=== PATIENT | female | born 1925 | race Caucasian/White ===

== ENCOUNTER → 2016-08-23 | Outpatient (CLI) | payer MEDICARE ==
[2015-12-12 11:41] VITALS: BP 149/53
[~2016-08-23] MED LIST: ACET325T9 PO; ACET500T68 PO; AMLO5TAB2 PO; AMOX500C PO; BISA10SU55 RC; CLON0.1T PO; DIGO125T PO; FAMO20TA5 PO; FERR-26 PO; FURO20TA3 PO; LEVO50TA5 PO; LORA0.5T PO; LOSA100T6 PO; MAGN400O4 PO; METO25TA4 PO; METO25TA9 PO; NYST1000 PO; TRAM50TA PO; TRAZ100T12 PO; TRAZ50TA15 PO; WARF2TAB PO; WARF5TAB7 PO
--- NOTE | 2016-08-23 08:49 | RAD ---
Abdominal ultrasound, 08/23/2016: History: Elevated bilirubin The gallbladder is within normal limits in size. It contains echogenic foci with posterior acoustic shadowing compatible with gallstones. The gallbladder wall is not thickened. No bile duct dilatation is seen. There is no evidence of a hepatic mass. The visualized portions of the pancreas and spleen are unremarkable. No renal abnormality is detected. There is aortic atherosclerosis without evidence of aneurysm. Inferior vena cava cava is at the upper limits of normal in size. No free fluid is evident in the abdomen. Incidental note is made of a small right pleural effusion. IMPRESSION: 1. Cholelithiasis. 2. No acute abdominal abnormality is detected. 3. Small right pleural effusion
== END | disposition home or self-care (01) ==
LOC: US 07:50
PROVIDERS: ATTEND Internal Medicine
DX: K80.20 Calculus of gallbladder without cholecystitis without obstruction (principal); J90 Pleural effusion, not elsewhere classified
CPT/HCPCS: 76700

== ENCOUNTER 2016-11-10 23:15 | Inpatient (IN) | payer MEDICARE ==
[~2016-11-10] VITALS: Ht 162.6 cm; Wt 64.9 kg
[~2016-11-10 23:15] MED LIST changes: -MAGN400O4 PO; +MAGN400O7 PO; -NYST1000 PO; +NYST100054 PO
[2016-11-10] MEDS ORDERED: FUROSEMIDE 20 MG/2 ML VIAL. IV PRN (23:30)
[2016-11-10] MEDS ORDERED: IV NORMAL SALINE 1000ML BAG 1,000 ML IV SCH (23:45)
[2016-11-10] MEDS ORDERED: ONDANSETRON PF 4 MG/2 ML VIAL. IV ONE (23:45)
[2016-11-10 23:49] LABS: BASO # 0.1 x10^3/uL (0.0-0.2); BASO % 0 % (0-3); EOS % 0 % (0-3); LYMPH # 1.7 x10^3/uL (1.0-4.8); LYMPH % 12 % (24-48); MEAN CORPUSCULAR HEMOGLOBIN 36 pg (25-35); MEAN CORPUSCULAR HGB CONC 32 g/dL (31-37); MEAN CORPUSCULAR VOLUME 112 fL (79-100); MONO % 6 % (0-9); NEUT % 81 % (31-73); PLATELET COUNT 201 x10^3/uL (140-400); RED BLOOD COUNT 1.24 x10^6/uL (3.50-5.40); WHITE BLOOD COUNT 13.8 x10^3/uL (4.0-11.0)
[2016-11-10 23:51] LABS: HEMATOCRIT 13.9 % (36.0-47.0); HEMOGLOBIN 4.5 g/dL (12.0-15.5)
[2016-11-11] VITALS (36 sets, daily range): BP systolic 93–157; BP diastolic 32–92
[2016-11-11] LABS: PROTHROMBIN TIME PATIENT 48.9 SEC (11.7-14.0)
[2016-11-11 00:04] LABS: INR 5.8 (0.8-1.1)
[2016-11-11 00:06] LABS: CALCIUM 8.1 mg/dL (8.5-10.1); CREATININE 1.9 mg/dL (0.6-1.0); GFR 24.9; POTASSIUM 4.5 mmol/L (3.5-5.1)
[2016-11-11 00:11] LABS: NEG OBC FOB NEG; POS OBC FOB POS
[2016-11-11 00:20] LABS: ALBUMIN 2.7 g/dL (3.4-5.0); ALBUMIN/GLOBULIN RATIO 0.9 (1.0-1.7); TOTAL BILIRUBIN 1.4 mg/dL (0.2-1.0); TOTAL PROTEIN 5.6 g/dL (6.4-8.2)
[2016-11-11] MEDS ORDERED: IV NORMAL SALINE 1000ML BAG 1,000 ML IV SCH (00:24)
[2016-11-11] MEDS ORDERED: ONDANSETRON PF 4 MG/2 ML VIAL. IV PRN (00:30)
[2016-11-11] MEDS ORDERED: fentaNYL PF VIAL 100 MCG/2 ML VIAL IV PRN (00:30)
--- NOTE | 2016-11-11 00:33 | PHYS DOC ---
Past Medical History Past Medical History: A-Fib, Anemia, Asthma, CHF, CVA, High Cholesterol, Hypertension, Hypothyroid, UTI, Other Additional Past Medical Histor: macular degeneration, chronic kidney disease, left femur fracture Past Surgical History: Other Additional Past Surgical Histo: heart valve replacement; left leg surgery; bladder sling,left hip fracture Alcohol Use: None Drug Use: None Adult General Chief Complaint Chief Complaint: HYPOTENSION HPI HPI Patient is a 89 year old female who presents to the emergency department with lower GI bleeding. The patient was brought to the emergency department by EMS after family called stating that the patient was having weakness and near syncopal episodes at home. Family notes that the patient has been passing black stools over the past 2 days. The patient was noted to be hypotensive by EMS. The patient denies any pain but is complaining of generalized weakness and fatigue. Patient has history of CHF and atrial fibrillation. The patient is currently on warfarin therapy. Family notes that the patient had a "high INR" a few days ago and that the patient was instructed to discontinue use of her warfarin at that time. Patient has had no reported fevers. Family denies history of GI bleeding. Review of Systems Review of Systems Constitutional: Generalized weakness, denies fever or chills [] Eyes: Denies change in visual acuity, redness, or eye pain [] HENT: Denies nasal congestion or sore throat [] Respiratory: Denies cough or shortness of breath [] Cardiovascular: Denies chest pain or edema [] GI: Dark stools, denies abdominal pain or vomiting [] : Denies dysuria or hematuria [] Musculoskeletal: Denies back pain or joint pain [] Integument: Denies rash or skin lesions [] Neurologic: Denies headache, focal weakness or sensory changes [] Current Medications Current Medications Current Medications Medications (Trade) Dose Ordered Sig/Laxmi Start Time Stop Time Status Last Admin Dose Admin Furosemide (Lasix) 20 mg 1X PRN PRN 11/10/16 23:30 11/11/16 23:29 Ondansetron HCl (Zofran) 4 mg 1X ONCE 11/10/16 23:45 11/10/16 23:46 DC Sodium Chloride 1,000 ml @ 1,000 mls/hr Q1H 11/10/16 23:45 11/11/16 00:44 DC 11/10/16 23:58 1,000 MLS/HR Allergies Allergies Allergies Coded Allergies Type Severity Reaction Last Updated Verified morphine Allergy Intermediate Nausea 11/13/15 Yes hydrocodone Adverse Reaction Severe hypotension, hyper opiate sensitive Yes Physical Exam Physical Exam Constitutional: Alert, hypertensive, afebrile, appears toxic. [] HENT: Normocephalic, atraumatic, bilateral external ears normal, oropharynx dry , pale mucous membranes, no oral exudates, nose normal. [] Eyes: PERRLA, EOMI, conjunctiva normal, no discharge. [] Neck: Normal range of motion, no tenderness, supple, no stridor. [] Cardiovascular:Heart rate regular rhythm, no murmur [] Lungs & Thorax: Bilateral breath sounds clear to auscultation [] Abdomen: Bowel sounds normal, soft, no tenderness, no masses, no pulsatile masses. [] Skin: Warm, dry, pale, no erythema, no rash. [] Back: No tenderness, no CVA tenderness. [] Extremities: No tenderness, no cyanosis, no clubbing, ROM intact, no edema. [] Neurologic: Alert and oriented X 3, normal motor function, normal sensory function, no focal deficits noted. [] Current Patient Data Vital Signs Vital Signs Date Time Temp Pulse Resp B/P (MAP) Pulse Ox O2 Delivery O2 Flow Rate FiO2 11/11/16 00:00 76 16 142/78 (99) 100 Room Air 11/10/16 23:15 97.8 97.8 Lab Values Laboratory Tests Test 11/10/16 23:39 11/10/16 23:48 11/10/16 23:58 White Blood Count 13.8 x10^3/uL (4.0-11.0) H Red Blood Count 1.24 x10^6/uL (3.50-5.40) L Hemoglobin 4.5 g/dL (12.0-15.5) *L Hematocrit 13.9 % (36.0-47.0) *L Mean Corpuscular Volume 112 fL (79-100) H Mean Corpuscular Hemoglobin 36 pg (25-35) H Mean Corpuscular Hemoglobin Concent 32 g/dL (31-37) Red Cell Distribution Width 19.0 % (11.5-14.5) H Platelet Count 201 x10^3/uL (140-400) Neutrophils (%) (Auto) 81 % (31-73) H Lymphocytes (%) (Auto) 12 % (24-48) L Monocytes (%) (Auto) 6 % (0-9) Eosinophils (%) (Auto) 0 % (0-3) Basophils (%) (Auto) 0 % (0-3) Neutrophils # (Auto) 11.2 x10^3uL (1.8-7.7) H Lymphocytes # (Auto) 1.7 x10^3/uL (1.0-4.8) Monocytes # (Auto) 0.8 x10^3/uL (0.0-1.1) Eosinophils # (Auto) 0.0 x10^3/uL (0.0-0.7) Basophils # (Auto) 0.1 x10^3/uL (0.0-0.2) Platelet Estimate Adequate (ADEQUATE) Polychromasia Slight Anisocytosis Slight Macrocytosis Mod Prothrombin Time 48.9 SEC (11.7-14.0) H Prothrombin Time INR 5.8 (0.8-1.1) *H PTT 41 SEC (24-38) H Sodium Level 147 mmol/L (136-145) H Potassium Level 4.5 mmol/L (3.5-5.1) Chloride Level 112 mmol/L (98-107) H Carbon Dioxide Level 19 mmol/L (21-32) L Anion Gap 16 (6-14) H Blood Urea Nitrogen 87 mg/dL (7-20) H Creatinine 1.9 mg/dL (0.6-1.0) H Estimated GFR (Cockcroft-Gault) 24.9 BUN/Creatinine Ratio 46 (6-20) H Glucose Level 197 mg/dL (70-99) H Calcium Level 8.1 mg/dL (8.5-10.1) L Total Bilirubin 1.4 mg/dL (0.2-1.0) H Aspartate Amino Transferase (AST) 49 U/L (15-37) H Alanine Aminotransferase (ALT) 22 U/L (14-59) Alkaline Phosphatase 91 U/L (46-116) Total Protein 5.6 g/dL (6.4-8.2) L Albumin 2.7 g/dL (3.4-5.0) L Albumin/Globulin Ratio 0.9 (1.0-1.7) L Lipase 157 U/L (73-393) Stool Occult Blood Positive (NEG) Urine Collection Type Unknown Urine Color Yellow Urine Clarity Cloudy Urine pH 5.0 Urine Specific [place] 1.015 Urine Protein Negative mg/dL (NEG-TRACE) Urine Glucose (UA) Negative mg/dL (NEG) Urine Ketones (Stick) Negative mg/dL (NEG) Urine Blood Large (NEG) Urine Nitrite Negative (NEG) Urine Bilirubin Negative (NEG) Urine Urobilinogen Dipstick 0.2 mg/dL (0.2 mg/dL) Urine Leukocyte Esterase Small (NEG) Urine RBC 1-2 /HPF (0-2) Urine WBC Occ /HPF (0-4) Urine Squamous Epithelial Cells Few /LPF Urine Amorphous Sediment Present /HPF Urine Bacteria 0 /HPF (0-FEW) Urine Mucus Slight /LPF Laboratory Tests 11/10/16 23:39 Laboratory Tests 11/10/16 23:39 EKG EKG Interpreted by me: Heart rate 77, atrial fibrillation, normal axis, no acute ST/ T-wave abnormalities present [] Radiology/Procedures Radiology/Procedures 3 view acute abdominal series interpreted by me: Nonobstructive bowel gas pattern, no free air under the diaphragm, no pulmonary infiltrates or effusions [] Course & Med Decision Making Course & Med Decision Making Pertinent Labs and Imaging studies reviewed. (See chart for details) Patient was started on IV fluids in the emergency department. The patient's hemoglobin was found to be critically low. Patient shows evidence of severe acute bleeding. Patient also found to have a supratherapeutic INR level. I spoke with Dr. Dinero of gastroenterology. He agreed with initiation of packed red blood cells and FFP in the emergency department. The patient was typed and crossed for 3 units of packed red blood cells and 4 units of FFP. Patient was also given 10 units of subcutaneous vitamin K. The patient will be admitted to ICU for further care. I spoke with Dr. Strange who accepted care patient in hospital. Critical care time excluding procedures: 45 minutes Dragon Disclaimer Dragon Disclaimer This electronic medical record was generated, in whole or in part, using a voice recognition dictation system. Departure Departure Impression: Primary Impression: Acute GI bleeding Additional Impressions: Hemodynamic instability Warfarin-induced coagulopathy Acute renal failure Severe protein-calorie malnutrition Disposition: ADMITTED INPATIENT Condition: GUARDED Referrals: MIKI STRANGE MD (PCP) Problem Qualifiers Additional Impressions: Acute renal failure Acute renal failure type: unspecified Qualified Codes: N17.9 - Acute kidney failure, unspecified SHARMILA REID MD Nov 11, 2016 00:33
[2016-11-11] MEDS ORDERED: PHYTONADIONE 10 MG/ML AMPUL. SQ ONE (00:45)
[2016-11-11 00:47] LABS: BILIRUBIN,URINE NEGATIVE (NEG); GLUCOSE,URINE NEGATIVE (NEG); NITRITE,URINE NEGATIVE (NEG); PROTEIN,URINE NEGATIVE (NEG-TRACE); UROBILINOGEN,URINE 0.2 mg/dL (0.2 mg/dL)
[2016-11-11] MEDS ORDERED: PANTOPRAZOLE SODIUM IV 80 MG in IV NORMAL SALINE 100ML 100 ML IV ONE (01:00)
[2016-11-11] MEDS ORDERED: PANTOPRAZOLE IV PUSH 40 MG VIAL. IVP ONE (01:00)
[2016-11-11 01:18] LABS: WBC,URINE OCC /HPF (0-4)
[2016-11-11 01:19] LABS: BACTERIA,URINE 0 /HPF (0-FEW); SQUAMOUS EPITHELIAL CELL,UR FEW /LPF
[2016-11-11 04:25] LABS: PLT ESTIMATE ADEQUATE (ADEQUATE); POLYCHROMASIA SLIGHT
[2016-11-11 04:26] LABS: ANISOCYTOSIS SLIGHT
[2016-11-11 06:31] LABS: HEMATOCRIT 25.5 % (36.0-47.0); HEMOGLOBIN 8.8 g/dL (12.0-15.5); RED BLOOD COUNT 2.8 x10^6/uL (3.50-5.40); RED CELL DISTRIBUTION WIDTH 17.8 % (11.5-14.5); WHITE BLOOD COUNT 11.5 x10^3/uL (4.0-11.0)
[2016-11-11 06:59] LABS: INR 1.9 (0.8-1.1); PROTHROMBIN TIME PATIENT 20.4 SEC (11.7-14.0)
--- NOTE | 2016-11-11 08:08 | RAD ---
Examination: Acute abdomen series History: History of GI bleed, hypotension. Comparison: None available. Findings: Low lung volumes and technique accentuates heart size and pulmonary vascularity. Mild cardiomegaly. Prior changes of aortic valve prosthesis. There is no acute infiltrate or visualize pneumothorax. The bowel gas pattern appears unremarkable. Moderate degenerative changes lumbar spine. Nonspecific calcifications identified in the right upper quadrant and left lower quadrant probably costochondral calcifications. Severe degenerative changes bilateral hip joints. Left hip hardware. Impression: 1. No acute cardiopulmonary findings. 2. Unremarkable bowel gas pattern.
--- NOTE | 2016-11-11 09:23 | PDOC1 ---
History and Physical Date of Admission Date of Admission DATE: 11/11/16 TIME: 09:03 Identification/Chief Complaint Chief Complaint black stools for 2 days. near syncope at home with low blood pressure Problems: Source Source: Caregiver, Patient History of Present Illness History of Present Illness 89 years old white female with paroxysmal atrial fibrillation treated with coumadin with bioprosthetic aortic valve and chronic kidney disease stage 3 with baseline creatinine 1.3 and anemia of chronic disease with baseline hgb 9.9 who has mitral stnosis and previous history of GI bleed in 2008 due to a gastric ulcer and is a full code per sons wishes. had onset of black stools for 2 days and near syncope at home. takes aspirin 81 mg daily and inr was 3.3 last and was to stop coumadin for 1 day then decrease dose from 2.5 mg daily to 2mg daily thereafter. last dose of coumadin was . Past Medical History Past Medical History paroxysmal atrial fibrillation and mitral stenosis and chronic kidney disease stage 3 and anemia of chronic disease and macular degeneration left eye and hypertension. history of UGI bleed due to gastric ulcer 2008. 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 history of intracranial brain hemorrhage 2010. history of electrical conversion for atrial fibrillation 2007. Cardiovascular: HTN, Hyperlipidemia, Pulmonary hypertension CENTRAL NERVOUS SYSTEM: Dementia, Other GI: GI bleed, Peptic Ulcer disease Endocrine: Hypothyroidism Past Surgical History Past Surgical History bioprosthetic AVR Family History Family History not contributory Family History: No Significant Social History Smoke: No ALCOHOL: none Drugs: None Current Problem List Problem List Problems Medical Problems: (1) Acute GI bleeding Status: Acute (2) Acute renal failure Status: Acute (3) Hemodynamic instability Status: Acute (4) Severe protein-calorie malnutrition Status: Acute (5) Warfarin-induced coagulopathy Status: Acute Problems: Current Medications Current Medications Current Medications Sodium Chloride 1,000 ml @ 1,000 mls/hr Q1H IV Last administered on 11/10/16t 23:58; Start 11/10/16 at 23:45; Stop 11/11/16 at 00:44; Status DC Ondansetron HCl (Zofran) 4 mg 1X ONCE IV ; Start 11/10/16 at 23:45; Stop at 23:46; Status DC Furosemide (Lasix) 20 mg 1X PRN PRN IV Blood transfusion; Start 11/10/16 at 23: 30; Stop 11/11/16 at 23:29 Phytonadione (Vitamin K) 10 mg 1X ONCE SQ Last administered on 11/11/16 00:45 ; Start 11/11/16 at 00:45; Stop 11/11/16 at 00:46; Status DC Pantoprazole Sodium (Protonix Vial) 80 mg 1X ONCE IVP Last administered on 11/11 01:08; Start 11/11/16 at 01:00; Stop 11/11/16 at 01:01; Status DC Pantoprazole Sodium 80 mg/ Sodium Chloride 100 ml @ 10 mls/hr 1X ONCE IV Last administered on 11/11/16 01:07; Start 11/11/16 at 01:00; Stop 11/11/16 at 10: 59 Ondansetron HCl (Zofran) 4 mg PRN Q8HRS PRN IV NAUSEA/VOMITING; Start 11/11/16 at 00:30; Stop 11/12/16 at 00:29 Fentanyl Citrate (Fentanyl 2ml Vial) 50 mcg PRN Q2HR PRN IV SEVERE PAIN; Start 11/11/16 at 00:30; Stop 11/12/16 at 00:29 Sodium Chloride 1,000 ml @ 150 mls/hr Q6H40M IV ; Start 11/11/16 at 00:24; Stop 11/11/16 at 08:57; Status DC Pantoprazole Sodium (Protonix) 40 mg DAILYAC PO ; Start 11/11/16 at 10:00; Status UNV Acetaminophen (Tylenol) 650 mg PRN Q6HRS PRN PO MILD PAIN / TEMP; Start at 09:00; Status UNV Dextrose/Sodium Chloride 1,000 ml @ 75 mls/hr [id number] IV ; Start 11/11/16 at 09: 00; Status UNV Active Scripts Active Reported Trazodone Hcl 50 Mg Tablet 50 Mg PO HS Coumadin (Warfarin Sodium) 2 Mg Tablet 1 Tab PO DAILY Tramadol Hcl 50 Mg Tablet qhs Metoprolol Tartrate 12.5 mg po daily Losartan Potassium 100 Mg Tablet 100 Mg PO DAILY Lorazepam 0.25 Mg Tablet 0.5 Mg PO HS Levothyroxine Sodium 75 Mcg Tablet 1 Tab PO DAILY Furosemide 20 Mg Tablet 1 Tab PO DAILY Ferrous Sulfate 325 Mg Tablet 1 Tab PO daily ocuvite 1 po daily losartan 100 mg po daily aspirin 81 mg po dialy Allergies Allergies: Coded Allergies: morphine (Verified Allergy, Intermediate, Nausea, 11/13/15) hydrocodone (Verified Adverse Reaction, Severe, hypotension, hyper opiate sensitive, 12/03/15) Physical Exam General: Alert, Other (confused and hard of hearing) HEENT: Atraumatic, Other (conjuntiva pale) Heart: S1S2, no murmurs Abdomen: Normal bowel sounds, Soft, No tenderness, No hepatosplenomegaly, No masses Extremities: No edema Skin: No rashes Neuro: Normal speech Psych/Mental Status: Mood NL Vitals Vitals Vital Signs Date Time Temp Pulse Resp B/P (MAP) Pulse Ox O2 Delivery O2 Flow Rate FiO2 11/11/16 06:00 99.3 85 12 113/39 (63) 100 Room Air 99.3 Labs Labs Laboratory Tests Test 11/10/16 23:39 11/10/16 23:48 11/10/16 23:58 11/11/16 06:05 White Blood Count 13.8 x10^3/uL (4.0-11.0) 11.5 x10^3/uL (4.0-11.0) Red Blood Count 1.24 x10^6/uL (3.50-5.40) 2.80 x10^6/uL (3.50-5.40) Hemoglobin 4.5 g/dL (12.0-15.5) 8.8 g/dL (12.0-15.5) Hematocrit 13.9 % (36.0-47.0) 25.5 % (36.0-47.0) Mean Corpuscular Volume 112 fL (79-100) 91 fL (79-100) Mean Corpuscular Hemoglobin 36 pg (25-35) 31 pg (25-35) Mean Corpuscular Hemoglobin Concent 32 g/dL (31-37) 34 g/dL (31-37) Red Cell Distribution Width 19.0 % (11.5-14.5) 17.8 % (11.5-14.5) Platelet Count 201 x10^3/uL (140-400) 111 x10^3/uL (140-400) Neutrophils (%) (Auto) 81 % (31-73) Lymphocytes (%) (Auto) 12 % (24-48) Monocytes (%) (Auto) 6 % (0-9) Eosinophils (%) (Auto) 0 % (0-3) Basophils (%) (Auto) 0 % (0-3) Neutrophils # (Auto) 11.2 x10^3uL (1.8-7.7) Lymphocytes # (Auto) 1.7 x10^3/uL (1.0-4.8) Monocytes # (Auto) 0.8 x10^3/uL (0.0-1.1) Eosinophils # (Auto) 0.0 x10^3/uL (0.0-0.7) Basophils # (Auto) 0.1 x10^3/uL (0.0-0.2) Platelet Estimate Adequate (ADEQUATE) Polychromasia Slight Anisocytosis Slight Macrocytosis Mod Prothrombin Time 48.9 SEC (11.7-14.0) 20.4 SEC (11.7-14.0) Prothromb Time International Ratio 5.8 (0.8-1.1) 1.9 (0.8-1.1) Activated Partial Thromboplast Time 41 SEC (24-38) Sodium Level 147 mmol/L (136-145) Potassium Level 4.5 mmol/L (3.5-5.1) Chloride Level 112 mmol/L (98-107) Carbon Dioxide Level 19 mmol/L (21-32) Anion Gap 16 (6-14) Blood Urea Nitrogen 87 mg/dL (7-20) Creatinine 1.9 mg/dL (0.6-1.0) Estimated GFR (Cockcroft-Gault) 24.9 BUN/Creatinine Ratio 46 (6-20) Glucose Level 197 mg/dL (70-99) Calcium Level 8.1 mg/dL (8.5-10.1) Total Bilirubin 1.4 mg/dL (0.2-1.0) Aspartate Amino Transf (AST/SGOT) 49 U/L (15-37) Alanine Aminotransferase (ALT/SGPT) 22 U/L (14-59) Alkaline Phosphatase 91 U/L (46-116) Total Protein 5.6 g/dL (6.4-8.2) Albumin 2.7 g/dL (3.4-5.0) Albumin/Globulin Ratio 0.9 (1.0-1.7) Lipase 157 U/L (73-393) Stool Occult Blood Positive (NEG) Urine Collection Type Unknown Urine Color Yellow Urine Clarity Cloudy Urine pH 5.0 Urine Specific [place] 1.015 Urine Protein Negative mg/dL (NEG-TRACE) Urine Glucose (UA) Negative mg/dL (NEG) Urine Ketones (Stick) Negative mg/dL (NEG) Urine Blood Large (NEG) Urine Nitrite Negative (NEG) Urine Bilirubin Negative (NEG) Urine Urobilinogen Dipstick 0.2 mg/dL (0.2 mg/dL) Urine Leukocyte Esterase Small (NEG) Urine RBC 1-2 /HPF (0-2) Urine WBC Occ /HPF (0-4) Urine Squamous Epithelial Cells Few /LPF Urine Amorphous Sediment Present /HPF Urine Bacteria 0 /HPF (0-FEW) Urine Mucus Slight /LPF Laboratory Tests Test 11/10/16 23:39 11/10/16 23:48 11/10/16 23:58 11/11/16 06:05 White Blood Count 13.8 x10^3/uL (4.0-11.0) 11.5 x10^3/uL (4.0-11.0) Red Blood Count 1.24 x10^6/uL (3.50-5.40) 2.80 x10^6/uL (3.50-5.40) Hemoglobin 4.5 g/dL (12.0-15.5) 8.8 g/dL (12.0-15.5) Hematocrit 13.9 % (36.0-47.0) 25.5 % (36.0-47.0) Mean Corpuscular Volume 112 fL (79-100) 91 fL (79-100) Mean Corpuscular Hemoglobin 36 pg (25-35) 31 pg (25-35) Mean Corpuscular Hemoglobin Concent 32 g/dL (31-37) 34 g/dL (31-37) Red Cell Distribution Width 19.0 % (11.5-14.5) 17.8 % (11.5-14.5) Platelet Count 201 x10^3/uL (140-400) 111 x10^3/uL (140-400) Neutrophils (%) (Auto) 81 % (31-73) Lymphocytes (%) (Auto) 12 % (24-48) Monocytes (%) (Auto) 6 % (0-9) Eosinophils (%) (Auto) 0 % (0-3) Basophils (%) (Auto) 0 % (0-3) Neutrophils # (Auto) 11.2 x10^3uL (1.8-7.7) Lymphocytes # (Auto) 1.7 x10^3/uL (1.0-4.8) Monocytes # (Auto) 0.8 x10^3/uL (0.0-1.1) Eosinophils # (Auto) 0.0 x10^3/uL (0.0-0.7) Basophils # (Auto) 0.1 x10^3/uL (0.0-0.2) Platelet Estimate Adequate (ADEQUATE) Polychromasia Slight Anisocytosis Slight Macrocytosis Mod Prothrombin Time 48.9 SEC (11.7-14.0) 20.4 SEC (11.7-14.0) Prothromb Time International Ratio 5.8 (0.8-1.1) 1.9 (0.8-1.1) Activated Partial Thromboplast Time 41 SEC (24-38) Sodium Level 147 mmol/L (136-145) Potassium Level 4.5 mmol/L (3.5-5.1) Chloride Level 112 mmol/L (98-107) Carbon Dioxide Level 19 mmol/L (21-32) Anion Gap 16 (6-14) Blood Urea Nitrogen 87 mg/dL (7-20) Creatinine 1.9 mg/dL (0.6-1.0) Estimated GFR (Cockcroft-Gault) 24.9 BUN/Creatinine Ratio 46 (6-20) Glucose Level 197 mg/dL (70-99) Calcium Level 8.1 mg/dL (8.5-10.1) Total Bilirubin 1.4 mg/dL (0.2-1.0) Aspartate Amino Transf (AST/SGOT) 49 U/L (15-37) Alanine Aminotransferase (ALT/SGPT) 22 U/L (14-59) Alkaline Phosphatase 91 U/L (46-116) Total Protein 5.6 g/dL (6.4-8.2) Albumin 2.7 g/dL (3.4-5.0) Albumin/Globulin Ratio 0.9 (1.0-1.7) Lipase 157 U/L (73-393) Stool Occult Blood Positive (NEG) Urine Collection Type Unknown Urine Color Yellow Urine Clarity Cloudy Urine pH 5.0 Urine Specific [place] 1.015 Urine Protein Negative mg/dL (NEG-TRACE) Urine Glucose (UA) Negative mg/dL (NEG) Urine Ketones (Stick) Negative mg/dL (NEG) Urine Blood Large (NEG) Urine Nitrite Negative (NEG) Urine Bilirubin Negative (NEG) Urine Urobilinogen Dipstick 0.2 mg/dL (0.2 mg/dL) Urine Leukocyte Esterase Small (NEG) Urine RBC 1-2 /HPF (0-2) Urine WBC Occ /HPF (0-4) Urine Squamous Epithelial Cells Few /LPF Urine Amorphous Sediment Present /HPF Urine Bacteria 0 /HPF (0-FEW) Urine Mucus Slight /LPF Images Images cxr clear VTE Prophylaxis Ordered VTE Prophylaxis Devices: Yes VTE Pharmacological Prophylaxi: No Assessment/Plan Assessment/Plan acute upper GI bleed severe acute blood loss anemia on anemia of chronic disease coagulopathy hypotension due to GI bleed resolved near syncope due to hypotension acute kidney injury on chronic kidney disease stage 3 paroxysmal atrial fibrillation bioprosthetic AVR [id number] hypothyroidism moderate protein calorie malnutrition history of UGI bleed due to gastric ulcer 2008 Plan iv protonix drip received 3 units prbc. hgb up to 8.8 received 2 units FFP and will order another 2 units FFP for inr 1.9 iv fluids hgb every [address] Dinreo for EGD d/c coumadin. do not resume d/c aspirin avoid nsaid lab tomorrow scd for dvt prophylaxis consult nephrology MIKI COLORADO MD Nov 11, 2016 09:23
[2016-11-11] MEDS ORDERED: PANTOPRAZOLE 40 MG TABLET.DR. PO SCH (10:00)
[2016-11-11] MEDS: PANTOPRAZOLE SODIUM IV 80 MG in IV NORMAL SALINE 100ML 100 ML IV SCH ×2 (10:11→19:42)
[2016-11-11] MEDS: IV DEXTROSE 5 %-0.45 % NACL 1,000 ML IV SCH ×2 (10:11→19:43)
--- NOTE | 2016-11-11 12:20 | EKG ---
[facility] [address] [place] [address] Test Date: 2016-11-10 Test Time: 23:18:28 Pat Name: WAGNER CARPIO Department: Room: Gender: F Carton Folder: : 1925 Requested By: SHARMILA REID Order Number: [id number] Reading MD: Measurements Intervals [place] Rate: 77 P: 90 AL: 122 QRS: 90 QRSD: 82 T: -105 QT: 430 QTc: 489 Interpretive Statements SINUS RHYTHM QRS(T) CONTOUR ABNORMALITY CONSIDER ANTEROSEPTAL MYOCARDIAL DAMAGE ST & T ABNORMALITY, CONSIDER LATERAL ISCHEMIA OR LEFT VENTRICULAR STRAIN INFEROLATERAL ISCHEMIA OR LEFT VENTRICULAR STRAIN T ABNORMALITY IN ANTERIOR LEADS RI6.01 Unconfirmed report No previous ECG available for comparison
--- NOTE | 2016-11-11 12:22 | PDOC2 ---
CONSULT Date of Consult Date of Consult DATE: 11/11/16 TIME: 12:15 Reason for Consult Reason for Consult: Acute blood loss anemia/coumadin toxicity Identification/Chief Complaint Chief Complaint Melena/acute blood loss anemia Problems: History of Present Illness Reason for Visit: 89 year old patient seen with melena and light headedness. She has felt weak for the past several years. On coumadin for her valvular heart disease and afib. No change in bowel habits or weight is elicited. No hematemesis or hematochezia noted. With the continued issues, consultation is requested Past Medical History Cardiovascular: HTN, Hyperlipidemia, Pulmonary hypertension CENTRAL NERVOUS SYSTEM: Dementia, Other GI: GI bleed, Peptic Ulcer disease Endocrine: Hypothyroidism Past Surgical History Past Surgical History: Other (avr) Family History Family History: No Significant Social History No ALCOHOL: none Drugs: None Lives: with Family Current Problem List Problem List Problems Medical Problems: (1) Acute GI bleeding Status: Acute (2) Acute renal failure Status: Acute (3) Hemodynamic instability Status: Acute (4) Severe protein-calorie malnutrition Status: Acute (5) Warfarin-induced coagulopathy Status: Acute Current Medications Current Medications Current Medications Sodium Chloride 1,000 ml @ 1,000 mls/hr Q1H IV Last administered on 11/10/16 23:58; Start 11/10/16 at 23:45; Stop 11/11/16 at 00:44; Status DC Ondansetron HCl (Zofran) 4 mg 1X ONCE IV ; Start 11/10/16 at 23:45; Stop at 23:46; Status DC Furosemide (Lasix) 20 mg 1X PRN PRN IV Blood transfusion; Start 11/10/16 at 23: 30; Stop 11/11/16 at 23:29 Phytonadione (Vitamin K) 10 mg 1X ONCE SQ Last administered on 11/11/16 00:45 ; Start 11/11/16 at 00:45; Stop 11/11/16 at 00:46; Status DC Pantoprazole Sodium (Protonix Vial) 80 mg 1X ONCE IVP Last administered on 11/11 01:08; Start 11/11/16 at 01:00; Stop 11/11/16 at 01:01; Status DC Pantoprazole Sodium 80 mg/ Sodium Chloride 100 ml @ 10 mls/hr 1X ONCE IV Last administered on 11/11/16 01:07; Start 11/11/16 at 01:00; Stop 11/11/16 at 10: 59; Status DC Ondansetron HCl (Zofran) 4 mg PRN Q8HRS PRN IV NAUSEA/VOMITING Last administered on 11/11/16 11:34; Start 11/11/16 at 00:30; Stop 11/12/16 at 00:29 Fentanyl Citrate (Fentanyl 2ml Vial) 50 mcg PRN Q2HR PRN IV SEVERE PAIN; Start 11/11/16 at 00:30; Stop 11/12/16 at 00:29 Sodium Chloride 1,000 ml @ 150 mls/hr Q6H40M IV ; Start 11/11/16 at 00:24; Stop 11/11/16 at 08:57; Status DC Pantoprazole Sodium (Protonix) 40 mg DAILYAC PO ; Start 11/11/16 at 10:00; Status UNV Acetaminophen (Tylenol) 650 mg PRN Q6HRS PRN PO MILD PAIN / TEMP; Start at 09:00 Dextrose/Sodium Chloride 1,000 ml @ 100 mls/hr Q10H IV Last administered on 10:11; Start 11/11/16 at 09:00 Pantoprazole Sodium 80 mg/ Sodium Chloride 100 ml @ 10 mls/hr Q10H IV Last administered on 11/11/16 10:11; Start 11/11/16 at 09:15 Active Scripts Active Reported Trazodone Hcl 50 Mg Tablet 50 Mg PO HS Coumadin (Warfarin Sodium) 2 Mg Tablet 1 Tab PO DAILY Tramadol Hcl 50 Mg Tablet 25 Mg PO Q6H PRN Nystatin 100,000 Unit/1 Ml Oral.susp 5 Ml PO QID Metoprolol Tartrate 25 Mg Tablet 12.5 Mg PO BID Amoxicillin 500 Mg Capsule 1 Cap PO BID Amlodipine Besylate 5 Mg Tablet 5 Mg PO DAILY Amlodipine Besylate 5 Mg Tablet 5 Mg PO DAILY Milk Of Magnesia (Magnesium Hydroxide) 400 Mg/5 Ml Oral.susp 400 Mg PO PRN DAILY PRN Metoprolol Succinate ( Xl ) (Metoprolol Succinate) 25 Mg Tab.er.24h 1 Tab PO DAILY Losartan Potassium 100 Mg Tablet 100 Mg PO DAILY Lorazepam 0.5 Mg Tablet 0.5 Mg PO HS Levothyroxine Sodium 50 Mcg Tablet 1 Tab PO DAILY Furosemide 20 Mg Tablet 1 Tab PO DAILY Ferrous Sulfate 325 Mg Tablet 1 Tab PO BIDWMEALS Famotidine 20 Mg Tablet 20 Mg PO DAILY Dulcolax (Bisacodyl) 10 Mg Supp.rect 10 Mg RC PRN DAILY PRN Digoxin 125 Mcg Tablet 1 Tab PO DAILY Clonidine Hcl 0.1 Mg Tablet 1 Tab PO PRN Q6HRS PRN Acetaminophen 500 Mg Tablet 1 Tab PO PRN QID PRN Tylenol (Acetaminophen) 325 Mg Tablet 2 Tab PO PRN Q4HRS PRN Allergies Allergies: Coded Allergies: morphine (Verified Allergy, Intermediate, Nausea, 11/13/15) hydrocodone (Verified Adverse Reaction, Severe, hypotension, hyper opiate sensitive, 12/03/15) Physical Exam General: Alert Lungs: Clear to auscultation Heart: Normal S1, Normal S2, Other (iii/vi carlota) Abdomen: Normal bowel sounds Vitals VITALS Vital Signs Date Time Temp Pulse Resp B/P (MAP) Pulse Ox O2 Delivery O2 Flow Rate FiO2 11/11/16 11:26 99.5 87 25 152/58 99.5 11/11/16 10:00 100 Room Air Labs Labs Laboratory Tests Test 11/10/16 23:39 11/10/16 23:48 11/10/16 23:58 11/11/16 06:05 White Blood Count 13.8 x10^3/uL (4.0-11.0) 11.5 x10^3/uL (4.0-11.0) Red Blood Count 1.24 x10^6/uL (3.50-5.40) 2.80 x10^6/uL (3.50-5.40) Hemoglobin 4.5 g/dL (12.0-15.5) 8.8 g/dL (12.0-15.5) Hematocrit 13.9 % (36.0-47.0) 25.5 % (36.0-47.0) Mean Corpuscular Volume 112 fL (79-100) 91 fL (79-100) Mean Corpuscular Hemoglobin 36 pg (25-35) 31 pg (25-35) Mean Corpuscular Hemoglobin Concent 32 g/dL (31-37) 34 g/dL (31-37) Red Cell Distribution Width 19.0 % (11.5-14.5) 17.8 % (11.5-14.5) Platelet Count 201 x10^3/uL (140-400) 111 x10^3/uL (140-400) Neutrophils (%) (Auto) 81 % (31-73) Lymphocytes (%) (Auto) 12 % (24-48) Monocytes (%) (Auto) 6 % (0-9) Eosinophils (%) (Auto) 0 % (0-3) Basophils (%) (Auto) 0 % (0-3) Neutrophils # (Auto) 11.2 x10^3uL (1.8-7.7) Lymphocytes # (Auto) 1.7 x10^3/uL (1.0-4.8) Monocytes # (Auto) 0.8 x10^3/uL (0.0-1.1) Eosinophils # (Auto) 0.0 x10^3/uL (0.0-0.7) Basophils # (Auto) 0.1 x10^3/uL (0.0-0.2) Platelet Estimate Adequate (ADEQUATE) Polychromasia Slight Anisocytosis Slight Macrocytosis Mod Prothrombin Time 48.9 SEC (11.7-14.0) 20.4 SEC (11.7-14.0) Prothromb Time International Ratio 5.8 (0.8-1.1) 1.9 (0.8-1.1) Activated Partial Thromboplast Time 41 SEC (24-38) Sodium Level 147 mmol/L (136-145) Potassium Level 4.5 mmol/L (3.5-5.1) Chloride Level 112 mmol/L (98-107) Carbon Dioxide Level 19 mmol/L (21-32) Anion Gap 16 (6-14) Blood Urea Nitrogen 87 mg/dL (7-20) Creatinine 1.9 mg/dL (0.6-1.0) Estimated GFR (Cockcroft-Gault) 24.9 BUN/Creatinine Ratio 46 (6-20) Glucose Level 197 mg/dL (70-99) Calcium Level 8.1 mg/dL (8.5-10.1) Total Bilirubin 1.4 mg/dL (0.2-1.0) Aspartate Amino Transf (AST/SGOT) 49 U/L (15-37) Alanine Aminotransferase (ALT/SGPT) 22 U/L (14-59) Alkaline Phosphatase 91 U/L (46-116) Total Protein 5.6 g/dL (6.4-8.2) Albumin 2.7 g/dL (3.4-5.0) Albumin/Globulin Ratio 0.9 (1.0-1.7) Lipase 157 U/L (73-393) Stool Occult Blood Positive (NEG) Urine Collection Type Unknown Urine Color Yellow Urine Clarity Cloudy Urine pH 5.0 Urine Specific [place] 1.015 Urine Protein Negative mg/dL (NEG-TRACE) Urine Glucose (UA) Negative mg/dL (NEG) Urine Ketones (Stick) Negative mg/dL (NEG) Urine Blood Large (NEG) Urine Nitrite Negative (NEG) Urine Bilirubin Negative (NEG) Urine Urobilinogen Dipstick 0.2 mg/dL (0.2 mg/dL) Urine Leukocyte Esterase Small (NEG) Urine RBC 1-2 /HPF (0-2) Urine WBC Occ /HPF (0-4) Urine Squamous Epithelial Cells Few /LPF Urine Amorphous Sediment Present /HPF Urine Bacteria 0 /HPF (0-FEW) Urine Mucus Slight /LPF Laboratory Tests Test 11/10/16 23:39 11/10/16 23:48 11/10/16 23:58 11/11/16 06:05 White Blood Count 13.8 x10^3/uL (4.0-11.0) 11.5 x10^3/uL (4.0-11.0) Red Blood Count 1.24 x10^6/uL (3.50-5.40) 2.80 x10^6/uL (3.50-5.40) Hemoglobin 4.5 g/dL (12.0-15.5) 8.8 g/dL (12.0-15.5) Hematocrit 13.9 % (36.0-47.0) 25.5 % (36.0-47.0) Mean Corpuscular Volume 112 fL (79-100) 91 fL (79-100) Mean Corpuscular Hemoglobin 36 pg (25-35) 31 pg (25-35) Mean Corpuscular Hemoglobin Concent 32 g/dL (31-37) 34 g/dL (31-37) Red Cell Distribution Width 19.0 % (11.5-14.5) 17.8 % (11.5-14.5) Platelet Count 201 x10^3/uL (140-400) 111 x10^3/uL (140-400) Neutrophils (%) (Auto) 81 % (31-73) Lymphocytes (%) (Auto) 12 % (24-48) Monocytes (%) (Auto) 6 % (0-9) Eosinophils (%) (Auto) 0 % (0-3) Basophils (%) (Auto) 0 % (0-3) Neutrophils # (Auto) 11.2 x10^3uL (1.8-7.7) Lymphocytes # (Auto) 1.7 x10^3/uL (1.0-4.8) Monocytes # (Auto) 0.8 x10^3/uL (0.0-1.1) Eosinophils # (Auto) 0.0 x10^3/uL (0.0-0.7) Basophils # (Auto) 0.1 x10^3/uL (0.0-0.2) Platelet Estimate Adequate (ADEQUATE) Polychromasia Slight Anisocytosis Slight Macrocytosis Mod Prothrombin Time 48.9 SEC (11.7-14.0) 20.4 SEC (11.7-14.0) Prothromb Time International Ratio 5.8 (0.8-1.1) 1.9 (0.8-1.1) Activated Partial Thromboplast Time 41 SEC (24-38) Sodium Level 147 mmol/L (136-145) Potassium Level 4.5 mmol/L (3.5-5.1) Chloride Level 112 mmol/L (98-107) Carbon Dioxide Level 19 mmol/L (21-32) Anion Gap 16 (6-14) Blood Urea Nitrogen 87 mg/dL (7-20) Creatinine 1.9 mg/dL (0.6-1.0) Estimated GFR (Cockcroft-Gault) 24.9 BUN/Creatinine Ratio 46 (6-20) Glucose Level 197 mg/dL (70-99) Calcium Level 8.1 mg/dL (8.5-10.1) Total Bilirubin 1.4 mg/dL (0.2-1.0) Aspartate Amino Transf (AST/SGOT) 49 U/L (15-37) Alanine Aminotransferase (ALT/SGPT) 22 U/L (14-59) Alkaline Phosphatase 91 U/L (46-116) Total Protein 5.6 g/dL (6.4-8.2) Albumin 2.7 g/dL (3.4-5.0) Albumin/Globulin Ratio 0.9 (1.0-1.7) Lipase 157 U/L (73-393) Stool Occult Blood Positive (NEG) Urine Collection Type Unknown Urine Color Yellow Urine Clarity Cloudy Urine pH 5.0 Urine Specific [place] 1.015 Urine Protein Negative mg/dL (NEG-TRACE) Urine Glucose (UA) Negative mg/dL (NEG) Urine Ketones (Stick) Negative mg/dL (NEG) Urine Blood Large (NEG) Urine Nitrite Negative (NEG) Urine Bilirubin Negative (NEG) Urine Urobilinogen Dipstick 0.2 mg/dL (0.2 mg/dL) Urine Leukocyte Esterase Small (NEG) Urine RBC 1-2 /HPF (0-2) Urine WBC Occ /HPF (0-4) Urine Squamous Epithelial Cells Few /LPF Urine Amorphous Sediment Present /HPF Urine Bacteria 0 /HPF (0-FEW) Urine Mucus Slight /LPF Assessment/Plan Assessment/Plan Acute blood loss anemia- with anticoagulation/AVR, most likely secondary to UGI bleed. PUD, malignancy, MW tear, and/or varices lead differential. Plan serial cbcs/transfusional support to maintain hg. 8 hold coumadin/reverse anticoagulation to inr 1.5-1.8 egd tentatively in am to further assess SYED ST MD Nov 11, 2016 12:22
--- NOTE | 2016-11-11 12:32 | PDOC2 ---
DATE OF CONSULT Date of Consult 11/11/2016 REASON FOR CONSULT Reason for Consult ARF AND CKD IN SETTING OF GI BLEED REFERRING PHYSICIAN Referring Provider MIKI COLORADO MD CHIEF COMPLAINT Chief Complaint Problems Medical Problems: (1) Acute GI bleeding Status: Acute (2) Acute renal failure Status: Acute (3) Hemodynamic instability Status: Acute (4) Severe protein-calorie malnutrition Status: Acute (5) Warfarin-induced coagulopathy Status: Acute SOURCE Source PATIENT AND FAMILY AND MED RECORDS HPI HPI 89 U/O FEMALE ADMIT WITH GI BLEED AND SEVERE ANEMIA. RECEIVED TRANSFUSION WITH IMPROVEMENT. BP STABLE. GFR IS REDUCED. NO CP OR SOB PMH PMH HTN, CKD AND VALVE REPLACEMENTS ON CHRONIC ANTICOAGULATION FAMILY HISTORY Family History NONCONTRIBUTORY SOCIAL HISTORY Social History RESIDES WITH ASSISTANCE. NO ETOH OR SMOKING CURRENT MEDICATIONS Current Meds Current Medications Medications (Trade) Dose Ordered Sig/Laxmi Route PRN Reason Start Time Stop Time Status Last Admin Dose Admin Sodium Chloride 1,000 ml @ 1,000 mls/hr Q1H IV 11/10/16 23:45 11/11/16 00:44 DC 11/10/16 23:58 Phytonadione (Vitamin K) 10 mg 1X ONCE SQ 11/11/16 00:45 11/11/16 00:46 DC 11/11/16 00:45 Pantoprazole Sodium (Protonix Vial) 80 mg 1X ONCE IVP 11/11/16 01:00 11/11/16 01:01 DC 11/11/16 01:08 Pantoprazole Sodium 80 mg/ Sodium Chloride 100 ml @ 10 mls/hr 1X ONCE IV 11/11/16 01:00 11/11/16 10:59 DC 11/11/16 01:07 Ondansetron HCl (Zofran) 4 mg PRN Q8HRS PRN IV NAUSEA/VOMITING 11/11/16 00:30 11/12/16 00:29 11/11/16 11:34 Dextrose/Sodium Chloride 1,000 ml @ 100 mls/hr Q10H IV 11/11/16 09:00 11/11/16 10:11 Pantoprazole Sodium 80 mg/ Sodium Chloride 100 ml @ 10 mls/hr Q10H IV 11/11/16 09:15 11/11/16 10:11 ALLERGIES Allergies: Coded Allergies: morphine (Verified Allergy, Intermediate, Nausea, 11/13/15) hydrocodone (Verified Adverse Reaction, Severe, hypotension, hyper opiate sensitive, 12/03/15) ROS ROS GEN: [ ] Fevers [ ] Chills EYES: [ ] Visual Complaints ENT: [ ] EN Drainage [ REDUCED ACUITY] Hearing deficiets CVS: [ ] Orthopnea [ ] CP RESP: [ ] SOB [ ] LEGER GI: [ ] Nausea [ ] Vomiting : [ ] Dysuria [ ] Urgency HEME: [ ] easy bruising [ ] Palp Ly Nodes NEURO [ ] Focal Weakness [ ] Sz PSYCH: [ ] Suicidal Ideation [ ] Depression SKIN: [ ] Rashes ENDO: [ ] Polyuria or Polydipsia [ ] Hot/Cold Intolerance MU SK: [ ] Arthraigia [ ] Myalgia VITAL SIGNS Vital Signs VS - Last 72 Hours, by Label Date Time Temp Pulse Resp B/P (MAP) Pulse Ox O2 Delivery O2 Flow Rate FiO2 11/11/16 11:26 99.5 87 25 152/58 99.5 11/11/16 11:12 99.5 87 21 145/62 99.5 11/11/16 10:00 87 24 140/56 (84) 100 Room Air 11/11/16 09:00 82 23 157/65 (95) 100 Room Air 11/11/16 08:00 99.3 82 24 146/57 (86) 100 Room Air 99.3 11/11/16 07:00 99.3 80 20 137/63 (87) 100 Room Air 99.3 11/11/16 06:00 99.3 85 12 113/39 (63) 100 Room Air 99.3 11/11/16 05:00 99.0 85 12 119/32 (61) 100 Room Air 99.0 11/11/16 04:00 98.2 85 12 119/32 (61) 100 Room Air 98.2 11/11/16 03:00 80 16 100/39 (59) 100 Room Air 11/11/16 02:30 86 16 115/56 (75) 100 Room Air 11/11/16 02:17 96.1 83 13 113/43 96.1 11/11/16 02:15 86 16 111/44 (66) 100 Room Air 11/11/16 02:00 84 16 113/43 (66) 100 Room Air 11/11/16 01:45 95.9 70 16 103/35 (57) 100 Room Air 95.9 11/11/16 01:45 70 16 103/51 (68) 100 Room Air 11/11/16 01:40 70 16 113/47 (69) 99 Room Air 11/11/16 01:35 66 16 114/53 (73) 96 Room Air 11/11/16 01:30 95.7 66 16 119/48 95.7 11/11/16 01:30 66 16 119/48 (71) 100 Room Air 11/11/16 01:25 68 16 91/36 (54) 99 Room Air 11/11/16 01:25 95.7 66 16 103/44 95.7 11/11/16 01:22 95.7 63 16 93/44 95.7 11/11/16 01:20 64 16 93/44 (60) 100 Room Air 11/11/16 01:15 97.6 65 16 94/46 97.6 11/11/16 01:15 97.6 65 16 94/46 97.6 11/11/16 01:15 64 18 102/41 (61) 96 Room Air 11/11/16 01:05 64 16 97/45 (62) 100 Room Air 11/11/16 00:50 66 16 104/52 (69) 98 Room Air 11/11/16 00:30 72 16 92/52 (65) 99 Room Air 11/11/16 00:00 76 16 142/78 (99) 100 Room Air 11/10/16 23:30 78 16 100/58 (72) 95 Room Air 11/10/16 23:15 97.8 77 18 98/55 (69) 100 Room Air 97.8 PHYSICAL EXAM Physical Exam GEN: Awake, Oriented x [], In [NO] distress EYES: Vision Unchanged, Conjunctiva Normal EN: No EN Drainage, Mucous Membranes [] NECK: [NO JVD, [] JVP, Supple, [] Thyromegaly CVS: S1S2, [] Murmur, No Gallop, No Rub,[] Edema RESP: [] Rales, [] Rhonchi,[] Acc. Muscle Use GI: BS + ve, NO Bruit, Non Tender, Non Distended : [] CVA tenderness, [] Suprapubic Tenderness ASSESSMENT/PLAN Assessment/Plan .ARF and ckd. Current FLuid balance and give blood as needed Discussed Plan of Care and prognosis etc. at length with family. MIKI SCHAEFFER MD Nov 11, 2016 12:32
[2016-11-12] VITALS (24 sets, daily range): BP systolic 92–144; BP diastolic 32–71
[2016-11-12] MEDS: IV DEXTROSE 5 %-0.45 % NACL 1,000 ML IV SCH ×3 (05:10→18:10)
[2016-11-12 05:35] LABS: BASO # 0.1 x10^3/uL (0.0-0.2); BASO % 1 % (0-3); EOS % 1 % (0-3); HEMOGLOBIN 7.6 g/dL (12.0-15.5); LYMPH # 1.3 x10^3/uL (1.0-4.8); LYMPH % 15 % (24-48); MEAN CORPUSCULAR HEMOGLOBIN 32 pg (25-35); MEAN CORPUSCULAR HGB CONC 35 g/dL (31-37); MEAN CORPUSCULAR VOLUME 93 fL (79-100); MONO % 12 % (0-9); NEUT % 71 % (31-73); PLATELET COUNT 90 x10^3/uL (140-400); RED BLOOD COUNT 2.35 x10^6/uL (3.50-5.40); RED CELL DISTRIBUTION WIDTH 20.1 % (11.5-14.5); WHITE BLOOD COUNT 8.8 x10^3/uL (4.0-11.0)
[2016-11-12 05:47] LABS: CALCIUM 7.6 mg/dL (8.5-10.1); CREATININE 1.7 mg/dL (0.6-1.0); GFR 28.3; POTASSIUM 3.3 mmol/L (3.5-5.1)
[2016-11-12 05:55] LABS: INR 1.4 (0.8-1.1); PROTHROMBIN TIME PATIENT 16.6 SEC (11.7-14.0)
--- NOTE | 2016-11-12 06:03 | ACF ---
Admission Forms Criteria GASTROINTESTINAL BLEEDING Clinical Indications for Inpatient Care (Place 'X' for any and all applicable criteria): Ongoing inpatient care may be indicated for gastrointestinal bleeding with ANY ONE of the following (4)(20)(21)(22)(23)(24): [ ]I. Active bleeding (eg, fresh voluminous blood in emesis or nasogastric aspirate, or per rectum) [X]II. Hemodynamic instability [ ]III. Anticoagulation therapy or coagulopathy ((eg, advanced liver disease, irreversible anticoagulation) [ ]IV. Ischemic colitis (22) [ ]V. Endoscopy showing arterial bleeding, adherent clot, nonbleeding visible vessel, varices, flat red spots, ulcer size greater than 2 cm, or portal hypertensive gastropathy [ ]. High-risk low platelet count [ ]VII. Anemia requiring inpatient care as indicated by ANY ONE of the following a)[ ] Cognitive impairment b)[ ] Syncope c)[ ] Heart failure d)[ ] Chest pain e)[ ] Dyspnea f)[ ] Other findings suggesting inadequate perfusion (eg, peripheral or myocardial ischemia, end organ dysfunction) [ ]VIII. High-risk low platelet count [ ]IX. Suspected variceal cause of bleeding as indicated by ANY ONE of the following(27)(28): a)[ ] Known varices b)[ ] Hepatomegaly or splenomegaly c)[ ] Ascites d)[ ] Jaundice or scleral icterus e)[ ] History of liver disease (eg, cirrhosis) f)[ ] Physical findings of portal hypertension (eg, caput medusa) g)[ ] Comorbid disorder indicating risk for portal vein thrombosis (eg , abdominal surgery, sepsis, shock, exchange transfusion, prior umbilical vein catheterization) Extended stay may be needed until ALL of the following are present(20)(38)(47): [ ]a) Hemodynamic stability [ ]b) No evidence of active bleeding (eg, stable Hematocrit) [ ]c) Platelet count, prothrombin time, and partial thromboplastin time acceptable for next level of care [ ]d) Surgical or other acute intervention not needed [ ]e) Oral hydration and diet tolerated The original [employer] content created by Johnnie Wilson has been revised. The portions of the content which have been revised are identified through the use of italic text or in bold, and Johnnie Wilson has neither reviewed nor approved the modified material. All other unmodified content is copyright [facility]. Please see references footnoted in the original [facility] edition 2016 Admission Criteria Met?: Yes TARAN SAMANO Nov 12, 2016 06:03
--- NOTE | 2016-11-12 08:49 | PDOC ---
PROGRESS NOTES Subjective Subjective sleeping. discussed with her nurse. she had a black stool last night. blood pressure is low and hgb 7.6. lab reviewed. bun 62 and creatinine 1.7 which is better. having EGD today. had close to 1 liter urine output. Objective Objective Vital Signs Date Time Temp Pulse Resp B/P (MAP) Pulse Ox O2 Delivery O2 Flow Rate FiO2 11/12/16 06:04 61 16 98/47 (64) 98 Room Air 11/12/16 05:03 98.5 98.5 Intake and Output 11/12/16 07:00 Intake Total 2911 ml Output Total 995 ml Balance 1916 ml Intake Oral 450 ml IV Total 2461 ml Output Urine Total 995 ml # Bowel Movements 3 Physical Exam Abdomen: Soft Heart: Normal S1, Normal S2 Extremities: No edema General: Other (sleeping) HEENT: Atraumatic Lungs: Clear to auscultation Neuro: Other (sleeping) Psych/Mental Status: Other (sleeping) Skin: No rashes Assessment Assessment Problems Medical Problems:acute upper GI bleed severe acute blood loss anemia on anemia of chronic disease coagulopathy resolved hypotension due to GI bleed near syncope due to hypotension acute kidney injury on chronic kidney disease stage 3 paroxysmal atrial fibrillation. off of coumadin permanently bioprosthetic AVR thrombocytopenia hypothyroidism moderate protein calorie malnutrition history of UGI bleed due to gastric ulcer 2008 (1) Acute GI bleeding Status: Acute (2) Acute renal failure Status: Acute (3) Hemodynamic instability Status: Acute (4) Severe protein-calorie malnutrition Status: Acute (5) Warfarin-induced coagulopathy Status: Acute Plan Plan of Care EGD today transfuse 2 units PRBC today lab tomorrow clear liquids iv protonix drip d/c coumadin permanently decrease if fluids Comment Review of Relevant I have reviewed the following items shara (where applicable) has been applied. Labs Laboratory Tests Test 11/10/16 23:39 11/10/16 23:48 11/10/16 23:58 11/11/16 01:55 White Blood Count 13.8 x10^3/uL (4.0-11.0) Red Blood Count 1.24 x10^6/uL (3.50-5.40) Hemoglobin 4.5 g/dL (12.0-15.5) Hematocrit 13.9 % (36.0-47.0) Mean Corpuscular Volume 112 fL (79-100) Mean Corpuscular Hemoglobin 36 pg (25-35) Mean Corpuscular Hemoglobin Concent 32 g/dL (31-37) Red Cell Distribution Width 19.0 % (11.5-14.5) Platelet Count 201 x10^3/uL (140-400) Neutrophils (%) (Auto) 81 % (31-73) Lymphocytes (%) (Auto) 12 % (24-48) Monocytes (%) (Auto) 6 % (0-9) Eosinophils (%) (Auto) 0 % (0-3) Basophils (%) (Auto) 0 % (0-3) Neutrophils # (Auto) 11.2 x10^3uL (1.8-7.7) Lymphocytes # (Auto) 1.7 x10^3/uL (1.0-4.8) Monocytes # (Auto) 0.8 x10^3/uL (0.0-1.1) Eosinophils # (Auto) 0.0 x10^3/uL (0.0-0.7) Basophils # (Auto) 0.1 x10^3/uL (0.0-0.2) Platelet Estimate Adequate (ADEQUATE) Polychromasia Slight Anisocytosis Slight Macrocytosis Mod Prothrombin Time 48.9 SEC (11.7-14.0) Prothromb Time International Ratio 5.8 (0.8-1.1) Activated Partial Thromboplast Time 41 SEC (24-38) Sodium Level 147 mmol/L (136-145) Potassium Level 4.5 mmol/L (3.5-5.1) Chloride Level 112 mmol/L (98-107) Carbon Dioxide Level 19 mmol/L (21-32) Anion Gap 16 (6-14) Blood Urea Nitrogen 87 mg/dL (7-20) Creatinine 1.9 mg/dL (0.6-1.0) Estimated GFR (Cockcroft-Gault) 24.9 BUN/Creatinine Ratio 46 (6-20) Glucose Level 197 mg/dL (70-99) Calcium Level 8.1 mg/dL (8.5-10.1) Total Bilirubin 1.4 mg/dL (0.2-1.0) Aspartate Amino Transf (AST/SGOT) 49 U/L (15-37) Alanine Aminotransferase (ALT/SGPT) 22 U/L (14-59) Alkaline Phosphatase 91 U/L (46-116) Total Protein 5.6 g/dL (6.4-8.2) Albumin 2.7 g/dL (3.4-5.0) Albumin/Globulin Ratio 0.9 (1.0-1.7) Lipase 157 U/L (73-393) Stool Occult Blood Positive (NEG) Urine Collection Type Unknown Urine Color Yellow Urine Clarity Cloudy Urine pH 5.0 Urine Specific [place] 1.015 Urine Protein Negative mg/dL (NEG-TRACE) Urine Glucose (UA) Negative mg/dL (NEG) Urine Ketones (Stick) Negative mg/dL (NEG) Urine Blood Large (NEG) Urine Nitrite Negative (NEG) Urine Bilirubin Negative (NEG) Urine Urobilinogen Dipstick 0.2 mg/dL (0.2 mg/dL) Urine Leukocyte Esterase Small (NEG) Urine RBC 1-2 /HPF (0-2) Urine WBC Occ /HPF (0-4) Urine Squamous Epithelial Cells Few /LPF Urine Amorphous Sediment Present /HPF Urine Bacteria 0 /HPF (0-FEW) Urine Mucus Slight /LPF Nasal Screen MRSA (PCR) Negative (Negative) Test 11/11/16 06:05 11/11/16 12:10 11/11/16 18:05 11/12/16 00:35 White Blood Count 11.5 x10^3/uL (4.0-11.0) Red Blood Count 2.80 x10^6/uL (3.50-5.40) Hemoglobin 8.8 g/dL (12.0-15.5) 8.8 g/dL (12.0-15.5) 7.5 g/dL (12.0-15.5) 7.4 g/dL (12.0-15.5) Hematocrit 25.5 % (36.0-47.0) Mean Corpuscular Volume 91 fL (79-100) Mean Corpuscular Hemoglobin 31 pg (25-35) Mean Corpuscular Hemoglobin Concent 34 g/dL (31-37) Red Cell Distribution Width 17.8 % (11.5-14.5) Platelet Count 111 x10^3/uL (140-400) Prothrombin Time 20.4 SEC (11.7-14.0) Prothromb Time International Ratio 1.9 (0.8-1.1) Test 11/12/16 05:22 White Blood Count 8.8 x10^3/uL (4.0-11.0) Red Blood Count 2.35 x10^6/uL (3.50-5.40) Hemoglobin 7.6 g/dL (12.0-15.5) Hematocrit 22.0 % (36.0-47.0) Mean Corpuscular Volume 93 fL (79-100) Mean Corpuscular Hemoglobin 32 pg (25-35) Mean Corpuscular Hemoglobin Concent 35 g/dL (31-37) Red Cell Distribution Width 20.1 % (11.5-14.5) Platelet Count 90 x10^3/uL (140-400) Neutrophils (%) (Auto) 71 % (31-73) Lymphocytes (%) (Auto) 15 % (24-48) Monocytes (%) (Auto) 12 % (0-9) Eosinophils (%) (Auto) 1 % (0-3) Basophils (%) (Auto) 1 % (0-3) Neutrophils # (Auto) 6.3 x10^3uL (1.8-7.7) Lymphocytes # (Auto) 1.3 x10^3/uL (1.0-4.8) Monocytes # (Auto) 1.1 x10^3/uL (0.0-1.1) Eosinophils # (Auto) 0.1 x10^3/uL (0.0-0.7) Basophils # (Auto) 0.1 x10^3/uL (0.0-0.2) Prothrombin Time 16.6 SEC (11.7-14.0) Prothromb Time International Ratio 1.4 (0.8-1.1) Sodium Level 145 mmol/L (136-145) Potassium Level 3.3 mmol/L (3.5-5.1) Chloride Level 114 mmol/L (98-107) Carbon Dioxide Level 21 mmol/L (21-32) Anion Gap 10 (6-14) Blood Urea Nitrogen 62 mg/dL (7-20) Creatinine 1.7 mg/dL (0.6-1.0) Estimated GFR (Cockcroft-Gault) 28.3 Glucose Level 121 mg/dL (70-99) Calcium Level 7.6 mg/dL (8.5-10.1) Laboratory Tests Test 11/11/16 12:10 11/11/16 18:05 11/12/16 00:35 11/12/16 05:22 Hemoglobin 8.8 g/dL (12.0-15.5) 7.5 g/dL (12.0-15.5) 7.4 g/dL (12.0-15.5) 7.6 g/dL (12.0-15.5) White Blood Count 8.8 x10^3/uL (4.0-11.0) Red Blood Count 2.35 x10^6/uL (3.50-5.40) Hematocrit 22.0 % (36.0-47.0) Mean Corpuscular Volume 93 fL (79-100) Mean Corpuscular Hemoglobin 32 pg (25-35) Mean Corpuscular Hemoglobin Concent 35 g/dL (31-37) Red Cell Distribution Width 20.1 % (11.5-14.5) Platelet Count 90 x10^3/uL (140-400) Neutrophils (%) (Auto) 71 % (31-73) Lymphocytes (%) (Auto) 15 % (24-48) Monocytes (%) (Auto) 12 % (0-9) Eosinophils (%) (Auto) 1 % (0-3) Basophils (%) (Auto) 1 % (0-3) Neutrophils # (Auto) 6.3 x10^3uL (1.8-7.7) Lymphocytes # (Auto) 1.3 x10^3/uL (1.0-4.8) Monocytes # (Auto) 1.1 x10^3/uL (0.0-1.1) Eosinophils # (Auto) 0.1 x10^3/uL (0.0-0.7) Basophils # (Auto) 0.1 x10^3/uL (0.0-0.2) Prothrombin Time 16.6 SEC (11.7-14.0) Prothromb Time International Ratio 1.4 (0.8-1.1) Sodium Level 145 mmol/L (136-145) Potassium Level 3.3 mmol/L (3.5-5.1) Chloride Level 114 mmol/L (98-107) Carbon Dioxide Level 21 mmol/L (21-32) Anion Gap 10 (6-14) Blood Urea Nitrogen 62 mg/dL (7-20) Creatinine 1.7 mg/dL (0.6-1.0) Estimated GFR (Cockcroft-Gault) 28.3 Glucose Level 121 mg/dL (70-99) Calcium Level 7.6 mg/dL (8.5-10.1) Microbiology 11/10/16 Blood Culture - Preliminary, Resulted NO GROWTH AFTER 1 DAY Medications Current Medications Sodium Chloride 1,000 ml @ 1,000 mls/hr Q1H IV Last administered on 11/10/16 23:58; Start 11/10/16 at 23:45; Stop 11/11/16 at 00:44; Status DC Ondansetron HCl (Zofran) 4 mg 1X ONCE IV ; Start 11/10/16 at 23:45; Stop at 23:46; Status DC Furosemide (Lasix) 20 mg 1X PRN PRN IV Blood transfusion; Start 11/10/16 at 23: 30; Stop 11/11/16 at 23:29; Status DC Phytonadione (Vitamin K) 10 mg 1X ONCE SQ Last administered on 11/11/16 00:45 ; Start 11/11/16 at 00:45; Stop 11/11/16 at 00:46; Status DC Pantoprazole Sodium (Protonix Vial) 80 mg 1X ONCE IVP Last administered on 11/11 01:08; Start 11/11/16 at 01:00; Stop 11/11/16 at 01:01; Status DC Pantoprazole Sodium 80 mg/ Sodium Chloride 100 ml @ 10 mls/hr 1X ONCE IV Last administered on 11/11/16 01:07; Start 11/11/16 at 01:00; Stop 11/11/16 at 10: 59; Status DC Ondansetron HCl (Zofran) 4 mg PRN Q8HRS PRN IV NAUSEA/VOMITING Last administered on 11/11/16 11:34; Start 11/11/16 at 00:30; Stop 11/12/16 at 00:29; Status DC Fentanyl Citrate (Fentanyl 2ml Vial) 50 mcg PRN Q2HR PRN IV SEVERE PAIN Last administered on 11/11/16 22:02; Start 11/11/16 at 00:30; Stop 11/12/16 at 00:29; Status DC Sodium Chloride 1,000 ml @ 150 mls/hr Q6H40M IV ; Start 11/11/16 at 00:24; Stop 11/11/16 at 08:57; Status DC Pantoprazole Sodium (Protonix) 40 mg DAILYAC PO ; Start 11/11/16 at 10:00; Status UNV Acetaminophen (Tylenol) 650 mg PRN Q6HRS PRN PO MILD PAIN / TEMP; Start at 09:00 Dextrose/Sodium Chloride 1,000 ml @ 100 mls/hr Q10H IV Last administered on 05:10; Start 11/11/16 at 09:00 Pantoprazole Sodium 80 mg/ Sodium Chloride 100 ml @ 10 mls/hr Q10H IV Last administered on 11/11/16 19:42; Start 11/11/16 at 09:15 Active Scripts Active Reported Trazodone Hcl 50 Mg Tablet 50 Mg PO HS Coumadin (Warfarin Sodium) 2 Mg Tablet 1 Tab PO DAILY Tramadol Hcl 50 Mg Tablet 25 Mg PO Q6H PRN Nystatin 100,000 Unit/1 Ml Oral.susp 5 Ml PO QID Metoprolol Tartrate 25 Mg Tablet 12.5 Mg PO BID Amoxicillin 500 Mg Capsule 1 Cap PO BID Amlodipine Besylate 5 Mg Tablet 5 Mg PO DAILY Amlodipine Besylate 5 Mg Tablet 5 Mg PO DAILY Milk Of Magnesia (Magnesium Hydroxide) 400 Mg/5 Ml Oral.susp 400 Mg PO PRN DAILY PRN Metoprolol Succinate ( Xl ) (Metoprolol Succinate) 25 Mg Tab.er.24h 1 Tab PO DAILY Losartan Potassium 100 Mg Tablet 100 Mg PO DAILY Lorazepam 0.5 Mg Tablet 0.5 Mg PO HS Levothyroxine Sodium 50 Mcg Tablet 1 Tab PO DAILY Furosemide 20 Mg Tablet 1 Tab PO DAILY Ferrous Sulfate 325 Mg Tablet 1 Tab PO BIDWMEALS Famotidine 20 Mg Tablet 20 Mg PO DAILY Dulcolax (Bisacodyl) 10 Mg Supp.rect 10 Mg RC PRN DAILY PRN Digoxin 125 Mcg Tablet 1 Tab PO DAILY Clonidine Hcl 0.1 Mg Tablet 1 Tab PO PRN Q6HRS PRN Acetaminophen 500 Mg Tablet 1 Tab PO PRN QID PRN Tylenol (Acetaminophen) 325 Mg Tablet 2 Tab PO PRN Q4HRS PRN Vitals/I & O Vital Sign - Last 24 Hours 11/11/16 11/11/16 11/11/16 11/11/16 09:00 10:00 11:00 11:12 Temp 99.3 99.5 99.3 99.5 Pulse 82 87 86 87 Resp 23 24 28 21 B/P (MAP) 157/65 (95) 140/56 (84) 145/62 (89) 145/62 Pulse Ox 100 100 100 O2 Delivery Room Air Room Air Room Air 11/11/16 11/11/16 11/11/16 11/11/16 11:26 11:26 11:26 12:00 Temp 99.5 99.3 99.3 99.7 99.5 99.3 99.3 99.7 Pulse 87 88 82 88 Resp 25 18 18 30 B/P (MAP) 152/58 141/56 141/56 139/92 (108) Pulse Ox 100 O2 Delivery Room Air 11/11/16 11/11/16 11/11/16 11/11/16 12:30 13:00 13:03 13:15 Temp 99.7 100.0 98.3 98.4 99.7 100.0 98.3 98.4 Pulse 90 89 88 95 Resp 22 27 24 26 B/P (MAP) 151/59 144/60 (88) 144/60 140/58 Pulse Ox 100 O2 Delivery Room Air 11/11/16 11/11/16 11/11/16 11/11/16 14:00 14:03 15:00 16:00 Temp 97.9 97.9 Pulse 88 88 90 82 Resp 31 26 32 13 B/P (MAP) 120/49 (72) 120/49 126/54 (78) 112/46 (68) Pulse Ox 100 99 98 O2 Delivery Room Air Room Air Room Air 11/11/16 11/11/16 11/11/16 11/11/16 17:00 18:00 19:28 19:33 Temp 97.4 97.4 Pulse 88 70 84 Resp 31 15 20 B/P (MAP) 124/58 (80) 120/47 (71) 121/57 (78) Pulse Ox 99 97 100 O2 Delivery Room Air Room Air Room Air Room Air 11/11/16 11/11/16 11/11/16 11/11/16 20:13 21:00 22:00 22:02 Pulse 77 76 88 Resp 20 20 18 18 B/P (MAP) 127/51 (76) 96/40 (58) 115/48 (70) Pulse Ox 98 98 97 O2 Delivery Room Air Room Air Room Air Room Air 11/11/16 11/11/16 11/12/16 11/12/16 22:40 23:00 00:15 01:00 Temp 98.9 98.9 Pulse 68 69 60 Resp 16 16 18 18 B/P (MAP) 105/46 (65) 106/52 (70) 92/32 (52) Pulse Ox 98 99 99 98 O2 Delivery Room Air Room Air Room Air Room Air 11/12/16 11/12/16 11/12/16 11/12/16 02:00 03:00 04:00 05:03 Temp 98.5 98.5 Pulse 62 66 71 71 Resp 14 14 14 16 B/P (MAP) 104/47 (66) 116/53 (74) 116/58 (77) 109/51 (70) Pulse Ox 99 98 99 99 O2 Delivery Room Air Room Air Room Air Room Air 11/12/16 06:04 Pulse 61 Resp 16 B/P (MAP) 98/47 (64) Pulse Ox 98 O2 Delivery Room Air Intake and Output 11/11/16 11/11/16 11/12/16 15:00 23:00 07:00 Intake Total 450 ml 1174 ml 1287 ml Output Total 750 ml 245 ml Balance 450 ml 424 ml 1042 ml MIKI COLORADO MD Nov 12, 2016 08:49
[2016-11-12] MEDS: FERROUS SULFATE 325 MG TABLET. PO SCH ×2 (09:00→17:00)
[2016-11-12] MEDS: PANTOPRAZOLE SODIUM IV 80 MG in IV NORMAL SALINE 100ML 100 ML IV SCH ×2 (09:49→15:15)
[2016-11-12] MEDS: LEVOTHYROXINE 75 MCG TABLET PO SCH (10:30)
--- NOTE | 2016-11-12 11:43 | PDOC ---
Renal-Progress Notes Subjective Notes Notes CONFUSED History of Present Illness Hx of present illness STABLE Vitals Vitals Vital Signs Date Time Temp Pulse Resp B/P (MAP) Pulse Ox O2 Delivery O2 Flow Rate FiO2 11/12/16 10:04 98.6 58 11 102/52 98.6 11/12/16 06:04 98 Room Air Weight Weight [ ] I.O. Intake and Output Intake and Output 11/12/16 07:00 Intake Total 2911 ml Output Total 995 ml Balance 1916 ml Intake Oral 450 ml IV Total 2461 ml Output Urine Total 995 ml # Bowel Movements 3 Labs Labs Laboratory Tests Test 11/11/16 12:10 11/11/16 18:05 11/12/16 00:35 11/12/16 05:22 Hemoglobin 8.8 g/dL (12.0-15.5) 7.5 g/dL (12.0-15.5) 7.4 g/dL (12.0-15.5) 7.6 g/dL (12.0-15.5) White Blood Count 8.8 x10^3/uL (4.0-11.0) Red Blood Count 2.35 x10^6/uL (3.50-5.40) Hematocrit 22.0 % (36.0-47.0) Mean Corpuscular Volume 93 fL (79-100) Mean Corpuscular Hemoglobin 32 pg (25-35) Mean Corpuscular Hemoglobin Concent 35 g/dL (31-37) Red Cell Distribution Width 20.1 % (11.5-14.5) Platelet Count 90 x10^3/uL (140-400) Neutrophils (%) (Auto) 71 % (31-73) Lymphocytes (%) (Auto) 15 % (24-48) Monocytes (%) (Auto) 12 % (0-9) Eosinophils (%) (Auto) 1 % (0-3) Basophils (%) (Auto) 1 % (0-3) Neutrophils # (Auto) 6.3 x10^3uL (1.8-7.7) Lymphocytes # (Auto) 1.3 x10^3/uL (1.0-4.8) Monocytes # (Auto) 1.1 x10^3/uL (0.0-1.1) Eosinophils # (Auto) 0.1 x10^3/uL (0.0-0.7) Basophils # (Auto) 0.1 x10^3/uL (0.0-0.2) Prothrombin Time 16.6 SEC (11.7-14.0) Prothromb Time International Ratio 1.4 (0.8-1.1) Sodium Level 145 mmol/L (136-145) Potassium Level 3.3 mmol/L (3.5-5.1) Chloride Level 114 mmol/L (98-107) Carbon Dioxide Level 21 mmol/L (21-32) Anion Gap 10 (6-14) Blood Urea Nitrogen 62 mg/dL (7-20) Creatinine 1.7 mg/dL (0.6-1.0) Estimated GFR (Cockcroft-Gault) 28.3 Glucose Level 121 mg/dL (70-99) Calcium Level 7.6 mg/dL (8.5-10.1) Micro Micro Microbiology 11/10/16 Blood Culture - Preliminary, Resulted NO GROWTH AFTER 1 DAY Review of Systems Constitutional: yes: no symptom reported, other (CONFUSED) Physical Exam General Appearance: no apparent distress Respiratory: bilateral CTA Heart: S1S2 Abdomen: soft, bowel sounds present Genitourinary: bladder flat Neurology: alert Assessment Assessment IMP ANEMIA GI BLEED CKD STAGE 3 WITH CR AT BASELINE OF ABOUT 1.5-1.7 MILD CANDIDA-RESOLVED COAGULOPATHY HYPOKALEMIA PLAN CONT IVF'S PRBC CORRECTING INR LARISA HOLLAND MD Nov 12, 2016 11:43
[2016-11-12] MEDS: IV NORMAL SALINE 1000ML BAG 1,000 ML IV SCH (12:58)
[2016-11-12] MEDS ORDERED: PROPOFOL 20 ML IV ONE (13:55)
[2016-11-12] MEDS ORDERED: LIDOCAINE 2% PF Vial for OR 5 ML VIAL. ONE (13:56)
--- NOTE | 2016-11-12 14:24 | PDOC4 ---
PROCEDURE Procedure EGD IND: UGI bleeding, recent Meds: per anesthesia Findings: E--<grade I esophagitis at 38cm G--Numerous petechiae, proximal stomach and fundus. Linear erosions, antrum--> pylorus. No discrete ulcer, etc. D--normal to second portion. Jelena. well. IMP: Erosions, submucosal bleeding stomach. Mild reflux. REC: Agree with D/C warfarin long-term. PPI at least in the short term. OK to feed. Thanks. MIKI DAVILA MD Nov 12, 2016 14:24
[2016-11-12] MEDS: POTASSIUM CHLORIDE 10MEQ 100 ML IV SCH ×2 (15:55→16:59)
[2016-11-13] VITALS (14 sets, daily range): BP systolic 99–175; BP diastolic 45–73
[2016-11-13] MEDS: IV NORMAL SALINE 1000ML BAG 1,000 ML IV SCH (02:20)
[2016-11-13 05:18] LABS: BASO # 0.1 x10^3/uL (0.0-0.2); BASO % 1 % (0-3); EOS % 3 % (0-3); HEMATOCRIT 27.2 % (36.0-47.0); HEMOGLOBIN 9.5 g/dL (12.0-15.5); LYMPH # 1.1 x10^3/uL (1.0-4.8); LYMPH % 14 % (24-48); MEAN CORPUSCULAR HEMOGLOBIN 33 pg (25-35); MEAN CORPUSCULAR HGB CONC 35 g/dL (31-37); MEAN CORPUSCULAR VOLUME 93 fL (79-100); MONO % 13 % (0-9); NEUT % 69 % (31-73); PLATELET COUNT 97 x10^3/uL (140-400); RED BLOOD COUNT 2.91 x10^6/uL (3.50-5.40); RED CELL DISTRIBUTION WIDTH 17.7 % (11.5-14.5); WHITE BLOOD COUNT 7.9 x10^3/uL (4.0-11.0)
[2016-11-13 05:52] LABS: CALCIUM 8.4 mg/dL (8.5-10.1); CREATININE 1.4 mg/dL (0.6-1.0); GFR 35.4; POTASSIUM 3.4 mmol/L (3.5-5.1)
[2016-11-13] MEDS: IV DEXTROSE 5 %-0.45 % NACL 1,000 ML IV SCH (06:03)
[2016-11-13] MEDS: LEVOTHYROXINE 75 MCG TABLET PO SCH (06:04)
--- NOTE | 2016-11-13 08:56 | PDOC ---
PROGRESS NOTES Subjective Subjective no further melena. EGD showed hemorrhagic gastritis without active bleeding and reflux esophagitis. confused. lab reviewed. hgb stable. renal function improved with hydration. refused oral liquids this morning. Objective Objective Vital Signs Date Time Temp Pulse Resp B/P (MAP) Pulse Ox O2 Delivery O2 Flow Rate FiO2 11/13/16 06:00 58 12 111/45 (67) 99 Room Air 11/13/16 04:00 97.8 97.8 11/12/16 14:50 4 Intake and Output 11/13/16 07:00 Intake Total 1925.92 ml Output Total 995 ml Balance 930.92 ml IV Total 1525.92 ml Blood Product 350 ml Blood Product IV Normal Saline Flush 50 ml Output Urine Total 995 ml Physical Exam Abdomen: Soft Heart: Normal S2 Extremities: No edema General: Alert HEENT: Atraumatic Lungs: Clear to auscultation Neuro: Other (confused. recognized me) Psych/Mental Status: Mood NL Skin: No rashes Assessment Assessment Problemsacute upper GI bleed resolved. due to hemorrhagic gastritis reflux esophagitis severe acute blood loss anemia on anemia of chronic disease. hgb stable received 5 units prbc total coagulopathy resolved hypotension due to GI bleed resolved near syncope due to hypotension acute kidney injury improved with iv hydration on chronic kidney disease stage 3 paroxysmal atrial fibrillation. off of coumadin permanently bioprosthetic AVR thrombocytopenia. stable hypothyroidism moderate protein calorie malnutrition history of UGI bleed due to gastric ulcer 2008 Medical Problems: (1) Acute GI bleeding Status: Acute (2) Acute renal failure Status: Acute (3) Hemodynamic instability Status: Acute (4) Severe protein-calorie malnutrition Status: Acute (5) Warfarin-induced coagulopathy Status: Acute Plan Plan of Care advance diet to solid food transfer to medical monitored floor decrease iv fluids d/c coumadin permanently switch to po protonix lab tomorrow PT and OT Comment Review of Relevant I have reviewed the following items shara (where applicable) has been applied. Labs Laboratory Tests Test 11/11/16 12:10 11/11/16 18:05 11/12/16 00:35 11/12/16 05:22 Hemoglobin 8.8 g/dL (12.0-15.5) 7.5 g/dL (12.0-15.5) 7.4 g/dL (12.0-15.5) 7.6 g/dL (12.0-15.5) White Blood Count 8.8 x10^3/uL (4.0-11.0) Red Blood Count 2.35 x10^6/uL (3.50-5.40) Hematocrit 22.0 % (36.0-47.0) Mean Corpuscular Volume 93 fL (79-100) Mean Corpuscular Hemoglobin 32 pg (25-35) Mean Corpuscular Hemoglobin Concent 35 g/dL (31-37) Red Cell Distribution Width 20.1 % (11.5-14.5) Platelet Count 90 x10^3/uL (140-400) Neutrophils (%) (Auto) 71 % (31-73) Lymphocytes (%) (Auto) 15 % (24-48) Monocytes (%) (Auto) 12 % (0-9) Eosinophils (%) (Auto) 1 % (0-3) Basophils (%) (Auto) 1 % (0-3) Neutrophils # (Auto) 6.3 x10^3uL (1.8-7.7) Lymphocytes # (Auto) 1.3 x10^3/uL (1.0-4.8) Monocytes # (Auto) 1.1 x10^3/uL (0.0-1.1) Eosinophils # (Auto) 0.1 x10^3/uL (0.0-0.7) Basophils # (Auto) 0.1 x10^3/uL (0.0-0.2) Prothrombin Time 16.6 SEC (11.7-14.0) Prothromb Time International Ratio 1.4 (0.8-1.1) Sodium Level 145 mmol/L (136-145) Potassium Level 3.3 mmol/L (3.5-5.1) Chloride Level 114 mmol/L (98-107) Carbon Dioxide Level 21 mmol/L (21-32) Anion Gap 10 (6-14) Blood Urea Nitrogen 62 mg/dL (7-20) Creatinine 1.7 mg/dL (0.6-1.0) Estimated GFR (Cockcroft-Gault) 28.3 Glucose Level 121 mg/dL (70-99) Calcium Level 7.6 mg/dL (8.5-10.1) Test 11/12/16 18:05 11/13/16 04:55 Hemoglobin 9.3 g/dL (12.0-15.5) 9.5 g/dL (12.0-15.5) White Blood Count 7.9 x10^3/uL (4.0-11.0) Red Blood Count 2.91 x10^6/uL (3.50-5.40) Hematocrit 27.2 % (36.0-47.0) Mean Corpuscular Volume 93 fL (79-100) Mean Corpuscular Hemoglobin 33 pg (25-35) Mean Corpuscular Hemoglobin Concent 35 g/dL (31-37) Red Cell Distribution Width 17.7 % (11.5-14.5) Platelet Count 97 x10^3/uL (140-400) Neutrophils (%) (Auto) 69 % (31-73) Lymphocytes (%) (Auto) 14 % (24-48) Monocytes (%) (Auto) 13 % (0-9) Eosinophils (%) (Auto) 3 % (0-3) Basophils (%) (Auto) 1 % (0-3) Neutrophils # (Auto) 5.4 x10^3uL (1.8-7.7) Lymphocytes # (Auto) 1.1 x10^3/uL (1.0-4.8) Monocytes # (Auto) 1.0 x10^3/uL (0.0-1.1) Eosinophils # (Auto) 0.3 x10^3/uL (0.0-0.7) Basophils # (Auto) 0.1 x10^3/uL (0.0-0.2) Sodium Level 146 mmol/L (136-145) Potassium Level 3.4 mmol/L (3.5-5.1) Chloride Level 114 mmol/L (98-107) Carbon Dioxide Level 20 mmol/L (21-32) Anion Gap 12 (6-14) Blood Urea Nitrogen 44 mg/dL (7-20) Creatinine 1.4 mg/dL (0.6-1.0) Estimated GFR (Cockcroft-Gault) 35.4 Glucose Level 113 mg/dL (70-99) Calcium Level 8.4 mg/dL (8.5-10.1) Magnesium Level 1.9 mg/dL (1.8-2.4) Laboratory Tests Test 11/12/16 18:05 11/13/16 04:55 Hemoglobin 9.3 g/dL (12.0-15.5) 9.5 g/dL (12.0-15.5) White Blood Count 7.9 x10^3/uL (4.0-11.0) Red Blood Count 2.91 x10^6/uL (3.50-5.40) Hematocrit 27.2 % (36.0-47.0) Mean Corpuscular Volume 93 fL (79-100) Mean Corpuscular Hemoglobin 33 pg (25-35) Mean Corpuscular Hemoglobin Concent 35 g/dL (31-37) Red Cell Distribution Width 17.7 % (11.5-14.5) Platelet Count 97 x10^3/uL (140-400) Neutrophils (%) (Auto) 69 % (31-73) Lymphocytes (%) (Auto) 14 % (24-48) Monocytes (%) (Auto) 13 % (0-9) Eosinophils (%) (Auto) 3 % (0-3) Basophils (%) (Auto) 1 % (0-3) Neutrophils # (Auto) 5.4 x10^3uL (1.8-7.7) Lymphocytes # (Auto) 1.1 x10^3/uL (1.0-4.8) Monocytes # (Auto) 1.0 x10^3/uL (0.0-1.1) Eosinophils # (Auto) 0.3 x10^3/uL (0.0-0.7) Basophils # (Auto) 0.1 x10^3/uL (0.0-0.2) Sodium Level 146 mmol/L (136-145) Potassium Level 3.4 mmol/L (3.5-5.1) Chloride Level 114 mmol/L (98-107) Carbon Dioxide Level 20 mmol/L (21-32) Anion Gap 12 (6-14) Blood Urea Nitrogen 44 mg/dL (7-20) Creatinine 1.4 mg/dL (0.6-1.0) Estimated GFR (Cockcroft-Gault) 35.4 Glucose Level 113 mg/dL (70-99) Calcium Level 8.4 mg/dL (8.5-10.1) Magnesium Level 1.9 mg/dL (1.8-2.4) Microbiology 11/10/16 Blood Culture - Preliminary, Resulted NO GROWTH AFTER 2 DAYS 11/11/16 Urine Culture - Preliminary, Resulted 11/11/16 Urine Culture Result 1 ([place]) - Preliminary, Resulted Medications Current Medications Sodium Chloride 1,000 ml @ 1,000 mls/hr Q1H IV Last administered on 11/10/16 23:58; Start 11/10/16 at 23:45; Stop 11/11/16 at 00:44; Status DC Ondansetron HCl (Zofran) 4 mg 1X ONCE IV ; Start 11/10/16 at 23:45; Stop at 23:46; Status DC Furosemide (Lasix) 20 mg 1X PRN PRN IV Blood transfusion; Start 11/10/16 at 23: 30; Stop 11/11/16 at 23:29; Status DC Phytonadione (Vitamin K) 10 mg 1X ONCE SQ Last administered on 11/11/16 00:45 ; Start 11/11/16 at 00:45; Stop 11/11/16 at 00:46; Status DC Pantoprazole Sodium (Protonix Vial) 80 mg 1X ONCE IVP Last administered on 11/11 01:08; Start 11/11/16 at 01:00; Stop 11/11/16 at 01:01; Status DC Pantoprazole Sodium 80 mg/ Sodium Chloride 100 ml @ 10 mls/hr 1X ONCE IV Last administered on 11/11/16 01:07; Start 11/11/16 at 01:00; Stop 11/11/16 at 10: 59; Status DC Ondansetron HCl (Zofran) 4 mg PRN Q8HRS PRN IV NAUSEA/VOMITING Last administered on 11/11/16 11:34; Start 11/11/16 at 00:30; Stop 11/12/16 at 00:29; Status DC Fentanyl Citrate (Fentanyl 2ml Vial) 50 mcg PRN Q2HR PRN IV SEVERE PAIN Last administered on 11/11/16 22:02; Start 11/11/16 at 00:30; Stop 11/12/16 at 00:29; Status DC Sodium Chloride 1,000 ml @ 150 mls/hr Q6H40M IV ; Start 11/11/16 at 00:24; Stop 11/11/16 at 08:57; Status DC Pantoprazole Sodium (Protonix) 40 mg DAILYAC PO ; Start 11/11/16 at 10:00; Status UNV Acetaminophen (Tylenol) 650 mg PRN Q6HRS PRN PO MILD PAIN / TEMP; Start at 09:00 Dextrose/Sodium Chloride 1,000 ml @ 75 mls/hr [id number] IV Last administered on 11/13/16 06:03; Start 11/11/16 at 09:00 Pantoprazole Sodium 80 mg/ Sodium Chloride 100 ml @ 10 mls/hr Q10H IV Last administered on 11/12/16 09:49; Start 11/11/16 at 09:15; Stop 11/12/16 at 15:51 ; Status DC Levothyroxine Sodium (Synthroid) 75 mcg DAILY07 PO Last administered on 06:04; Start 11/12/16 at 10:30 Ferrous Sulfate (Feosol) 325 mg BIDWMEALS PO ; Start 11/12/16 at 09:00 Potassium Chloride 100 ml @ 100 mls/hr Q1H IV Last administered on 11/12/16 16:59; Start 11/12/16 at 12:00; Stop 11/12/16 at 13:59; Status DC Sodium Chloride 1,000 ml @ 75 mls/hr [id number] IV Last administered on 12:58; Start 11/12/16 at 13:00; Stop 11/13/16 at 08:06; Status DC Propofol 20 ml @ As Directed STK-MED ONCE IV ; Start 11/12/16 at 13:55; Stop 02/19 at 13:56; Status DC Lidocaine HCl (Lidocaine Pf 2% Vial) 5 ml STK-MED ONCE .ROUTE ; Start 11/12/16 at 13:56; Stop 11/12/16 at 13:57; Status DC Pantoprazole Sodium (Protonix) 40 mg DAILYAC PO ; Start 11/13/16 at 07:30 Active Scripts Active Reported Trazodone Hcl 50 Mg Tablet 50 Mg PO HS Coumadin (Warfarin Sodium) 2 Mg Tablet 1 Tab PO DAILY Tramadol Hcl 50 Mg Tablet 25 Mg PO Q6H PRN Nystatin 100,000 Unit/1 Ml Oral.susp 5 Ml PO QID Metoprolol Tartrate 25 Mg Tablet 12.5 Mg PO BID Amoxicillin 500 Mg Capsule 1 Cap PO BID Amlodipine Besylate 5 Mg Tablet 5 Mg PO DAILY Amlodipine Besylate 5 Mg Tablet 5 Mg PO DAILY Milk Of Magnesia (Magnesium Hydroxide) 400 Mg/5 Ml Oral.susp 400 Mg PO PRN DAILY PRN Metoprolol Succinate ( Xl ) (Metoprolol Succinate) 25 Mg Tab.er.24h 1 Tab PO DAILY Losartan Potassium 100 Mg Tablet 100 Mg PO DAILY Lorazepam 0.5 Mg Tablet 0.5 Mg PO HS Levothyroxine Sodium 50 Mcg Tablet 1 Tab PO DAILY Furosemide 20 Mg Tablet 1 Tab PO DAILY Ferrous Sulfate 325 Mg Tablet 1 Tab PO BIDWMEALS Famotidine 20 Mg Tablet 20 Mg PO DAILY Dulcolax (Bisacodyl) 10 Mg Supp.rect 10 Mg RC PRN DAILY PRN Digoxin 125 Mcg Tablet 1 Tab PO DAILY Clonidine Hcl 0.1 Mg Tablet 1 Tab PO PRN Q6HRS PRN Acetaminophen 500 Mg Tablet 1 Tab PO PRN QID PRN Tylenol (Acetaminophen) 325 Mg Tablet 2 Tab PO PRN Q4HRS PRN Vitals/I & O Vital Sign - Last 24 Hours 11/12/16 11/12/16 11/12/16 11/12/16 09:00 09:44 10:00 10:04 Temp 97.7 98.6 97.7 98.6 Pulse 52 68 60 58 Resp 12 20 12 11 B/P (MAP) 104/36 (58) 116/58 102/52 (69) 102/52 Pulse Ox 100 99 O2 Delivery Room Air Room Air 11/12/16 11/12/16 11/12/16 11/12/16 11:00 12:00 12:39 14:20 Temp 98.2 99 98.2 99.0 Pulse 56 60 66 66 Resp 12 20 16 B/P (MAP) 93/47 (62) 112/46 (68) 100/48 Pulse Ox 99 99 98 100 O2 Delivery Room Air Room Air Room Air O2 Flow Rate 4 11/12/16 11/12/16 11/12/16 11/12/16 14:35 14:50 15:00 16:00 Temp 97.4 97.4 Pulse 65 59 60 56 Resp 18 18 20 22 B/P (MAP) 98/47 105/49 105/43 (63) 95/47 (63) Pulse Ox 100 100 100 100 O2 Delivery Nasal Cannula Room Air Room Air O2 Flow Rate 4 11/12/16 11/12/16 11/12/16 11/12/16 17:00 18:00 19:00 20:00 Temp 97.9 97.9 Pulse 60 58 64 Resp 27 13 30 B/P (MAP) 133/71 (91) 134/62 (86) 139/62 (87) Pulse Ox 98 98 98 O2 Delivery Room Air Room Air Room Air Room Air 11/12/16 11/12/16 11/12/16 11/12/16 20:00 21:00 22:00 23:00 Pulse 56 64 56 64 Resp 24 29 11 13 B/P (MAP) 107/42 (63) 133/66 (88) 118/48 (71) 144/65 (91) Pulse Ox 98 99 99 98 O2 Delivery Room Air Room Air Room Air Room Air 11/13/16 11/13/16 11/13/16 11/13/16 00:00 01:00 02:00 03:00 Temp 98.4 98.4 Pulse 64 58 58 64 Resp 31 18 23 29 B/P (MAP) 148/72 (97) 125/54 (77) 107/49 (68) 99/69 (79) Pulse Ox 99 99 99 99 O2 Delivery Room Air Room Air Room Air Room Air 11/13/16 11/13/16 11/13/16 04:00 05:00 06:00 Temp 97.8 97.8 Pulse 66 62 58 Resp 20 21 12 B/P (MAP) 126/63 (84) 140/58 (85) 111/45 (67) Pulse Ox 99 99 99 O2 Delivery Room Air Room Air Room Air Intake and Output 11/12/16 11/12/16 11/13/16 15:00 23:00 07:00 Intake Total 350 ml 1575.92 ml Output Total 75 ml 245 ml 675 ml Balance 275 ml 1330.92 ml -675 ml MIKI COLORADO MD Nov 13, 2016 08:56
--- NOTE | 2016-11-13 09:51 | PDOC ---
Subjective: Subjective: C/o cold feet. Objective: Objective: Per RN - no bleeding, has been confused, plans to advance diet and transfer out of ICU. Vital Signs: Vital Signs Date Time Temp Pulse Resp B/P (MAP) Pulse Ox O2 Delivery O2 Flow Rate FiO2 11/13/16 06:00 58 12 111/45 (67) 99 Room Air 11/13/16 04:00 97.8 97.8 11/12/16 14:50 4 Labs: Laboratory Tests Test 11/12/16 18:05 11/13/16 04:55 Hemoglobin 9.3 g/dL 9.5 g/dL White Blood Count 7.9 x10^3/uL Red Blood Count 2.91 x10^6/uL Hematocrit 27.2 % Mean Corpuscular Volume 93 fL Mean Corpuscular Hemoglobin 33 pg Mean Corpuscular Hemoglobin Concent 35 g/dL Red Cell Distribution Width 17.7 % Platelet Count 97 x10^3/uL Neutrophils (%) (Auto) 69 % Lymphocytes (%) (Auto) 14 % Monocytes (%) (Auto) 13 % Eosinophils (%) (Auto) 3 % Basophils (%) (Auto) 1 % Neutrophils # (Auto) 5.4 x10^3uL Lymphocytes # (Auto) 1.1 x10^3/uL Monocytes # (Auto) 1.0 x10^3/uL Eosinophils # (Auto) 0.3 x10^3/uL Basophils # (Auto) 0.1 x10^3/uL Sodium Level 146 mmol/L Potassium Level 3.4 mmol/L Chloride Level 114 mmol/L Carbon Dioxide Level 20 mmol/L Anion Gap 12 Blood Urea Nitrogen 44 mg/dL Creatinine 1.4 mg/dL Estimated GFR (Cockcroft-Gault) 35.4 Glucose Level 113 mg/dL Calcium Level 8.4 mg/dL Magnesium Level 1.9 mg/dL Imaging: EGD 11/12/16 E--<grade I esophagitis at 38cm G--Numerous petechiae, proximal stomach and fundus. Linear erosions, antrum--> pylorus. No discrete ulcer, etc. D--normal to second portion. IMP: Erosions, submucosal bleeding stomach. Mild reflux. PE: GEN: NAD LUNGS: clear HEART:irreg ABD: S/ND/NT EXTREM: BLE warm w/ socks NEURO/PSYCH: confused A/P: UGIB -Hgb improved/stable, INR better -EGD findings as above -- Continue PPI, agree w/ advancing diet. BERNABE LOVE Nov 13, 2016 09:51
--- NOTE | 2016-11-13 10:50 | PDOC ---
Renal-Progress Notes Subjective Notes Notes MORE ALERT BUT STILL CONFUSED History of Present Illness Hx of present illness STABLE Vitals Vitals Vital Signs Date Time Temp Pulse Resp B/P (MAP) Pulse Ox O2 Delivery O2 Flow Rate FiO2 11/13/16 09:00 60 19 135/60 (85) 99 Room Air 11/13/16 08:00 97.4 97.4 11/12/16 14:50 4 Weight Weight [ ] I.O. Intake and Output Intake and Output 11/13/16 07:00 Intake Total 1925.92 ml Output Total 995 ml Balance 930.92 ml IV Total 1525.92 ml Blood Product 350 ml Blood Product IV Normal Saline Flush 50 ml Output Urine Total 995 ml Labs Labs Laboratory Tests Test 11/12/16 18:05 11/13/16 04:55 Hemoglobin 9.3 g/dL (12.0-15.5) 9.5 g/dL (12.0-15.5) White Blood Count 7.9 x10^3/uL (4.0-11.0) Red Blood Count 2.91 x10^6/uL (3.50-5.40) Hematocrit 27.2 % (36.0-47.0) Mean Corpuscular Volume 93 fL (79-100) Mean Corpuscular Hemoglobin 33 pg (25-35) Mean Corpuscular Hemoglobin Concent 35 g/dL (31-37) Red Cell Distribution Width 17.7 % (11.5-14.5) Platelet Count 97 x10^3/uL (140-400) Neutrophils (%) (Auto) 69 % (31-73) Lymphocytes (%) (Auto) 14 % (24-48) Monocytes (%) (Auto) 13 % (0-9) Eosinophils (%) (Auto) 3 % (0-3) Basophils (%) (Auto) 1 % (0-3) Neutrophils # (Auto) 5.4 x10^3uL (1.8-7.7) Lymphocytes # (Auto) 1.1 x10^3/uL (1.0-4.8) Monocytes # (Auto) 1.0 x10^3/uL (0.0-1.1) Eosinophils # (Auto) 0.3 x10^3/uL (0.0-0.7) Basophils # (Auto) 0.1 x10^3/uL (0.0-0.2) Sodium Level 146 mmol/L (136-145) Potassium Level 3.4 mmol/L (3.5-5.1) Chloride Level 114 mmol/L (98-107) Carbon Dioxide Level 20 mmol/L (21-32) Anion Gap 12 (6-14) Blood Urea Nitrogen 44 mg/dL (7-20) Creatinine 1.4 mg/dL (0.6-1.0) Estimated GFR (Cockcroft-Gault) 35.4 Glucose Level 113 mg/dL (70-99) Calcium Level 8.4 mg/dL (8.5-10.1) Magnesium Level 1.9 mg/dL (1.8-2.4) Micro Micro Microbiology 11/10/16 Blood Culture - Preliminary, Resulted NO GROWTH AFTER 2 DAYS 11/11/16 Urine Culture - Preliminary, Resulted 11/11/16 Urine Culture Result 1 ([place]) - Preliminary, Resulted Review of Systems Constitutional: yes: no symptom reported, other (CONFUSED) Physical Exam General Appearance: no apparent distress Respiratory: bilateral CTA Heart: S1S2 Abdomen: soft, bowel sounds present Genitourinary: bladder flat Neurology: alert Assessment Assessment IMP ANEMIA GI BLEED CKD STAGE 3 WITH CR AT BASELINE OF ABOUT 1.5-1.7 MILD CANDIDA-RESOLVED COAGULOPATHY HYPOKALEMIA HYPERNATREMIA DEMENTIA PLAN REPLACE K ADVANCE DIET TOLERATED PPN FOR NOW UPDATED SON LARISA CHACON MD Nov 13, 2016 10:50
[2016-11-13] MEDS: FERROUS SULFATE 325 MG TABLET. PO SCH ×2 (11:01→17:18)
[2016-11-13] MEDS: PANTOPRAZOLE 40 MG TABLET.DR. PO SCH (11:01)
[2016-11-13] MEDS: AMINO AC 3%/ELECTROLYTE/GLYCER 1,000 ML IV SCH ×2 (11:18→23:30)
[2016-11-13] MEDS: POTASSIUM CHLORIDE 10MEQ 100 ML IV SCH ×2 (11:18→12:00)
[2016-11-14 03:00] VITALS: BP 185/77
[2016-11-14 04:44] LABS: BASO # 0.1 x10^3/uL (0.0-0.2); BASO % 1 % (0-3); EOS % 2 % (0-3); HEMATOCRIT 29.9 % (36.0-47.0); HEMOGLOBIN 10.5 g/dL (12.0-15.5); LYMPH # 1.1 x10^3/uL (1.0-4.8); LYMPH % 11 % (24-48); MEAN CORPUSCULAR HEMOGLOBIN 34 pg (25-35); MEAN CORPUSCULAR HGB CONC 35 g/dL (31-37); MEAN CORPUSCULAR VOLUME 96 fL (79-100); MONO % 11 % (0-9); NEUT % 75 % (31-73); PLATELET COUNT 100 x10^3/uL (140-400); RED BLOOD COUNT 3.13 x10^6/uL (3.50-5.40); RED CELL DISTRIBUTION WIDTH 24.5 % (11.5-14.5); WHITE BLOOD COUNT 9.2 x10^3/uL (4.0-11.0)
[2016-11-14 04:53] LABS: CALCIUM 8.3 mg/dL (8.5-10.1); CREATININE 1.4 mg/dL (0.6-1.0); GFR 35.4
[2016-11-14] MEDS: AMINO AC 3%/ELECTROLYTE/GLYCER 1,000 ML IV SCH ×2 (05:08→21:13)
[2016-11-14] MEDS: LEVOTHYROXINE 75 MCG TABLET PO SCH (06:05)
[2016-11-14 07:00] VITALS: BP 173/84
[2016-11-14] MEDS: PANTOPRAZOLE 40 MG TABLET.DR. PO SCH (07:58)
[2016-11-14] MEDS: FERROUS SULFATE 325 MG TABLET. PO SCH ×2 (07:58→17:00)
--- NOTE | 2016-11-14 08:58 | PDOC ---
PROGRESS NOTES Subjective Subjective discussed with son. alert and confused receiving PPN. not eating or drinking well. PT and OT started and son concurs with SNF but agrees to resort snf. lab reviewed. renal function close to baseline and hgb 10.5. blood pressure is high Objective Objective Vital Signs Date Time Temp Pulse Resp B/P (MAP) Pulse Ox O2 Delivery O2 Flow Rate FiO2 11/14/16 07:00 99.2 85 18 173/84 (113) 97 Room Air 99.2 11/12/16 14:50 4 Intake and Output 11/14/16 06:59 Intake Total 120 ml Output Total 640 ml Balance -520 ml Intake Oral 120 ml Output Urine Total 640 ml Physical Exam Abdomen: Soft, No tenderness Heart: Normal S1, Normal S2 Extremities: No edema General: Alert, Other (confused) HEENT: Atraumatic Lungs: Clear to auscultation Neuro: Other (says a few words) Psych/Mental Status: Mood NL Skin: No rashes COMMENT sclera slightly icteric Assessment Assessment Problemsacute upper GI bleed resolved. due to hemorrhagic gastritis reflux esophagitis severe acute blood loss anemia on anemia of chronic disease. hgb stable received 5 units prbc total coagulopathy resolved hypotension due to GI bleed resolved near syncope due to hypotension acute kidney injury resolved with iv hydration on chronic kidney disease stage 3 paroxysmal atrial fibrillation. off of coumadin permanently bioprosthetic AVR thrombocytopenia. stable hypothyroidism moderate protein calorie malnutrition history of UGI bleed due to gastric ulcer 2008 dementia debility hypertension Medical Problems: (1) Acute GI bleeding Status: Acute (2) Acute renal failure Status: Acute (3) Hemodynamic instability Status: Acute (4) Severe protein-calorie malnutrition Status: Acute (5) Warfarin-induced coagulopathy Status: Acute Plan Plan of Care PT and OT continue PPN SNF screen lab tomorrow. check cbc and cmp continue protonix start low dose amlodipine and resume metoprolol permanently off of anticoagulants Comment Review of Relevant I have reviewed the following items shara (where applicable) has been applied. Labs Laboratory Tests Test 11/12/16 18:05 11/13/16 04:55 11/14/16 03:12 Hemoglobin 9.3 g/dL (12.0-15.5) 9.5 g/dL (12.0-15.5) 10.5 g/dL (12.0-15.5) White Blood Count 7.9 x10^3/uL (4.0-11.0) 9.2 x10^3/uL (4.0-11.0) Red Blood Count 2.91 x10^6/uL (3.50-5.40) 3.13 x10^6/uL (3.50-5.40) Hematocrit 27.2 % (36.0-47.0) 29.9 % (36.0-47.0) Mean Corpuscular Volume 93 fL (79-100) 96 fL (79-100) Mean Corpuscular Hemoglobin 33 pg (25-35) 34 pg (25-35) Mean Corpuscular Hemoglobin Concent 35 g/dL (31-37) 35 g/dL (31-37) Red Cell Distribution Width 17.7 % (11.5-14.5) 24.5 % (11.5-14.5) Platelet Count 97 x10^3/uL (140-400) 100 x10^3/uL (140-400) Neutrophils (%) (Auto) 69 % (31-73) 75 % (31-73) Lymphocytes (%) (Auto) 14 % (24-48) 11 % (24-48) Monocytes (%) (Auto) 13 % (0-9) 11 % (0-9) Eosinophils (%) (Auto) 3 % (0-3) 2 % (0-3) Basophils (%) (Auto) 1 % (0-3) 1 % (0-3) Neutrophils # (Auto) 5.4 x10^3uL (1.8-7.7) 6.9 x10^3uL (1.8-7.7) Lymphocytes # (Auto) 1.1 x10^3/uL (1.0-4.8) 1.1 x10^3/uL (1.0-4.8) Monocytes # (Auto) 1.0 x10^3/uL (0.0-1.1) 1.0 x10^3/uL (0.0-1.1) Eosinophils # (Auto) 0.3 x10^3/uL (0.0-0.7) 0.2 x10^3/uL (0.0-0.7) Basophils # (Auto) 0.1 x10^3/uL (0.0-0.2) 0.1 x10^3/uL (0.0-0.2) Sodium Level 146 mmol/L (136-145) 144 mmol/L (136-145) Potassium Level 3.4 mmol/L (3.5-5.1) 4.0 mmol/L (3.5-5.1) Chloride Level 114 mmol/L (98-107) 111 mmol/L (98-107) Carbon Dioxide Level 20 mmol/L (21-32) 18 mmol/L (21-32) Anion Gap 12 (6-14) 15 (6-14) Blood Urea Nitrogen 44 mg/dL (7-20) 34 mg/dL (7-20) Creatinine 1.4 mg/dL (0.6-1.0) 1.4 mg/dL (0.6-1.0) Estimated GFR (Cockcroft-Gault) 35.4 35.4 Glucose Level 113 mg/dL (70-99) 122 mg/dL (70-99) Calcium Level 8.4 mg/dL (8.5-10.1) 8.3 mg/dL (8.5-10.1) Magnesium Level 1.9 mg/dL (1.8-2.4) Laboratory Tests Test 11/14/16 03:12 White Blood Count 9.2 x10^3/uL (4.0-11.0) Red Blood Count 3.13 x10^6/uL (3.50-5.40) Hemoglobin 10.5 g/dL (12.0-15.5) Hematocrit 29.9 % (36.0-47.0) Mean Corpuscular Volume 96 fL (79-100) Mean Corpuscular Hemoglobin 34 pg (25-35) Mean Corpuscular Hemoglobin Concent 35 g/dL (31-37) Red Cell Distribution Width 24.5 % (11.5-14.5) Platelet Count 100 x10^3/uL (140-400) Neutrophils (%) (Auto) 75 % (31-73) Lymphocytes (%) (Auto) 11 % (24-48) Monocytes (%) (Auto) 11 % (0-9) Eosinophils (%) (Auto) 2 % (0-3) Basophils (%) (Auto) 1 % (0-3) Neutrophils # (Auto) 6.9 x10^3uL (1.8-7.7) Lymphocytes # (Auto) 1.1 x10^3/uL (1.0-4.8) Monocytes # (Auto) 1.0 x10^3/uL (0.0-1.1) Eosinophils # (Auto) 0.2 x10^3/uL (0.0-0.7) Basophils # (Auto) 0.1 x10^3/uL (0.0-0.2) Sodium Level 144 mmol/L (136-145) Potassium Level 4.0 mmol/L (3.5-5.1) Chloride Level 111 mmol/L (98-107) Carbon Dioxide Level 18 mmol/L (21-32) Anion Gap 15 (6-14) Blood Urea Nitrogen 34 mg/dL (7-20) Creatinine 1.4 mg/dL (0.6-1.0) Estimated GFR (Cockcroft-Gault) 35.4 Glucose Level 122 mg/dL (70-99) Calcium Level 8.3 mg/dL (8.5-10.1) Microbiology 11/10/16 Blood Culture - Preliminary, Resulted NO GROWTH AFTER 3 DAYS 11/11/16 Urine Culture - Final, Complete 11/11/16 Urine Culture Result 1 ([place]) - Final, Complete Medications Current Medications Sodium Chloride 1,000 ml @ 1,000 mls/hr Q1H IV Last administered on 11/10/16 23:58; Start 11/10/16 at 23:45; Stop 11/11/16 at 00:44; Status DC Ondansetron HCl (Zofran) 4 mg 1X ONCE IV ; Start 11/10/16 at 23:45; Stop at 23:46; Status DC Furosemide (Lasix) 20 mg 1X PRN PRN IV Blood transfusion; Start 11/10/16 at 23: 30; Stop 11/11/16 at 23:29; Status DC Phytonadione (Vitamin K) 10 mg 1X ONCE SQ Last administered on 11/11/16 00:45 ; Start 11/11/16 at 00:45; Stop 11/11/16 at 00:46; Status DC Pantoprazole Sodium (Protonix Vial) 80 mg 1X ONCE IVP Last administered on 11/11 01:08; Start 11/11/16 at 01:00; Stop 11/11/16 at 01:01; Status DC Pantoprazole Sodium 80 mg/ Sodium Chloride 100 ml @ 10 mls/hr 1X ONCE IV Last administered on 11/11/16 01:07; Start 11/11/16 at 01:00; Stop 11/11/16 at 10: 59; Status DC Ondansetron HCl (Zofran) 4 mg PRN Q8HRS PRN IV NAUSEA/VOMITING Last administered on 11/11/16 11:34; Start 11/11/16 at 00:30; Stop 11/12/16 at 00:29; Status DC Fentanyl Citrate (Fentanyl 2ml Vial) 50 mcg PRN Q2HR PRN IV SEVERE PAIN Last administered on 11/11/16 22:02; Start 11/11/16 at 00:30; Stop 11/12/16 at 00:29; Status DC Sodium Chloride 1,000 ml @ 150 mls/hr Q6H40M IV ; Start 11/11/16 at 00:24; Stop 11/11/16 at 08:57; Status DC Pantoprazole Sodium (Protonix) 40 mg DAILYAC PO ; Start 11/11/16 at 10:00; Status UNV Acetaminophen (Tylenol) 650 mg PRN Q6HRS PRN PO MILD PAIN / TEMP; Start at 09:00 Dextrose/Sodium Chloride 1,000 ml @ 60 mls/hr [id number] IV Last administered on 11/13/16 06:03; Start 11/11/16 at 09:00; Stop 11/13/16 at 10:52; Status DC Pantoprazole Sodium 80 mg/ Sodium Chloride 100 ml @ 10 mls/hr Q10H IV Last administered on 11/12/16 09:49; Start 11/11/16 at 09:15; Stop 11/12/16 at 15:51 ; Status DC Levothyroxine Sodium (Synthroid) 75 mcg DAILY07 PO Last administered on 06:05; Start 11/12/16 at 10:30 Ferrous Sulfate (Feosol) 325 mg BIDWMEALS PO Last administered on 11/14/16 07: 58; Start 11/12/16 at 09:00 Potassium Chloride 100 ml @ 100 mls/hr Q1H IV Last administered on 11/12/16 16:59; Start 11/12/16 at 12:00; Stop 11/12/16 at 13:59; Status DC Sodium Chloride 1,000 ml @ 75 mls/hr [id number] IV Last administered on 12:58; Start 11/12/16 at 13:00; Stop 11/13/16 at 08:06; Status DC Propofol 20 ml @ As Directed STK-MED ONCE IV ; Start 11/12/16 at 13:55; Stop 02/19 at 13:56; Status DC Lidocaine HCl (Lidocaine Pf 2% Vial) 5 ml STK-MED ONCE .ROUTE ; Start 11/12/16 at 13:56; Stop 11/12/16 at 13:57; Status DC Pantoprazole Sodium (Protonix) 40 mg DAILYAC PO Last administered on 11/14/16 07:58; Start 11/13/16 at 07:30 Potassium Chloride 100 ml @ 100 mls/hr Q1H IV Last administered on 11/13/16 12:00; Start 11/13/16 at 11:00; Stop 11/13/16 at 12:59; Status DC Amino Acids/ Glycerin/ Electrolytes 1,000 ml @ 80 mls/hr [id number] IV Last administered on 11/14/16 05:08; Start 11/13/16 at 11:00 Active Scripts Active Reported Trazodone Hcl 50 Mg Tablet 50 Mg PO HS Coumadin (Warfarin Sodium) 2 Mg Tablet 1 Tab PO DAILY Tramadol Hcl 50 Mg Tablet 25 Mg PO Q6H PRN Metoprolol Tartrate 25 Mg Tablet 12.5 Mg PO BID Milk Of Magnesia (Magnesium Hydroxide) 400 Mg/5 Ml Oral.susp 400 Mg PO PRN DAILY PRN Losartan Potassium 100 Mg Tablet 100 Mg PO DAILY Lorazepam 0.5 Mg Tablet 0.5 Mg PO HS Levothyroxine Sodium 50 Mcg Tablet 1 Tab PO DAILY Furosemide 20 Mg Tablet 1 Tab PO DAILY Ferrous Sulfate 325 Mg Tablet 1 Tab PO BIDWMEALS Dulcolax (Bisacodyl) 10 Mg Supp.rect 10 Mg RC PRN DAILY PRN Clonidine Hcl 0.1 Mg Tablet 1 Tab PO PRN Q6HRS PRN Acetaminophen 500 Mg Tablet 1 Tab PO PRN QID PRN Tylenol (Acetaminophen) 325 Mg Tablet 2 Tab PO PRN Q4HRS PRN Vitals/I & O Vital Sign - Last 24 Hours 11/13/16 11/13/16 11/13/16 11/13/16 09:00 12:00 15:00 19:00 Temp 97.8 98.0 97.7 97.8 98.0 97.7 Pulse 60 64 66 68 Resp 19 30 18 20 B/P (MAP) 135/60 (85) 135/60 (85) 168/63 (98) 163/66 (98) Pulse Ox 99 99 97 99 O2 Delivery Room Air Room Air Room Air Room Air 11/13/16 11/13/16 11/14/16 11/14/16 20:00 23:00 03:00 07:00 Temp 98.8 98.2 99.2 98.8 98.2 99.2 Pulse 69 93 85 Resp 20 20 18 B/P (MAP) 175/73 (107) 185/77 (113) 173/84 (113) Pulse Ox 98 97 97 O2 Delivery Room Air Room Air Room Air Room Air Intake and Output 11/13/16 11/13/16 11/14/16 14:59 22:59 06:59 Intake Total 120 ml Output Total 140 ml 500 ml Balance -140 ml -500 ml 120 ml MIKI COLORADO MD Nov 14, 2016 08:58
[2016-11-14] MEDS: METOPROLOL TART IMMED RELEASE 25 MG TABLET. PO SCH (09:59)
[2016-11-14] MEDS: amLODIPine BESYLATE 2.5 MG TABLET PO SCH (10:00)
--- NOTE | 2016-11-14 10:24 | PDOC ---
Subjective: Subjective: Per son Gilberto - not feeling too well, trying to have a bowel movement, BP and HR high, not eating/drinking much. Per RN - a couple stools overnight. Objective: Vital Signs: Vital Signs Date Time Temp Pulse Resp B/P (MAP) Pulse Ox O2 Delivery O2 Flow Rate FiO2 11/14/16 10:00 85 173/84 11/14/16 07:00 99.2 18 97 Room Air 99.2 Labs: Laboratory Tests Test 11/14/16 03:12 White Blood Count 9.2 x10^3/uL Red Blood Count 3.13 x10^6/uL Hemoglobin 10.5 g/dL Hematocrit 29.9 % Mean Corpuscular Volume 96 fL Mean Corpuscular Hemoglobin 34 pg Mean Corpuscular Hemoglobin Concent 35 g/dL Red Cell Distribution Width 24.5 % Platelet Count 100 x10^3/uL Neutrophils (%) (Auto) 75 % Lymphocytes (%) (Auto) 11 % Monocytes (%) (Auto) 11 % Eosinophils (%) (Auto) 2 % Basophils (%) (Auto) 1 % Neutrophils # (Auto) 6.9 x10^3uL Lymphocytes # (Auto) 1.1 x10^3/uL Monocytes # (Auto) 1.0 x10^3/uL Eosinophils # (Auto) 0.2 x10^3/uL Basophils # (Auto) 0.1 x10^3/uL Sodium Level 144 mmol/L Potassium Level 4.0 mmol/L Chloride Level 111 mmol/L Carbon Dioxide Level 18 mmol/L Anion Gap 15 Blood Urea Nitrogen 34 mg/dL Creatinine 1.4 mg/dL Estimated GFR (Cockcroft-Gault) 35.4 Glucose Level 122 mg/dL Calcium Level 8.3 mg/dL PE: GEN: NAD LUNGS: clear HEART: RRR ABD: hyperactive BS, non-tender, soft NEURO/PSYCH: confused, eyes closed A/P: UGIB - resolved -Hgb improved/stable, s/p EGD 11/12 w/ gastric erosions, on PPI and off Warfarin Decreased appetite Confusion, HTN, CANDIDA -per primary -- Continue same per GI. BERNABE LOVE Nov 14, 2016 10:24
[2016-11-14 10:41] VITALS: BP 136/77
--- NOTE | 2016-11-14 11:52 | PDOC ---
Renal-Progress Notes Subjective Notes Notes NONE History of Present Illness Hx of present illness CONFUSED Vitals Vitals Vital Signs Date Time Temp Pulse Resp B/P (MAP) Pulse Ox O2 Delivery O2 Flow Rate FiO2 11/14/16 10:41 98.2 80 18 136/77 (96) 96 Room Air 98.2 Weight Weight [ ] I.O. Intake and Output Intake and Output 11/14/16 07:00 Intake Total 120 ml Output Total 640 ml Balance -520 ml Intake Oral 120 ml Output Urine Total 640 ml Labs Labs Laboratory Tests Test 11/14/16 03:12 White Blood Count 9.2 x10^3/uL (4.0-11.0) Red Blood Count 3.13 x10^6/uL (3.50-5.40) Hemoglobin 10.5 g/dL (12.0-15.5) Hematocrit 29.9 % (36.0-47.0) Mean Corpuscular Volume 96 fL (79-100) Mean Corpuscular Hemoglobin 34 pg (25-35) Mean Corpuscular Hemoglobin Concent 35 g/dL (31-37) Red Cell Distribution Width 24.5 % (11.5-14.5) Platelet Count 100 x10^3/uL (140-400) Neutrophils (%) (Auto) 75 % (31-73) Lymphocytes (%) (Auto) 11 % (24-48) Monocytes (%) (Auto) 11 % (0-9) Eosinophils (%) (Auto) 2 % (0-3) Basophils (%) (Auto) 1 % (0-3) Neutrophils # (Auto) 6.9 x10^3uL (1.8-7.7) Lymphocytes # (Auto) 1.1 x10^3/uL (1.0-4.8) Monocytes # (Auto) 1.0 x10^3/uL (0.0-1.1) Eosinophils # (Auto) 0.2 x10^3/uL (0.0-0.7) Basophils # (Auto) 0.1 x10^3/uL (0.0-0.2) Sodium Level 144 mmol/L (136-145) Potassium Level 4.0 mmol/L (3.5-5.1) Chloride Level 111 mmol/L (98-107) Carbon Dioxide Level 18 mmol/L (21-32) Anion Gap 15 (6-14) Blood Urea Nitrogen 34 mg/dL (7-20) Creatinine 1.4 mg/dL (0.6-1.0) Estimated GFR (Cockcroft-Gault) 35.4 Glucose Level 122 mg/dL (70-99) Calcium Level 8.3 mg/dL (8.5-10.1) Micro Micro Microbiology 11/10/16 Blood Culture - Preliminary, Resulted NO GROWTH AFTER 3 DAYS 11/11/16 Urine Culture - Final, Complete 11/11/16 Urine Culture Result 1 ([place]) - Final, Complete Review of Systems Constitutional: yes: no symptom reported, other (CONFUSED) Physical Exam General Appearance: no apparent distress Respiratory: bilateral CTA Heart: S1S2 Abdomen: soft, bowel sounds present Genitourinary: bladder flat Neurology: alert Assessment Assessment IMP ANEMIA GI BLEED CKD STAGE 3 WITH CR AT BASELINE OF ABOUT 1.5-1.7 MILD [id number] 1.3 COAGULOPATHY HYPOKALEMIA HYPERNATREMIA DEMENTIA PLAN REPLACE K NEEDED ADVANCE DIET TOLERATED PPN FOR NOW LARISA CHACON MD Nov 14, 2016 11:52
[2016-11-14] MEDS: ACETAMINOPHEN 325 MG TABLET. PO PRN ×2 (13:15→21:13)
[2016-11-14 15:00] VITALS: BP 129/88
[2016-11-14 19:00] VITALS: BP 170/78
[2016-11-14] MEDS: traZODone 50 MG TABLET. PO SCH (21:13)
[2016-11-14 23:00] VITALS: BP 162/70
[2016-11-15] MEDS: LEVOTHYROXINE 75 MCG TABLET PO SCH (06:27)
[2016-11-15 06:38] LABS: BASO # 0.1 x10^3/uL (0.0-0.2); BASO % 1 % (0-3); EOS % 1 % (0-3); HEMATOCRIT 35.2 % (36.0-47.0); HEMOGLOBIN 11.5 g/dL (12.0-15.5); LYMPH # 1.1 x10^3/uL (1.0-4.8); LYMPH % 9 % (24-48); MEAN CORPUSCULAR HEMOGLOBIN 32 pg (25-35); MEAN CORPUSCULAR HGB CONC 33 g/dL (31-37); MEAN CORPUSCULAR VOLUME 100 fL (79-100); MONO % 10 % (0-9); NEUT % 80 % (31-73); PLATELET COUNT 163 x10^3/uL (140-400); RED BLOOD COUNT 3.53 x10^6/uL (3.50-5.40); RED CELL DISTRIBUTION WIDTH 25.8 % (11.5-14.5); WHITE BLOOD COUNT 12.5 x10^3/uL (4.0-11.0)
[2016-11-15 07:00] VITALS: BP 167/82
[2016-11-15 07:09] LABS: ALBUMIN 3.1 g/dL (3.4-5.0); ALBUMIN/GLOBULIN RATIO 0.9 (1.0-1.7); CALCIUM 8.6 mg/dL (8.5-10.1); CREATININE 1.4 mg/dL (0.6-1.0); GFR 35.4; TOTAL BILIRUBIN 5.2 mg/dL (0.2-1.0); TOTAL PROTEIN 6.5 g/dL (6.4-8.2)
[2016-11-15 07:40] LABS: % EOS 1 % (0-5); ANISOCYTOSIS MOD; NUCLEATED RBC 1; PLT ESTIMATE ADEQUATE (ADEQUATE); POLYCHROMASIA MOD
[2016-11-15] MEDS: FERROUS SULFATE 325 MG TABLET. PO SCH ×2 (09:43→18:21)
[2016-11-15] MEDS: amLODIPine BESYLATE 2.5 MG TABLET PO SCH (09:43)
[2016-11-15] MEDS: METOPROLOL TART IMMED RELEASE 25 MG TABLET. PO SCH (09:45)
--- NOTE | 2016-11-15 10:07 | PDOC ---
Subjective: Subjective: Per son - DC to [facility] today, ate cream of wheat this morning. H/o elevated bilirubin, seems to correlate w/ CHF/retaining fluid/being off diuretics. Objective: Vital Signs: Vital Signs Date Time Temp Pulse Resp B/P (MAP) Pulse Ox O2 Delivery O2 Flow Rate FiO2 11/15/16 09:45 76 167/82 11/15/16 07:00 98.2 18 99 Room Air 98.2 Labs: Laboratory Tests Test 11/15/16 05:20 White Blood Count 12.5 x10^3/uL Red Blood Count 3.53 x10^6/uL Hemoglobin 11.5 g/dL Hematocrit 35.2 % Mean Corpuscular Volume 100 fL Mean Corpuscular Hemoglobin 32 pg Mean Corpuscular Hemoglobin Concent 33 g/dL Red Cell Distribution Width 25.8 % Platelet Count 163 x10^3/uL Neutrophils (%) (Auto) 80 % Lymphocytes (%) (Auto) 9 % Monocytes (%) (Auto) 10 % Eosinophils (%) (Auto) 1 % Basophils (%) (Auto) 1 % Neutrophils # (Auto) 10.0 x10^3uL Lymphocytes # (Auto) 1.1 x10^3/uL Monocytes # (Auto) 1.3 x10^3/uL Eosinophils # (Auto) 0.1 x10^3/uL Basophils # (Auto) 0.1 x10^3/uL Segmented Neutrophils % 73 % Band Neutrophils % 8 % Lymphocytes % 13 % Monocytes % 5 % Eosinophils % 1 % Nucleated Red Blood Cells 1 Platelet Estimate Adequate Giant Platelets Occ Polychromasia Mod Anisocytosis Mod Sodium Level 139 mmol/L Potassium Level 4.0 mmol/L Chloride Level 106 mmol/L Carbon Dioxide Level 19 mmol/L Anion Gap 14 Blood Urea Nitrogen 33 mg/dL Creatinine 1.4 mg/dL Estimated GFR (Cockcroft-Gault) 35.4 BUN/Creatinine Ratio 24 Glucose Level 120 mg/dL Calcium Level 8.6 mg/dL Total Bilirubin 5.2 mg/dL Aspartate Amino Transf (AST/SGOT) 94 U/L Alanine Aminotransferase (ALT/SGPT) 25 U/L Alkaline Phosphatase 121 U/L Total Protein 6.5 g/dL Albumin 3.1 g/dL Albumin/Globulin Ratio 0.9 Imaging: CT A/P 10/2015 IMPRESSION Cholelithiasis. Sigmoid diverticulosis without diverticulitis. Small amount of dependent free fluid is seen within the pelvis. Bilateral pleural effusions more prominent on the right side with associated compressive atelectasis. Cardiomegaly. Prominent subcutaneous fluid collection laterally within the left pelvis just superior and lateral to the left hip joint. MRCP 12/2015 IMPRESSION: 1. Cholelithiasis. 2. Suboptimal exam with in adequate visualization of the biliary tree in the common hepatic duct region. The visualized intrahepatic ducts and distal common bile duct show no evidence of obstruction. Abd US 08/2016 IMPRESSION: 1. Cholelithiasis. 2. No acute abdominal abnormality is detected. 3. Small right pleural effusion PE: GEN: NAD LUNGS: clear ABD: soft, doesn't seem tender SKIN: a little yellow NEURO/PSYCH: confused A/P: UGIB - resolved -Hgb improved/stable, s/p EGD 11/12 w/ gastric erosions, on PPI and off Warfarin Decreased appetite Hyperbilirubinemia -history of this, previous imaging as above -?related to CHF, more significant elevation this time -- Will review w/ Dr. Davidson. BERNABE LOVE Nov 15, 2016 10:07
--- NOTE | 2016-11-15 10:16 | PDOC ---
PROGRESS NOTES Subjective Subjective eating better. jaundiced. blood pressure high. lab reviewed. discussed with son. Objective Objective Vital Signs Date Time Temp Pulse Resp B/P (MAP) Pulse Ox O2 Delivery O2 Flow Rate FiO2 11/15/16 09:45 76 167/82 11/15/16 07:00 98.2 18 99 Room Air 98.2 11/12/16 14:50 4 Intake and Output 11/15/16 07:00 Intake Total 170 ml Output Total 350 ml Balance -180 ml Intake Oral 170 ml Output Urine Total 350 ml Physical Exam Abdomen: Soft Heart: Normal S1, Normal S2 Extremities: No edema General: Alert, Other (jaundiced) HEENT: Atraumatic Lungs: Clear to auscultation Neuro: Normal speech Psych/Mental Status: Mood NL Skin: No rashes Assessment Assessment Problemsacute upper GI bleed resolved. due to hemorrhagic gastritis reflux esophagitis severe acute blood loss anemia on anemia of chronic disease. hgb stable received 5 units prbc total coagulopathy resolved hypotension due to GI bleed resolved near syncope due to hypotension acute kidney injury resolved with iv hydration on chronic kidney disease stage 3 paroxysmal atrial fibrillation. off of coumadin permanently bioprosthetic AVR thrombocytopenia. stable hypothyroidism moderate protein calorie malnutrition history of UGI bleed due to gastric ulcer 2008 dementia debility hypertension jaundice Medical Problems: (1) Acute GI bleeding Status: Acute (2) Acute renal failure Status: Acute (3) Hemodynamic instability Status: Acute (4) Severe protein-calorie malnutrition Status: Acute (5) Warfarin-induced coagulopathy Status: Acute Plan Plan of Care increase amlodipine total and direct bilirubin tomorrow lab tomorrow d/c PPN iv fluids at low rate ct abdomen without iv contrast PT and OT eventual transfer to resort SNF Comment Review of Relevant I have reviewed the following items shara (where applicable) has been applied. Labs Laboratory Tests Test 11/14/16 03:12 11/15/16 05:20 White Blood Count 9.2 x10^3/uL (4.0-11.0) 12.5 x10^3/uL (4.0-11.0) Red Blood Count 3.13 x10^6/uL (3.50-5.40) 3.53 x10^6/uL (3.50-5.40) Hemoglobin 10.5 g/dL (12.0-15.5) 11.5 g/dL (12.0-15.5) Hematocrit 29.9 % (36.0-47.0) 35.2 % (36.0-47.0) Mean Corpuscular Volume 96 fL (79-100) 100 fL (79-100) Mean Corpuscular Hemoglobin 34 pg (25-35) 32 pg (25-35) Mean Corpuscular Hemoglobin Concent 35 g/dL (31-37) 33 g/dL (31-37) Red Cell Distribution Width 24.5 % (11.5-14.5) 25.8 % (11.5-14.5) Platelet Count 100 x10^3/uL (140-400) 163 x10^3/uL (140-400) Neutrophils (%) (Auto) 75 % (31-73) 80 % (31-73) Lymphocytes (%) (Auto) 11 % (24-48) 9 % (24-48) Monocytes (%) (Auto) 11 % (0-9) 10 % (0-9) Eosinophils (%) (Auto) 2 % (0-3) 1 % (0-3) Basophils (%) (Auto) 1 % (0-3) 1 % (0-3) Neutrophils # (Auto) 6.9 x10^3uL (1.8-7.7) 10.0 x10^3uL (1.8-7.7) Lymphocytes # (Auto) 1.1 x10^3/uL (1.0-4.8) 1.1 x10^3/uL (1.0-4.8) Monocytes # (Auto) 1.0 x10^3/uL (0.0-1.1) 1.3 x10^3/uL (0.0-1.1) Eosinophils # (Auto) 0.2 x10^3/uL (0.0-0.7) 0.1 x10^3/uL (0.0-0.7) Basophils # (Auto) 0.1 x10^3/uL (0.0-0.2) 0.1 x10^3/uL (0.0-0.2) Sodium Level 144 mmol/L (136-145) 139 mmol/L (136-145) Potassium Level 4.0 mmol/L (3.5-5.1) 4.0 mmol/L (3.5-5.1) Chloride Level 111 mmol/L (98-107) 106 mmol/L (98-107) Carbon Dioxide Level 18 mmol/L (21-32) 19 mmol/L (21-32) Anion Gap 15 (6-14) 14 (6-14) Blood Urea Nitrogen 34 mg/dL (7-20) 33 mg/dL (7-20) Creatinine 1.4 mg/dL (0.6-1.0) 1.4 mg/dL (0.6-1.0) Estimated GFR (Cockcroft-Gault) 35.4 35.4 Glucose Level 122 mg/dL (70-99) 120 mg/dL (70-99) Calcium Level 8.3 mg/dL (8.5-10.1) 8.6 mg/dL (8.5-10.1) Segmented Neutrophils % 73 % (35-66) Band Neutrophils % 8 % (0-9) Lymphocytes % 13 % (24-48) Monocytes % 5 % (0-10) Eosinophils % 1 % (0-5) Nucleated Red Blood Cells 1 Platelet Estimate Adequate (ADEQUATE) Giant Platelets Occ Polychromasia Mod Anisocytosis Mod BUN/Creatinine Ratio 24 (6-20) Total Bilirubin 5.2 mg/dL (0.2-1.0) Aspartate Amino Transf (AST/SGOT) 94 U/L (15-37) Alanine Aminotransferase (ALT/SGPT) 25 U/L (14-59) Alkaline Phosphatase 121 U/L (46-116) Total Protein 6.5 g/dL (6.4-8.2) Albumin 3.1 g/dL (3.4-5.0) Albumin/Globulin Ratio 0.9 (1.0-1.7) Laboratory Tests Test 11/15/16 05:20 White Blood Count 12.5 x10^3/uL (4.0-11.0) Red Blood Count 3.53 x10^6/uL (3.50-5.40) Hemoglobin 11.5 g/dL (12.0-15.5) Hematocrit 35.2 % (36.0-47.0) Mean Corpuscular Volume 100 fL (79-100) Mean Corpuscular Hemoglobin 32 pg (25-35) Mean Corpuscular Hemoglobin Concent 33 g/dL (31-37) Red Cell Distribution Width 25.8 % (11.5-14.5) Platelet Count 163 x10^3/uL (140-400) Neutrophils (%) (Auto) 80 % (31-73) Lymphocytes (%) (Auto) 9 % (24-48) Monocytes (%) (Auto) 10 % (0-9) Eosinophils (%) (Auto) 1 % (0-3) Basophils (%) (Auto) 1 % (0-3) Neutrophils # (Auto) 10.0 x10^3uL (1.8-7.7) Lymphocytes # (Auto) 1.1 x10^3/uL (1.0-4.8) Monocytes # (Auto) 1.3 x10^3/uL (0.0-1.1) Eosinophils # (Auto) 0.1 x10^3/uL (0.0-0.7) Basophils # (Auto) 0.1 x10^3/uL (0.0-0.2) Segmented Neutrophils % 73 % (35-66) Band Neutrophils % 8 % (0-9) Lymphocytes % 13 % (24-48) Monocytes % 5 % (0-10) Eosinophils % 1 % (0-5) Nucleated Red Blood Cells 1 Platelet Estimate Adequate (ADEQUATE) Giant Platelets Occ Polychromasia Mod Anisocytosis Mod Sodium Level 139 mmol/L (136-145) Potassium Level 4.0 mmol/L (3.5-5.1) Chloride Level 106 mmol/L (98-107) Carbon Dioxide Level 19 mmol/L (21-32) Anion Gap 14 (6-14) Blood Urea Nitrogen 33 mg/dL (7-20) Creatinine 1.4 mg/dL (0.6-1.0) Estimated GFR (Cockcroft-Gault) 35.4 BUN/Creatinine Ratio 24 (6-20) Glucose Level 120 mg/dL (70-99) Calcium Level 8.6 mg/dL (8.5-10.1) Total Bilirubin 5.2 mg/dL (0.2-1.0) Aspartate Amino Transf (AST/SGOT) 94 U/L (15-37) Alanine Aminotransferase (ALT/SGPT) 25 U/L (14-59) Alkaline Phosphatase 121 U/L (46-116) Total Protein 6.5 g/dL (6.4-8.2) Albumin 3.1 g/dL (3.4-5.0) Albumin/Globulin Ratio 0.9 (1.0-1.7) Microbiology 11/10/16 Blood Culture - Preliminary, Resulted NO GROWTH AFTER 4 DAYS 11/11/16 Urine Culture - Final, Complete 11/11/16 Urine Culture Result 1 ([place]) - Final, Complete Medications Current Medications Sodium Chloride 1,000 ml @ 1,000 mls/hr Q1H IV Last administered on 11/10/16 23:58; Start 11/10/16 at 23:45; Stop 11/11/16 at 00:44; Status DC Ondansetron HCl (Zofran) 4 mg 1X ONCE IV ; Start 11/10/16 at 23:45; Stop at 23:46; Status DC Furosemide (Lasix) 20 mg 1X PRN PRN IV Blood transfusion; Start 11/10/16 at 23: 30; Stop 11/11/16 at 23:29; Status DC Phytonadione (Vitamin K) 10 mg 1X ONCE SQ Last administered on 11/11/16 00:45 ; Start 11/11/16 at 00:45; Stop 11/11/16 at 00:46; Status DC Pantoprazole Sodium (Protonix Vial) 80 mg 1X ONCE IVP Last administered on 11/11 01:08; Start 11/11/16 at 01:00; Stop 11/11/16 at 01:01; Status DC Pantoprazole Sodium 80 mg/ Sodium Chloride 100 ml @ 10 mls/hr 1X ONCE IV Last administered on 11/11/16 01:07; Start 11/11/16 at 01:00; Stop 11/11/16 at 10: 59; Status DC Ondansetron HCl (Zofran) 4 mg PRN Q8HRS PRN IV NAUSEA/VOMITING Last administered on 11/11/16 11:34; Start 11/11/16 at 00:30; Stop 11/12/16 at 00:29; Status DC Fentanyl Citrate (Fentanyl 2ml Vial) 50 mcg PRN Q2HR PRN IV SEVERE PAIN Last administered on 11/11/16 22:02; Start 11/11/16 at 00:30; Stop 11/12/16 at 00:29; Status DC Sodium Chloride 1,000 ml @ 150 mls/hr Q6H40M IV ; Start 11/11/16 at 00:24; Stop 11/11/16 at 08:57; Status DC Pantoprazole Sodium (Protonix) 40 mg DAILYAC PO ; Start 11/11/16 at 10:00; Status UNV Acetaminophen (Tylenol) 650 mg PRN Q6HRS PRN PO MILD PAIN / TEMP Last administered on 11/14/16 21:13; Start 11/11/16 at 09:00 Dextrose/Sodium Chloride 1,000 ml @ 60 mls/hr [id number] IV Last administered on 11/13/16 06:03; Start 11/11/16 at 09:00; Stop 11/13/16 at 10:52; Status DC Pantoprazole Sodium 80 mg/ Sodium Chloride 100 ml @ 10 mls/hr Q10H IV Last administered on 11/12/16 09:49; Start 11/11/16 at 09:15; Stop 11/12/16 at 15:51 ; Status DC Levothyroxine Sodium (Synthroid) 75 mcg DAILY07 PO Last administered on 06:27; Start 11/12/16 at 10:30 Ferrous Sulfate (Feosol) 325 mg BIDWMEALS PO Last administered on 11/15/16 09: 43; Start 11/12/16 at 09:00 Potassium Chloride 100 ml @ 100 mls/hr Q1H IV Last administered on 11/12/16 16:59; Start 11/12/16 at 12:00; Stop 11/12/16 at 13:59; Status DC Sodium Chloride 1,000 ml @ 75 mls/hr [id number] IV Last administered on 12:58; Start 11/12/16 at 13:00; Stop 11/13/16 at 08:06; Status DC Propofol 20 ml @ As Directed STK-MED ONCE IV ; Start 11/12/16 at 13:55; Stop 02/19 at 13:56; Status DC Lidocaine HCl (Lidocaine Pf 2% Vial) 5 ml STK-MED ONCE .ROUTE ; Start 11/12/16 at 13:56; Stop 11/12/16 at 13:57; Status DC Pantoprazole Sodium (Protonix) 40 mg DAILYAC PO Last administered on 11/14/16 07:58; Start 11/13/16 at 07:30 Potassium Chloride 100 ml @ 100 mls/hr Q1H IV Last administered on 11/13/16 12:00; Start 11/13/16 at 11:00; Stop 11/13/16 at 12:59; Status DC Amino Acids/ Glycerin/ Electrolytes 1,000 ml @ 60 mls/hr [id number] IV Last administered on 11/14/16 21:13; Start 11/13/16 at 11:00 Amlodipine Besylate (Norvasc) 2.5 mg DAILY PO Last administered on 11/15/16 09 :43; Start 11/14/16 at 09:00 Metoprolol Tartrate (Lopressor) 12.5 mg DAILY PO Last administered on 09:45; Start 11/14/16 at 09:00 Trazodone HCl (Desyrel) 50 mg QHS PO Last administered on 11/14/16 21:13; Start 11/14/16 at 21:00 Active Scripts Active Reported Trazodone Hcl 50 Mg Tablet 50 Mg PO HS Coumadin (Warfarin Sodium) 2 Mg Tablet 1 Tab PO DAILY Tramadol Hcl 50 Mg Tablet 25 Mg PO Q6H PRN Metoprolol Tartrate 25 Mg Tablet 12.5 Mg PO BID Milk Of Magnesia (Magnesium Hydroxide) 400 Mg/5 Ml Oral.susp 400 Mg PO PRN DAILY PRN Losartan Potassium 100 Mg Tablet 100 Mg PO DAILY Lorazepam 0.5 Mg Tablet 0.5 Mg PO HS Levothyroxine Sodium 50 Mcg Tablet 1 Tab PO DAILY Furosemide 20 Mg Tablet 1 Tab PO DAILY Ferrous Sulfate 325 Mg Tablet 1 Tab PO BIDWMEALS Dulcolax (Bisacodyl) 10 Mg Supp.rect 10 Mg RC PRN DAILY PRN Clonidine Hcl 0.1 Mg Tablet 1 Tab PO PRN Q6HRS PRN Acetaminophen 500 Mg Tablet 1 Tab PO PRN QID PRN Tylenol (Acetaminophen) 325 Mg Tablet 2 Tab PO PRN Q4HRS PRN Vitals/I & O Vital Sign - Last 24 Hours 11/14/16 11/14/16 11/14/16 11/14/16 10:41 15:00 19:00 20:00 Temp 98.2 98.4 97.5 98.2 98.4 97.5 Pulse 80 82 77 Resp 18 18 20 B/P (MAP) 136/77 (96) 129/88 (102) 170/78 (108) Pulse Ox 96 96 98 O2 Delivery Room Air Room Air Room Air Room Air 11/14/16 11/15/16 11/15/16 11/15/16 23:00 07:00 09:43 09:45 Temp 97.9 98.2 97.9 98.2 Pulse 82 76 76 76 Resp 26 18 B/P (MAP) 162/70 (100) 167/82 (110) 167/82 167/82 Pulse Ox 97 99 O2 Delivery Room Air Room Air Intake and Output 11/14/16 11/14/16 11/15/16 15:00 23:00 07:00 Intake Total 50 ml 120 ml Output Total 350 ml Balance -300 ml 120 ml MIKI COLORADO MD Nov 15, 2016 10:16
[2016-11-15 11:00] VITALS: BP 132/59
[2016-11-15] MEDS ORDERED: IV 1/2 NORMAL SALINE 1,000 ML IV SCH (11:00)
--- NOTE | 2016-11-15 12:23 | PDOC ---
Renal-Progress Notes Subjective Notes Notes CONFUSED History of Present Illness Hx of present illness NO CHANGE Vitals Vitals Vital Signs Date Time Temp Pulse Resp B/P (MAP) Pulse Ox O2 Delivery O2 Flow Rate FiO2 11/15/16 11:00 97.8 60 18 132/59 (83) 96 Room Air 97.8 Weight Weight [ ] I.O. Intake and Output Intake and Output 11/15/16 07:00 Intake Total 170 ml Output Total 350 ml Balance -180 ml Intake Oral 170 ml Output Urine Total 350 ml Labs Labs Laboratory Tests Test 11/15/16 05:20 White Blood Count 12.5 x10^3/uL (4.0-11.0) Red Blood Count 3.53 x10^6/uL (3.50-5.40) Hemoglobin 11.5 g/dL (12.0-15.5) Hematocrit 35.2 % (36.0-47.0) Mean Corpuscular Volume 100 fL (79-100) Mean Corpuscular Hemoglobin 32 pg (25-35) Mean Corpuscular Hemoglobin Concent 33 g/dL (31-37) Red Cell Distribution Width 25.8 % (11.5-14.5) Platelet Count 163 x10^3/uL (140-400) Neutrophils (%) (Auto) 80 % (31-73) Lymphocytes (%) (Auto) 9 % (24-48) Monocytes (%) (Auto) 10 % (0-9) Eosinophils (%) (Auto) 1 % (0-3) Basophils (%) (Auto) 1 % (0-3) Neutrophils # (Auto) 10.0 x10^3uL (1.8-7.7) Lymphocytes # (Auto) 1.1 x10^3/uL (1.0-4.8) Monocytes # (Auto) 1.3 x10^3/uL (0.0-1.1) Eosinophils # (Auto) 0.1 x10^3/uL (0.0-0.7) Basophils # (Auto) 0.1 x10^3/uL (0.0-0.2) Segmented Neutrophils % 73 % (35-66) Band Neutrophils % 8 % (0-9) Lymphocytes % 13 % (24-48) Monocytes % 5 % (0-10) Eosinophils % 1 % (0-5) Nucleated Red Blood Cells 1 Platelet Estimate Adequate (ADEQUATE) Giant Platelets Occ Polychromasia Mod Anisocytosis Mod Sodium Level 139 mmol/L (136-145) Potassium Level 4.0 mmol/L (3.5-5.1) Chloride Level 106 mmol/L (98-107) Carbon Dioxide Level 19 mmol/L (21-32) Anion Gap 14 (6-14) Blood Urea Nitrogen 33 mg/dL (7-20) Creatinine 1.4 mg/dL (0.6-1.0) Estimated GFR (Cockcroft-Gault) 35.4 BUN/Creatinine Ratio 24 (6-20) Glucose Level 120 mg/dL (70-99) Calcium Level 8.6 mg/dL (8.5-10.1) Total Bilirubin 5.2 mg/dL (0.2-1.0) Aspartate Amino Transf (AST/SGOT) 94 U/L (15-37) Alanine Aminotransferase (ALT/SGPT) 25 U/L (14-59) Alkaline Phosphatase 121 U/L (46-116) Total Protein 6.5 g/dL (6.4-8.2) Albumin 3.1 g/dL (3.4-5.0) Albumin/Globulin Ratio 0.9 (1.0-1.7) Micro Micro Microbiology 11/10/16 Blood Culture - Preliminary, Resulted NO GROWTH AFTER 4 DAYS 11/11/16 Urine Culture - Final, Complete 11/11/16 Urine Culture Result 1 ([place]) - Final, Complete Review of Systems Constitutional: yes: no symptom reported, other (CONFUSED) Physical Exam General Appearance: no apparent distress Respiratory: bilateral CTA Heart: S1S2 Abdomen: soft, bowel sounds present Genitourinary: bladder flat Neurology: alert Assessment Assessment IMP ANEMIA GI BLEED CKD STAGE 3 WITH CR AT BASELINE OF ABOUT 1.5-1.7 MILD [id number] 1.4 COAGULOPATHY HYPOKALEMIA-RESOLVED HYPERNATREMIA-RESOLVED DEMENTIA INCREASE LFTS'S PLAN ADVANCE DIET TOLERATED PPN STOPPED RESUME LARISA BANGURA MD Nov 15, 2016 12:23
[2016-11-15] MEDS: PANTOPRAZOLE 40 MG TABLET.DR. PO SCH (12:35)
--- NOTE | 2016-11-15 14:11 | RAD ---
CT abdomen without contrast 11/15/2016 at 1119 hours Indication: Elevated LFTs Comparison: CT abdomen/pelvis 12/03/2015 Technique: Multiple axial CT images of the abdomen were performed without intravenous contrast. Oral contrast was not administered. Coronal and sagittal reformats are provided. Findings: Heart is moderately enlarged. Cardiac valvular prosthesis is noted. There are small to moderate bilateral pleural effusions increased in size since the prior examination from 12/03/2015. There is adjacent compressive atelectasis. No new or enlarging pulmonary nodules are identified. Limited evaluation of the solid abdominal viscera due to the lack of intravenous contrast. Liver is homogenous without focal mass lesion. Consultations within the spleen are likely sequela of prior granulomatous disease. Calcification of the left adrenal gland represents sequela of prior adrenal hemorrhage. Tiny chest location is noted in the right adrenal gland which is otherwise normal. A gallstone is identified within the gallbladder. No adjacent inflammatory changes are identified. Pancreas is normal in appearance. Kidneys appear symmetric. No renal calculi. No hydronephrosis. Small and large bowel are normal in caliber. No adjacent inflammatory changes. Is no free intraperitoneal air. No free fluid within the abdomen. There is mild edema of the bilateral flank subcutaneous tissues. No suspicious osseous lesions are identified. Impression: 1. Small to moderate bilateral pleural effusions with adjacent compressive atelectasis, worsened since 12/03/2015. 2. Cholelithiasis without CT evidence for acute cholecystitis. Evaluation for biliary dilatation is limited by lack of intravenous contrast. 3. No suspicious hepatic masses given limitations of noncontrast CT. PQRS Compliance Statement: One or more of the following individualized dose reduction techniques were utilized for this examination: 1. Automated exposure control 2. Adjustment of the mA and/or kV according to patient size 3. Use of iterative reconstruction technique
[2016-11-15 15:00] VITALS: BP 145/70
[2016-11-15] MEDS: FUROSEMIDE 40 MG TABLET. PO SCH (18:20)
[2016-11-15 19:58] VITALS: BP 144/58
[2016-11-15] MEDS: traZODone 50 MG TABLET. PO SCH (20:50)
[2016-11-16 03:20] VITALS: BP 121/75
[2016-11-16 05:57] LABS: BASO # 0.1 x10^3/uL (0.0-0.2); BASO % 1 % (0-3); EOS % 5 % (0-3); HEMATOCRIT 30.3 % (36.0-47.0); HEMOGLOBIN 10.4 g/dL (12.0-15.5); LYMPH # 1.2 x10^3/uL (1.0-4.8); LYMPH % 12 % (24-48); MEAN CORPUSCULAR HEMOGLOBIN 34 pg (25-35); MEAN CORPUSCULAR HGB CONC 34 g/dL (31-37); MEAN CORPUSCULAR VOLUME 98 fL (79-100); MONO % 11 % (0-9); NEUT % 72 % (31-73); PLATELET COUNT 139 x10^3/uL (140-400); RED BLOOD COUNT 3.09 x10^6/uL (3.50-5.40); RED CELL DISTRIBUTION WIDTH 26.2 % (11.5-14.5); WHITE BLOOD COUNT 10.6 x10^3/uL (4.0-11.0)
[2016-11-16] MEDS: LEVOTHYROXINE 75 MCG TABLET PO SCH (06:02)
[2016-11-16 06:32] LABS: CALCIUM 8.1 mg/dL (8.5-10.1); CREATININE 1.1 mg/dL (0.6-1.0); DIRECT BILIRUBIN 1.1 mg/dL (0.0-0.2); GFR 46.8; TOTAL BILIRUBIN 2.6 mg/dL (0.2-1.0)
[2016-11-16 07:12] VITALS: BP 125/56
--- NOTE | 2016-11-16 07:57 | PDOC ---
SHASTA VALADEZ DIRECTOR OF TEENAGE ACTIVITIES 11/16/16 0757: IM PROGRESS NOTES- Subjective Subjective sleeping caregiver at beside reports increased oral intake yesterday Staff reports last BM 11/13-no blood present Objective Objective sleeping, no distress Vitals Vital Signs Date Time Temp Pulse Resp B/P (MAP) Pulse Ox O2 Delivery O2 Flow Rate FiO2 11/16/16 03:20 98.3 82 16 121/75 (90) 99 Room Air 98.3 Input & Output Intake and Output 11/16/16 07:00 Intake Total 0 ml Output Total 2850 ml Balance -2850 ml Intake Oral 0 ml Output Urine Total 2850 ml Physical Exam Physical Exam General appearance - sleeping,well appearing, and in no distress Mental Status - sleeping, h/o dementia Head - normal Chest - clear to auscultation, no wheezes, rales or rhonchi, symmetric air entry Heart - S1 and S2 normal Abdomen - soft, nontender, nondistended, BS+ Neurological - sleeping Musculoskeletal - no muscular tenderness noted Extremities - no pedal edema Skin - warm and dry, jaundiced Labs Laboratory Tests Test 11/15/16 05:20 11/16/16 04:15 11/16/16 04:25 White Blood Count 12.5 x10^3/uL (4.0-11.0) 10.6 x10^3/uL (4.0-11.0) Red Blood Count 3.53 x10^6/uL (3.50-5.40) 3.09 x10^6/uL (3.50-5.40) Hemoglobin 11.5 g/dL (12.0-15.5) 10.4 g/dL (12.0-15.5) Hematocrit 35.2 % (36.0-47.0) 30.3 % (36.0-47.0) Mean Corpuscular Volume 100 fL (79-100) 98 fL (79-100) Mean Corpuscular Hemoglobin 32 pg (25-35) 34 pg (25-35) Mean Corpuscular Hemoglobin Concent 33 g/dL (31-37) 34 g/dL (31-37) Red Cell Distribution Width 25.8 % (11.5-14.5) 26.2 % (11.5-14.5) Platelet Count 163 x10^3/uL (140-400) 139 x10^3/uL (140-400) Neutrophils (%) (Auto) 80 % (31-73) 72 % (31-73) Lymphocytes (%) (Auto) 9 % (24-48) 12 % (24-48) Monocytes (%) (Auto) 10 % (0-9) 11 % (0-9) Eosinophils (%) (Auto) 1 % (0-3) 5 % (0-3) Basophils (%) (Auto) 1 % (0-3) 1 % (0-3) Neutrophils # (Auto) 10.0 x10^3uL (1.8-7.7) 7.7 x10^3uL (1.8-7.7) Lymphocytes # (Auto) 1.1 x10^3/uL (1.0-4.8) 1.2 x10^3/uL (1.0-4.8) Monocytes # (Auto) 1.3 x10^3/uL (0.0-1.1) 1.1 x10^3/uL (0.0-1.1) Eosinophils # (Auto) 0.1 x10^3/uL (0.0-0.7) 0.5 x10^3/uL (0.0-0.7) Basophils # (Auto) 0.1 x10^3/uL (0.0-0.2) 0.1 x10^3/uL (0.0-0.2) Segmented Neutrophils % 73 % (35-66) Band Neutrophils % 8 % (0-9) Lymphocytes % 13 % (24-48) Monocytes % 5 % (0-10) Eosinophils % 1 % (0-5) Nucleated Red Blood Cells 1 Platelet Estimate Adequate (ADEQUATE) Giant Platelets Occ Polychromasia Mod Anisocytosis Mod Sodium Level 139 mmol/L (136-145) 143 mmol/L (136-145) Potassium Level 4.0 mmol/L (3.5-5.1) 4.0 mmol/L (3.5-5.1) Chloride Level 106 mmol/L (98-107) 109 mmol/L (98-107) Carbon Dioxide Level 19 mmol/L (21-32) 21 mmol/L (21-32) Anion Gap 14 (6-14) 13 (6-14) Blood Urea Nitrogen 33 mg/dL (7-20) 30 mg/dL (7-20) Creatinine 1.4 mg/dL (0.6-1.0) 1.1 mg/dL (0.6-1.0) Estimated GFR (Cockcroft-Gault) 35.4 46.8 BUN/Creatinine Ratio 24 (6-20) Glucose Level 120 mg/dL (70-99) 99 mg/dL (70-99) Calcium Level 8.6 mg/dL (8.5-10.1) 8.1 mg/dL (8.5-10.1) Total Bilirubin 5.2 mg/dL (0.2-1.0) 2.6 mg/dL (0.2-1.0) Aspartate Amino Transf (AST/SGOT) 94 U/L (15-37) Alanine Aminotransferase (ALT/SGPT) 25 U/L (14-59) Alkaline Phosphatase 121 U/L (46-116) Total Protein 6.5 g/dL (6.4-8.2) Albumin 3.1 g/dL (3.4-5.0) Albumin/Globulin Ratio 0.9 (1.0-1.7) Direct Bilirubin 1.1 mg/dL (0.0-0.2) Laboratory Tests Test 11/16/16 04:15 11/16/16 04:25 Sodium Level 143 mmol/L (136-145) Potassium Level 4.0 mmol/L (3.5-5.1) Chloride Level 109 mmol/L (98-107) Carbon Dioxide Level 21 mmol/L (21-32) Anion Gap 13 (6-14) Blood Urea Nitrogen 30 mg/dL (7-20) Creatinine 1.1 mg/dL (0.6-1.0) Estimated GFR (Cockcroft-Gault) 46.8 Glucose Level 99 mg/dL (70-99) Calcium Level 8.1 mg/dL (8.5-10.1) Total Bilirubin 2.6 mg/dL (0.2-1.0) Direct Bilirubin 1.1 mg/dL (0.0-0.2) White Blood Count 10.6 x10^3/uL (4.0-11.0) Red Blood Count 3.09 x10^6/uL (3.50-5.40) Hemoglobin 10.4 g/dL (12.0-15.5) Hematocrit 30.3 % (36.0-47.0) Mean Corpuscular Volume 98 fL (79-100) Mean Corpuscular Hemoglobin 34 pg (25-35) Mean Corpuscular Hemoglobin Concent 34 g/dL (31-37) Red Cell Distribution Width 26.2 % (11.5-14.5) Platelet Count 139 x10^3/uL (140-400) Neutrophils (%) (Auto) 72 % (31-73) Lymphocytes (%) (Auto) 12 % (24-48) Monocytes (%) (Auto) 11 % (0-9) Eosinophils (%) (Auto) 5 % (0-3) Basophils (%) (Auto) 1 % (0-3) Neutrophils # (Auto) 7.7 x10^3uL (1.8-7.7) Lymphocytes # (Auto) 1.2 x10^3/uL (1.0-4.8) Monocytes # (Auto) 1.1 x10^3/uL (0.0-1.1) Eosinophils # (Auto) 0.5 x10^3/uL (0.0-0.7) Basophils # (Auto) 0.1 x10^3/uL (0.0-0.2) Meds Current Medications Amlodipine Besylate (Norvasc) 5 mg DAILY PO ; Start 11/16/16 at 09:00 Furosemide (Lasix) 40 mg DAILY PO Last administered on 11/15/16t 18:20; Start 11/15/16 at 13:00 Sodium Chloride 1,000 ml @ 40 mls/hr Q24H IV ; Start 11/15/16 at 11:00; Stop at 19:45; Status DC Assessment Assessment acute upper GI bleed resolved. due to hemorrhagic gastritis reflux esophagitis severe acute blood loss anemia on anemia of chronic disease. hgb stable received 5 units prbc total coagulopathy resolved hypotension due to GI bleed resolved near syncope due to hypotension acute kidney injury resolved with iv hydration on chronic kidney disease stage 3 paroxysmal atrial fibrillation. off of coumadin permanently bioprosthetic AVR thrombocytopenia. stable hypothyroidism moderate protein calorie malnutrition history of UGI bleed due to gastric ulcer 2008 dementia debility hypertension jaundice PLAN: accelrated HTN: increased amlodipine 2.5mg to 5mg, improved jaundice: total 2.6 and direct bilirubin 1.1-suspect from blood transfusion. CT abd w/0 contrast neg acute cholecystitis -GI consulted d/c PPN 11/15 iv fluids at low rate PT and OT eventual transfer to [facility]-to R remove wray prior to transfer ARF with [facility] resolved fluid overload with pleural effusion bilateral-Lasix 40mg restarted 11/15 UOP 2850cc last 24 hours anemia-Hgb stable, thrombocytopenia improving bioprosthetic AVR- AF -off anticoagulant, consider ASA in future DC ready -R admit to facility MD Please see orders for further plan of care. Plan Plan For more details regarding further plans, please refer to the orders. JESS NELSON MD 11/16/16 0950: IM PROGRESS NOTES- Assessment Assessment The patient was seen and examined by me. Chart reviewed and plan of care formulated. Discussed with, reviewed and agree with [facility]'s notes, plan of care and orders with modifications as necessary. Discharge Management - 35 minutes. D/w son.Bilirubin improving. Discharge to SNF. SHASTA VALADEZ APRN Nov 16, 2016 07:57 JESS NELSON MD Nov 16, 2016 09:50
[2016-11-16] MEDS: PANTOPRAZOLE 40 MG TABLET.DR. PO SCH (08:21)
[2016-11-16] MEDS: METOPROLOL TART IMMED RELEASE 25 MG TABLET. PO SCH (08:23)
[2016-11-16] MEDS: FERROUS SULFATE 325 MG TABLET. PO SCH (08:26)
[2016-11-16] MEDS: FUROSEMIDE 40 MG TABLET. PO SCH (08:28)
[2016-11-16] MEDS ORDERED: amLODIPine BESYLATE 5 MG TABLET PO SCH (09:00)
[2016-11-16 11:07] VITALS: BP 125/74
--- NOTE | 2016-11-16 12:18 | PDOC ---
Renal-Progress Notes Subjective Notes Notes NONE History of Present Illness Hx of present illness NO CHANGE Vitals Vitals Vital Signs Date Time Temp Pulse Resp B/P (MAP) Pulse Ox O2 Delivery O2 Flow Rate FiO2 11/16/16 11:07 98.1 93 20 125/74 (91) 97 Room Air 98.1 Weight Weight [ ] I.O. Intake and Output Intake and Output 11/16/16 07:00 Intake Total 0 ml Output Total 2850 ml Balance -2850 ml Intake Oral 0 ml Output Urine Total 2850 ml Labs Labs Laboratory Tests Test 11/16/16 04:15 11/16/16 04:25 Sodium Level 143 mmol/L (136-145) Potassium Level 4.0 mmol/L (3.5-5.1) Chloride Level 109 mmol/L (98-107) Carbon Dioxide Level 21 mmol/L (21-32) Anion Gap 13 (6-14) Blood Urea Nitrogen 30 mg/dL (7-20) Creatinine 1.1 mg/dL (0.6-1.0) Estimated GFR (Cockcroft-Gault) 46.8 Glucose Level 99 mg/dL (70-99) Calcium Level 8.1 mg/dL (8.5-10.1) Total Bilirubin 2.6 mg/dL (0.2-1.0) Direct Bilirubin 1.1 mg/dL (0.0-0.2) White Blood Count 10.6 x10^3/uL (4.0-11.0) Red Blood Count 3.09 x10^6/uL (3.50-5.40) Hemoglobin 10.4 g/dL (12.0-15.5) Hematocrit 30.3 % (36.0-47.0) Mean Corpuscular Volume 98 fL (79-100) Mean Corpuscular Hemoglobin 34 pg (25-35) Mean Corpuscular Hemoglobin Concent 34 g/dL (31-37) Red Cell Distribution Width 26.2 % (11.5-14.5) Platelet Count 139 x10^3/uL (140-400) Neutrophils (%) (Auto) 72 % (31-73) Lymphocytes (%) (Auto) 12 % (24-48) Monocytes (%) (Auto) 11 % (0-9) Eosinophils (%) (Auto) 5 % (0-3) Basophils (%) (Auto) 1 % (0-3) Neutrophils # (Auto) 7.7 x10^3uL (1.8-7.7) Lymphocytes # (Auto) 1.2 x10^3/uL (1.0-4.8) Monocytes # (Auto) 1.1 x10^3/uL (0.0-1.1) Eosinophils # (Auto) 0.5 x10^3/uL (0.0-0.7) Basophils # (Auto) 0.1 x10^3/uL (0.0-0.2) Micro Micro Microbiology 11/10/16 Blood Culture - Final, Complete NO GROWTH AFTER 5 DAYS 11/11/16 Urine Culture - Final, Complete 11/11/16 Urine Culture Result 1 ([place]) - Final, Complete Review of Systems Constitutional: yes: no symptom reported, other (CONFUSED) Physical Exam General Appearance: no apparent distress Respiratory: bilateral CTA Heart: S1S2 Abdomen: soft, bowel sounds present Genitourinary: bladder flat Neurology: alert Assessment Assessment IMP ANEMIA GI BLEED 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
--- NOTE | 2016-11-16 12:29 | PDOC ---
Objective: Objective: Per RN - drinking more. Vital Signs: Vital Signs Date Time Temp Pulse Resp B/P (MAP) Pulse Ox O2 Delivery O2 Flow Rate FiO2 11/16/16 11:07 98.1 93 20 125/74 (91) 97 Room Air 98.1 Labs: Laboratory Tests Test 11/16/16 04:15 11/16/16 04:25 Sodium Level 143 mmol/L Potassium Level 4.0 mmol/L Chloride Level 109 mmol/L Carbon Dioxide Level 21 mmol/L Anion Gap 13 Blood Urea Nitrogen 30 mg/dL Creatinine 1.1 mg/dL Estimated GFR (Cockcroft-Gault) 46.8 Glucose Level 99 mg/dL Calcium Level 8.1 mg/dL Total Bilirubin 2.6 mg/dL Direct Bilirubin 1.1 mg/dL White Blood Count 10.6 x10^3/uL Red Blood Count 3.09 x10^6/uL Hemoglobin 10.4 g/dL Hematocrit 30.3 % Mean Corpuscular Volume 98 fL Mean Corpuscular Hemoglobin 34 pg Mean Corpuscular Hemoglobin Concent 34 g/dL Red Cell Distribution Width 26.2 % Platelet Count 139 x10^3/uL Neutrophils (%) (Auto) 72 % Lymphocytes (%) (Auto) 12 % Monocytes (%) (Auto) 11 % Eosinophils (%) (Auto) 5 % Basophils (%) (Auto) 1 % Neutrophils # (Auto) 7.7 x10^3uL Lymphocytes # (Auto) 1.2 x10^3/uL Monocytes # (Auto) 1.1 x10^3/uL Eosinophils # (Auto) 0.5 x10^3/uL Basophils # (Auto) 0.1 x10^3/uL Imaging: CT abd 11/15/16 Impression: 1. Small to moderate bilateral pleural effusions with adjacent compressive atelectasis, worsened since 12/03/2015. 2. Cholelithiasis without CT evidence for acute cholecystitis. Evaluation for biliary dilatation is limited by lack of intravenous contrast. 3. No suspicious hepatic masses given limitations of noncontrast CT. PE: GEN: NAD NEURO/PSYCH: confused, eyes closed A/P: Hyperbilirubinemia - improved -history of this, possibly related to CHF UGIB - resolved -s/p EGD 11/12 w/ gastric erosions, on PPI Decreased appetite -- Note DC plans to HCR today - okay per GI. RAHUL-BRANINE,BERNABE PA Nov 16, 2016 12:29
[2016-11-16 15:01] VITALS: BP 130/42
[2016-11-16] MEDS ORDERED: AMLO5TAB2 PO (15:48)
[2016-11-16] MEDS ORDERED: PANT40TA5 PO (15:49)
== END 2016-11-16 17:46 | DRG 377 ==
LOC: ER 23:15 → 1 WEST ICU 11-11 00:21 → 6 SOUTH 11-13 13:25
PROVIDERS: ADMIT Internal Medicine; ATTEND Internal Medicine
PROC: 30233L1 Transfusion of Nonautologous Fresh Plasma into Peripheral Vein, Percutaneous Approach (ICD-10-PCS; principal; 2016-11-11)
PROC: 30233N1 Transfusion of Nonautologous Red Blood Cells into Peripheral Vein, Percutaneous Approach (ICD-10-PCS; 2016-11-11)
PROC: 30233K1 Transfusion of Nonautologous Frozen Plasma into Peripheral Vein, Percutaneous Approach (ICD-10-PCS; 2016-11-11)
PROC: 0DJ08ZZ Inspection of Upper Intestinal Tract, Via Natural or Artificial Opening Endoscopic (ICD-10-PCS; 2016-11-12)
DX: K92.2 Gastrointestinal hemorrhage, unspecified (principal); G93.41 Metabolic encephalopathy; E43 Unspecified severe protein-calorie malnutrition; D62 Acute posthemorrhagic anemia; N17.9 Acute kidney failure, unspecified; E87.0 Hyperosmolality and hypernatremia; I13.0 Hypertensive heart and chronic kidney disease with heart failure and stage 1 through stage 4 chronic kidney disease, or unspecified chronic kidney disease; J98.11 Atelectasis; I95.9 Hypotension, unspecified; D63.8 Anemia in other chronic diseases classified elsewhere; D69.6 Thrombocytopenia, unspecified; E03.9 Hypothyroidism, unspecified; E78.00 Pure hypercholesterolemia, unspecified; E78.5 Hyperlipidemia, unspecified; E87.6 Hypokalemia; F03.90 Unspecified dementia, unspecified severity, without behavioral disturbance, psychotic disturbance, mood disturbance, and anxiety; H35.30 Unspecified macular degeneration; I05.0 Rheumatic mitral stenosis; I27.2 Other secondary pulmonary hypertension; I48.0 Paroxysmal atrial fibrillation; I50.9 Heart failure, unspecified; J45.909 Unspecified asthma, uncomplicated; K21.0 Gastro-esophageal reflux disease with esophagitis; T45.515A Adverse effect of anticoagulants, initial encounter; K22.6 Gastro-esophageal laceration-hemorrhage syndrome; Z68.24 Body mass index [BMI] 24.0-24.9, adult; K57.30 Diverticulosis of large intestine without perforation or abscess without bleeding; K80.20 Calculus of gallbladder without cholecystitis without obstruction; K29.71 Gastritis, unspecified, with bleeding; N18.3 Chronic kidney disease, stage 3 (moderate); T45.511A Poisoning by anticoagulants, accidental (unintentional), initial encounter; Y92.89 Other specified places as the place of occurrence of the external cause; Z79.01 Long term (current) use of anticoagulants; Z86.73 Personal history of transient ischemic attack (TIA), and cerebral infarction without residual deficits; Z87.11 Personal history of peptic ulcer disease; Z95.2 Presence of prosthetic heart valve; Z95.3 Presence of xenogenic heart valve; Z88.5 Allergy status to narcotic agent
CPT/HCPCS: 36415; 74022; 74150; 80048; 80053; 81001; 82247; 82248; 82274; 83690; 83735; 85007; 85018; 85027; 85610; 85730; 86850; 86900; 86901; 86920; 86927; 87040; 87086; 87641; 93005; 96361; 96365; 96375; A6539; C9113; J2001; J2405; J2704; J3010; J3430; J3480; J7030; P9016; P9017; 97530; 99291-25

== ENCOUNTER 2017-02-13 06:42 | Inpatient (IN) | payer MEDICARE ==
[~2017-02-13] VITALS: Ht 162.6 cm; Wt 59.0 kg
[~2017-02-13 06:42] MED LIST changes: +METO-239 PO; -METO25TA9 PO; +PANT40TA5 PO
[2017-02-13] MEDS ORDERED: fentaNYL PF VIAL 100 MCG/2 ML VIAL IV ONE (07:00)
[2017-02-13 07:04] LABS: BASO % 1 % (0-3); EOS % 1 % (0-3); HEMATOCRIT 29.4 % (36.0-47.0); HEMOGLOBIN 10.1 g/dL (12.0-15.5); LYMPH # 1.3 x10^3/uL (1.0-4.8); LYMPH % 13 % (24-48); MEAN CORPUSCULAR HEMOGLOBIN 36 pg (25-35); MEAN CORPUSCULAR HGB CONC 34 g/dL (31-37); MEAN CORPUSCULAR VOLUME 104 fL (79-100); MONO % 7 % (0-9); NEUT % 79 % (31-73); PLATELET COUNT 190 x10^3/uL (140-400); RED BLOOD COUNT 2.81 x10^6/uL (3.50-5.40); RED CELL DISTRIBUTION WIDTH 19.1 % (11.5-14.5); WHITE BLOOD COUNT 9.9 x10^3/uL (4.0-11.0)
--- NOTE | 2017-02-13 07:11 | EKG ---
[facility] [address] [place] [address] Test Date: 2017-02-13 Test Time: 06:53:38 Pat Name: WAGNER CARPIO Department: Room: Gender: F Interactive Account Manager: MITCHELL : [id number] Requested By: OMA ALMAZAN Order Number: [id number] Reading MD: Raquel Lara Measurements Intervals [place] Rate: 99 P: [place]: QRS: 102 QRSD: 94 T: 49 QT: 378 QTc: 491 Interpretive Statements SINUS RHYTHM RIGHTWARD AXIS INCOMPLETE RIGHT BUNDLE BRANCH BLOCK QRS(T) CONTOUR ABNORMALITY CANNOT RULE OUT INFERIOR MYOCARDIAL DAMAGE ST & T ABNORMALITY, CONSIDER ANTERIOR ISCHEMIA Electronically Signed On 02-15-2017 20:34:42 CDT by Raquel Lara
[2017-02-13 07:12] LABS: CALCIUM 8.9 mg/dL (8.5-10.1); CREATININE 1.3 mg/dL (0.6-1.0); GFR 38.6; POTASSIUM 3.3 mmol/L (3.5-5.1)
[2017-02-13 07:13] LABS: INR 1.2 (0.8-1.1); PROTHROMBIN TIME PATIENT 14.8 SEC (11.7-14.0)
--- NOTE | 2017-02-13 07:15 | PHYS DOC ---
Past Medical History Past Medical History: A-Fib, Anemia, Asthma, CHF, CVA, High Cholesterol, Hypertension, Hypothyroid, UTI, Other Additional Past Medical Histor: macular degeneration, chronic kidney disease, left femur fracture Past Surgical History: Other Additional Past Surgical Histo: heart valve replacement; left leg surgery; bladder sling,left hip fracture Alcohol Use: None Drug Use: None Adult General Chief Complaint Chief Complaint: MECHANICAL FALL HPI HPI Patient is a 89 year old female who presents with fall and R hip pain. Pt is slightly confused historian, found on floor next to her bed by her son, who lives with her. Pt c/o pain only in hip, no report of blood thinners, believed to have occurred at 0500 in her home. EMS gave 50 mcg IV fentanyl en route for pain. She initially reported that she didn't fall, but then stated she heard a "snap" in her right hip when she fell. Pt denies any pain at the time of my evaluation. Pt had obvious deformity of her right hip by ems and kept in the same position when brought to the ED. Review of Systems Review of Systems Constitutional: Denies fever or chills [] Eyes: Denies change in visual acuity, redness, or eye pain [] HENT: Denies nasal congestion or sore throat [] Respiratory: Denies cough or shortness of breath [] Cardiovascular: Denies chest pain GI: Denies abdominal pain, nausea, vomiting, bloody stools or diarrhea [] : Denies dysuria or hematuria [] Musculoskeletal: Denies back pain, reports right hip pain Integument: Denies rash or skin lesions [] Neurologic: Denies headache, focal weakness or sensory changes [] Current Medications Current Medications Current Medications Medications (Trade) Dose Ordered Sig/Laxmi Start Time Stop Time Status Last Admin Dose Admin Fentanyl Citrate (Fentanyl 2ml Vial) 50 mcg PRN Q1HR PRN 02/13/17 07:45 02/14/17 07:44 Sodium Chloride 1,000 ml @ 75 mls/hr 1X ONCE 02/13/17 07:45 02/13/17 21:04 Allergies Allergies Allergies Coded Allergies Type Severity Reaction Last Updated Verified hydrocodone Adverse Reaction Severe hypotension, hyper opiate sensitive Yes morphine Adverse Reaction Intermediate Nausea 11/12/16 Yes Physical Exam Physical Exam Constitutional: Well developed, well nourished, jaundiced in appearance HENT: Normocephalic, atraumatic, bilateral external ears normal, oropharynx moist, no oral exudates, nose normal. [] Eyes: PERRLA, EOMI, scleral icteric, no discharge. [] Neck: Normal range of motion, no tenderness, supple, no stridor. [] Cardiovascular:Heart rate regular with regular rhythm, no murmur [] Lungs & Thorax: Bilateral breath sounds clear to auscultation , no wheezing Abdomen: soft, no tenderness, no masses, no pulsatile masses. [] Skin: Warm, dry, no erythema, no rash. [] Extremities: deformity of the R proximal femur with minimal ttp, leg shortened, distal pulse intact, skin intact Neurologic: Alert and oriented x 3, normal motor function, normal sensory function, no focal deficits noted. [] Current Patient Data Vital Signs Vital Signs Date Time Temp Pulse Resp B/P (MAP) Pulse Ox O2 Delivery O2 Flow Rate FiO2 02/13/17 06:43 97.9 97 16 143/66 (91) 93 Room Air 97.9 Lab Values Laboratory Tests Test 02/13/17 07:00 White Blood Count 9.9 x10^3/uL (4.0-11.0) Red Blood Count 2.81 x10^6/uL (3.50-5.40) L Hemoglobin 10.1 g/dL (12.0-15.5) L Hematocrit 29.4 % (36.0-47.0) L Mean Corpuscular Volume 104 fL (79-100) H Mean Corpuscular Hemoglobin 36 pg (25-35) H Mean Corpuscular Hemoglobin Concent 34 g/dL (31-37) Red Cell Distribution Width 19.1 % (11.5-14.5) H Platelet Count 190 x10^3/uL (140-400) Neutrophils (%) (Auto) 79 % (31-73) H Lymphocytes (%) (Auto) 13 % (24-48) L Monocytes (%) (Auto) 7 % (0-9) Eosinophils (%) (Auto) 1 % (0-3) Basophils (%) (Auto) 1 % (0-3) Neutrophils # (Auto) 7.9 x10^3uL (1.8-7.7) H Lymphocytes # (Auto) 1.3 x10^3/uL (1.0-4.8) Monocytes # (Auto) 0.7 x10^3/uL (0.0-1.1) Eosinophils # (Auto) 0.0 x10^3/uL (0.0-0.7) Basophils # (Auto) 0.0 x10^3/uL (0.0-0.2) Prothrombin Time 14.8 SEC (11.7-14.0) H Prothrombin Time INR 1.2 (0.8-1.1) H Urine Collection Type Unknown Urine Color Red Urine Clarity Cloudy Urine pH 6.5 Urine Specific [place] 1.015 Urine Protein 100 mg/dL (NEG-TRACE) Urine Glucose (UA) Negative mg/dL (NEG) Urine Ketones (Stick) Trace mg/dL (NEG) Urine Blood Large (NEG) Urine Nitrite Negative (NEG) Urine Bilirubin Moderate (NEG) Urine Urobilinogen Dipstick 1.0 mg/dL (0.2 mg/dL) Urine Leukocyte Esterase Small (NEG) Urine RBC 3-5 /HPF (0-2) Urine WBC Occ /HPF (0-4) Urine Squamous Epithelial Cells Occ /LPF Urine Amorphous Sediment Present /HPF Urine Bacteria 0 /HPF (0-FEW) Urine Hyaline Casts Occasional /HPF Urine Mucus Slight /LPF Sodium Level 141 mmol/L (136-145) Potassium Level 3.3 mmol/L (3.5-5.1) L Chloride Level 103 mmol/L (98-107) Carbon Dioxide Level 26 mmol/L (21-32) Anion Gap 12 (6-14) Blood Urea Nitrogen 19 mg/dL (7-20) Creatinine 1.3 mg/dL (0.6-1.0) H Estimated GFR (Cockcroft-Gault) 38.6 Glucose Level 155 mg/dL (70-99) H Calcium Level 8.9 mg/dL (8.5-10.1) Total Bilirubin 4.1 mg/dL (0.2-1.0) H Direct Bilirubin 1.3 mg/dL (0.0-0.2) H Aspartate Amino Transferase (AST) 117 U/L (15-37) H Alanine Aminotransferase (ALT) 23 U/L (14-59) Alkaline Phosphatase 96 U/L (46-116) Troponin I Quantitative 0.033 ng/mL (0.000-0.055) Total Protein 7.0 g/dL (6.4-8.2) Albumin 3.3 g/dL (3.4-5.0) L Laboratory Tests 02/13/17 07:00 Laboratory Tests 02/13/17 07:00 EKG EKG []99 bpm, sinus, R axis, QTC 491, no ST elevation or derpession, noniscemic T waves, interpreted by me. Radiology/Procedures Radiology/Procedures Pelvis/ R hip:Pelvis with right hip, 3 views, 02/13/2017: History: Fall, right hip deformity. The bony structures are demineralized. There is an old, healed, internally fixed intertrochanteric fracture of the left hip. There is an acute intertrochanteric fracture of the right hip. The fracture is comminuted with moderate anterior and lateral angulation at the fracture site with an associated varus deformity. There are minimal degenerative changes at both hip joints. Scattered arterial calcifications are present. IMPRESSION: 1. Demineralization. 2. Acute comminuted, intertrochanteric fracture of the right hip. 3. Old, healed, internally fixed intertrochanteric fracture of the left hip. CT head:CT of the head without contrast, 02/13/2017: History: Fall, confusion Comparison is made to a study from 11/12/2015. There is moderate cerebral atrophy. There are mild patchy lucencies in the deep white matter bilaterally compatible with chronic ischemic change. The ventricles are mildly prominent on a compensatory basis. There is no shift of the midline structures. There is no evidence of acute intracranial hemorrhage or mass effect. IMPRESSION: 1. Chronic findings as described above. 2. No acute intracranial abnormality is detected. Course & Med Decision Making Course & Med Decision Making Pertinent Labs and Imaging studies reviewed. (See chart for details) pt received parental pain meds by EMS and 25mcg IV ordered here in prep of XRay. IV established, labs ordered, pt appears jaundiced and has h/o cholelithiasis and hyperbilirubinemia in the past. Radiographs and labs reviewed, contacted Dr. Strange for admission who accepted. Dr. Baumann was counseled to by phone and GI consultation on interim orders. I explained results to family. Serge Disclaimer Dragon Disclaimer This electronic medical record was generated, in whole or in part, using a voice recognition dictation system. Departure Departure Impression: Primary Impression: Intertrochanteric fracture of left femur Additional Impression: Hyperbilirubinemia Disposition: ADMITTED INPATIENT Admitting Physician: Alo Strange Condition: STABLE Referrals: ALO STRANGE MD (PCP) Problem Qualifiers OMA ALMAZAN MD Feb 13, 2017 07:14
[2017-02-13 07:17] LABS: ALBUMIN 3.3 g/dL (3.4-5.0); DIRECT BILIRUBIN 1.3 mg/dL (0.0-0.2); TOTAL BILIRUBIN 4.1 mg/dL (0.2-1.0)
[2017-02-13 07:21] LABS: BILIRUBIN,URINE MODERATE (NEG); GLUCOSE,URINE NEGATIVE (NEG); NITRITE,URINE NEGATIVE (NEG); PH,URINE 6.5; PROTEIN,URINE 100 mg/dL (NEG-TRACE)
--- NOTE | 2017-02-13 07:26 | RAD ---
CT of the head without contrast, 02/13/2017: History: Fall, confusion Comparison is made to a study from 11/12/2015. There is moderate cerebral atrophy. There are mild patchy lucencies in the deep white matter bilaterally compatible with chronic ischemic change. The ventricles are mildly prominent on a compensatory basis. There is no shift of the midline structures. There is no evidence of acute intracranial hemorrhage or mass effect. IMPRESSION: 1. Chronic findings as described above. 2. No acute intracranial abnormality is detected. PQRS Compliance Statement: One or more of the following individualized dose reduction techniques were utilized for this examination: 1. Automated exposure control 2. Adjustment of the mA and/or kV according to patient size 3. Use of iterative reconstruction technique
[2017-02-13] MEDS ORDERED: IV NORMAL SALINE 1000ML BAG 1,000 ML IV ONE (07:45)
[2017-02-13 07:46] LABS: BACTERIA,URINE 0 /HPF (0-FEW); SQUAMOUS EPITHELIAL CELL,UR OCC /LPF; WBC,URINE OCC /HPF (0-4)
--- NOTE | 2017-02-13 07:51 | RAD ---
Pelvis with right hip, 3 views, 02/13/2017: History: Fall, right hip deformity. The bony structures are demineralized. There is an old, healed, internally fixed intertrochanteric fracture of the left hip. There is an acute intertrochanteric fracture of the right hip. The fracture is comminuted with moderate anterior and lateral angulation at the fracture site with an associated varus deformity. There are minimal degenerative changes at both hip joints. Scattered arterial calcifications are present. IMPRESSION: 1. Demineralization. 2. Acute comminuted, intertrochanteric fracture of the right hip. 3. Old, healed, internally fixed intertrochanteric fracture of the left hip.
[2017-02-13 09:10] VITALS: BP 146/81
--- NOTE | 2017-02-13 10:14 | PDOC ---
ORTHO PROGRESS NOTES Vitals Vital Signs Date Time Temp Pulse Resp B/P (MAP) Pulse Ox O2 Delivery O2 Flow Rate FiO2 02/13/17 08:36 103 18 100 02/13/17 08:13 Nasal Cannula 2.0 02/13/17 06:43 97.9 143/66 (91) 97.9 Labs Laboratory Tests Test 02/13/17 07:00 White Blood Count 9.9 x10^3/uL (4.0-11.0) Red Blood Count 2.81 x10^6/uL (3.50-5.40) Hemoglobin 10.1 g/dL (12.0-15.5) Hematocrit 29.4 % (36.0-47.0) Mean Corpuscular Volume 104 fL (79-100) Mean Corpuscular Hemoglobin 36 pg (25-35) Mean Corpuscular Hemoglobin Concent 34 g/dL (31-37) Red Cell Distribution Width 19.1 % (11.5-14.5) Platelet Count 190 x10^3/uL (140-400) Neutrophils (%) (Auto) 79 % (31-73) Lymphocytes (%) (Auto) 13 % (24-48) Monocytes (%) (Auto) 7 % (0-9) Eosinophils (%) (Auto) 1 % (0-3) Basophils (%) (Auto) 1 % (0-3) Neutrophils # (Auto) 7.9 x10^3uL (1.8-7.7) Lymphocytes # (Auto) 1.3 x10^3/uL (1.0-4.8) Monocytes # (Auto) 0.7 x10^3/uL (0.0-1.1) Eosinophils # (Auto) 0.0 x10^3/uL (0.0-0.7) Basophils # (Auto) 0.0 x10^3/uL (0.0-0.2) Prothrombin Time 14.8 SEC (11.7-14.0) Prothromb Time International Ratio 1.2 (0.8-1.1) Urine Collection Type Unknown Urine Color Red Urine Clarity Cloudy Urine pH 6.5 Urine Specific [place] 1.015 Urine Protein 100 mg/dL (NEG-TRACE) Urine Glucose (UA) Negative mg/dL (NEG) Urine Ketones (Stick) Trace mg/dL (NEG) Urine Blood Large (NEG) Urine Nitrite Negative (NEG) Urine Bilirubin Moderate (NEG) Urine Urobilinogen Dipstick 1.0 mg/dL (0.2 mg/dL) Urine Leukocyte Esterase Small (NEG) Urine RBC 3-5 /HPF (0-2) Urine WBC Occ /HPF (0-4) Urine Squamous Epithelial Cells Occ /LPF Urine Amorphous Sediment Present /HPF Urine Bacteria 0 /HPF (0-FEW) Urine Hyaline Casts Occasional /HPF Urine Mucus Slight /LPF Sodium Level 141 mmol/L (136-145) Potassium Level 3.3 mmol/L (3.5-5.1) Chloride Level 103 mmol/L (98-107) Carbon Dioxide Level 26 mmol/L (21-32) Anion Gap 12 (6-14) Blood Urea Nitrogen 19 mg/dL (7-20) Creatinine 1.3 mg/dL (0.6-1.0) Estimated GFR (Cockcroft-Gault) 38.6 Glucose Level 155 mg/dL (70-99) Calcium Level 8.9 mg/dL (8.5-10.1) Total Bilirubin 4.1 mg/dL (0.2-1.0) Direct Bilirubin 1.3 mg/dL (0.0-0.2) Aspartate Amino Transf (AST/SGOT) 117 U/L (15-37) Alanine Aminotransferase (ALT/SGPT) 23 U/L (14-59) Alkaline Phosphatase 96 U/L (46-116) Troponin I Quantitative 0.033 ng/mL (0.000-0.055) Total Protein 7.0 g/dL (6.4-8.2) Albumin 3.3 g/dL (3.4-5.0) Laboratory Tests Test 02/13/17 07:00 White Blood Count 9.9 x10^3/uL (4.0-11.0) Red Blood Count 2.81 x10^6/uL (3.50-5.40) Hemoglobin 10.1 g/dL (12.0-15.5) Hematocrit 29.4 % (36.0-47.0) Mean Corpuscular Volume 104 fL (79-100) Mean Corpuscular Hemoglobin 36 pg (25-35) Mean Corpuscular Hemoglobin Concent 34 g/dL (31-37) Red Cell Distribution Width 19.1 % (11.5-14.5) Platelet Count 190 x10^3/uL (140-400) Neutrophils (%) (Auto) 79 % (31-73) Lymphocytes (%) (Auto) 13 % (24-48) Monocytes (%) (Auto) 7 % (0-9) Eosinophils (%) (Auto) 1 % (0-3) Basophils (%) (Auto) 1 % (0-3) Neutrophils # (Auto) 7.9 x10^3uL (1.8-7.7) Lymphocytes # (Auto) 1.3 x10^3/uL (1.0-4.8) Monocytes # (Auto) 0.7 x10^3/uL (0.0-1.1) Eosinophils # (Auto) 0.0 x10^3/uL (0.0-0.7) Basophils # (Auto) 0.0 x10^3/uL (0.0-0.2) Prothrombin Time 14.8 SEC (11.7-14.0) Prothromb Time International Ratio 1.2 (0.8-1.1) Urine Collection Type Unknown Urine Color Red Urine Clarity Cloudy Urine pH 6.5 Urine Specific [place] 1.015 Urine Protein 100 mg/dL (NEG-TRACE) Urine Glucose (UA) Negative mg/dL (NEG) Urine Ketones (Stick) Trace mg/dL (NEG) Urine Blood Large (NEG) Urine Nitrite Negative (NEG) Urine Bilirubin Moderate (NEG) Urine Urobilinogen Dipstick 1.0 mg/dL (0.2 mg/dL) Urine Leukocyte Esterase Small (NEG) Urine RBC 3-5 /HPF (0-2) Urine WBC Occ /HPF (0-4) Urine Squamous Epithelial Cells Occ /LPF Urine Amorphous Sediment Present /HPF Urine Bacteria 0 /HPF (0-FEW) Urine Hyaline Casts Occasional /HPF Urine Mucus Slight /LPF Sodium Level 141 mmol/L (136-145) Potassium Level 3.3 mmol/L (3.5-5.1) Chloride Level 103 mmol/L (98-107) Carbon Dioxide Level 26 mmol/L (21-32) Anion Gap 12 (6-14) Blood Urea Nitrogen 19 mg/dL (7-20) Creatinine 1.3 mg/dL (0.6-1.0) Estimated GFR (Cockcroft-Gault) 38.6 Glucose Level 155 mg/dL (70-99) Calcium Level 8.9 mg/dL (8.5-10.1) Total Bilirubin 4.1 mg/dL (0.2-1.0) Direct Bilirubin 1.3 mg/dL (0.0-0.2) Aspartate Amino Transf (AST/SGOT) 117 U/L (15-37) Alanine Aminotransferase (ALT/SGPT) 23 U/L (14-59) Alkaline Phosphatase 96 U/L (46-116) Troponin I Quantitative 0.033 ng/mL (0.000-0.055) Total Protein 7.0 g/dL (6.4-8.2) Albumin 3.3 g/dL (3.4-5.0) Assessment and Plan R IT hip fx renal dz, CHF, recent GI bleed surgery tomorrow coumadin for 1 month, INR goal 1.5? post-op. VIJAY MEJIA II, MD Feb 13, 2017 10:14
[2017-02-13] MEDS ORDERED: ACETAMINOPHEN 325 MG TABLET. PO PRN (10:30)
[2017-02-13] MEDS ORDERED: fentaNYL PF VIAL 100 MCG/2 ML VIAL IV PRN (10:30)
[2017-02-13] MEDS: fentaNYL PF VIAL 100 MCG/2 ML VIAL IV PRN ×3 (10:31→22:51)
--- NOTE | 2017-02-13 10:39 | PDOC ---
Provider Note Provider Note history and physical dictated # [id number] MIKI COLORADO MD Feb 13, 2017 10:39
[2017-02-13] MEDS ORDERED: MV-M1TAB36 PO (10:48)
[2017-02-13] MEDS ORDERED: LEVO75TA5 PO (10:48)
[2017-02-13] MEDS ORDERED: LORA0.5T PO (10:48)
[2017-02-13 11:00] VITALS: BP 137/82
--- NOTE | 2017-02-13 11:08 | PDOC2 ---
GI CONSULT Reason For Consult: Hyperbilirubinemia HPI: HPI: 89 y/o female previously evaluated by Dr. Farley. Admitted w/ right hip fracture, plans for surgery tomorrow. H/o hyperbilirubinemia, fluctuating, son believes related to CHF and feels improved w/ Lasix. Previous imaging include CT A/P (normal liver), abd US (cholelithiasis), and MRCP (cholelithiasis - visualized intrahepatic ducts and distal CBD w/o obstruction). At one point had low haptoglobin. Unremarkable iron studies last year. No previous colonoscopy. EGD by Dr. Davidson in 11/2016 (for UGI bleeding) showed <grade 1 reflux esophagitis, numerous petechiae in proximal stomach and fundus w/ linears erosions from antrum to pylorus, and normal duodenum. Has been on pantoprazole, off all blood thinning meds (previously on Warfarin), and off iron (was previously taking BID, son says caused diarrhea). Per son, no issues w/ appetite or abd pain. PMH: PMH: per chart - A Fib, CHF, HTN, HLD, pulmonary hypertension, hypothyroidism, CKD, BCC and SCC, anemia, macular degeneration, CVA, dementia, UGI bleed, cholelithiasis, hyperbilirubinemia, laser eye surgery, AVR, skin cancer removal , left hip surgery, ankle surgery FH: Family History: No pertinent hx Social History: ALCOHOL: none Drugs: None ROS: GEN: Denies fevers, chills, sweats HEENT: Denies blurred vision, sore throat CV: Denies chest pain RESP: Denies shortness of air, cough GI: Per HPI : Denies hematuria, dysuria ENDO: Denies weight changes NEURO: Denies confusion, dizziness MSK: Denies weakness, joint pain/swelling SKIN: Denies jaundice, pruritus Vitals: Vitals: Vital Signs Date Time Temp Pulse Resp B/P (MAP) Pulse Ox O2 Delivery O2 Flow Rate FiO2 02/13/17 08:36 103 18 100 02/13/17 08:13 Nasal Cannula 2.0 02/13/17 06:43 97.9 143/66 (91) 97.9 Labs: Labs: Laboratory Tests Test 02/13/17 07:00 White Blood Count 9.9 x10^3/uL (4.0-11.0) Red Blood Count 2.81 x10^6/uL (3.50-5.40) Hemoglobin 10.1 g/dL (12.0-15.5) Hematocrit 29.4 % (36.0-47.0) Mean Corpuscular Volume 104 fL (79-100) Mean Corpuscular Hemoglobin 36 pg (25-35) Mean Corpuscular Hemoglobin Concent 34 g/dL (31-37) Red Cell Distribution Width 19.1 % (11.5-14.5) Platelet Count 190 x10^3/uL (140-400) Neutrophils (%) (Auto) 79 % (31-73) Lymphocytes (%) (Auto) 13 % (24-48) Monocytes (%) (Auto) 7 % (0-9) Eosinophils (%) (Auto) 1 % (0-3) Basophils (%) (Auto) 1 % (0-3) Neutrophils # (Auto) 7.9 x10^3uL (1.8-7.7) Lymphocytes # (Auto) 1.3 x10^3/uL (1.0-4.8) Monocytes # (Auto) 0.7 x10^3/uL (0.0-1.1) Eosinophils # (Auto) 0.0 x10^3/uL (0.0-0.7) Basophils # (Auto) 0.0 x10^3/uL (0.0-0.2) Prothrombin Time 14.8 SEC (11.7-14.0) Prothromb Time International Ratio 1.2 (0.8-1.1) Urine Collection Type Unknown Urine Color Red Urine Clarity Cloudy Urine pH 6.5 Urine Specific Brick 1.015 Urine Protein 100 mg/dL (NEG-TRACE) Urine Glucose (UA) Negative mg/dL (NEG) Urine Ketones (Stick) Trace mg/dL (NEG) Urine Blood Large (NEG) Urine Nitrite Negative (NEG) Urine Bilirubin Moderate (NEG) Urine Urobilinogen Dipstick 1.0 mg/dL (0.2 mg/dL) Urine Leukocyte Esterase Small (NEG) Urine RBC 3-5 /HPF (0-2) Urine WBC Occ /HPF (0-4) Urine Squamous Epithelial Cells Occ /LPF Urine Amorphous Sediment Present /HPF Urine Bacteria 0 /HPF (0-FEW) Urine Hyaline Casts Occasional /HPF Urine Mucus Slight /LPF Sodium Level 141 mmol/L (136-145) Potassium Level 3.3 mmol/L (3.5-5.1) Chloride Level 103 mmol/L (98-107) Carbon Dioxide Level 26 mmol/L (21-32) Anion Gap 12 (6-14) Blood Urea Nitrogen 19 mg/dL (7-20) Creatinine 1.3 mg/dL (0.6-1.0) Estimated GFR (Cockcroft-Gault) 38.6 Glucose Level 155 mg/dL (70-99) Calcium Level 8.9 mg/dL (8.5-10.1) Total Bilirubin 4.1 mg/dL (0.2-1.0) Direct Bilirubin 1.3 mg/dL (0.0-0.2) Aspartate Amino Transf (AST/SGOT) 117 U/L (15-37) Alanine Aminotransferase (ALT/SGPT) 23 U/L (14-59) Alkaline Phosphatase 96 U/L (46-116) Troponin I Quantitative 0.033 ng/mL (0.000-0.055) Total Protein 7.0 g/dL (6.4-8.2) Albumin 3.3 g/dL (3.4-5.0) Allergies: Coded Allergies: hydrocodone (Verified Adverse Reaction, Severe, hypotension, hyper opiate sensitive, 11/12/16) morphine (Verified Adverse Reaction, Intermediate, Nausea, 11/12/16) Medications: Current Medications Medications (Trade) Dose Ordered Sig/Laxmi Route PRN Reason Start Time Stop Time Status Last Admin Dose Admin Fentanyl Citrate (Fentanyl 2ml Vial) 25 mcg 1X ONCE IV 02/13/17 07:00 02/13/17 07:01 DC 02/13/17 08:13 Fentanyl Citrate (Fentanyl 2ml Vial) 50 mcg PRN Q1HR PRN IV PAIN 02/13/17 07:45 02/14/17 07:44 02/13/17 10:31 Sodium Chloride 1,000 ml @ 75 mls/hr 1X ONCE IV 02/13/17 07:45 02/13/17 10:26 DC 02/13/17 08:30 Imaging: Imaging: Right Hip XRay IMPRESSION: 1. Demineralization. 2. Acute comminuted, intertrochanteric fracture of the right hip. 3. Old, healed, internally fixed intertrochanteric fracture of the left hip. Head CT IMPRESSION: 1. Chronic findings as described above. 2. No acute intracranial abnormality is detected. PE: GEN: NAD HEENT: Atraumatic, PERRL LUNGS: clear anteriorly HEART: irregular +murm ABD: NABS, S/ND/NT EXTREMITY: No edema SKIN: +jaundice NEURO/PSYCH: awake/alert, probably confused A/P: A/P: Right hip fracture Hyperbilirubinemia -history of this, fluctuating ---> son feels 2/2 CHF -previous workup per HPI, known cholelithiasis -had low haptoglobin previously H/o UGI bleed -EGD earlier this year, has been off Warfarin ---> note plans to resume after surgery -on PPI, off iron -- Will ask hematology too see re: ?hemolysis. Continue PPI. BERNABE LOVE Feb 13, 2017 11:08
--- NOTE | 2017-02-13 11:31 | CONS ---
DATE OF CONSULTATION: 02/13/2017 REFERRING PROVIDER: Alo Strange MD CONSULTING PROVIDER: Theodore Mejia MD REASON FOR CONSULTATION: Right hip fracture. CHIEF COMPLAINT: Right hip pain. HISTORY OF PRESENT ILLNESS: The patient is a very pleasant 89-year-old female with some confusion at baseline and she tells me she fell when she was climbing up her steps yesterday. Her sons are with her and they tell me that she fell out of bed sometime early this morning. No prior history of hip complaints on the right side, she has done fairly well after a left hip fracture. She recently had a massive GI bleed and has been undergoing changes in her Lasix dose to get some fluid off her lungs per her sons. She is complaining of right hip pain all around her right hip, worse with attempted movement. She was not able to bear weight on her legs after her fall. ALLERGIES: 1. HYDROCODONE. 2. MORPHINE. MEDICATIONS: Reviewed, please see MRAD. REVIEW OF SYSTEMS: Twelve point review of systems negative except as per HPI. PAST MEDICAL HISTORY: AFib, chronic anemia, asthma, CHF, history of CVA, hypercholesterolemia, hypertension, chronic kidney disease, macular degeneration. PAST SURGICAL HISTORY: IM nail of left hip fracture, heart valve replacement, bladder procedure. SOCIAL HISTORY: She normally ambulates well and has family close by that is active in her care. FAMILY HISTORY: Noncontributory. PHYSICAL EXAMINATION: GENERAL: The patient is slightly confused. She does answer and ask questions and follow simple commands. HEENT: Head normocephalic, atraumatic. Extraocular muscles are intact. CARDIOVASCULAR: Regular rate and rhythm. No edema in her lower extremities. LUNGS: Respirations are unlabored with symmetric chest raise. ABDOMEN: Soft, nondistended. EXTREMITIES: Examination of bilateral lower extremities reveals the incision to her left hip consistent with her prior surgery. She can wiggle her toes. Dorsalis pedis 2+ and symmetric. Examination of her right lower extremity reveals it is shortened and externally rotated. IMAGING: X-rays are reviewed, comminuted intertrochanteric hip fracture on the right side. LABORATORY DATA: CBC, coags and chemistry were reviewed. Her hemoglobin is 10.1. INR 1.2, potassium is 3.3 and creatinine is 1.3. IMPRESSION: Closed right intertrochanteric hip fracture. PLAN: Given her baseline health conditions, I think delaying surgery until her primary care doctor and other specialists who can evaluate her would be most safe for this patient. We will plan on surgeries tomorrow pending clearance. I did discuss her care with Dr. Strange. I discussed the risks, benefits and alternatives to the surgery with her sons and they wished to proceed. THEODORE MEJIA MD DR: SLIME/bhavna JOB#: [id number] / [id number] STAS
--- NOTE | 2017-02-13 11:33 | RAD ---
Abdominal ultrasound, 02/13/2017: History: Elevated bilirubin The gallbladder is within normal limits in size. There are echogenic foci in the gallbladder with posterior acoustic shadowing compatible with gallstones. The gallbladder wall is not thickened. No pericholecystic edema is seen. There is no evidence of a hepatic mass. The visualized portions of the pancreas are unremarkable. The spleen is of normal size. The left kidney is smaller than the right. There is no evidence of hydronephrosis or a renal mass. There is calcific plaquing of the abdominal aorta without evidence of aneurysm. The inferior vena cava is unremarkable. A moderate-sized right pleural effusion is noted. IMPRESSION: 1. Cholelithiasis. 2. Moderate size right pleural effusion.
[2017-02-13 11:53] LABS: % SAT IRON 63 % (15-34); IRON,SERUM 137 ug/dL (50-170)
[2017-02-13] MEDS ORDERED: PNEUMOC CONJ VACC 23-VALENT 0.5 ML VIAL. VAX IM ONE (12:00)
[2017-02-13] MEDS ORDERED: FLU VACC QS2017-18 (36MOS+)/PF 0.5 ML SYRINGE. VAX IM ONE (12:00)
[2017-02-13 12:16] LABS: FOLATE 12.4 ng/ml (3.2-20.0)
--- NOTE | 2017-02-13 12:32 | HP ---
ADMIT DATE: 02/13/2017 HISTORY OF PRESENT ILLNESS: The patient is an 89-year-old white female who has a history of upper GI bleed in 11/2016 secondary to gastric erosions and also noted to have reflux esophagitis at that time of her EGD. At that time, she was on Coumadin for paroxysmal atrial fibrillation, which was discontinued due to the massive GI bleed. She also has history of elevated liver function tests and has had a workup in the past, which has been unremarkable. She also has bioprosthetic aortic valve replacement. In addition, she has mitral stenosis. She was found on the floor this morning by her son and complained of right hip pain following a fall. She was sent to the [facility] Emergency Room. Her x-ray revealed a right intertrochanteric hip fracture. She has been seen by orthopedic surgeon, Dr. Baumann, who discussed the case with the family at bedside and apparently intends to do an open reduction and internal fixation for her right hip fracture tomorrow. She is confused and has received IV fentanyl in the Emergency Room for pain. She is therefore admitted for further evaluation and treatment of right hip fracture. ALLERGIES AND INTOLERANCES: HYDROCODONE AND MORPHINE. MEDICATION PRIOR TO ADMISSION: She was apparently was started on furosemide 20 mg every day. She did have right pleural effusion on her last chest x-ray. She apparently received furosemide 20 mg daily only for last 5 days. Also on Ocuvite 1 every day. She takes Tylenol p.r.n., levothyroxine 75 mcg every day, metoprolol tartrate 12.5 mg once a day, Protonix 40 mg every day, trazodone 50 mg at bedtime. PAST MEDICAL HISTORY: Significant for the upper GI bleed in 11/2016 secondary to gastric erosions. She had an EGD which showed the gastric erosions and reflux esophagitis, acute blood loss anemia. She has paroxysmal atrial fibrillation, but off of anticoagulant due to her fall risk and recent GI bleed. Also has mitral stenosis and chronic kidney disease stage 3, elevated liver function test of undetermined etiology, hypertension, hyperlipidemia and debility. Also has hypothyroidism, bioprosthetic aortic valve replacement and had a near syncope due to hypotension prior to her November admission. She also had acute blood loss anemia on top of anemia of chronic disease. She also has history of macular degeneration in left eye. She had a right central eye venous occlusion, treated with laser therapy in 2009. She had intracranial brain hemorrhage in 2010. She had electro-conversion for atrial fibrillation in 2007. Also had a bioprosthetic aortic valve replacement and also history of open reduction and internal fixation for a left hip fracture in the past. She has hypothyroidism also. SOCIAL HISTORY: She does not drink alcohol nor she smokes cigarettes and cared for by a son at home. FAMILY HISTORY: Noncontributory. REVIEW OF SYSTEMS: Unobtainable as she is confused. PHYSICAL EXAMINATION: VITAL SIGNS: Temperature is 97.9 degrees, apical pulse is 103, respiratory rate 18. Blood pressure 143/66, oxygen saturation was 100% on 2 liters per nasal cannula. HEENT: Eyes: Gaze is conjugate. Conjunctiva is somewhat pale. Mouth: Tongue is midline. NECK: There is no cervical lymphadenopathy. HEART: Reveals an S1, S2. There is 1/6 systolic murmur. LUNGS: Clear anteriorly. ABDOMEN: Soft, nontender with no hepatosplenomegaly, masses or tenderness. EXTREMITIES: Lower extremities: The right knee is bent and appears shortened and the right leg is shorter than the left. Left lower extremity is straight. There is no edema in her legs. SKIN: No rashes. NEUROLOGIC: She is confused, but did receive IV fentanyl in the Emergency Room. 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 She does not move her left leg when asked to and I did not ask her to move her right leg. REVIEW OF LABORATORY TEST: The white count was 9.9; hemoglobin 10.1; MCV of 104; platelet count of 190,000; 79 polys and 13 lymphocytes. INR was 1.2. Serum sodium 141, potassium 3.3, chloride 103, total CO2 was 26, BUN 19, creatinine 1.3. Total bilirubin 4.1, direct bilirubin 1.3. SGOT of 117, SGPT of 23, alkaline phosphatase of 96. Troponin level was normal at 0.033. Albumin 3.3. Urinalysis showed moderate amount of urine bilirubin, 3-5 red cell and occasional white cell. She had an EKG. I did not see any waves or it could be atrial fibrillation versus sinus tachycardia, rhythm was relatively regular. She did have a CAT scan of the brain done, which showed no acute abnormality. She has moderate cerebral atrophy. She had an x-ray of the hip and pelvis done on the right side which showed an acute comminuted intertrochanteric fracture of the right hip and an old healed left hip fracture which has been internally fixed. She had demineralization also. ASSESSMENT: 1. Right hip fracture, presumably secondary to a mechanical fall. 2. Jaundice. 3. Paroxysmal atrial fibrillation. 4. Reflux esophagitis. 5. Gastric erosions with an upper gastrointestinal bleed in 11/2016. 6. Anemia of chronic disease and acute blood loss anemia. 7. Hypothyroidism. 8. Hypokalemia. 9. Bioprosthetic aortic valve replacement. 10. Mitral stenosis. 11. Chronic kidney disease stage 3. 12. Hypertension. PLAN: Plan at this time is to consult Dr. Baumann, who just saw the patient. We will consult Dr. Londono for cardiology clearance and also consult Dr. Davidson for the elevated total bilirubin. We will get an echocardiogram and also get an ultrasound of the abdomen to evaluate the total bilirubin elevation. Repeat the CBC and CMP tomorrow. She will be n.p.o. after midnight for surgery tomorrow. SCDs for deep venous thrombosis prophylaxis have been ordered. Discontinue the furosemide and give her single dose of potassium chloride for the hypokalemia. I will continue with her levothyroxine and her Protonix. We will increase the metoprolol to 12.5 mg b.i.d. Start her on soft-solid diet today and she will be n.p.o. after midnight for surgery tomorrow. She is a full code per the son wishes. Her urine is dark most likely secondary to the high bilirubin. We will discontinue the IV fluids. She did have a right pleural effusion noted on a recent outpatient chest x-ray, so we will be getting a chest x-ray to review that. If she has right pleural effusion, we can consult Pulmonary. Chest x-ray has not been done yet. We will put her on some fentanyl 25 mcg IV every 4 hours p.r.n. for pain at a lower dose. Also put her on some Senokot-S for her bowels. MIKI COLORADO MD DR: JENNIFER/bhavna JOB#: [id number] / [id number]
--- NOTE | 2017-02-13 12:40 | CONS ---
DATE OF CONSULTATION: 02/13/2017 HEMATOLOGY/ONCOLOGY CONSULTATION REPORT CONSULTATION REQUESTED BY: Dr. Alo Davidson. REASON FOR CONSULTATION: Elevated indirect bilirubin and to evaluate for hemolysis. HISTORY OF PRESENT ILLNESS: The patient is an 89-year-old female who was admitted to [facility] on 02/13/2017 for right hip fracture. She plans to have surgery on 02/14/2017. GI was consulted for hyperbilirubinemia. She has had prior CT scan of the abdomen and pelvis with normal liver evaluation. History of MRCP in the past revealed cholelithiasis. In 11/2015, her haptoglobin was very low at less than 1. She also had hemoglobin of 6.3 on 11/14/2015. She responded well to transfusions and her hemoglobin stabilized to around 9-10. However, in 11/2016, she had a GI bleed thought to be due to anticoagulation, with her INR being very high at that time and her hemoglobin was 4.5 and she received transfusions and the hemoglobin improved and stabilized at around 10. Her hemoglobin on 02/13/2017 is 10.1. Her bilirubin has been chronically elevated. Most of the time it has been the indirect bilirubin that has been elevated. Hence, I was asked to see the patient for evaluation of hemolytic anemia. 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 FAMILY HISTORY: Negative for hemolytic anemia. SOCIAL HISTORY: No smoking or alcohol abuse. REVIEW OF SYSTEMS: A 12-point review of system was performed. Pertinent positives are mentioned in the history of presenting illness. Rest of the system review is negative. PHYSICAL EXAMINATION: GENERAL APPEARANCE: The patient is an 89-year-old female, who is in no acute cardiorespiratory distress. VITAL SIGNS: Blood pressure 143/66, temperature 97.9. HEAD: Atraumatic, normocephalic. EYES: No icterus. NECK: Supple. CHEST: Bilaterally symmetrical. HEART: S1, S2 normal. ABDOMEN: Soft, nontender. CENTRAL NERVOUS SYSTEM: No focal deficits. LYMPHATICS: No lymphadenopathy. SKIN: Mildly icteric. PSYCHOLOGIC: Flattened affect. MUSCULOSKELETAL: She has acute comminuted intertrochanteric fracture on the right hip. LABORATORY DATA: CBC from 05/16/2016 reveals a WBC of 9.9, hemoglobin 10.1, platelet counts 190,000 and reticulocyte count is 3.7. Creatinine is 1.3. Total bilirubin 4.1, direct bilirubin 1.3. IMPRESSION AND PLAN: 1. Anemia with elevated MCV. In addition, she also has elevated reticulocyte count and indirect bilirubin. I will initiate workup for hemolytic anemia. I will order haptoglobin, Brown test and LDH. Reticulocyte results are already available. Since the MCV is elevated, I will also check B12 and folic acid levels and I will also complete the workup with iron panel because of her prior history of GI bleed in 11/2016. I discussed with Gastroenterology, Dr. Alo Davidson, who does not suspect any blood loss at this point. Review of the prior records indicates that she has always responded well to blood transfusions. 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 I would not initiate steroids at this time considering her advanced age and the toxicities associated with steroids. However, if she does not respond to transfusions and if her hemoglobin continues to drop, then I would plan to initiate steroids. I discussed in detail with the patient and family. I discussed with Gastroenterology. 2. Right hip fracture. Agree to proceed with surgery, 02/14/2017, as planned. 3. 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 She had ultrasound of the abdomen on 02/13/2017 that revealed cholelithiasis and moderate-sized right pleural effusion. CT scan of the abdomen on 11/15/2016 revealed cholelithiasis and no hepatic lesions. JOY BOURNE MD DR: ROSALIO/bhavna JOB#: [id number] / [id number] ALO Sales MD
[2017-02-13] MEDS: POTASSIUM CL 20MEQ D5-0.45NACL 1,000 ML IV SCH (13:02)
[2017-02-13] MEDS: LEVOTHYROXINE 75 MCG TABLET PO SCH (13:03)
[2017-02-13] MEDS: SENNOSIDES/DOCUSATE 8.6/50MG TABLET. PO SCH (13:03)
[2017-02-13] MEDS: MULTIVITAMIN I-VITE TABLET. PO SCH (13:03)
[2017-02-13] MEDS: METOPROLOL TART IMMED RELEASE 25 MG TABLET. PO SCH ×2 (13:03→20:31)
[2017-02-13] MEDS: PANTOPRAZOLE 40 MG TABLET.DR. PO SCH (13:03)
--- NOTE | 2017-02-13 14:28 | RAD ---
Single view of the Chest 02/13/2017 12:16 PM Indication: preo- op evaluation Comparison: Chest radiograph November 11, 2016 Findings: There is interval development of a moderately sized layering right-sided pleural effusion. Possible mild underlying atelectasis or infiltrate is noted. Left lung is clear. No pneumothorax is identified. Heart is mildly enlarged but grossly stable. Prior median sternotomy and aortic valve replacement noted. Chronic right clavicular deformity noted. Impression: Interval development of a moderate layering pleural effusion on the right, with underlying atelectasis or mild infiltrate noted.
[2017-02-13 15:00] VITALS: BP 141/76
[2017-02-13 19:00] VITALS: BP 120/61
[2017-02-13] MEDS: traZODone 50 MG TABLET. PO SCH (20:31)
--- NOTE | 2017-02-13 22:10 | CARD ---
APPROVED REPORT EXAM: Two-dimensional and M-mode echocardiogram with Doppler and color Doppler. Other Information Quality : Technically Limited Rhythm : NSRTechnically limited study due to positioning. INDICATION Atrial Fibrillation Pre-Op Right hip surgery 2D DIMENSIONS Left Atrium(2D)3.2 (1.6-4.0cm)IVSd1.4 (0.7-1.1cm) Aortic Root(2D)2.0 (2.0-3.7cm)LVDd2.8 (3.9-5.9cm) LVOT Diameter1.9 (1.8-2.4cm)PWd1.3 (0.7-1.1cm) LVDs1.9 (2.5-4.0cm)FS (%) 33.8 % SV19.7 mlLVEF(%)64.5 (>50%) Aortic Valve AoV Peak Cecilio.275.8cm/sAoV VTI55.0cm AO Peak GR.30.4mmHgLVOT VTI 15.66cm AO Mean GR.19mmHg Mitral Valve MV E Hziizmji021.1cm/sMV E Peak Gr.9mmHg MV DECEL [id number] A Nhaplpyl924.6cm/s MV E Mean Gr.5mmHgMV [id number] E/A Ratio1.2MVA (PHT)4.40cm2 TDI Lateral E' P. V15.69cm/sMedial E' P. V10.46cm/s E/Lateral E'9.6E/Medial E'14.4 Tricuspid Valve TR P. Vyoogber091lf/sRAP [id number] TR Peak Gr.49lrKjELUO29qbHb LEFT VENTRICLE The left ventricle is normal size. There is mild concentric left ventricular hypertrophy. Left ventri jass systolic function normal.. The Ejection Fraction is 60-65%. There is normal LV segmental wall mot ion. There is a left ventricular diastolic dysfunctio with the E wave deceleration time being less th an 130 msecs. The left atrial filling pressure is not significantly elevated RIGHT VENTRICLE The right ventricle appears mildly to moderately dilated. The right ventricular systolic function is normal. ATRIA The left atrium size is normal. The right atrium appears moderately dilated. The interatrial septum i s intact with no evidence for an atrial septal defect or patent foramen ovale as noted on 2-D or Dopp ler imaging. AORTIC VALVE The aortic valve is trileaflet. Doppler and Color Flow revealed no significant aortic regurgitation. Maximum pressure gradient of 30 mmHg and mean pressure gradient of 19 mmHg. Dimensionless index of 0. 28. MITRAL VALVE There is no mitral valve stenosis. Doppler and Color Flow revealed mild mitral regurgitation. 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 TRICUSPID VALVE The tricuspid valve leaflets do not coapt. Doppler and Color Flow revealed severe tricuspid regurgita tion. The PA pressure was estimated at 44 mmHg. There is no tricuspid valve stenosis. PULMONIC VALVE The pulmonic valve is not well visualized. Doppler and Color Flow revealed no pulmonic valvular regur gitation. There is no pulmonic valvular stenosis. GREAT VESSELS The aortic root is normal in size. The IVC is normal in size and collapses <50% with inspiration. PERICARDIAL EFFUSION There is moderate pleural effusion. There is no pericardial effusion. Critical Notification Critical Value: No <Conclusion> The left ventricle is normal size. There is mild concentric left ventricular hypertrophy. Left ventricle systolic function normal.. The Ejection Fraction is 60-65%. There is a left ventricular diastolic dysfunctio with the E wave deceleration time being less than 1 30 msecs. The left atrial filling pressure is not significantly elevated There is no pericardial effusion. 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 There is no mitral valve stenosis. Doppler and Color Flow revealed mild mitral regurgitation. The left atrium is of a normal size. Again seen is a round shadow in the left atrium which could represent a myxoma. The aortic valve is trileaflet. Doppler and Color Flow revealed no significant aortic regurgitation. There is mild aortic stenosis. Doppler and Color Flow revealed severe tricuspid regurgitation. The PA pressure was estimated at 44 mmHg. The pulmonic valve is not well visualized.
[2017-02-13 23:00] VITALS: BP 111/83
--- NOTE | 2017-02-13 23:00 | PDOC ---
Provider Note Provider Note Patient seem and consult dictated, She is cleared cardiac gordon for the intended surgery Thank you Dr. Strange for asking me to see her. JOANN LEBLANC MD Feb 13, 2017 23:00
[2017-02-14] VITALS (19 sets, daily range): BP systolic 95–130; BP diastolic 47–85
--- NOTE | 2017-02-14 00:36 | CONS ---
DATE OF CONSULTATION: 02/13/2017 HISTORY OF PRESENT ILLNESS: This is an 89-year-old white female who was brought into the Emergency Room by her son, when she fell on the floor and sustained a right hip fracture. She lives with her son. According to the son, she has had no chest pain, shortness of breath or dizziness. She has been somewhat confused even at home. In the past, she has had a left hip fracture in 2015. At that time, she was noted to have mild hyperbilirubinemia. The etiology of this was not quite clear. She came back the next month with severe blood loss anemia. She was noted to have some gastritis. It was in November of last year that she was noted to have a right pleural effusion. This was apjbc-[id number]-[id number] in size. She was not short of breath and not hypoxic. Apparently, the pleural effusion was not investigated further. The son states that she has been given Lasix for the last few days. She underwent open heart surgery apparently in 2007, which was carried out in this hospital. I have been unable to locate those records, but we will attempt again tomorrow. 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 She also had pulmonary hypertension. In the meantime, she has had no swelling of her legs. She has had atrial fibrillation intermittently in the past. No anticoagulation has been given, despite her high DIO score because of the risk for falls. She has sustained an intracranial hemorrhage in the past. MEDICATIONS: Her present medications are: 1. Synthroid 75 mcg a day. 2. Lorazepam 0.5 mg p.r.n. 3. Metoprolol tartrate 12.5 mg twice a day. 4. Protonix 40 mg a day. 5. Trazodone 50 mg at night. PHYSICAL EXAMINATION: GENERAL: She was seated at 45 degrees angle. She complained of no pain in her leg. She does have mild dementia. She was constantly complaining of not getting enough oxygen and requiring more oxygen, even though she was informed that she has a nasal cannula. Her oxygen saturation was checked and it was 99%. She appeared somewhat pale. VITAL SIGNS: The heart rate was 100 per minute and regular. The blood pressure is 120/60. She was afebrile. LUNGS: Clear anteriorly. HEART: The first and second sounds are normal. There is a grade 2/6 pansystolic murmur heard best at the apex. ABDOMEN: Soft. EXTREMITIES: There is no edema of the legs. IMAGING DATA: A chest x-ray showed that the heart was mildly enlarged. The lung myers showed no evidence of pulmonary vascular congestion. There was a [id number] right pleural effusion with underlying atelectasis. When compared with the chest x-ray done in November 2015, his seemed to be unchanged. An EKG showed a sinus rhythm with no significant ST-T wave changes. LABORATORY INVESTIGATIONS: The hemoglobin was 10 grams percent. INR was 1.2. The B12 and folate levels were normal. There was no evidence of iron deficiency. The ferritin level was high at 461. The LDH was high at 1088. Sodium was 141, potassium 3.3, BUN is 19 and creatinine was 1.3. The total bilirubin was elevated to 4.1 with a direct bilirubin being 1.3. She was seen in consultation by GI who felt that the anemia was probably not due to a GI bleed. She was seen in consultation by Dr. Tavares, who felt that with the anemia not being iron deficient and with a high retic count of 3.7, that it probably represented hemolysis. The haptoglobin was low, below 10. IMPRESSION: 1. Right intertrochanteric hip fracture. 2. History of atrial fibrillation, but in sinus rhythm now. 3. Mild dementia. 4. Stable right pleural effusion, etiology unclear. 5. Hemolysis. Etiology unclear, with no significant anemia. This patient exhibits no clinical or significant radiological evidence of congestive heart failure. Her echo also does not show any reason for her to have congestive heart failure. She has a right pleural effusion which has been stable for a year, etiology unclear. Despite the pleural effusion, the patient is oxygenating well. She has a sensation of not getting enough oxygen, but she is not tachypneic and does not seem to be in distress. Rather she is constantly talking and probably has a high level of anxiety. She has been taking Ativan at home and we will probably give her some Ativan tonight. She is not complaining of pain and so she would not need to take the fentanyl at the present time. She has been cleared for the intended surgery. We will give oral her beta-dain in the morning with a sip of water. Thank you, Dr. Strange for asking me to see her. JOANN LEBLANC MD DR: ALISHA/bhavna JOB#: [id number] / [id number]
[2017-02-14] MEDS: LORazepam 0.5 MG TABLET PO PRN (01:59)
[2017-02-14 05:03] LABS: BASO # 0.1 x10^3/uL (0.0-0.2); BASO % 1 % (0-3); EOS % 1 % (0-3); HEMATOCRIT 25.9 % (36.0-47.0); HEMOGLOBIN 8.8 g/dL (12.0-15.5); LYMPH # 1.3 x10^3/uL (1.0-4.8); LYMPH % 14 % (24-48); MEAN CORPUSCULAR HEMOGLOBIN 36 pg (25-35); MEAN CORPUSCULAR HGB CONC 34 g/dL (31-37); MEAN CORPUSCULAR VOLUME 106 fL (79-100); MONO % 12 % (0-9); NEUT % 73 % (31-73); PLATELET COUNT 154 x10^3/uL (140-400); RED BLOOD COUNT 2.46 x10^6/uL (3.50-5.40); RED CELL DISTRIBUTION WIDTH 18.8 % (11.5-14.5); WHITE BLOOD COUNT 9.3 x10^3/uL (4.0-11.0)
[2017-02-14 05:34] LABS: ALBUMIN/GLOBULIN RATIO 0.8 (1.0-1.7); CALCIUM 8.3 mg/dL (8.5-10.1); CREATININE 1.4 mg/dL (0.6-1.0); GFR 35.4; POTASSIUM 3.8 mmol/L (3.5-5.1); TOTAL BILIRUBIN 3.3 mg/dL (0.2-1.0); TOTAL PROTEIN 6.6 g/dL (6.4-8.2)
[2017-02-14] MEDS: POTASSIUM CL 20MEQ D5-0.45NACL 1,000 ML IV SCH (05:58)
[2017-02-14] MEDS: LEVOTHYROXINE 75 MCG TABLET PO SCH ×2 (06:28→07:00)
[2017-02-14] MEDS ORDERED: fentaNYL PF VIAL 100 MCG/2 ML VIAL IV PRN ×2 (07:00)
[2017-02-14] MEDS ORDERED: ONDANSETRON PF 4 MG/2 ML VIAL. IV PRN (07:00)
[2017-02-14] MEDS ORDERED: IV RINGERS,LACTATED 1000ML 1,000 ML IV SCH (07:00)
[2017-02-14] MEDS ORDERED: LIDOCAINE 1% PF 2 ML VIAL. ID PRN (07:00)
[2017-02-14] MEDS ORDERED: PROCHLORPERAZINE 10 MG/2 ML VIAL. IV PRN (07:00)
[2017-02-14] MEDS: PANTOPRAZOLE 40 MG TABLET.DR. PO SCH (07:30)
[2017-02-14] MEDS: MULTIVITAMIN I-VITE TABLET. PO SCH (09:00)
[2017-02-14] MEDS: SENNOSIDES/DOCUSATE 8.6/50MG TABLET. PO SCH (09:00)
--- NOTE | 2017-02-14 09:27 | PDOC ---
PROGRESS NOTES Subjective Subjective discussed with dr. Tavares and patients son. she is comfortable but confused. lab reviewed and consistent with hemolysis and acute blood loss anemia from hip fracture. ultrasound shows cholelithiasis. cxr shows moderate asymptomatic right pleural effusion. echo shows preserved LVEF. cleared by cardiology for surgery. Objective Objective Vital Signs Date Time Temp Pulse Resp B/P (MAP) Pulse Ox O2 Delivery O2 Flow Rate FiO2 02/14/17 07:00 97.8 100 20 124/64 (84) 100 97.8 02/14/17 03:00 Nasal Cannula 2.0 Physical Exam Abdomen: Soft Heart: Normal S1, Normal S2 Extremities: No edema, Other (right leg shorter than left) General: Alert, Other HEENT: Atraumatic Lungs: Clear to auscultation Neuro: Normal speech Psych/Mental Status: Mood NL, Other (confused) Skin: No rashes Assessment Assessment Problems Medical Problems 1. right hip fracture hemolytic anemia acute blood loss anemia metabolic encephalopathy mild cognitive impairment chronic kidney disease stage 3 asymptomatic cholelithiasis asymptomatic right pleural effusion persistant atrial fibrillation. not a watermaster coumadin candidate due to fall risk hypothyroidism Medical Problems: (1) Hyperbilirubinemia Status: Acute (2) Intertrochanteric fracture of left femur Status: Acute Plan Plan of Care right hip surgery today pulmonary consult transfuse if hgb less than 8.0 ferrous sulfate Comment Review of Relevant I have reviewed the following items shara (where applicable) has been applied. Labs Laboratory Tests Test 02/13/17 07:00 02/13/17 11:00 02/14/17 04:35 White Blood Count 9.9 x10^3/uL (4.0-11.0) 9.3 x10^3/uL (4.0-11.0) Red Blood Count 2.81 x10^6/uL (3.50-5.40) 2.46 x10^6/uL (3.50-5.40) Hemoglobin 10.1 g/dL (12.0-15.5) 8.8 g/dL (12.0-15.5) Hematocrit 29.4 % (36.0-47.0) 25.9 % (36.0-47.0) Mean Corpuscular Volume 104 fL (79-100) 106 fL (79-100) Mean Corpuscular Hemoglobin 36 pg (25-35) 36 pg (25-35) Mean Corpuscular Hemoglobin Concent 34 g/dL (31-37) 34 g/dL (31-37) Red Cell Distribution Width 19.1 % (11.5-14.5) 18.8 % (11.5-14.5) Platelet Count 190 x10^3/uL (140-400) 154 x10^3/uL (140-400) Neutrophils (%) (Auto) 79 % (31-73) 73 % (31-73) Lymphocytes (%) (Auto) 13 % (24-48) 14 % (24-48) Monocytes (%) (Auto) 7 % (0-9) 12 % (0-9) Eosinophils (%) (Auto) 1 % (0-3) 1 % (0-3) Basophils (%) (Auto) 1 % (0-3) 1 % (0-3) Neutrophils # (Auto) 7.9 x10^3uL (1.8-7.7) 6.8 x10^3uL (1.8-7.7) Lymphocytes # (Auto) 1.3 x10^3/uL (1.0-4.8) 1.3 x10^3/uL (1.0-4.8) Monocytes # (Auto) 0.7 x10^3/uL (0.0-1.1) 1.1 x10^3/uL (0.0-1.1) Eosinophils # (Auto) 0.0 x10^3/uL (0.0-0.7) 0.1 x10^3/uL (0.0-0.7) Basophils # (Auto) 0.0 x10^3/uL (0.0-0.2) 0.1 x10^3/uL (0.0-0.2) Reticulocyte Count (auto) 3.7 % (0.5-2.5) 4.2 % (0.5-2.5) Haptoglobin <10 mg/dL (34-200) Prothrombin Time 14.8 SEC (11.7-14.0) Prothromb Time International Ratio 1.2 (0.8-1.1) Urine Collection Type Unknown Urine Color Red Urine Clarity Cloudy Urine pH 6.5 Urine Specific Hollister 1.015 Urine Protein 100 mg/dL (NEG-TRACE) Urine Glucose (UA) Negative mg/dL (NEG) Urine Ketones (Stick) Trace mg/dL (NEG) Urine Blood Large (NEG) Urine Nitrite Negative (NEG) Urine Bilirubin Moderate (NEG) Urine Urobilinogen Dipstick 1.0 mg/dL (0.2 mg/dL) Urine Leukocyte Esterase Small (NEG) Urine RBC 3-5 /HPF (0-2) Urine WBC Occ /HPF (0-4) Urine Squamous Epithelial Cells Occ /LPF Urine Amorphous Sediment Present /HPF Urine Bacteria 0 /HPF (0-FEW) Urine Hyaline Casts Occasional /HPF Urine Mucus Slight /LPF Sodium Level 141 mmol/L (136-145) 138 mmol/L (136-145) Potassium Level 3.3 mmol/L (3.5-5.1) 3.8 mmol/L (3.5-5.1) Chloride Level 103 mmol/L (98-107) 104 mmol/L (98-107) Carbon Dioxide Level 26 mmol/L (21-32) 26 mmol/L (21-32) Anion Gap 12 (6-14) 8 (6-14) Blood Urea Nitrogen 19 mg/dL (7-20) 19 mg/dL (7-20) Creatinine 1.3 mg/dL (0.6-1.0) 1.4 mg/dL (0.6-1.0) Estimated GFR (Cockcroft-Gault) 38.6 35.4 Glucose Level 155 mg/dL (70-99) 140 mg/dL (70-99) Calcium Level 8.9 mg/dL (8.5-10.1) 8.3 mg/dL (8.5-10.1) Iron Level 137 ug/dL (50-170) Total Iron Binding Capacity 218 ug/dL (250-450) Iron Saturation 63 % (15-34) Ferritin 461 ng/mL (8-252) Total Bilirubin 4.1 mg/dL (0.2-1.0) 3.3 mg/dL (0.2-1.0) Direct Bilirubin 1.3 mg/dL (0.0-0.2) Aspartate Amino Transf (AST/SGOT) 117 U/L (15-37) 97 U/L (15-37) Alanine Aminotransferase (ALT/SGPT) 23 U/L (14-59) 22 U/L (14-59) Alkaline Phosphatase 96 U/L (46-116) 86 U/L (46-116) Lactate Dehydrogenase 1088 U/L (81-234) Troponin I Quantitative 0.033 ng/mL (0.000-0.055) Total Protein 7.0 g/dL (6.4-8.2) 6.6 g/dL (6.4-8.2) Albumin 3.3 g/dL (3.4-5.0) 3.0 g/dL (3.4-5.0) Vitamin B12 Level 570 pg/mL (247-911) Serum Folate 12.40 ng/ml (3.2-20.0) Nasal Screen MRSA (PCR) Negative (Negative) BUN/Creatinine Ratio 14 (6-20) Albumin/Globulin Ratio 0.8 (1.0-1.7) Laboratory Tests Test 02/13/17 11:00 02/14/17 04:35 Nasal Screen MRSA (PCR) Negative (Negative) White Blood Count 9.3 x10^3/uL (4.0-11.0) Red Blood Count 2.46 x10^6/uL (3.50-5.40) Hemoglobin 8.8 g/dL (12.0-15.5) Hematocrit 25.9 % (36.0-47.0) Mean Corpuscular Volume 106 fL (79-100) Mean Corpuscular Hemoglobin 36 pg (25-35) Mean Corpuscular Hemoglobin Concent 34 g/dL (31-37) Red Cell Distribution Width 18.8 % (11.5-14.5) Platelet Count 154 x10^3/uL (140-400) Neutrophils (%) (Auto) 73 % (31-73) Lymphocytes (%) (Auto) 14 % (24-48) Monocytes (%) (Auto) 12 % (0-9) Eosinophils (%) (Auto) 1 % (0-3) Basophils (%) (Auto) 1 % (0-3) Neutrophils # (Auto) 6.8 x10^3uL (1.8-7.7) Lymphocytes # (Auto) 1.3 x10^3/uL (1.0-4.8) Monocytes # (Auto) 1.1 x10^3/uL (0.0-1.1) Eosinophils # (Auto) 0.1 x10^3/uL (0.0-0.7) Basophils # (Auto) 0.1 x10^3/uL (0.0-0.2) Reticulocyte Count (auto) 4.2 % (0.5-2.5) Sodium Level 138 mmol/L (136-145) Potassium Level 3.8 mmol/L (3.5-5.1) Chloride Level 104 mmol/L (98-107) Carbon Dioxide Level 26 mmol/L (21-32) Anion Gap 8 (6-14) Blood Urea Nitrogen 19 mg/dL (7-20) Creatinine 1.4 mg/dL (0.6-1.0) Estimated GFR (Cockcroft-Gault) 35.4 BUN/Creatinine Ratio 14 (6-20) Glucose Level 140 mg/dL (70-99) Calcium Level 8.3 mg/dL (8.5-10.1) Total Bilirubin 3.3 mg/dL (0.2-1.0) Aspartate Amino Transf (AST/SGOT) 97 U/L (15-37) Alanine Aminotransferase (ALT/SGPT) 22 U/L (14-59) Alkaline Phosphatase 86 U/L (46-116) Total Protein 6.6 g/dL (6.4-8.2) Albumin 3.0 g/dL (3.4-5.0) Albumin/Globulin Ratio 0.8 (1.0-1.7) Medications Current Medications Fentanyl Citrate (Fentanyl 2ml Vial) 25 mcg 1X ONCE IV Last administered on 08:13; Start 02/13/17 at 07:00; Stop 02/13/17 at 07:01; Status DC Fentanyl Citrate (Fentanyl 2ml Vial) 50 mcg PRN Q1HR PRN IV PAIN Last administered on 02/13/17 22:51; Start 02/13/17 at 07:45; Stop 02/14/17 at 07 :44; Status DC Sodium Chloride 1,000 ml @ 75 mls/hr 1X ONCE IV Last administered on 08:30; Start 02/13/17 at 07:45; Stop 02/13/17 at 10:26; Status DC Cefazolin Sodium/ Dextrose 50 ml @ 100 mls/hr 1X ONCE IV ; Start 02/13/17 at 10:15; Stop 02/13/17 at 10:44; Status Cancel Fentanyl Citrate (Fentanyl 2ml Vial) 25 mcg PRN Q4HRS PRN IV PAIN; Start 02/13 at 10:30 Acetaminophen (Tylenol) 650 mg PRN Q6HRS PRN PO MILD PAIN / TEMP; Start at 10:30 Pantoprazole Sodium (Protonix) 40 mg DAILYAC PO Last administered on 13:03; Start 02/13/17 at 11:30 Multivitamins/ Minerals (I-Rashaun) 1 tab DAILY PO Last administered on 13:03; Start 02/13/17 at 12:00 Levothyroxine Sodium (Synthroid) 75 mcg DAILY07 PO Last administered on 13:03; Start 02/13/17 at 10:30 Trazodone HCl (Desyrel) 50 mg QHS PO Last administered on 02/13/17 20:31; Start 02/13/17 at 21:00 Metoprolol Tartrate (Lopressor) 12.5 mg BID PO Last administered on 02/13/17 20:31; Start 02/13/17 at 11:00 Senna/Docusate Sodium (Senna Plus) 2 tab DAILY PO Last administered on 13:03; Start 02/13/17 at 11:00 Potassium Chloride/Dextrose/ Sod Cl 1,000 ml @ 60 mls/hr [id number] IV Last administered on 02/14/17 05:58; Start 02/13/17 at 12:00 Pneumococcal Polyvalent Vaccine (Pneumovax 23) 0.5 ml ONCE ONCE VAX IM Last administered on 02/13/17 13:05; Start 02/13/17 at 12:00; Stop 02/13/17 at 12 :01; Status DC Influenza Virus Vaccine Quadrival (Fluarix Quad 2311-1006 Syringe) 0.5 ml ONCE ONCE VAX IM Last administered on 02/13/17 13:06; Start 02/13/17 at 12:00; Stop 02/13/17 at 12:01; Status DC Lorazepam (Ativan) 0.25 mg PRN QHS PRN PO ANXIETY / AGITATION Last administered on 10/12/17at 01:59; Start 02/13/17 at 11:30 Cefazolin Sodium/ Dextrose 50 ml @ 100 mls/hr 1X PREOP PRN IV PRIOR TO SURGERY ; Start 02/13/17 at 12:30 Ondansetron HCl (Zofran) 4 mg PRN Q6HRS PRN IV NAUSEA/VOMITING; Start at 07:00; Stop 02/14/17 at 18:00 Fentanyl Citrate (Fentanyl 2ml Vial) 25 mcg PRN Q5MIN PRN IV MILD PAIN; Start 02/14/17 at 07:00; Stop 02/14/17 at 18:00 Fentanyl Citrate (Fentanyl 2ml Vial) 50 mcg PRN Q5MIN PRN IV MODERATE PAIN; Start 02/14/17 at 07:00; Stop 02/14/17 at 18:00 Ringer's Solution 1,000 ml @ 30 mls/hr Q24H IV ; Start 02/14/17 at 07:00; Stop 02/14/17 at 18:59 Lidocaine HCl (Xylocaine-Mpf 1% Vial) 2 ml PRN 1X PRN ID IV START; Start 02/14 at 07:00; Stop 02/14/17 at 18:00 Prochlorperazine Edisylate (Compazine) 5 mg PACU PRN PRN IV NAUSEA, MRX1; Start 02/14/17 at 07:00; Stop 02/14/17 at 18:00 Active Scripts Active Reported Lorazepam 0.5 Mg Tablet 0.5 Tab PO HS Ocuvite Eye + Multi Tablet (Mv-Mn/FA/Vit K/Lycop/Lut/Zeaxa) 1 Each Tablet 1 Each PO DAILY Levothyroxine Sodium 75 Mcg Tablet 1 Tab PO DAILY Pantoprazole Sodium 40 Mg Tablet.dr 40 Mg PO DAILY Trazodone Hcl 50 Mg Tablet 50 Mg PO HS Metoprolol Tartrate 25 Mg Tablet 12.5 Mg PO DAILY Tylenol (Acetaminophen) 325 Mg Tablet 2 Tab PO PRN Q4HRS PRN Vitals/I & O Vital Sign - Last 24 Hours 02/13/17 02/13/17 02/13/17 02/13/17 11:00 11:39 13:03 15:00 Temp 97.6 97.4 97.6 97.4 Pulse 101 101 103 Resp 20 20 B/P (MAP) 137/82 (100) 137/82 141/76 (97) Pulse Ox 100 100 O2 Delivery Nasal Cannula Nasal Cannula Nasal Cannula O2 Flow Rate 2.0 2.0 2.0 02/13/17 02/13/17 02/13/17 02/13/17 19:00 20:00 20:31 22:51 Temp 98.3 98.3 Pulse 95 95 Resp 20 B/P (MAP) 120/61 (80) 120/61 Pulse Ox 92 O2 Delivery Nasal Cannula Nasal Cannula Room Air O2 Flow Rate 2.0 2.0 02/13/17 02/13/17 02/14/17 02/14/17 23:00 23:31 03:00 07:00 Temp 97.7 98.1 97.8 97.7 98.1 97.8 Pulse 72 86 100 Resp 20 18 20 B/P (MAP) 111/83 (92) 130/85 (100) 124/64 (84) Pulse Ox 94 98 100 O2 Delivery Nasal Cannula Room Air Nasal Cannula O2 Flow Rate 2.0 2.0 MIKI COLORADO MD Feb 14, 2017 09:27
[2017-02-14] MEDS ORDERED: LIDOCAINE 1% 20 ML VIAL. ONE (09:30)
[2017-02-14] MEDS ORDERED: BUPIVACAINE MPF 0.5% 30 ML VIAL. ONE (09:31)
[2017-02-14] MEDS: METOPROLOL TART IMMED RELEASE 25 MG TABLET. PO SCH ×2 (09:46→21:00)
[2017-02-14] MEDS ORDERED: PROPOFOL 20 ML IV ONE (10:36)
[2017-02-14] MEDS ORDERED: LIDOCAINE 2% PF Vial for OR 5 ML VIAL. ONE ×2 (10:36)
[2017-02-14] MEDS ORDERED: DEXAMETHASONE SOD PHOS 20 MG/5 ML VIAL. ONE (10:36)
[2017-02-14] MEDS ORDERED: fentaNYL PF VIAL 100 MCG/2 ML VIAL ONE (10:36)
[2017-02-14] MEDS ORDERED: SEVOFLURANE 61 TO 120 MINUTES. IH ONE (10:36)
[2017-02-14] MEDS ORDERED: PHENYLEPHRINE in 0.9% NACL PF 1 MG/10 ML DISP.SYRIN. IV ONE (10:36)
--- NOTE | 2017-02-14 10:36 | PDOC ---
Subjective: Subjective: Seen prior to leaving for surgery. No GI complaints - she thinks she had surgery yesterday. Objective: Vital Signs: Vital Signs Date Time Temp Pulse Resp B/P (MAP) Pulse Ox O2 Delivery O2 Flow Rate FiO2 02/14/17 09:46 100 02/14/17 07:00 97.8 20 124/64 (84) 100 97.8 02/14/17 03:00 Nasal Cannula 2.0 Labs: Laboratory Tests Test 02/13/17 11:00 02/14/17 04:35 Nasal Screen MRSA (PCR) Negative White Blood Count 9.3 x10^3/uL Red Blood Count 2.46 x10^6/uL Hemoglobin 8.8 g/dL Hematocrit 25.9 % Mean Corpuscular Volume 106 fL Mean Corpuscular Hemoglobin 36 pg Mean Corpuscular Hemoglobin Concent 34 g/dL Red Cell Distribution Width 18.8 % Platelet Count 154 x10^3/uL Neutrophils (%) (Auto) 73 % Lymphocytes (%) (Auto) 14 % Monocytes (%) (Auto) 12 % Eosinophils (%) (Auto) 1 % Basophils (%) (Auto) 1 % Neutrophils # (Auto) 6.8 x10^3uL Lymphocytes # (Auto) 1.3 x10^3/uL Monocytes # (Auto) 1.1 x10^3/uL Eosinophils # (Auto) 0.1 x10^3/uL Basophils # (Auto) 0.1 x10^3/uL Reticulocyte Count (auto) 4.2 % Sodium Level 138 mmol/L Potassium Level 3.8 mmol/L Chloride Level 104 mmol/L Carbon Dioxide Level 26 mmol/L Anion Gap 8 Blood Urea Nitrogen 19 mg/dL Creatinine 1.4 mg/dL Estimated GFR (Cockcroft-Gault) 35.4 BUN/Creatinine Ratio 14 Glucose Level 140 mg/dL Calcium Level 8.3 mg/dL Total Bilirubin 3.3 mg/dL Aspartate Amino Transf (AST/SGOT) 97 U/L Alanine Aminotransferase (ALT/SGPT) 22 U/L Alkaline Phosphatase 86 U/L Total Protein 6.6 g/dL Albumin 3.0 g/dL Albumin/Globulin Ratio 0.8 Imaging: CXR Impression: Interval development of a moderate layering pleural effusion on the right, with underlying atelectasis or mild infiltrate noted PE: GEN: NAD LUNGS: clear HEART: RRR ABD: S/ND/NT SKIN: +jaundice NEURO/PSYCH: A & O 3 A/P: Right hip fracture Hyperbilirubinemia w/ hemolytic anemia H/o UGI bleed -EGD earlier this year, on PPI CHF, pleural effusion -- Will follow post-op, hematology workup ongoing. BERNABE LOVE Feb 14, 2017 10:36
[2017-02-14] MEDS ORDERED: ONDANSETRON PF 4 MG/2 ML VIAL. ONE (10:37)
[2017-02-14] MEDS ORDERED: ceFAZolin 2GM PREMIX 2 GM/50 ML BAG IV ONE (10:40)
--- NOTE | 2017-02-14 10:45 | PDOC ---
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 Haptoglobin is low, Brown test neg and LDH elevated. Reticulocyte elevated. ROS - rt hip fracture Objective Objective Vital Signs Date Time Temp Pulse Resp B/P (MAP) Pulse Ox O2 Delivery O2 Flow Rate FiO2 02/14/17 09:46 100 02/14/17 07:00 97.8 20 124/64 (84) 100 97.8 02/14/17 03:00 Nasal Cannula 2.0 Physical Exam Heart: Normal S1, Normal S2 General: Alert Lungs: Clear to auscultation Neuro: Normal speech Assessment Assessment Problems Medical Problems: (1) Hyperbilirubinemia Status: Acute (2) Intertrochanteric fracture of left femur Status: Acute IMPRESSION AND PLAN: 1. 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 Haptoglobin is low, Brown test neg and LDH elevated. Reticulocyte elevated. Review of the prior records indicates that she has always responded well to blood transfusions. 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 I d/w DR Strange who agreed not to initiate steroids at this time considering her advanced age and the toxicities associated with steroids. However, if she does not respond to transfusions and if her hemoglobin continues to drop, then I would plan to initiate steroids. I discussed in detail with the patient and family. 2. Right hip fracture. Agree to proceed with surgery, 02/14/2017, as planned. I d/w RN 3. 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 She had ultrasound of the abdomen on 02/13/2017 that revealed cholelithiasis and moderate-sized right pleural effusion. CT scan of the abdomen on 11/15/2016 revealed cholelithiasis and no hepatic lesions. Comment Review of Relevant I have reviewed the following items shara (where applicable) has been applied. Labs Laboratory Tests Test 02/13/17 07:00 02/13/17 11:00 02/14/17 04:35 White Blood Count 9.9 x10^3/uL (4.0-11.0) 9.3 x10^3/uL (4.0-11.0) Red Blood Count 2.81 x10^6/uL (3.50-5.40) 2.46 x10^6/uL (3.50-5.40) Hemoglobin 10.1 g/dL (12.0-15.5) 8.8 g/dL (12.0-15.5) Hematocrit 29.4 % (36.0-47.0) 25.9 % (36.0-47.0) Mean Corpuscular Volume 104 fL (79-100) 106 fL (79-100) Mean Corpuscular Hemoglobin 36 pg (25-35) 36 pg (25-35) Mean Corpuscular Hemoglobin Concent 34 g/dL (31-37) 34 g/dL (31-37) Red Cell Distribution Width 19.1 % (11.5-14.5) 18.8 % (11.5-14.5) Platelet Count 190 x10^3/uL (140-400) 154 x10^3/uL (140-400) Neutrophils (%) (Auto) 79 % (31-73) 73 % (31-73) Lymphocytes (%) (Auto) 13 % (24-48) 14 % (24-48) Monocytes (%) (Auto) 7 % (0-9) 12 % (0-9) Eosinophils (%) (Auto) 1 % (0-3) 1 % (0-3) Basophils (%) (Auto) 1 % (0-3) 1 % (0-3) Neutrophils # (Auto) 7.9 x10^3uL (1.8-7.7) 6.8 x10^3uL (1.8-7.7) Lymphocytes # (Auto) 1.3 x10^3/uL (1.0-4.8) 1.3 x10^3/uL (1.0-4.8) Monocytes # (Auto) 0.7 x10^3/uL (0.0-1.1) 1.1 x10^3/uL (0.0-1.1) Eosinophils # (Auto) 0.0 x10^3/uL (0.0-0.7) 0.1 x10^3/uL (0.0-0.7) Basophils # (Auto) 0.0 x10^3/uL (0.0-0.2) 0.1 x10^3/uL (0.0-0.2) Reticulocyte Count (auto) 3.7 % (0.5-2.5) 4.2 % (0.5-2.5) Haptoglobin <10 mg/dL (34-200) Prothrombin Time 14.8 SEC (11.7-14.0) Prothromb Time International Ratio 1.2 (0.8-1.1) Urine Collection Type Unknown Urine Color Red Urine Clarity Cloudy Urine pH 6.5 Urine Specific [place] 1.015 Urine Protein 100 mg/dL (NEG-TRACE) Urine Glucose (UA) Negative mg/dL (NEG) Urine Ketones (Stick) Trace mg/dL (NEG) Urine Blood Large (NEG) Urine Nitrite Negative (NEG) Urine Bilirubin Moderate (NEG) Urine Urobilinogen Dipstick 1.0 mg/dL (0.2 mg/dL) Urine Leukocyte Esterase Small (NEG) Urine RBC 3-5 /HPF (0-2) Urine WBC Occ /HPF (0-4) Urine Squamous Epithelial Cells Occ /LPF Urine Amorphous Sediment Present /HPF Urine Bacteria 0 /HPF (0-FEW) Urine Hyaline Casts Occasional /HPF Urine Mucus Slight /LPF Sodium Level 141 mmol/L (136-145) 138 mmol/L (136-145) Potassium Level 3.3 mmol/L (3.5-5.1) 3.8 mmol/L (3.5-5.1) Chloride Level 103 mmol/L (98-107) 104 mmol/L (98-107) Carbon Dioxide Level 26 mmol/L (21-32) 26 mmol/L (21-32) Anion Gap 12 (6-14) 8 (6-14) Blood Urea Nitrogen 19 mg/dL (7-20) 19 mg/dL (7-20) Creatinine 1.3 mg/dL (0.6-1.0) 1.4 mg/dL (0.6-1.0) Estimated GFR (Cockcroft-Gault) 38.6 35.4 Glucose Level 155 mg/dL (70-99) 140 mg/dL (70-99) Calcium Level 8.9 mg/dL (8.5-10.1) 8.3 mg/dL (8.5-10.1) Iron Level 137 ug/dL (50-170) Total Iron Binding Capacity 218 ug/dL (250-450) Iron Saturation 63 % (15-34) Ferritin 461 ng/mL (8-252) Total Bilirubin 4.1 mg/dL (0.2-1.0) 3.3 mg/dL (0.2-1.0) Direct Bilirubin 1.3 mg/dL (0.0-0.2) Aspartate Amino Transf (AST/SGOT) 117 U/L (15-37) 97 U/L (15-37) Alanine Aminotransferase (ALT/SGPT) 23 U/L (14-59) 22 U/L (14-59) Alkaline Phosphatase 96 U/L (46-116) 86 U/L (46-116) Lactate Dehydrogenase 1088 U/L (81-234) Troponin I Quantitative 0.033 ng/mL (0.000-0.055) Total Protein 7.0 g/dL (6.4-8.2) 6.6 g/dL (6.4-8.2) Albumin 3.3 g/dL (3.4-5.0) 3.0 g/dL (3.4-5.0) Vitamin B12 Level 570 pg/mL (247-911) Serum Folate 12.40 ng/ml (3.2-20.0) Nasal Screen MRSA (PCR) Negative (Negative) BUN/Creatinine Ratio 14 (6-20) Albumin/Globulin Ratio 0.8 (1.0-1.7) Laboratory Tests Test 02/13/17 11:00 02/14/17 04:35 Nasal Screen MRSA (PCR) Negative (Negative) White Blood Count 9.3 x10^3/uL (4.0-11.0) Red Blood Count 2.46 x10^6/uL (3.50-5.40) Hemoglobin 8.8 g/dL (12.0-15.5) Hematocrit 25.9 % (36.0-47.0) Mean Corpuscular Volume 106 fL (79-100) Mean Corpuscular Hemoglobin 36 pg (25-35) Mean Corpuscular Hemoglobin Concent 34 g/dL (31-37) Red Cell Distribution Width 18.8 % (11.5-14.5) Platelet Count 154 x10^3/uL (140-400) Neutrophils (%) (Auto) 73 % (31-73) Lymphocytes (%) (Auto) 14 % (24-48) Monocytes (%) (Auto) 12 % (0-9) Eosinophils (%) (Auto) 1 % (0-3) Basophils (%) (Auto) 1 % (0-3) Neutrophils # (Auto) 6.8 x10^3uL (1.8-7.7) Lymphocytes # (Auto) 1.3 x10^3/uL (1.0-4.8) Monocytes # (Auto) 1.1 x10^3/uL (0.0-1.1) Eosinophils # (Auto) 0.1 x10^3/uL (0.0-0.7) Basophils # (Auto) 0.1 x10^3/uL (0.0-0.2) Reticulocyte Count (auto) 4.2 % (0.5-2.5) Sodium Level 138 mmol/L (136-145) Potassium Level 3.8 mmol/L (3.5-5.1) Chloride Level 104 mmol/L (98-107) Carbon Dioxide Level 26 mmol/L (21-32) Anion Gap 8 (6-14) Blood Urea Nitrogen 19 mg/dL (7-20) Creatinine 1.4 mg/dL (0.6-1.0) Estimated GFR (Cockcroft-Gault) 35.4 BUN/Creatinine Ratio 14 (6-20) Glucose Level 140 mg/dL (70-99) Calcium Level 8.3 mg/dL (8.5-10.1) Total Bilirubin 3.3 mg/dL (0.2-1.0) Aspartate Amino Transf (AST/SGOT) 97 U/L (15-37) Alanine Aminotransferase (ALT/SGPT) 22 U/L (14-59) Alkaline Phosphatase 86 U/L (46-116) Total Protein 6.6 g/dL (6.4-8.2) Albumin 3.0 g/dL (3.4-5.0) Albumin/Globulin Ratio 0.8 (1.0-1.7) Medications Current Medications Fentanyl Citrate (Fentanyl 2ml Vial) 25 mcg 1X ONCE IV Last administered on 08:13; Start 02/13/17 at 07:00; Stop 02/13/17 at 07:01; Status DC Fentanyl Citrate (Fentanyl 2ml Vial) 50 mcg PRN Q1HR PRN IV PAIN Last administered on 02/13/17 22:51; Start 02/13/17 at 07:45; Stop 02/14/17 at 07 :44; Status DC Sodium Chloride 1,000 ml @ 75 mls/hr 1X ONCE IV Last administered on 08:30; Start 02/13/17 at 07:45; Stop 02/13/17 at 10:26; Status DC Cefazolin Sodium/ Dextrose 50 ml @ 100 mls/hr 1X ONCE IV ; Start 02/13/17 at 10:15; Stop 02/13/17 at 10:44; Status Cancel Fentanyl Citrate (Fentanyl 2ml Vial) 25 mcg PRN Q4HRS PRN IV PAIN; Start 02/13 at 10:30 Acetaminophen (Tylenol) 650 mg PRN Q6HRS PRN PO MILD PAIN / TEMP; Start at 10:30 Pantoprazole Sodium (Protonix) 40 mg DAILYAC PO Last administered on 13:03; Start 02/13/17 at 11:30 Multivitamins/ Minerals (I-Rashaun) 1 tab DAILY PO Last administered on 13:03; Start 02/13/17 at 12:00 Levothyroxine Sodium (Synthroid) 75 mcg DAILY07 PO Last administered on 13:03; Start 02/13/17 at 10:30 Trazodone HCl (Desyrel) 50 mg QHS PO Last administered on 02/13/17 20:31; Start 02/13/17 at 21:00 Metoprolol Tartrate (Lopressor) 12.5 mg BID PO Last administered on 02/14/17 09:46; Start 02/13/17 at 11:00 Senna/Docusate Sodium (Senna Plus) 2 tab DAILY PO Last administered on 13:03; Start 02/13/17 at 11:00 Potassium Chloride/Dextrose/ Sod Cl 1,000 ml @ 60 mls/hr [id number] IV Last administered on 02/14/17 05:58; Start 02/13/17 at 12:00 Pneumococcal Polyvalent Vaccine (Pneumovax 23) 0.5 ml ONCE ONCE VAX IM Last administered on 02/13/17 13:05; Start 02/13/17 at 12:00; Stop 02/13/17 at 12 :01; Status DC Influenza Virus Vaccine Quadrival (Fluarix Quad [id number] Syringe) 0.5 ml ONCE ONCE VAX IM Last administered on 02/13/17t 13:06; Start 02/13/17 at 12:00; Stop 02/13/17 at 12:01; Status DC Lorazepam (Ativan) 0.25 mg PRN QHS PRN PO ANXIETY / AGITATION Last administered on 02/14/17t 01:59; Start 02/13/17 at 11:30 Cefazolin Sodium/ Dextrose 50 ml @ 100 mls/hr 1X PREOP PRN IV PRIOR TO SURGERY ; Start 02/13/17 at 12:30 Ondansetron HCl (Zofran) 4 mg PRN Q6HRS PRN IV NAUSEA/VOMITING; Start at 07:00; Stop 02/14/17 at 18:00 Fentanyl Citrate (Fentanyl 2ml Vial) 25 mcg PRN Q5MIN PRN IV MILD PAIN; Start 02/14/17 at 07:00; Stop 02/14/17 at 18:00 Fentanyl Citrate (Fentanyl 2ml Vial) 50 mcg PRN Q5MIN PRN IV MODERATE PAIN; Start 02/14/17 at 07:00; Stop 02/14/17 at 18:00 Ringer's Solution 1,000 ml @ 30 mls/hr Q24H IV ; Start 02/14/17 at 07:00; Stop 02/14/17 at 18:59 Lidocaine HCl (Xylocaine-Mpf 1% Vial) 2 ml PRN 1X PRN ID IV START; Start 02/14 at 07:00; Stop 02/14/17 at 18:00 Prochlorperazine Edisylate (Compazine) 5 mg PACU PRN PRN IV NAUSEA, MRX1; Start 02/14/17 at 07:00; Stop 02/14/17 at 18:00 Ferrous Sulfate (Feosol) 325 mg DAILYWSUP PO ; Start 02/14/17 at 17:00 Lidocaine HCl 20 ml STK-MED ONCE .ROUTE ; Start 02/14/17 at 09:30; Stop at 10:31; Status DC Bupivacaine HCl (Sensorcaine Mpf 0.5%) 30 ml STK-MED ONCE .ROUTE ; Start at 09:31; Stop 02/14/17 at 10:31; Status DC Sevoflurane (Ultane) 60 ml STK-MED ONCE IH ; Start 02/14/17 at 10:36; Stop 04/21 at 10:37; Status DC Fentanyl Citrate (Fentanyl 2ml Vial) 100 mcg STK-MED ONCE .ROUTE ; Start at 10:36; Stop 02/14/17 at 10:37; Status DC Propofol 20 ml @ As Directed STK-MED ONCE IV ; Start 02/14/17 at 10:36; Stop 02/14/17 at 10:37; Status DC Dexamethasone Sodium Phosphate (Decadron) 20 mg STK-MED ONCE .ROUTE ; Start 04/21 at 10:36; Stop 02/14/17 at 10:37; Status DC Lidocaine HCl (Lidocaine Pf 2% Vial) 5 ml STK-MED ONCE .ROUTE ; Start 02/14/17 at 10:36; Stop 02/14/17 at 10:37; Status DC Lidocaine HCl (Lidocaine Pf 2% Vial) 5 ml STK-MED ONCE .ROUTE ; Start 02/14/17 at 10:36; Stop 02/14/17 at 10:37; Status DC Phenylephrine HCl 1 mg STK-MED ONCE IV ; Start 02/14/17 at 10:36; Stop at 10:37; Status DC Ondansetron HCl (Zofran) 4 mg STK-MED ONCE .ROUTE ; Start 02/14/17 at 10:37; Stop 02/14/17 at 10:38; Status DC Active Scripts Active Reported Lorazepam 0.5 Mg Tablet 0.5 Tab PO HS Ocuvite Eye + Multi Tablet (Mv-Mn/FA/Vit K/Lycop/Lut/Zeaxa) 1 Each Tablet 1 Each PO DAILY Levothyroxine Sodium 75 Mcg Tablet 1 Tab PO DAILY Pantoprazole Sodium 40 Mg Tablet.dr 40 Mg PO DAILY Trazodone Hcl 50 Mg Tablet 50 Mg PO HS Metoprolol Tartrate 25 Mg Tablet 12.5 Mg PO DAILY Tylenol (Acetaminophen) 325 Mg Tablet 2 Tab PO PRN Q4HRS PRN Vitals/I & O Vital Sign - Last 24 Hours 02/13/17 02/13/17 02/13/17 02/13/17 11:00 11:39 13:03 15:00 Temp 97.6 97.4 97.6 97.4 Pulse 101 101 103 Resp 20 20 B/P (MAP) 137/82 (100) 137/82 141/76 (97) Pulse Ox 100 100 O2 Delivery Nasal Cannula Nasal Cannula Nasal Cannula O2 Flow Rate 2.0 2.0 2.0 02/13/17 02/13/17 02/13/17 02/13/17 19:00 20:00 20:31 22:51 Temp 98.3 98.3 Pulse 95 95 Resp 20 B/P (MAP) 120/61 (80) 120/61 Pulse Ox 92 O2 Delivery Nasal Cannula Nasal Cannula Room Air O2 Flow Rate 2.0 2.0 02/13/17 02/13/17 02/14/17 02/14/17 23:00 23:31 03:00 07:00 Temp 97.7 98.1 97.8 97.7 98.1 97.8 Pulse 72 86 100 Resp 20 18 20 B/P (MAP) 111/83 (92) 130/85 (100) 124/64 (84) Pulse Ox 94 98 100 O2 Delivery Nasal Cannula Room Air Nasal Cannula O2 Flow Rate 2.0 2.0 02/14/17 09:46 Pulse 100 JOY BOURNE MD Feb 14, 2017 10:45
[2017-02-14] MEDS ORDERED: KETOROLAC 30 MG, ROPIVacaine 0.5% PF 60 ML, EPINEPHrine 0.5 MG in IV NORMAL SALINE 100M... INT ART ONE (11:30)
--- NOTE | 2017-02-14 12:26 | PDOC ---
BRIEF OPERATIVE NOTE Date: Feb 14, 2017 Pre-Op Diagnosis R IT hip fx Post-Op Diagnosis same Procedure Performed CRIMN R IT hip fx Surgeon Pastor Maintenance Groundman Penny Anesthesiologist Rajan Anesthesia Type: General, Local Blood Loss 100mL Complications none VIJAY MEJIA II, MD Feb 14, 2017 12:26
--- NOTE | 2017-02-14 13:36 | OP ---
DATE OF SURGERY: 02/14/2017 SURGEON: Theodore Mejia MD HEALTHCARE ACCOUNT MANAGER: Lucy Francis. ANESTHESIA: General plus local. PREOPERATIVE DIAGNOSIS: Closed comminuted displaced right intertrochanteric hip fracture. POSTOPERATIVE DIAGNOSIS: Closed comminuted displaced right intertrochanteric hip fracture. PROCEDURE PERFORMED: Closed reduction and intramedullary nailing of right intertrochanteric hip fracture. COMPLICATIONS: None. ESTIMATED BLOOD LOSS: 100 mL. COMPONENTS INSERTED: 1. [employer] Trigen Intertan 10 x 18 cm, 125 degree nail. 2. A 100 mm lag screw with 95 compression screw. 3. A 32.5 mm distal interlocking screw. REASON FOR PROCEDURE: The patient is a pleasantly confused 89-year-old female, who suffered a fall early yesterday morning and was brought to her facility for pain and inability to ambulate. Please see my consult note for further details. She was seen and evaluated by her primary care, GI, Hematology as well as Cardiology for clearance. After clearance had been obtained and discussion of the risks, benefits, and alternatives with her and with her sons, especially the power of joint sealer, they elected to proceed with surgery. DESCRIPTION OF PROCEDURE: The patient was greeted in the preoperative area by myself where the correct extremity was marked and verified. She was taken to the operative suite and antibiotics were started en route. Once in the OR, she was transferred gently supine to the fracture table after successful induction of general anesthetic took place on her hospital bed. We then secured to the bed after padded traction post was used, right leg in a traction ski boot, left leg in a well leg armstrong. Her arms were padded and secured across her chest. I then proceeded to perform my closed reduction maneuver and took biplanar fluoroscopic imaging to ensure I had achieved an adequate reduction. We then proceeded to prep and drape her right lower extremity and hip in our usual sterile fashion and conducted a standard preoperative timeout. I then palpated, marked surface anatomy and made an incision while proximal to her greater trochanter slightly posterior to this. I then bluntly dissected down to the tip of the greater trochanter and used biplanar fluoroscopic imaging to identify my starting position. I then advanced the guide pin down under biplanar fluoroscopy past the lesser trochanter. I then gained entry into the proximal femur with entry reamer with soft tissue protector. I then placed my nail and impacted in position using fluoroscopy for a guide as well. I then placed the lateral aiming arm against the skin to gently shara the skin and incised skin in accordance with this and then bluntly dissected down to the fascia, which was then incised with a scalpel. I continued my blunt dissection down to the proximal femur. I seated the aiming arm for the guide pin and then used biplanar fluoroscopy to achieve close to a center-center position as I was able to. I then used my compression screw, a lateral cortical drill, followed by my anti-rotation bar. I then removed the center trocar for my guide pin, for my lag screw and then drilled over top of this. I then placed my lag screw confirming that the pin did not shift position with biplanar fluoroscopy. After placing my lag screw, I removed my anti-rotation bar and placed my compression screw. After this was accomplished, I removed this aiming arm and placed her distal interlocking screw aiming arm against the skin and incised skin and bluntly dissected down to the level of the femur. I then drilled and placed the corresponding length interlocking screw. I then removed the guide arm for the short intramedullary nail, took my final pictures and was happy with the fracture reduction and hardware position. We then irrigated out the wounds and I placed approximately 60 mL of my periarticular mixture around the incisions and fracture site. After this and after all counts were reported as correct x 2, we closed deep layers with inverted interrupted 0 Vicryl followed by inverted interrupted 2-0 for subcutaneous tissue, mechelle were used for skin. The hip region was cleansed and dried and a sterile occlusive dressing was applied. She tolerated surgery well. Traction was released after placement of the distal screw. At the conclusion of surgery, she was awakened from anesthesia, transferred gently supine to the hospital bed and taken to PACU in stable and extubated condition. Postoperative plan is for her to weightbear as tolerated. She will receive her postoperative DVT and antibiotic prophylaxis. We will follow along with her course. She will be readmitted to the hospitalist service. THEODORE MEJIA MD DR: SLIME/bhavna JOB#: [id number] / [id number] MTDD
[2017-02-14 16:16] LABS: HEMATOCRIT 22.6 % (36.0-47.0); HEMOGLOBIN 7.5 g/dL (12.0-15.5); RED BLOOD COUNT 2.13 x10^6/uL (3.50-5.40); RED CELL DISTRIBUTION WIDTH 18.1 % (11.5-14.5); WHITE BLOOD COUNT 11.4 x10^3/uL (4.0-11.0)
[2017-02-14] MEDS: FERROUS SULFATE 325 MG TABLET. PO SCH (17:00)
--- NOTE | 2017-02-14 17:40 | PDOC ---
PULMONARY PROGRESS NOTES Vitals Vital Signs Date Time Temp Pulse Resp B/P (MAP) Pulse Ox O2 Delivery O2 Flow Rate FiO2 02/14/17 14:48 99 20 121/53 (75) 100 02/14/17 13:32 98.9 Nasal Cannula 2 98.9 Lungs: Clear Cardiovascular: S1, S2 Abdomen: Soft Labs Laboratory Tests Test 02/13/17 07:00 02/13/17 11:00 02/14/17 04:35 02/14/17 16:10 White Blood Count 9.9 x10^3/uL (4.0-11.0) 9.3 x10^3/uL (4.0-11.0) 11.4 x10^3/uL (4.0-11.0) Red Blood Count 2.81 x10^6/uL (3.50-5.40) 2.46 x10^6/uL (3.50-5.40) 2.13 x10^6/uL (3.50-5.40) Hemoglobin 10.1 g/dL (12.0-15.5) 8.8 g/dL (12.0-15.5) 7.5 g/dL (12.0-15.5) Hematocrit 29.4 % (36.0-47.0) 25.9 % (36.0-47.0) 22.6 % (36.0-47.0) Mean Corpuscular Volume 104 fL (79-100) 106 fL (79-100) 106 fL (79-100) Mean Corpuscular Hemoglobin 36 pg (25-35) 36 pg (25-35) 36 pg (25-35) Mean Corpuscular Hemoglobin Concent 34 g/dL (31-37) 34 g/dL (31-37) 33 g/dL (31-37) Red Cell Distribution Width 19.1 % (11.5-14.5) 18.8 % (11.5-14.5) 18.1 % (11.5-14.5) Platelet Count 190 x10^3/uL (140-400) 154 x10^3/uL (140-400) 119 x10^3/uL (140-400) Neutrophils (%) (Auto) 79 % (31-73) 73 % (31-73) Lymphocytes (%) (Auto) 13 % (24-48) 14 % (24-48) Monocytes (%) (Auto) 7 % (0-9) 12 % (0-9) Eosinophils (%) (Auto) 1 % (0-3) 1 % (0-3) Basophils (%) (Auto) 1 % (0-3) 1 % (0-3) Neutrophils # (Auto) 7.9 x10^3uL (1.8-7.7) 6.8 x10^3uL (1.8-7.7) Lymphocytes # (Auto) 1.3 x10^3/uL (1.0-4.8) 1.3 x10^3/uL (1.0-4.8) Monocytes # (Auto) 0.7 x10^3/uL (0.0-1.1) 1.1 x10^3/uL (0.0-1.1) Eosinophils # (Auto) 0.0 x10^3/uL (0.0-0.7) 0.1 x10^3/uL (0.0-0.7) Basophils # (Auto) 0.0 x10^3/uL (0.0-0.2) 0.1 x10^3/uL (0.0-0.2) Reticulocyte Count (auto) 3.7 % (0.5-2.5) 4.2 % (0.5-2.5) Haptoglobin <10 mg/dL (34-200) Prothrombin Time 14.8 SEC (11.7-14.0) Prothromb Time International Ratio 1.2 (0.8-1.1) Urine Collection Type Unknown Urine Color Red Urine Clarity Cloudy Urine pH 6.5 Urine Specific [place] 1.015 Urine Protein 100 mg/dL (NEG-TRACE) Urine Glucose (UA) Negative mg/dL (NEG) Urine Ketones (Stick) Trace mg/dL (NEG) Urine Blood Large (NEG) Urine Nitrite Negative (NEG) Urine Bilirubin Moderate (NEG) Urine Urobilinogen Dipstick 1.0 mg/dL (0.2 mg/dL) Urine Leukocyte Esterase Small (NEG) Urine RBC 3-5 /HPF (0-2) Urine WBC Occ /HPF (0-4) Urine Squamous Epithelial Cells Occ /LPF Urine Amorphous Sediment Present /HPF Urine Bacteria 0 /HPF (0-FEW) Urine Hyaline Casts Occasional /HPF Urine Mucus Slight /LPF Sodium Level 141 mmol/L (136-145) 138 mmol/L (136-145) Potassium Level 3.3 mmol/L (3.5-5.1) 3.8 mmol/L (3.5-5.1) Chloride Level 103 mmol/L (98-107) 104 mmol/L (98-107) Carbon Dioxide Level 26 mmol/L (21-32) 26 mmol/L (21-32) Anion Gap 12 (6-14) 8 (6-14) Blood Urea Nitrogen 19 mg/dL (7-20) 19 mg/dL (7-20) Creatinine 1.3 mg/dL (0.6-1.0) 1.4 mg/dL (0.6-1.0) Estimated GFR (Cockcroft-Gault) 38.6 35.4 Glucose Level 155 mg/dL (70-99) 140 mg/dL (70-99) Calcium Level 8.9 mg/dL (8.5-10.1) 8.3 mg/dL (8.5-10.1) Iron Level 137 ug/dL (50-170) Total Iron Binding Capacity 218 ug/dL (250-450) Iron Saturation 63 % (15-34) Ferritin 461 ng/mL (8-252) Total Bilirubin 4.1 mg/dL (0.2-1.0) 3.3 mg/dL (0.2-1.0) Direct Bilirubin 1.3 mg/dL (0.0-0.2) Aspartate Amino Transf (AST/SGOT) 117 U/L (15-37) 97 U/L (15-37) Alanine Aminotransferase (ALT/SGPT) 23 U/L (14-59) 22 U/L (14-59) Alkaline Phosphatase 96 U/L (46-116) 86 U/L (46-116) Lactate Dehydrogenase 1088 U/L (81-234) Troponin I Quantitative 0.033 ng/mL (0.000-0.055) Total Protein 7.0 g/dL (6.4-8.2) 6.6 g/dL (6.4-8.2) Albumin 3.3 g/dL (3.4-5.0) 3.0 g/dL (3.4-5.0) Vitamin B12 Level 570 pg/mL (247-911) Serum Folate 12.40 ng/ml (3.2-20.0) Nasal Screen MRSA (PCR) Negative (Negative) BUN/Creatinine Ratio 14 (6-20) Albumin/Globulin Ratio 0.8 (1.0-1.7) Laboratory Tests Test 02/14/17 04:35 02/14/17 16:10 White Blood Count 9.3 x10^3/uL (4.0-11.0) 11.4 x10^3/uL (4.0-11.0) Red Blood Count 2.46 x10^6/uL (3.50-5.40) 2.13 x10^6/uL (3.50-5.40) Hemoglobin 8.8 g/dL (12.0-15.5) 7.5 g/dL (12.0-15.5) Hematocrit 25.9 % (36.0-47.0) 22.6 % (36.0-47.0) Mean Corpuscular Volume 106 fL (79-100) 106 fL (79-100) Mean Corpuscular Hemoglobin 36 pg (25-35) 36 pg (25-35) Mean Corpuscular Hemoglobin Concent 34 g/dL (31-37) 33 g/dL (31-37) Red Cell Distribution Width 18.8 % (11.5-14.5) 18.1 % (11.5-14.5) Platelet Count 154 x10^3/uL (140-400) 119 x10^3/uL (140-400) Neutrophils (%) (Auto) 73 % (31-73) Lymphocytes (%) (Auto) 14 % (24-48) Monocytes (%) (Auto) 12 % (0-9) Eosinophils (%) (Auto) 1 % (0-3) Basophils (%) (Auto) 1 % (0-3) Neutrophils # (Auto) 6.8 x10^3uL (1.8-7.7) Lymphocytes # (Auto) 1.3 x10^3/uL (1.0-4.8) Monocytes # (Auto) 1.1 x10^3/uL (0.0-1.1) Eosinophils # (Auto) 0.1 x10^3/uL (0.0-0.7) Basophils # (Auto) 0.1 x10^3/uL (0.0-0.2) Reticulocyte Count (auto) 4.2 % (0.5-2.5) Sodium Level 138 mmol/L (136-145) Potassium Level 3.8 mmol/L (3.5-5.1) Chloride Level 104 mmol/L (98-107) Carbon Dioxide Level 26 mmol/L (21-32) Anion Gap 8 (6-14) Blood Urea Nitrogen 19 mg/dL (7-20) Creatinine 1.4 mg/dL (0.6-1.0) Estimated GFR (Cockcroft-Gault) 35.4 BUN/Creatinine Ratio 14 (6-20) Glucose Level 140 mg/dL (70-99) Calcium Level 8.3 mg/dL (8.5-10.1) Total Bilirubin 3.3 mg/dL (0.2-1.0) Aspartate Amino Transf (AST/SGOT) 97 U/L (15-37) Alanine Aminotransferase (ALT/SGPT) 22 U/L (14-59) Alkaline Phosphatase 86 U/L (46-116) Total Protein 6.6 g/dL (6.4-8.2) Albumin 3.0 g/dL (3.4-5.0) Albumin/Globulin Ratio 0.8 (1.0-1.7) Medications Active Scripts Medications Dose Route/Sig Max Daily Dose Days Date Category Lorazepam 0.5 Mg Tablet 0.5 Tab PO HS 02/13/17 Reported Ocuvite Eye + Multi Tablet (Mv-Mn/FA/Vit K/Lycop/Lut/Zeaxa) 1 Each Tablet 1 Each PO DAILY 02/13/17 Reported Levothyroxine Sodium 75 Mcg Tablet 1 Tab PO DAILY 02/13/17 Reported Pantoprazole Sodium 40 Mg Tablet.dr 40 Mg PO DAILY 11/16/16 Reported Trazodone Hcl 50 Mg Tablet 50 Mg PO HS 12/12/15 Reported Metoprolol Tartrate 25 Mg Tablet 12.5 Mg PO DAILY 12/12/15 Reported Tylenol (Acetaminophen) 325 Mg Tablet 2 Tab PO PRN Q4HRS PRN 12/04/15 Reported Impression . RT EFFUSION WILL PROCEED WITH THORACENTESIS NA MERAZ MD Feb 14, 2017 17:40
[2017-02-14 18:09] LABS: TOTAL PROTEIN 6.1 g/dL (6.4-8.2)
[2017-02-14] MEDS: traZODone 50 MG TABLET. PO SCH (21:00)
[2017-02-15] VITALS (7 sets, daily range): BP systolic 91–127; BP diastolic 56–67
[2017-02-15] MEDS: POTASSIUM CL 20MEQ D5-0.45NACL 1,000 ML IV SCH (01:44)
[2017-02-15] MEDS: PANTOPRAZOLE 40 MG TABLET.DR. PO SCH (05:40)
[2017-02-15] MEDS: LEVOTHYROXINE 75 MCG TABLET PO SCH (05:40)
[2017-02-15 05:45] LABS: CALCIUM 8.1 mg/dL (8.5-10.1); CREATININE 1.5 mg/dL (0.6-1.0); GFR 32.7; POTASSIUM 4.3 mmol/L (3.5-5.1)
[2017-02-15 05:57] LABS: BASO % 0 % (0-3); EOS % 0 % (0-3); HEMATOCRIT 30.4 % (36.0-47.0); HEMOGLOBIN 10.7 g/dL (12.0-15.5); LYMPH # 0.8 x10^3/uL (1.0-4.8); LYMPH % 10 % (24-48); MEAN CORPUSCULAR HEMOGLOBIN 34 pg (25-35); MEAN CORPUSCULAR HGB CONC 35 g/dL (31-37); MEAN CORPUSCULAR VOLUME 98 fL (79-100); MONO % 13 % (0-9); NEUT % 78 % (31-73); PLATELET COUNT 105 x10^3/uL (140-400); RED BLOOD COUNT 3.12 x10^6/uL (3.50-5.40); RED CELL DISTRIBUTION WIDTH 21.6 % (11.5-14.5); WHITE BLOOD COUNT 8.7 x10^3/uL (4.0-11.0)
[2017-02-15] MEDS ORDERED: ENOXAPARIN 30 MG/0.3 ML SYRINGE. SQ SCH (08:00)
--- NOTE | 2017-02-15 08:22 | PDOC ---
ORTHO PROGRESS NOTES Subjective Denies pain. Tolerating some soft breakfast Vitals Vital Signs Date Time Temp Pulse Resp B/P (MAP) Pulse Ox O2 Delivery O2 Flow Rate FiO2 02/15/17 07:00 97.4 98 16 127/67 (87) 100 Nasal Cannula 2.0 97.4 Labs Laboratory Tests Test 02/13/17 11:00 02/14/17 04:35 02/14/17 05:30 02/14/17 16:10 Nasal Screen MRSA (PCR) Negative (Negative) White Blood Count 9.3 x10^3/uL (4.0-11.0) 11.4 x10^3/uL (4.0-11.0) Red Blood Count 2.46 x10^6/uL (3.50-5.40) 2.13 x10^6/uL (3.50-5.40) Hemoglobin 8.8 g/dL (12.0-15.5) 7.5 g/dL (12.0-15.5) Hematocrit 25.9 % (36.0-47.0) 22.6 % (36.0-47.0) Mean Corpuscular Volume 106 fL (79-100) 106 fL (79-100) Mean Corpuscular Hemoglobin 36 pg (25-35) 36 pg (25-35) Mean Corpuscular Hemoglobin Concent 34 g/dL (31-37) 33 g/dL (31-37) Red Cell Distribution Width 18.8 % (11.5-14.5) 18.1 % (11.5-14.5) Platelet Count 154 x10^3/uL (140-400) 119 x10^3/uL (140-400) Neutrophils (%) (Auto) 73 % (31-73) Lymphocytes (%) (Auto) 14 % (24-48) Monocytes (%) (Auto) 12 % (0-9) Eosinophils (%) (Auto) 1 % (0-3) Basophils (%) (Auto) 1 % (0-3) Neutrophils # (Auto) 6.8 x10^3uL (1.8-7.7) Lymphocytes # (Auto) 1.3 x10^3/uL (1.0-4.8) Monocytes # (Auto) 1.1 x10^3/uL (0.0-1.1) Eosinophils # (Auto) 0.1 x10^3/uL (0.0-0.7) Basophils # (Auto) 0.1 x10^3/uL (0.0-0.2) Reticulocyte Count (auto) 4.2 % (0.5-2.5) Sodium Level 138 mmol/L (136-145) Potassium Level 3.8 mmol/L (3.5-5.1) Chloride Level 104 mmol/L (98-107) Carbon Dioxide Level 26 mmol/L (21-32) Anion Gap 8 (6-14) Blood Urea Nitrogen 19 mg/dL (7-20) Creatinine 1.4 mg/dL (0.6-1.0) Estimated GFR (Cockcroft-Gault) 35.4 BUN/Creatinine Ratio 14 (6-20) Glucose Level 140 mg/dL (70-99) Calcium Level 8.3 mg/dL (8.5-10.1) Total Bilirubin 3.3 mg/dL (0.2-1.0) Aspartate Amino Transf (AST/SGOT) 97 U/L (15-37) Alanine Aminotransferase (ALT/SGPT) 22 U/L (14-59) Alkaline Phosphatase 86 U/L (46-116) Total Protein 6.6 g/dL (6.4-8.2) 6.1 g/dL (6.4-8.2) Albumin 3.0 g/dL (3.4-5.0) Albumin/Globulin Ratio 0.8 (1.0-1.7) 25-Hydroxy Vitamin D Total 20.6 ng/mL (30.0-100.0) Lactate Dehydrogenase 663 U/L (81-234) Test 02/15/17 04:55 White Blood Count 8.7 x10^3/uL (4.0-11.0) Red Blood Count 3.12 x10^6/uL (3.50-5.40) Hemoglobin 10.7 g/dL (12.0-15.5) Hematocrit 30.4 % (36.0-47.0) Mean Corpuscular Volume 98 fL (79-100) Mean Corpuscular Hemoglobin 34 pg (25-35) Mean Corpuscular Hemoglobin Concent 35 g/dL (31-37) Red Cell Distribution Width 21.6 % (11.5-14.5) Platelet Count 105 x10^3/uL (140-400) Neutrophils (%) (Auto) 78 % (31-73) Lymphocytes (%) (Auto) 10 % (24-48) Monocytes (%) (Auto) 13 % (0-9) Eosinophils (%) (Auto) 0 % (0-3) Basophils (%) (Auto) 0 % (0-3) Neutrophils # (Auto) 6.7 x10^3uL (1.8-7.7) Lymphocytes # (Auto) 0.8 x10^3/uL (1.0-4.8) Monocytes # (Auto) 1.1 x10^3/uL (0.0-1.1) Eosinophils # (Auto) 0.0 x10^3/uL (0.0-0.7) Basophils # (Auto) 0.0 x10^3/uL (0.0-0.2) Sodium Level 139 mmol/L (136-145) Potassium Level 4.3 mmol/L (3.5-5.1) Chloride Level 106 mmol/L (98-107) Carbon Dioxide Level 24 mmol/L (21-32) Anion Gap 9 (6-14) Blood Urea Nitrogen 26 mg/dL (7-20) Creatinine 1.5 mg/dL (0.6-1.0) Estimated GFR (Cockcroft-Gault) 32.7 Glucose Level 128 mg/dL (70-99) Calcium Level 8.1 mg/dL (8.5-10.1) Laboratory Tests Test 02/14/17 16:10 02/15/17 04:55 White Blood Count 11.4 x10^3/uL (4.0-11.0) 8.7 x10^3/uL (4.0-11.0) Red Blood Count 2.13 x10^6/uL (3.50-5.40) 3.12 x10^6/uL (3.50-5.40) Hemoglobin 7.5 g/dL (12.0-15.5) 10.7 g/dL (12.0-15.5) Hematocrit 22.6 % (36.0-47.0) 30.4 % (36.0-47.0) Mean Corpuscular Volume 106 fL (79-100) 98 fL (79-100) Mean Corpuscular Hemoglobin 36 pg (25-35) 34 pg (25-35) Mean Corpuscular Hemoglobin Concent 33 g/dL (31-37) 35 g/dL (31-37) Red Cell Distribution Width 18.1 % (11.5-14.5) 21.6 % (11.5-14.5) Platelet Count 119 x10^3/uL (140-400) 105 x10^3/uL (140-400) Neutrophils (%) (Auto) 78 % (31-73) Lymphocytes (%) (Auto) 10 % (24-48) Monocytes (%) (Auto) 13 % (0-9) Eosinophils (%) (Auto) 0 % (0-3) Basophils (%) (Auto) 0 % (0-3) Neutrophils # (Auto) 6.7 x10^3uL (1.8-7.7) Lymphocytes # (Auto) 0.8 x10^3/uL (1.0-4.8) Monocytes # (Auto) 1.1 x10^3/uL (0.0-1.1) Eosinophils # (Auto) 0.0 x10^3/uL (0.0-0.7) Basophils # (Auto) 0.0 x10^3/uL (0.0-0.2) Sodium Level 139 mmol/L (136-145) Potassium Level 4.3 mmol/L (3.5-5.1) Chloride Level 106 mmol/L (98-107) Carbon Dioxide Level 24 mmol/L (21-32) Anion Gap 9 (6-14) Blood Urea Nitrogen 26 mg/dL (7-20) Creatinine 1.5 mg/dL (0.6-1.0) Estimated GFR (Cockcroft-Gault) 32.7 Glucose Level 128 mg/dL (70-99) Calcium Level 8.1 mg/dL (8.5-10.1) Notes A and A responds to questions incisions ok toes warm DP palp distally Assessment and Plan INR goal 1.5, coumadin daily for 1 month, unless contraindicated by another provider PT/OT as lima polanco to WBAT VIJAY MEJIA II, MD Feb 15, 2017 08:22
--- NOTE | 2017-02-15 09:03 | PDOC ---
PROGRESS NOTES Subjective Subjective son does not want to proceed with thoracentesis right after hip surgery. she is alert and comfortable. received 2 units prbc yesterday and hgb 10.7 today. lab reviewed. vitamin D level low 20.6 . creatinine 1.5. heart rate 128. will order telemetry. Objective Objective Vital Signs Date Time Temp Pulse Resp B/P (MAP) Pulse Ox O2 Delivery O2 Flow Rate FiO2 02/15/17 07:00 97.4 98 16 127/67 (87) 100 Nasal Cannula 2.0 97.4 Physical Exam Abdomen: Soft Heart: Normal S1, Normal S2 Extremities: No edema, Other (dry dressings right hip) General: Alert HEENT: Atraumatic Lungs: Other (clear anteriorly) Neuro: Normal speech Psych/Mental Status: Mood NL Skin: No rashes Assessment Assessment Problems1. ORIF right hip fracture acute blood loss anemia hemolytic anemia impaired cognitive disorder debility asymptomatic right pleural effusion asymptomatic cholelithiasis hypothyroidism paroxysmal atrial fibrillation history of upper GI bleed 11/19 gastric erosions and reflux esophagitis per EGD 11/19 Medical Problems: (1) Hyperbilirubinemia Status: Acute (2) Intertrochanteric fracture of left femur Status: Acute Plan Plan of Care PT and OT telemetry continue metoprolol continue prn iv fentanyl start coumadin for 1 month with target inr 1.5 continue protonix cancel thoracentesis per her son. discussed with her nurse Comment Review of Relevant I have reviewed the following items shara (where applicable) has been applied. Labs Laboratory Tests Test 02/13/17 11:00 02/14/17 04:35 02/14/17 05:30 02/14/17 16:10 Nasal Screen MRSA (PCR) Negative (Negative) White Blood Count 9.3 x10^3/uL (4.0-11.0) 11.4 x10^3/uL (4.0-11.0) Red Blood Count 2.46 x10^6/uL (3.50-5.40) 2.13 x10^6/uL (3.50-5.40) Hemoglobin 8.8 g/dL (12.0-15.5) 7.5 g/dL (12.0-15.5) Hematocrit 25.9 % (36.0-47.0) 22.6 % (36.0-47.0) Mean Corpuscular Volume 106 fL (79-100) 106 fL (79-100) Mean Corpuscular Hemoglobin 36 pg (25-35) 36 pg (25-35) Mean Corpuscular Hemoglobin Concent 34 g/dL (31-37) 33 g/dL (31-37) Red Cell Distribution Width 18.8 % (11.5-14.5) 18.1 % (11.5-14.5) Platelet Count 154 x10^3/uL (140-400) 119 x10^3/uL (140-400) Neutrophils (%) (Auto) 73 % (31-73) Lymphocytes (%) (Auto) 14 % (24-48) Monocytes (%) (Auto) 12 % (0-9) Eosinophils (%) (Auto) 1 % (0-3) Basophils (%) (Auto) 1 % (0-3) Neutrophils # (Auto) 6.8 x10^3uL (1.8-7.7) Lymphocytes # (Auto) 1.3 x10^3/uL (1.0-4.8) Monocytes # (Auto) 1.1 x10^3/uL (0.0-1.1) Eosinophils # (Auto) 0.1 x10^3/uL (0.0-0.7) Basophils # (Auto) 0.1 x10^3/uL (0.0-0.2) Reticulocyte Count (auto) 4.2 % (0.5-2.5) Sodium Level 138 mmol/L (136-145) Potassium Level 3.8 mmol/L (3.5-5.1) Chloride Level 104 mmol/L (98-107) Carbon Dioxide Level 26 mmol/L (21-32) Anion Gap 8 (6-14) Blood Urea Nitrogen 19 mg/dL (7-20) Creatinine 1.4 mg/dL (0.6-1.0) Estimated GFR (Cockcroft-Gault) 35.4 BUN/Creatinine Ratio 14 (6-20) Glucose Level 140 mg/dL (70-99) Calcium Level 8.3 mg/dL (8.5-10.1) Total Bilirubin 3.3 mg/dL (0.2-1.0) Aspartate Amino Transf (AST/SGOT) 97 U/L (15-37) Alanine Aminotransferase (ALT/SGPT) 22 U/L (14-59) Alkaline Phosphatase 86 U/L (46-116) Total Protein 6.6 g/dL (6.4-8.2) 6.1 g/dL (6.4-8.2) Albumin 3.0 g/dL (3.4-5.0) Albumin/Globulin Ratio 0.8 (1.0-1.7) 25-Hydroxy Vitamin D Total 20.6 ng/mL (30.0-100.0) Lactate Dehydrogenase 663 U/L (81-234) Test 02/15/17 04:55 White Blood Count 8.7 x10^3/uL (4.0-11.0) Red Blood Count 3.12 x10^6/uL (3.50-5.40) Hemoglobin 10.7 g/dL (12.0-15.5) Hematocrit 30.4 % (36.0-47.0) Mean Corpuscular Volume 98 fL (79-100) Mean Corpuscular Hemoglobin 34 pg (25-35) Mean Corpuscular Hemoglobin Concent 35 g/dL (31-37) Red Cell Distribution Width 21.6 % (11.5-14.5) Platelet Count 105 x10^3/uL (140-400) Neutrophils (%) (Auto) 78 % (31-73) Lymphocytes (%) (Auto) 10 % (24-48) Monocytes (%) (Auto) 13 % (0-9) Eosinophils (%) (Auto) 0 % (0-3) Basophils (%) (Auto) 0 % (0-3) Neutrophils # (Auto) 6.7 x10^3uL (1.8-7.7) Lymphocytes # (Auto) 0.8 x10^3/uL (1.0-4.8) Monocytes # (Auto) 1.1 x10^3/uL (0.0-1.1) Eosinophils # (Auto) 0.0 x10^3/uL (0.0-0.7) Basophils # (Auto) 0.0 x10^3/uL (0.0-0.2) Sodium Level 139 mmol/L (136-145) Potassium Level 4.3 mmol/L (3.5-5.1) Chloride Level 106 mmol/L (98-107) Carbon Dioxide Level 24 mmol/L (21-32) Anion Gap 9 (6-14) Blood Urea Nitrogen 26 mg/dL (7-20) Creatinine 1.5 mg/dL (0.6-1.0) Estimated GFR (Cockcroft-Gault) 32.7 Glucose Level 128 mg/dL (70-99) Calcium Level 8.1 mg/dL (8.5-10.1) Laboratory Tests Test 02/14/17 16:10 02/15/17 04:55 White Blood Count 11.4 x10^3/uL (4.0-11.0) 8.7 x10^3/uL (4.0-11.0) Red Blood Count 2.13 x10^6/uL (3.50-5.40) 3.12 x10^6/uL (3.50-5.40) Hemoglobin 7.5 g/dL (12.0-15.5) 10.7 g/dL (12.0-15.5) Hematocrit 22.6 % (36.0-47.0) 30.4 % (36.0-47.0) Mean Corpuscular Volume 106 fL (79-100) 98 fL (79-100) Mean Corpuscular Hemoglobin 36 pg (25-35) 34 pg (25-35) Mean Corpuscular Hemoglobin Concent 33 g/dL (31-37) 35 g/dL (31-37) Red Cell Distribution Width 18.1 % (11.5-14.5) 21.6 % (11.5-14.5) Platelet Count 119 x10^3/uL (140-400) 105 x10^3/uL (140-400) Neutrophils (%) (Auto) 78 % (31-73) Lymphocytes (%) (Auto) 10 % (24-48) Monocytes (%) (Auto) 13 % (0-9) Eosinophils (%) (Auto) 0 % (0-3) Basophils (%) (Auto) 0 % (0-3) Neutrophils # (Auto) 6.7 x10^3uL (1.8-7.7) Lymphocytes # (Auto) 0.8 x10^3/uL (1.0-4.8) Monocytes # (Auto) 1.1 x10^3/uL (0.0-1.1) Eosinophils # (Auto) 0.0 x10^3/uL (0.0-0.7) Basophils # (Auto) 0.0 x10^3/uL (0.0-0.2) Sodium Level 139 mmol/L (136-145) Potassium Level 4.3 mmol/L (3.5-5.1) Chloride Level 106 mmol/L (98-107) Carbon Dioxide Level 24 mmol/L (21-32) Anion Gap 9 (6-14) Blood Urea Nitrogen 26 mg/dL (7-20) Creatinine 1.5 mg/dL (0.6-1.0) Estimated GFR (Cockcroft-Gault) 32.7 Glucose Level 128 mg/dL (70-99) Calcium Level 8.1 mg/dL (8.5-10.1) Microbiology 02/13/17 Urine Culture - Preliminary, Resulted 02/13/17 Urine Culture Result 1 ([place]) - Preliminary, Resulted Medications Current Medications Fentanyl Citrate (Fentanyl 2ml Vial) 25 mcg 1X ONCE IV Last administered on 08:13; Start 02/13/17 at 07:00; Stop 02/13/17 at 07:01; Status DC Fentanyl Citrate (Fentanyl 2ml Vial) 50 mcg PRN Q1HR PRN IV PAIN Last administered on 02/13/17 22:51; Start 02/13/17 at 07:45; Stop 02/14/17 at 07 :44; Status DC Sodium Chloride 1,000 ml @ 75 mls/hr 1X ONCE IV Last administered on 08:30; Start 02/13/17 at 07:45; Stop 02/13/17 at 10:26; Status DC Cefazolin Sodium/ Dextrose 50 ml @ 100 mls/hr 1X ONCE IV ; Start 02/13/17 at 10:15; Stop 02/13/17 at 10:44; Status Cancel Fentanyl Citrate (Fentanyl 2ml Vial) 25 mcg PRN Q4HRS PRN IV PAIN; Start 02/13 at 10:30 Acetaminophen (Tylenol) 650 mg PRN Q6HRS PRN PO MILD PAIN / TEMP; Start at 10:30 Pantoprazole Sodium (Protonix) 40 mg DAILYAC PO Last administered on 05:40; Start 02/13/17 at 11:30 Multivitamins/ Minerals (I-Rashaun) 1 tab DAILY PO Last administered on 13:03; Start 02/13/17 at 12:00 Levothyroxine Sodium (Synthroid) 75 mcg DAILY07 PO Last administered on 05:40; Start 02/13/17 at 10:30 Trazodone HCl (Desyrel) 50 mg QHS PO Last administered on 02/13/17 20:31; Start 02/13/17 at 21:00 Metoprolol Tartrate (Lopressor) 12.5 mg BID PO Last administered on 02/14/17 09:46; Start 02/13/17 at 11:00 Senna/Docusate Sodium (Senna Plus) 2 tab DAILY PO Last administered on 13:03; Start 02/13/17 at 11:00 Potassium Chloride/Dextrose/ Sod Cl 1,000 ml @ 60 mls/hr [id number] IV Last administered on 02/15/17 01:44; Start 02/13/17 at 12:00 Pneumococcal Polyvalent Vaccine (Pneumovax 23) 0.5 ml ONCE ONCE VAX IM Last administered on 02/13/17 13:05; Start 02/13/17 at 12:00; Stop 02/13/17 at 12 :01; Status DC Influenza Virus Vaccine Quadrival (Fluarix Quad [id number] Syringe) 0.5 ml ONCE ONCE VAX IM Last administered on 02/13/17 13:06; Start 02/13/17 at 12:00; Stop 02/13/17 at 12:01; Status DC Lorazepam (Ativan) 0.25 mg PRN QHS PRN PO ANXIETY / AGITATION Last administered on 02/14/17 01:59; Start 02/13/17 at 11:30 Cefazolin Sodium/ Dextrose 50 ml @ 100 mls/hr 1X PREOP PRN IV PRIOR TO SURGERY ; Start 02/13/17 at 12:30 Ondansetron HCl (Zofran) 4 mg PRN Q6HRS PRN IV NAUSEA/VOMITING; Start at 07:00; Stop 02/14/17 at 18:00; Status DC Fentanyl Citrate (Fentanyl 2ml Vial) 25 mcg PRN Q5MIN PRN IV MILD PAIN; Start 02/14/17 at 07:00; Stop 02/14/17 at 18:00; Status DC Fentanyl Citrate (Fentanyl 2ml Vial) 50 mcg PRN Q5MIN PRN IV MODERATE PAIN; Start 02/14/17 at 07:00; Stop 02/14/17 at 18:00; Status DC Ringer's Solution 1,000 ml @ 30 mls/hr Q24H IV ; Start 02/14/17 at 07:00; Stop 02/14/17 at 18:59; Status DC Lidocaine HCl (Xylocaine-Mpf 1% Vial) 2 ml PRN 1X PRN ID IV START; Start 02/14 at 07:00; Stop 02/14/17 at 18:00; Status DC Prochlorperazine Edisylate (Compazine) 5 mg PACU PRN PRN IV NAUSEA, MRX1; Start 02/14/17 at 07:00; Stop 02/14/17 at 18:00; Status DC Ferrous Sulfate (Feosol) 325 mg DAILYWSUP PO ; Start 02/14/17 at 17:00 Lidocaine HCl 20 ml STK-MED ONCE .ROUTE ; Start 02/14/17 at 09:30; Stop at 10:31; Status DC Bupivacaine HCl (Sensorcaine Mpf 0.5%) 30 ml STK-MED ONCE .ROUTE ; Start at 09:31; Stop 02/14/17 at 10:31; Status DC Sevoflurane (Ultane) 60 ml STK-MED ONCE IH ; Start 02/14/17 at 10:36; Stop 04/21 at 10:37; Status DC Fentanyl Citrate (Fentanyl 2ml Vial) 100 mcg STK-MED ONCE .ROUTE ; Start at 10:36; Stop 02/14/17 at 10:37; Status DC Propofol 20 ml @ As Directed STK-MED ONCE IV ; Start 02/14/17 at 10:36; Stop 02/14/17 at 10:37; Status DC Dexamethasone Sodium Phosphate (Decadron) 20 mg STK-MED ONCE .ROUTE ; Start 04/21 at 10:36; Stop 02/14/17 at 10:37; Status DC Lidocaine HCl (Lidocaine Pf 2% Vial) 5 ml STK-MED ONCE .ROUTE ; Start 02/14/17 at 10:36; Stop 02/14/17 at 10:37; Status DC Lidocaine HCl (Lidocaine Pf 2% Vial) 5 ml STK-MED ONCE .ROUTE ; Start 02/14/17 at 10:36; Stop 02/14/17 at 10:37; Status DC Phenylephrine HCl 1 mg STK-MED ONCE IV ; Start 02/14/17 at 10:36; Stop at 10:37; Status DC Ondansetron HCl (Zofran) 4 mg STK-MED ONCE .ROUTE ; Start 02/14/17 at 10:37; Stop 02/14/17 at 10:38; Status DC Ketorolac Tromethamine 30 mg/Ropivacaine 60 ml/Epinephrine HCl 0.5 mg/Sodium Chloride 99.5 ml @ 99.5 mls/hr 1X PERIOP ONCE INT ART Last administered on t 12:07; Start 02/14/17 at 11:30; Stop 02/14/17 at 12:29; Status DC Cefazolin Sodium 1 gm/Sodium Chloride 50 ml @ 100 mls/hr Q6H IV Last administered on 02/15/17t 05:41; Start 02/14/17 at 17:30; Stop 02/15/17 at 05 :59; Status DC Enoxaparin Sodium (Lovenox 30mg Syringe) 30 mg Q24H SQ ; Start 02/15/17 at 08: 00; Stop 02/15/17 at 08:18; Status DC Warfarin Sodium (Coumadin Per Pharmacy) 1 each PRN DAILY PRN MC SEE COMMENTS; Start 02/15/17 at 08:15; Status UNV Warfarin Sodium (Coumadin) 5 mg 1X ONCE PO ; Start 02/15/17 at 08:15; Stop at 08:16; Status UNV Active Scripts Active Reported Lorazepam 0.5 Mg Tablet 0.5 Tab PO HS Ocuvite Eye + Multi Tablet (Mv-Mn/FA/Vit K/Lycop/Lut/Zeaxa) 1 Each Tablet 1 Each PO DAILY Levothyroxine Sodium 75 Mcg Tablet 1 Tab PO DAILY Pantoprazole Sodium 40 Mg Tablet.dr 40 Mg PO DAILY Trazodone Hcl 50 Mg Tablet 50 Mg PO HS Metoprolol Tartrate 25 Mg Tablet 12.5 Mg PO DAILY Tylenol (Acetaminophen) 325 Mg Tablet 2 Tab PO PRN Q4HRS PRN Vitals/I & O Vital Sign - Last 24 Hours 02/14/17 02/14/17 02/14/17 02/14/17 09:46 12:31 12:31 12:47 Temp 100.2 100.2 Pulse 100 97 98 Resp 20 16 B/P (MAP) 124/60 122/52 Pulse Ox 100 100 O2 Delivery Mask Simple Mask Simple Mask O2 Flow Rate 10 10 10 02/14/17 02/14/17 02/14/17 02/14/17 13:02 13:17 13:32 13:32 Temp 98.9 98.9 Pulse 96 98 99 Resp 18 16 16 B/P (MAP) 107/49 117/50 114/47 Pulse Ox 99 99 99 O2 Delivery Nasal Cannula Nasal Cannula Nasal Cannula Nasal Cannula O2 Flow Rate 2 2 2 2 02/14/17 02/14/17 02/14/17 02/14/17 14:30 14:45 14:48 15:00 Pulse 100 98 99 99 Resp 18 18 20 18 B/P (MAP) 121/53 (75) 107/51 (69) 121/53 (75) 108/53 (71) Pulse Ox 100 100 100 99 O2 Delivery Nasal Cannula Nasal Cannula Nasal Cannula O2 Flow Rate 2.0 2.0 2.0 02/14/17 02/14/17 02/14/17 02/14/17 15:15 15:45 16:15 17:15 Pulse 99 100 99 99 Resp 18 18 18 18 B/P (MAP) 97/51 (66) 105/53 (70) 107/52 (70) 118/54 (75) Pulse Ox 100 100 100 100 O2 Delivery Nasal Cannula Nasal Cannula Nasal Cannula Nasal Cannula O2 Flow Rate 2.0 2.0 2.0 2.0 02/14/17 02/14/17 02/14/17 02/14/17 18:15 18:19 18:41 19:41 Temp 97.7 97.9 96.6 97.7 97.9 96.6 Pulse 99 98 98 99 Resp 18 18 B/P (MAP) 105/53 (70) 102/53 107/57 103/55 Pulse Ox 100 O2 Delivery Nasal Cannula O2 Flow Rate 2.0 1002/14/17 02/14/17 02/14/17 20:00 20:49 21:00 21:52 Temp 97.9 97.9 97.9 97.9 Pulse 92 97 92 Resp 20 20 B/P (MAP) 100/48 98/47 100/48 O2 Delivery Nasal Cannula O2 Flow Rate 2.0 02/14/17 02/14/17 02/14/17 02/15/17 22:18 23:00 23:15 00:19 Temp 97.7 98.6 98.6 97.9 97.7 98.6 98.6 97.9 Pulse 91 82 94 97 Resp 18 22 20 16 B/P (MAP) 108/49 95/47 (63) 95/47 121/62 Pulse Ox 100 O2 Delivery Nasal Cannula O2 Flow Rate 2.0 02/15/17 02/15/17 02/15/17 01:19 02:49 07:00 Temp 97.5 97.5 97.4 97.5 97.5 97.4 Pulse 95 90 98 Resp 18 16 16 B/P (MAP) 106/56 115/66 (82) 127/67 (87) Pulse Ox 98 100 O2 Delivery Nasal Cannula Nasal Cannula O2 Flow Rate 2.0 2.0 MIKI [place]OR[place] MD Feb 15, 2017 09:03
[2017-02-15] MEDS: SENNOSIDES/DOCUSATE 8.6/50MG TABLET. PO SCH (09:26)
[2017-02-15] MEDS: MULTIVITAMIN I-VITE TABLET. PO SCH (09:26)
[2017-02-15] MEDS: METOPROLOL TART IMMED RELEASE 25 MG TABLET. PO SCH ×2 (09:27→23:00)
[2017-02-15 09:36] LABS: INR 1.4 (0.8-1.1)
--- NOTE | 2017-02-15 10:54 | PDOC ---
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 ROS - s/p rt hip surgery 02/14/17 Objective Objective Vital Signs Date Time Temp Pulse Resp B/P (MAP) Pulse Ox O2 Delivery O2 Flow Rate FiO2 02/15/17 09:27 105 127/67 02/15/17 07:00 97.4 16 100 Nasal Cannula 2.0 97.4 Physical Exam Heart: Normal S1, Normal S2 General: Alert Lungs: Clear to auscultation Neuro: Normal speech Assessment Assessment Problems Medical Problems: (1) Hyperbilirubinemia Status: Acute (2) Intertrochanteric fracture of left femur Status: Acute IMPRESSION AND PLAN: 1. 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 Haptoglobin is low, Brown test neg and LDH elevated. Reticulocyte elevated. Review of the prior records indicates that she has always responded well to blood transfusions. 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 I d/w DR Strange who agreed not to initiate steroids at this time considering her advanced age and the toxicities associated with steroids. However, if she does not respond to transfusions and if her hemoglobin continues to drop, then I would plan to initiate steroids. I discussed in detail with the patient and family. Hb 7.5 02/14/17 s/p 2 u PRBC Hb 10.7. Monitor cbc 2. Right hip fracture. s/ph surgery, 02/14/2017. I d/w RN 3. 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 She had ultrasound of the abdomen on 02/13/2017 that revealed cholelithiasis and moderate-sized right pleural effusion. CT scan of the abdomen on 11/15/2016 revealed cholelithiasis and no hepatic lesions. Comment Review of Relevant I have reviewed the following items shara (where applicable) has been applied. Labs Laboratory Tests Test 02/13/17 11:00 02/14/17 04:35 02/14/17 05:30 02/14/17 16:10 Nasal Screen MRSA (PCR) Negative (Negative) White Blood Count 9.3 x10^3/uL (4.0-11.0) 11.4 x10^3/uL (4.0-11.0) Red Blood Count 2.46 x10^6/uL (3.50-5.40) 2.13 x10^6/uL (3.50-5.40) Hemoglobin 8.8 g/dL (12.0-15.5) 7.5 g/dL (12.0-15.5) Hematocrit 25.9 % (36.0-47.0) 22.6 % (36.0-47.0) Mean Corpuscular Volume 106 fL (79-100) 106 fL (79-100) Mean Corpuscular Hemoglobin 36 pg (25-35) 36 pg (25-35) Mean Corpuscular Hemoglobin Concent 34 g/dL (31-37) 33 g/dL (31-37) Red Cell Distribution Width 18.8 % (11.5-14.5) 18.1 % (11.5-14.5) Platelet Count 154 x10^3/uL (140-400) 119 x10^3/uL (140-400) Neutrophils (%) (Auto) 73 % (31-73) Lymphocytes (%) (Auto) 14 % (24-48) Monocytes (%) (Auto) 12 % (0-9) Eosinophils (%) (Auto) 1 % (0-3) Basophils (%) (Auto) 1 % (0-3) Neutrophils # (Auto) 6.8 x10^3uL (1.8-7.7) Lymphocytes # (Auto) 1.3 x10^3/uL (1.0-4.8) Monocytes # (Auto) 1.1 x10^3/uL (0.0-1.1) Eosinophils # (Auto) 0.1 x10^3/uL (0.0-0.7) Basophils # (Auto) 0.1 x10^3/uL (0.0-0.2) Reticulocyte Count (auto) 4.2 % (0.5-2.5) Sodium Level 138 mmol/L (136-145) Potassium Level 3.8 mmol/L (3.5-5.1) Chloride Level 104 mmol/L (98-107) Carbon Dioxide Level 26 mmol/L (21-32) Anion Gap 8 (6-14) Blood Urea Nitrogen 19 mg/dL (7-20) Creatinine 1.4 mg/dL (0.6-1.0) Estimated GFR (Cockcroft-Gault) 35.4 BUN/Creatinine Ratio 14 (6-20) Glucose Level 140 mg/dL (70-99) Calcium Level 8.3 mg/dL (8.5-10.1) Total Bilirubin 3.3 mg/dL (0.2-1.0) Aspartate Amino Transf (AST/SGOT) 97 U/L (15-37) Alanine Aminotransferase (ALT/SGPT) 22 U/L (14-59) Alkaline Phosphatase 86 U/L (46-116) Total Protein 6.6 g/dL (6.4-8.2) 6.1 g/dL (6.4-8.2) Albumin 3.0 g/dL (3.4-5.0) Albumin/Globulin Ratio 0.8 (1.0-1.7) 25-Hydroxy Vitamin D Total 20.6 ng/mL (30.0-100.0) Lactate Dehydrogenase 663 U/L (81-234) Test 02/15/17 04:55 02/15/17 09:05 White Blood Count 8.7 x10^3/uL (4.0-11.0) Red Blood Count 3.12 x10^6/uL (3.50-5.40) Hemoglobin 10.7 g/dL (12.0-15.5) Hematocrit 30.4 % (36.0-47.0) Mean Corpuscular Volume 98 fL (79-100) Mean Corpuscular Hemoglobin 34 pg (25-35) Mean Corpuscular Hemoglobin Concent 35 g/dL (31-37) Red Cell Distribution Width 21.6 % (11.5-14.5) Platelet Count 105 x10^3/uL (140-400) Neutrophils (%) (Auto) 78 % (31-73) Lymphocytes (%) (Auto) 10 % (24-48) Monocytes (%) (Auto) 13 % (0-9) Eosinophils (%) (Auto) 0 % (0-3) Basophils (%) (Auto) 0 % (0-3) Neutrophils # (Auto) 6.7 x10^3uL (1.8-7.7) Lymphocytes # (Auto) 0.8 x10^3/uL (1.0-4.8) Monocytes # (Auto) 1.1 x10^3/uL (0.0-1.1) Eosinophils # (Auto) 0.0 x10^3/uL (0.0-0.7) Basophils # (Auto) 0.0 x10^3/uL (0.0-0.2) Reticulocyte Count (auto) 5.4 % (0.5-2.5) Sodium Level 139 mmol/L (136-145) Potassium Level 4.3 mmol/L (3.5-5.1) Chloride Level 106 mmol/L (98-107) Carbon Dioxide Level 24 mmol/L (21-32) Anion Gap 9 (6-14) Blood Urea Nitrogen 26 mg/dL (7-20) Creatinine 1.5 mg/dL (0.6-1.0) Estimated GFR (Cockcroft-Gault) 32.7 Glucose Level 128 mg/dL (70-99) Calcium Level 8.1 mg/dL (8.5-10.1) Lactate Dehydrogenase 563 U/L (81-234) Prothrombin Time 16.0 SEC (11.7-14.0) Prothromb Time International Ratio 1.4 (0.8-1.1) Laboratory Tests Test 02/14/17 16:10 02/15/17 04:55 02/15/17 09:05 White Blood Count 11.4 x10^3/uL (4.0-11.0) 8.7 x10^3/uL (4.0-11.0) Red Blood Count 2.13 x10^6/uL (3.50-5.40) 3.12 x10^6/uL (3.50-5.40) Hemoglobin 7.5 g/dL (12.0-15.5) 10.7 g/dL (12.0-15.5) Hematocrit 22.6 % (36.0-47.0) 30.4 % (36.0-47.0) Mean Corpuscular Volume 106 fL (79-100) 98 fL (79-100) Mean Corpuscular Hemoglobin 36 pg (25-35) 34 pg (25-35) Mean Corpuscular Hemoglobin Concent 33 g/dL (31-37) 35 g/dL (31-37) Red Cell Distribution Width 18.1 % (11.5-14.5) 21.6 % (11.5-14.5) Platelet Count 119 x10^3/uL (140-400) 105 x10^3/uL (140-400) Neutrophils (%) (Auto) 78 % (31-73) Lymphocytes (%) (Auto) 10 % (24-48) Monocytes (%) (Auto) 13 % (0-9) Eosinophils (%) (Auto) 0 % (0-3) Basophils (%) (Auto) 0 % (0-3) Neutrophils # (Auto) 6.7 x10^3uL (1.8-7.7) Lymphocytes # (Auto) 0.8 x10^3/uL (1.0-4.8) Monocytes # (Auto) 1.1 x10^3/uL (0.0-1.1) Eosinophils # (Auto) 0.0 x10^3/uL (0.0-0.7) Basophils # (Auto) 0.0 x10^3/uL (0.0-0.2) Reticulocyte Count (auto) 5.4 % (0.5-2.5) Sodium Level 139 mmol/L (136-145) Potassium Level 4.3 mmol/L (3.5-5.1) Chloride Level 106 mmol/L (98-107) Carbon Dioxide Level 24 mmol/L (21-32) Anion Gap 9 (6-14) Blood Urea Nitrogen 26 mg/dL (7-20) Creatinine 1.5 mg/dL (0.6-1.0) Estimated GFR (Cockcroft-Gault) 32.7 Glucose Level 128 mg/dL (70-99) Calcium Level 8.1 mg/dL (8.5-10.1) Lactate Dehydrogenase 563 U/L (81-234) Prothrombin Time 16.0 SEC (11.7-14.0) Prothromb Time International Ratio 1.4 (0.8-1.1) Microbiology 02/13/17 Urine Culture - Preliminary, Resulted 02/13/17 Urine Culture Result 1 ([place]) - Preliminary, Resulted Medications Current Medications Fentanyl Citrate (Fentanyl 2ml Vial) 25 mcg 1X ONCE IV Last administered on 08:13; Start 02/13/17 at 07:00; Stop 02/13/17 at 07:01; Status DC Fentanyl Citrate (Fentanyl 2ml Vial) 50 mcg PRN Q1HR PRN IV PAIN Last administered on 02/13/17 22:51; Start 02/13/17 at 07:45; Stop 02/14/17 at 07 :44; Status DC Sodium Chloride 1,000 ml @ 75 mls/hr 1X ONCE IV Last administered on 08:30; Start 02/13/17 at 07:45; Stop 02/13/17 at 10:26; Status DC Cefazolin Sodium/ Dextrose 50 ml @ 100 mls/hr 1X ONCE IV ; Start 02/13/17 at 10:15; Stop 02/13/17 at 10:44; Status Cancel Fentanyl Citrate (Fentanyl 2ml Vial) 25 mcg PRN Q4HRS PRN IV PAIN; Start 02/13 at 10:30 Acetaminophen (Tylenol) 650 mg PRN Q6HRS PRN PO MILD PAIN / TEMP; Start at 10:30 Pantoprazole Sodium (Protonix) 40 mg DAILYAC PO Last administered on 05:40; Start 02/13/17 at 11:30 Multivitamins/ Minerals (I-Rashaun) 1 tab DAILY PO Last administered on 09:26; Start 02/13/17 at 12:00 Levothyroxine Sodium (Synthroid) 75 mcg DAILY07 PO Last administered on 05:40; Start 02/13/17 at 10:30 Trazodone HCl (Desyrel) 50 mg QHS PO Last administered on 02/13/17 20:31; Start 02/13/17 at 21:00 Metoprolol Tartrate (Lopressor) 12.5 mg BID PO Last administered on 02/15/17 09:27; Start 02/13/17 at 11:00 Senna/Docusate Sodium (Senna Plus) 2 tab DAILY PO Last administered on 09:26; Start 02/13/17 at 11:00 Potassium Chloride/Dextrose/ Sod Cl 1,000 ml @ 60 mls/hr [id number] IV Last administered on 02/15/17 01:44; Start 02/13/17 at 12:00; Stop 02/15/17 at 08 :59; Status DC Pneumococcal Polyvalent Vaccine (Pneumovax 23) 0.5 ml ONCE ONCE VAX IM Last administered on 02/13/17 13:05; Start 02/13/17 at 12:00; Stop 02/13/17 at 12 :01; Status DC Influenza Virus Vaccine Quadrival (Fluarix Quad [id number] Syringe) 0.5 ml ONCE ONCE VAX IM Last administered on 02/13/17t 13:06; Start 02/13/17 at 12:00; Stop 02/13/17 at 12:01; Status DC Lorazepam (Ativan) 0.25 mg PRN QHS PRN PO ANXIETY / AGITATION Last administered on 02/14/17t 01:59; Start 02/13/17 at 11:30 Cefazolin Sodium/ Dextrose 50 ml @ 100 mls/hr 1X PREOP PRN IV PRIOR TO SURGERY ; Start 02/13/17 at 12:30 Ondansetron HCl (Zofran) 4 mg PRN Q6HRS PRN IV NAUSEA/VOMITING; Start at 07:00; Stop 02/14/17 at 18:00; Status DC Fentanyl Citrate (Fentanyl 2ml Vial) 25 mcg PRN Q5MIN PRN IV MILD PAIN; Start 02/14/17 at 07:00; Stop 02/14/17 at 18:00; Status DC Fentanyl Citrate (Fentanyl 2ml Vial) 50 mcg PRN Q5MIN PRN IV MODERATE PAIN; Start 02/14/17 at 07:00; Stop 02/14/17 at 18:00; Status DC Ringer's Solution 1,000 ml @ 30 mls/hr Q24H IV ; Start 02/14/17 at 07:00; Stop 02/14/17 at 18:59; Status DC Lidocaine HCl (Xylocaine-Mpf 1% Vial) 2 ml PRN 1X PRN ID IV START; Start 02/14 at 07:00; Stop 02/14/17 at 18:00; Status DC Prochlorperazine Edisylate (Compazine) 5 mg PACU PRN PRN IV NAUSEA, MRX1; Start 02/14/17 at 07:00; Stop 02/14/17 at 18:00; Status DC Ferrous Sulfate (Feosol) 325 mg DAILYWSUP PO ; Start 02/14/17 at 17:00 Lidocaine HCl 20 ml STK-MED ONCE .ROUTE ; Start 02/14/17 at 09:30; Stop at 10:31; Status DC Bupivacaine HCl (Sensorcaine Mpf 0.5%) 30 ml STK-MED ONCE .ROUTE ; Start at 09:31; Stop 02/14/17 at 10:31; Status DC Sevoflurane (Ultane) 60 ml STK-MED ONCE IH ; Start 02/14/17 at 10:36; Stop 04/21 at 10:37; Status DC Fentanyl Citrate (Fentanyl 2ml Vial) 100 mcg STK-MED ONCE .ROUTE ; Start at 10:36; Stop 02/14/17 at 10:37; Status DC Propofol 20 ml @ As Directed STK-MED ONCE IV ; Start 02/14/17 at 10:36; Stop 02/14/17 at 10:37; Status DC Dexamethasone Sodium Phosphate (Decadron) 20 mg STK-MED ONCE .ROUTE ; Start 04/21 at 10:36; Stop 02/14/17 at 10:37; Status DC Lidocaine HCl (Lidocaine Pf 2% Vial) 5 ml STK-MED ONCE .ROUTE ; Start 02/14/17 at 10:36; Stop 02/14/17 at 10:37; Status DC Lidocaine HCl (Lidocaine Pf 2% Vial) 5 ml STK-MED ONCE .ROUTE ; Start 02/14/17 at 10:36; Stop 02/14/17 at 10:37; Status DC Phenylephrine HCl 1 mg STK-MED ONCE IV ; Start 02/14/17 at 10:36; Stop at 10:37; Status DC Ondansetron HCl (Zofran) 4 mg STK-MED ONCE .ROUTE ; Start 02/14/17 at 10:37; Stop 02/14/17 at 10:38; Status DC Ketorolac Tromethamine 30 mg/Ropivacaine 60 ml/Epinephrine HCl 0.5 mg/Sodium Chloride 99.5 ml @ 99.5 mls/hr 1X PERIOP ONCE INT ART Last administered on t 12:07; Start 02/14/17 at 11:30; Stop 02/14/17 at 12:29; Status DC Cefazolin Sodium 1 gm/Sodium Chloride 50 ml @ 100 mls/hr Q6H IV Last administered on 02/15/17t 05:41; Start 02/14/17 at 17:30; Stop 02/15/17 at 05 :59; Status DC Enoxaparin Sodium (Lovenox 30mg Syringe) 30 mg Q24H SQ ; Start 02/15/17 at 08: 00; Stop 02/15/17 at 08:18; Status DC Warfarin Sodium (Coumadin Per Pharmacy) 1 each PRN DAILY PRN MC SEE COMMENTS; Start 02/15/17 at 08:15 Warfarin Sodium (Coumadin) 5 mg 1X ONCE PO ; Start 02/15/17 at 16:00; Stop at 16:01 Cefazolin Sodium/ Dextrose (Ancef 2gm Premix) 2 gm STK-MED ONCE IV ; Start 04/21 at 10:40; Stop 02/15/17 at 08:53; Status DC Vitamin D (Vitamin D3) 1,000 unit DAILY PO ; Start 02/15/17 at 10:00 Active Scripts Active Reported Lorazepam 0.5 Mg Tablet 0.5 Tab PO HS Ocuvite Eye + Multi Tablet (Mv-Mn/FA/Vit K/Lycop/Lut/Zeaxa) 1 Each Tablet 1 Each PO DAILY Levothyroxine Sodium 75 Mcg Tablet 1 Tab PO DAILY Pantoprazole Sodium 40 Mg Tablet.dr 40 Mg PO DAILY Trazodone Hcl 50 Mg Tablet 50 Mg PO HS Metoprolol Tartrate 25 Mg Tablet 12.5 Mg PO DAILY Tylenol (Acetaminophen) 325 Mg Tablet 2 Tab PO PRN Q4HRS PRN Vitals/I & O Vital Sign - Last 24 Hours 02/14/17 02/14/17 02/14/17 02/14/17 12:31 12:31 12:47 13:02 Temp 100.2 100.2 Pulse 97 98 96 Resp 20 16 18 B/P (MAP) 124/60 122/52 107/49 Pulse Ox 100 100 99 O2 Delivery Mask Simple Mask Simple Mask Nasal Cannula O2 Flow Rate 10 10 10 2 02/14/17 02/14/17 02/14/17 02/14/17 13:17 13:32 13:32 14:30 Temp 98.9 98.9 Pulse 98 99 100 Resp 16 16 18 B/P (MAP) 117/50 114/47 121/53 (75) Pulse Ox 99 99 100 O2 Delivery Nasal Cannula Nasal Cannula Nasal Cannula Nasal Cannula O2 Flow Rate 2 2 2 2.0 02/14/17 02/14/17 02/14/1712/17 14:45 14:48 15:00 15:15 Pulse 98 99 99 99 Resp 18 20 18 18 B/P (MAP) 107/51 (69) 121/53 (75) 108/53 (71) 97/51 (66) Pulse Ox 100 100 99 100 O2 Delivery Nasal Cannula Nasal Cannula Nasal Cannula O2 Flow Rate 2.0 2.0 2.0 02/14/17 02/14/17 02/14/17 02/14/17 15:45 16:15 17:15 18:15 Pulse 100 99 99 99 Resp 18 18 18 18 B/P (MAP) 105/53 (70) 107/52 (70) 118/54 (75) 105/53 (70) Pulse Ox 100 100 100 100 O2 Delivery Nasal Cannula Nasal Cannula Nasal Cannula Nasal Cannula O2 Flow Rate 2.0 2.0 2.0 2.0 02/14/17 02/14/17 02/14/17 02/14/17 18:19 18:41 19:41 20:00 Temp 97.7 97.9 96.6 97.7 97.9 96.6 Pulse 98 98 99 Resp 18 B/P (MAP) 102/53 107/57 103/55 O2 Delivery Nasal Cannula O2 Flow Rate 2.0 02/14/17 02/14/17 02/14/17 02/14/17 20:49 21:00 21:52 22:18 Temp 97.9 97.9 97.7 97.9 97.9 97.7 Pulse 92 97 92 91 Resp 20 20 18 B/P (MAP) 100/48 98/47 100/48 108/49 02/14/17 02/14/17 02/15/17 02/15/17 23:00 23:15 00:19 01:19 Temp 98.6 98.6 97.9 97.5 98.6 98.6 97.9 97.5 Pulse 82 94 97 95 Resp 22 20 16 18 B/P (MAP) 95/47 (63) 95/47 121/62 106/56 Pulse Ox 100 O2 Delivery Nasal Cannula O2 Flow Rate 2.0 02/15/17 02/15/17 02/15/17 02:49 07:00 09:27 Temp 97.5 97.4 97.5 97.4 Pulse 90 98 105 Resp 16 16 B/P (MAP) 115/66 (82) 127/67 (87) 127/67 Pulse Ox 98 100 O2 Delivery Nasal Cannula Nasal Cannula O2 Flow Rate 2.0 2.0 JOY BOURNE MD Feb 15, 2017 10:54
[2017-02-15] MEDS ORDERED: ONDANSETRON ODT 4 MG TAB.RAPDIS. PO PRN (11:00)
[2017-02-15] MEDS ORDERED: traMADol 50 MG TABLET PO PRN (11:00)
[2017-02-15] MEDS ORDERED: ACETAMINOPHEN 325 MG TABLET. PO PRN (11:00)
--- NOTE | 2017-02-15 12:08 | CONS ---
DATE OF CONSULTATION: 02/14/2017 ATTENDING PHYSICIAN: Alo Strange M.D. REASON FOR CONSULTATION: The patient seen in pulmonary consultation at the request of Dr. Strange for pleural effusion. HISTORY OF PRESENT ILLNESS: The patient is an 89-year old who presented with fall and right hip pain. She was slightly confused upon presentation. Apparently, she was found on the side of her bed by her son who lives with her. The patient also has a history of hyperlipidemia and GI bleed. Part of her workup included an ultrasound of the abdomen. Ultrasound revealed possible pleural effusion; as a consequence, I was asked to see her in consultation. She is currently very sleepy from her recent hip fracture repair. Chest x-ray was reviewed. In comparison to the film of November 11, it revealed a marked effusion on the right, possible infiltrate. The patient is sleepy from a recent anesthesia and I am unable to obtain any history from the patient herself. PAST MEDICAL HISTORY: Remarkable for hyperlipidemia, upper GI bleed, AFib, congestive heart failure, hypertension, secondary pulmonary hypertension, hypothyroidism, chronic kidney disease, basal cell carcinoma of the skin and squamous cell carcinoma of the skin. She also has a history of CVA, dementia, upper GI bleed and cholelithiasis. PAST SURGICAL HISTORY: Status post aortic valve replacement, left hip surgery and ankle surgery. FAMILY HISTORY: Noncontributory in this age group. SOCIAL HISTORY: There is no history of tobacco or alcohol. REVIEW OF SYSTEMS: Unobtainable secondary to the patient's condition. CURRENT MEDICATIONS: List was reviewed. Please see the MRAD. PHYSICAL EXAMINATION: GENERAL: The patient was in no significant respiratory distress, very sleepy. She had just returned from her hip fracture repair. VITAL SIGNS: Otherwise stable. HEENT: Eyes, the sclerae are nonicteric. NECK: Jugular venous distention was not elevated. No lymphadenopathy. CHEST: Full expansion. LUNGS: Diminished breath sounds in the right. No wheezes. CARDIOVASCULAR: Regular rate and rhythm with S1 and S2. No S3. ABDOMEN: Soft, nontender and nondistended. EXTREMITIES: No clubbing or cyanosis, some edema. NEUROLOGICAL: The patient was confused recently, returned from the OR. LABORATORY DATA: Reviewed. Total bilirubin was elevated. Albumin was low. Potassium was low. INR was 1.2. White count was elevated. Hemoglobin and hematocrit were chronically low. RADIOLOGICAL DATA: Chest x-ray reviewed as indicated above. IMPRESSION: 1. Right-sided effusion, possible infiltrate. 2. Right hip fracture, status post closed reduction and intramedullary nailing to the right intertrochanteric hip fracture. 3. Hyperbilirubinemia. 4. Chronic anemia. 5. Chronic paroxysmal atrial fibrillation. 6. Reflux esophagitis. 7. Status post aortic valve replacement. 8. Dementia. PLAN: 1. Recommend thoracentesis by Interventional Radiology, it is certainly possible that the pleural effusion is related to the recent trauma. We will send pleural fluids for routine analysis. As above, we will proceed with diagnostic thoracentesis. 2. Continue postop care. 3. Oxygen supplementation. 4. Follow Cardiology and Hematology input. I do appreciate the privilege in sharing in the patient's care. NA MERAZ MD DR: SKY/bhavna JOB#: [id number] / [id number]
[2017-02-15] MEDS: ACETAMINOPHEN 325 MG TABLET. PO SCH ×3 (13:28→20:55)
[2017-02-15] MEDS: CHOLECALCIFEROL (VITAMIN D3) 1,000 UNIT TABLET PO SCH (13:28)
--- NOTE | 2017-02-15 15:16 | PDOC ---
PULMONARY PROGRESS NOTES Subjective hard of hearing, no sob, cough, or pain, sons at bedside decided against thoracentesis Vitals Vital Signs Date Time Temp Pulse Resp B/P (MAP) Pulse Ox O2 Delivery O2 Flow Rate FiO2 02/15/17 15:00 97.8 89 16 105/67 (80) 99 Nasal Cannula 2.0 97.8 ROS: No Nausea General: Alert, Oriented X4 HEENT: Other (nc at perrl) Lungs: Crackles, Other (dull at right base) Cardiovascular: S1, S2 Abdomen: Soft, Non-tender Neuro Exam: Alert Extremities: Other (edema) Skin: Warm Labs Laboratory Tests Test 02/14/17 04:35 02/14/17 05:30 02/14/17 16:10 02/15/17 04:55 White Blood Count 9.3 x10^3/uL (4.0-11.0) 11.4 x10^3/uL (4.0-11.0) 8.7 x10^3/uL (4.0-11.0) Red Blood Count 2.46 x10^6/uL (3.50-5.40) 2.13 x10^6/uL (3.50-5.40) 3.12 x10^6/uL (3.50-5.40) Hemoglobin 8.8 g/dL (12.0-15.5) 7.5 g/dL (12.0-15.5) 10.7 g/dL (12.0-15.5) Hematocrit 25.9 % (36.0-47.0) 22.6 % (36.0-47.0) 30.4 % (36.0-47.0) Mean Corpuscular Volume 106 fL (79-100) 106 fL (79-100) 98 fL (79-100) Mean Corpuscular Hemoglobin 36 pg (25-35) 36 pg (25-35) 34 pg (25-35) Mean Corpuscular Hemoglobin Concent 34 g/dL (31-37) 33 g/dL (31-37) 35 g/dL (31-37) Red Cell Distribution Width 18.8 % (11.5-14.5) 18.1 % (11.5-14.5) 21.6 % (11.5-14.5) Platelet Count 154 x10^3/uL (140-400) 119 x10^3/uL (140-400) 105 x10^3/uL (140-400) Neutrophils (%) (Auto) 73 % (31-73) 78 % (31-73) Lymphocytes (%) (Auto) 14 % (24-48) 10 % (24-48) Monocytes (%) (Auto) 12 % (0-9) 13 % (0-9) Eosinophils (%) (Auto) 1 % (0-3) 0 % (0-3) Basophils (%) (Auto) 1 % (0-3) 0 % (0-3) Neutrophils # (Auto) 6.8 x10^3uL (1.8-7.7) 6.7 x10^3uL (1.8-7.7) Lymphocytes # (Auto) 1.3 x10^3/uL (1.0-4.8) 0.8 x10^3/uL (1.0-4.8) Monocytes # (Auto) 1.1 x10^3/uL (0.0-1.1) 1.1 x10^3/uL (0.0-1.1) Eosinophils # (Auto) 0.1 x10^3/uL (0.0-0.7) 0.0 x10^3/uL (0.0-0.7) Basophils # (Auto) 0.1 x10^3/uL (0.0-0.2) 0.0 x10^3/uL (0.0-0.2) Reticulocyte Count (auto) 4.2 % (0.5-2.5) 5.4 % (0.5-2.5) Sodium Level 138 mmol/L (136-145) 139 mmol/L (136-145) Potassium Level 3.8 mmol/L (3.5-5.1) 4.3 mmol/L (3.5-5.1) Chloride Level 104 mmol/L (98-107) 106 mmol/L (98-107) Carbon Dioxide Level 26 mmol/L (21-32) 24 mmol/L (21-32) Anion Gap 8 (6-14) 9 (6-14) Blood Urea Nitrogen 19 mg/dL (7-20) 26 mg/dL (7-20) Creatinine 1.4 mg/dL (0.6-1.0) 1.5 mg/dL (0.6-1.0) Estimated GFR (Cockcroft-Gault) 35.4 32.7 BUN/Creatinine Ratio 14 (6-20) Glucose Level 140 mg/dL (70-99) 128 mg/dL (70-99) Calcium Level 8.3 mg/dL (8.5-10.1) 8.1 mg/dL (8.5-10.1) Total Bilirubin 3.3 mg/dL (0.2-1.0) Aspartate Amino Transf (AST/SGOT) 97 U/L (15-37) Alanine Aminotransferase (ALT/SGPT) 22 U/L (14-59) Alkaline Phosphatase 86 U/L (46-116) Total Protein 6.6 g/dL (6.4-8.2) 6.1 g/dL (6.4-8.2) Albumin 3.0 g/dL (3.4-5.0) Albumin/Globulin Ratio 0.8 (1.0-1.7) 25-Hydroxy Vitamin D Total 20.6 ng/mL (30.0-100.0) Lactate Dehydrogenase 663 U/L (81-234) 563 U/L (81-234) Test 02/15/17 09:05 Prothrombin Time 16.0 SEC (11.7-14.0) Prothromb Time International Ratio 1.4 (0.8-1.1) Laboratory Tests Test 02/14/17 16:10 02/15/17 04:55 02/15/17 09:05 White Blood Count 11.4 x10^3/uL (4.0-11.0) 8.7 x10^3/uL (4.0-11.0) Red Blood Count 2.13 x10^6/uL (3.50-5.40) 3.12 x10^6/uL (3.50-5.40) Hemoglobin 7.5 g/dL (12.0-15.5) 10.7 g/dL (12.0-15.5) Hematocrit 22.6 % (36.0-47.0) 30.4 % (36.0-47.0) Mean Corpuscular Volume 106 fL (79-100) 98 fL (79-100) Mean Corpuscular Hemoglobin 36 pg (25-35) 34 pg (25-35) Mean Corpuscular Hemoglobin Concent 33 g/dL (31-37) 35 g/dL (31-37) Red Cell Distribution Width 18.1 % (11.5-14.5) 21.6 % (11.5-14.5) Platelet Count 119 x10^3/uL (140-400) 105 x10^3/uL (140-400) Neutrophils (%) (Auto) 78 % (31-73) Lymphocytes (%) (Auto) 10 % (24-48) Monocytes (%) (Auto) 13 % (0-9) Eosinophils (%) (Auto) 0 % (0-3) Basophils (%) (Auto) 0 % (0-3) Neutrophils # (Auto) 6.7 x10^3uL (1.8-7.7) Lymphocytes # (Auto) 0.8 x10^3/uL (1.0-4.8) Monocytes # (Auto) 1.1 x10^3/uL (0.0-1.1) Eosinophils # (Auto) 0.0 x10^3/uL (0.0-0.7) Basophils # (Auto) 0.0 x10^3/uL (0.0-0.2) Reticulocyte Count (auto) 5.4 % (0.5-2.5) Sodium Level 139 mmol/L (136-145) Potassium Level 4.3 mmol/L (3.5-5.1) Chloride Level 106 mmol/L (98-107) Carbon Dioxide Level 24 mmol/L (21-32) Anion Gap 9 (6-14) Blood Urea Nitrogen 26 mg/dL (7-20) Creatinine 1.5 mg/dL (0.6-1.0) Estimated GFR (Cockcroft-Gault) 32.7 Glucose Level 128 mg/dL (70-99) Calcium Level 8.1 mg/dL (8.5-10.1) Lactate Dehydrogenase 563 U/L (81-234) Prothrombin Time 16.0 SEC (11.7-14.0) Prothromb Time International Ratio 1.4 (0.8-1.1) Medications Active Scripts Medications Dose Route/Sig Max Daily Dose Days Date Category Lorazepam 0.5 Mg Tablet 0.5 Tab PO HS 02/13/17 Reported Ocuvite Eye + Multi Tablet (Mv-Mn/FA/Vit K/Lycop/Lut/Zeaxa) 1 Each Tablet 1 Each PO DAILY 02/13/17 Reported Levothyroxine Sodium 75 Mcg Tablet 1 Tab PO DAILY 02/13/17 Reported Pantoprazole Sodium 40 Mg Tablet.dr 40 Mg PO DAILY 11/16/16 Reported Trazodone Hcl 50 Mg Tablet 50 Mg PO HS 12/12/15 Reported Metoprolol Tartrate 25 Mg Tablet 12.5 Mg PO DAILY 12/12/15 Reported Tylenol (Acetaminophen) 325 Mg Tablet 2 Tab PO PRN Q4HRS PRN 12/04/15 Reported Impression . IMPRESSION: 1. Right-sided effusion, possible infiltrate. 2. Right hip fracture, status post closed reduction and intramedullary nailing to the right intertrochanteric hip fracture. 3. Hyperbilirubinemia. 4. Chronic anemia. 5. Chronic paroxysmal atrial fibrillation. 6. Reflux esophagitis. 7. Status post aortic valve replacement. 8. Dementia. Plan . PLAN: 1. Recommend thoracentesis by Interventional Radiology, it is certainly possible that the pleural effusion is related to the recent trauma. sons dont want thoracentesis, the procedure discussed in details 2. Continue postop care. 3. Oxygen supplementation. 4. Follow Cardiology and Hematology input. discussed w pt, her sons, NATALY Martin MD Feb 15, 2017 15:16
--- NOTE | 2017-02-15 15:39 | PDOC ---
Subjective: Subjective: Doing okay. Objective: Objective: Per RN - eating well. Vital Signs: Vital Signs Date Time Temp Pulse Resp B/P (MAP) Pulse Ox O2 Delivery O2 Flow Rate FiO2 02/15/17 15:00 97.8 89 16 105/67 (80) 99 Nasal Cannula 2.0 97.8 Labs: Laboratory Tests Test 02/14/17 16:10 02/15/17 04:55 02/15/17 09:05 White Blood Count 11.4 x10^3/uL 8.7 x10^3/uL Red Blood Count 2.13 x10^6/uL 3.12 x10^6/uL Hemoglobin 7.5 g/dL 10.7 g/dL Hematocrit 22.6 % 30.4 % Mean Corpuscular Volume 106 fL 98 fL Mean Corpuscular Hemoglobin 36 pg 34 pg Mean Corpuscular Hemoglobin Concent 33 g/dL 35 g/dL Red Cell Distribution Width 18.1 % 21.6 % Platelet Count 119 x10^3/uL 105 x10^3/uL Neutrophils (%) (Auto) 78 % Lymphocytes (%) (Auto) 10 % Monocytes (%) (Auto) 13 % Eosinophils (%) (Auto) 0 % Basophils (%) (Auto) 0 % Neutrophils # (Auto) 6.7 x10^3uL Lymphocytes # (Auto) 0.8 x10^3/uL Monocytes # (Auto) 1.1 x10^3/uL Eosinophils # (Auto) 0.0 x10^3/uL Basophils # (Auto) 0.0 x10^3/uL Reticulocyte Count (auto) 5.4 % Sodium Level 139 mmol/L Potassium Level 4.3 mmol/L Chloride Level 106 mmol/L Carbon Dioxide Level 24 mmol/L Anion Gap 9 Blood Urea Nitrogen 26 mg/dL Creatinine 1.5 mg/dL Estimated GFR (Cockcroft-Gault) 32.7 Glucose Level 128 mg/dL Calcium Level 8.1 mg/dL Lactate Dehydrogenase 563 U/L Prothrombin Time 16.0 SEC Prothromb Time International Ratio 1.4 PE: GEN: NAD ABD: S/ND/NT SKIN: less jaundice NEURO/PSYCH: A & O 3 A/P: Right hip fracture s/p surgery Hyperbilirubinemia w/ hemolytic anemia -Hgb improved s/p transfusion H/o UGI bleed -EGD earlier this year, on PPI -- Continue same per GI. BERNABE LOVE Feb 15, 2017 15:39
[2017-02-15] MEDS ORDERED: WARFARIN 5 MG TABLET. PO ONE (16:00)
[2017-02-15] MEDS: FERROUS SULFATE 325 MG TABLET. PO SCH (16:51)
--- NOTE | 2017-02-15 20:23 | PDOC ---
Provider Note Provider Note Doing well postop no pain other than when being moved. No shortness of breath and oxygen saturation of 95% on room air. Lungs are clear. Grade 2/6 systolic murmur at apex. Spoke to son about Dr. Nguyen's report regarding mitral and aortic valve replacement. SHe was surprised that 2 valves were replaced. Will try to obtain the operative report. JOANN LEBLANC MD Feb 15, 2017 20:23
[2017-02-15] MEDS: traZODone 50 MG TABLET. PO SCH (20:56)
[2017-02-16 03:00] VITALS: BP 83/57
[2017-02-16 04:44] LABS: BASO % 0 % (0-3); EOS % 1 % (0-3); HEMATOCRIT 28.7 % (36.0-47.0); HEMOGLOBIN 9.9 g/dL (12.0-15.5); LYMPH # 1.2 x10^3/uL (1.0-4.8); LYMPH % 13 % (24-48); MEAN CORPUSCULAR HEMOGLOBIN 34 pg (25-35); MEAN CORPUSCULAR HGB CONC 34 g/dL (31-37); MEAN CORPUSCULAR VOLUME 98 fL (79-100); MONO % 12 % (0-9); NEUT % 75 % (31-73); PLATELET COUNT 110 x10^3/uL (140-400); RED BLOOD COUNT 2.92 x10^6/uL (3.50-5.40); RED CELL DISTRIBUTION WIDTH 21.6 % (11.5-14.5); WHITE BLOOD COUNT 9.8 x10^3/uL (4.0-11.0)
[2017-02-16 04:51] LABS: CALCIUM 8.1 mg/dL (8.5-10.1); CREATININE 1.7 mg/dL (0.6-1.0); GFR 28.3
[2017-02-16] MEDS: PANTOPRAZOLE 40 MG TABLET.DR. PO SCH (06:34)
[2017-02-16] MEDS: LEVOTHYROXINE 75 MCG TABLET PO SCH (06:34)
[2017-02-16 07:00] VITALS: BP 109/57
--- NOTE | 2017-02-16 07:54 | PDOC ---
ORTHO PROGRESS NOTES Subjective Pain ok. Vitals Vital Signs Date Time Temp Pulse Resp B/P (MAP) Pulse Ox O2 Delivery O2 Flow Rate FiO2 02/16/17 07:00 97.5 94 16 109/57 (74) 94 Nasal Cannula 2.0 97.5 Labs Laboratory Tests Test 02/14/17 16:10 02/15/17 04:55 02/15/17 09:05 02/16/17 03:50 White Blood Count 11.4 x10^3/uL (4.0-11.0) 8.7 x10^3/uL (4.0-11.0) 9.8 x10^3/uL (4.0-11.0) Red Blood Count 2.13 x10^6/uL (3.50-5.40) 3.12 x10^6/uL (3.50-5.40) 2.92 x10^6/uL (3.50-5.40) Hemoglobin 7.5 g/dL (12.0-15.5) 10.7 g/dL (12.0-15.5) 9.9 g/dL (12.0-15.5) Hematocrit 22.6 % (36.0-47.0) 30.4 % (36.0-47.0) 28.7 % (36.0-47.0) Mean Corpuscular Volume 106 fL (79-100) 98 fL (79-100) 98 fL (79-100) Mean Corpuscular Hemoglobin 36 pg (25-35) 34 pg (25-35) 34 pg (25-35) Mean Corpuscular Hemoglobin Concent 33 g/dL (31-37) 35 g/dL (31-37) 34 g/dL (31-37) Red Cell Distribution Width 18.1 % (11.5-14.5) 21.6 % (11.5-14.5) 21.6 % (11.5-14.5) Platelet Count 119 x10^3/uL (140-400) 105 x10^3/uL (140-400) 110 x10^3/uL (140-400) Neutrophils (%) (Auto) 78 % (31-73) 75 % (31-73) Lymphocytes (%) (Auto) 10 % (24-48) 13 % (24-48) Monocytes (%) (Auto) 13 % (0-9) 12 % (0-9) Eosinophils (%) (Auto) 0 % (0-3) 1 % (0-3) Basophils (%) (Auto) 0 % (0-3) 0 % (0-3) Neutrophils # (Auto) 6.7 x10^3uL (1.8-7.7) 7.3 x10^3uL (1.8-7.7) Lymphocytes # (Auto) 0.8 x10^3/uL (1.0-4.8) 1.2 x10^3/uL (1.0-4.8) Monocytes # (Auto) 1.1 x10^3/uL (0.0-1.1) 1.2 x10^3/uL (0.0-1.1) Eosinophils # (Auto) 0.0 x10^3/uL (0.0-0.7) 0.1 x10^3/uL (0.0-0.7) Basophils # (Auto) 0.0 x10^3/uL (0.0-0.2) 0.0 x10^3/uL (0.0-0.2) Reticulocyte Count (auto) 5.4 % (0.5-2.5) Sodium Level 139 mmol/L (136-145) 137 mmol/L (136-145) Potassium Level 4.3 mmol/L (3.5-5.1) 4.0 mmol/L (3.5-5.1) Chloride Level 106 mmol/L (98-107) 103 mmol/L (98-107) Carbon Dioxide Level 24 mmol/L (21-32) 25 mmol/L (21-32) Anion Gap 9 (6-14) 9 (6-14) Blood Urea Nitrogen 26 mg/dL (7-20) 39 mg/dL (7-20) Creatinine 1.5 mg/dL (0.6-1.0) 1.7 mg/dL (0.6-1.0) Estimated GFR (Cockcroft-Gault) 32.7 28.3 Glucose Level 128 mg/dL (70-99) 111 mg/dL (70-99) Calcium Level 8.1 mg/dL (8.5-10.1) 8.1 mg/dL (8.5-10.1) Lactate Dehydrogenase 563 U/L (81-234) Prothrombin Time 16.0 SEC (11.7-14.0) Prothromb Time International Ratio 1.4 (0.8-1.1) ET-Crt-R-Type Natriuretic Peptide 21983 pg/mL (0-449) Thyroid Stimulating Hormone (TSH) 5.902 uIU/mL (0.358-3.74) Laboratory Tests Test 02/15/17 09:05 02/16/17 03:50 Prothrombin Time 16.0 SEC (11.7-14.0) Prothromb Time International Ratio 1.4 (0.8-1.1) White Blood Count 9.8 x10^3/uL (4.0-11.0) Red Blood Count 2.92 x10^6/uL (3.50-5.40) Hemoglobin 9.9 g/dL (12.0-15.5) Hematocrit 28.7 % (36.0-47.0) Mean Corpuscular Volume 98 fL (79-100) Mean Corpuscular Hemoglobin 34 pg (25-35) Mean Corpuscular Hemoglobin Concent 34 g/dL (31-37) Red Cell Distribution Width 21.6 % (11.5-14.5) Platelet Count 110 x10^3/uL (140-400) Neutrophils (%) (Auto) 75 % (31-73) Lymphocytes (%) (Auto) 13 % (24-48) Monocytes (%) (Auto) 12 % (0-9) Eosinophils (%) (Auto) 1 % (0-3) Basophils (%) (Auto) 0 % (0-3) Neutrophils # (Auto) 7.3 x10^3uL (1.8-7.7) Lymphocytes # (Auto) 1.2 x10^3/uL (1.0-4.8) Monocytes # (Auto) 1.2 x10^3/uL (0.0-1.1) Eosinophils # (Auto) 0.1 x10^3/uL (0.0-0.7) Basophils # (Auto) 0.0 x10^3/uL (0.0-0.2) Sodium Level 137 mmol/L (136-145) Potassium Level 4.0 mmol/L (3.5-5.1) Chloride Level 103 mmol/L (98-107) Carbon Dioxide Level 25 mmol/L (21-32) Anion Gap 9 (6-14) Blood Urea Nitrogen 39 mg/dL (7-20) Creatinine 1.7 mg/dL (0.6-1.0) Estimated GFR (Cockcroft-Gault) 28.3 Glucose Level 111 mg/dL (70-99) Calcium Level 8.1 mg/dL (8.5-10.1) TK-Mge-U-Type Natriuretic Peptide 41436 pg/mL (0-449) Thyroid Stimulating Hormone (TSH) 5.902 uIU/mL (0.358-3.74) Notes A and A incision ok at R hip toes warm Assessment and Plan INR goal 1.5 PT/OT if able VIJAY MEJIA II, MD Feb 16, 2017 07:54
[2017-02-16] MEDS: SENNOSIDES/DOCUSATE 8.6/50MG TABLET. PO SCH (08:59)
[2017-02-16] MEDS: CHOLECALCIFEROL (VITAMIN D3) 1,000 UNIT TABLET PO SCH (08:59)
[2017-02-16] MEDS: ACETAMINOPHEN 325 MG TABLET. PO SCH ×4 (09:00→21:51)
[2017-02-16] MEDS: MULTIVITAMIN I-VITE TABLET. PO SCH (09:00)
[2017-02-16] MEDS: METOPROLOL TART IMMED RELEASE 25 MG TABLET. PO SCH ×2 (09:02→21:52)
--- NOTE | 2017-02-16 10:22 | PDOC ---
PROGRESS NOTES Subjective Subjective feels well. lab reviewed and she is not drinking enough fluids. bun 37 and creatinine 1.7. will order iv fluids and secure iv site as she has dislodged several IVs.discussed with son who concurs with plan. comfortable. Objective Objective Vital Signs Date Time Temp Pulse Resp B/P (MAP) Pulse Ox O2 Delivery O2 Flow Rate FiO2 02/16/17 09:02 94 109/57 02/16/17 08:00 Nasal Cannula 2.0 02/16/17 07:00 97.5 16 94 97.5 Physical Exam Abdomen: Soft Heart: Normal S1, Normal S2 Extremities: No edema, Other (aquacell silver dressing right hip) General: Alert HEENT: Atraumatic Lungs: Clear to auscultation Neuro: Normal speech Psych/Mental Status: Mood NL Skin: No rashes Assessment Assessment Problems1. ORIF right hip fracture acute blood loss anemia hemolytic anemia impaired cognitive disorder debility asymptomatic right pleural effusion. son declines thoracentesis asymptomatic cholelithiasis hypothyroidism paroxysmal atrial fibrillation history of upper GI bleed 11/19 gastric erosions and reflux esophagitis per EGD 11/19 acute kidney injury on chronic kidney disease stage 3 bioprosthetic AVR and MVR Medical Problems: (1) Hyperbilirubinemia Status: Acute (2) Intertrochanteric fracture of left femur Status: Acute Plan Plan of Care start iv normal saline PT and OT coumadin with target inr 1.5 continue protonix lab tomorrow continue ferrous sulfate continue metoprolol Comment Review of Relevant I have reviewed the following items shara (where applicable) has been applied. Labs Laboratory Tests Test 02/14/17 16:10 02/15/17 04:55 02/15/17 09:05 02/16/17 03:50 White Blood Count 11.4 x10^3/uL (4.0-11.0) 8.7 x10^3/uL (4.0-11.0) 9.8 x10^3/uL (4.0-11.0) Red Blood Count 2.13 x10^6/uL (3.50-5.40) 3.12 x10^6/uL (3.50-5.40) 2.92 x10^6/uL (3.50-5.40) Hemoglobin 7.5 g/dL (12.0-15.5) 10.7 g/dL (12.0-15.5) 9.9 g/dL (12.0-15.5) Hematocrit 22.6 % (36.0-47.0) 30.4 % (36.0-47.0) 28.7 % (36.0-47.0) Mean Corpuscular Volume 106 fL (79-100) 98 fL (79-100) 98 fL (79-100) Mean Corpuscular Hemoglobin 36 pg (25-35) 34 pg (25-35) 34 pg (25-35) Mean Corpuscular Hemoglobin Concent 33 g/dL (31-37) 35 g/dL (31-37) 34 g/dL (31-37) Red Cell Distribution Width 18.1 % (11.5-14.5) 21.6 % (11.5-14.5) 21.6 % (11.5-14.5) Platelet Count 119 x10^3/uL (140-400) 105 x10^3/uL (140-400) 110 x10^3/uL (140-400) Neutrophils (%) (Auto) 78 % (31-73) 75 % (31-73) Lymphocytes (%) (Auto) 10 % (24-48) 13 % (24-48) Monocytes (%) (Auto) 13 % (0-9) 12 % (0-9) Eosinophils (%) (Auto) 0 % (0-3) 1 % (0-3) Basophils (%) (Auto) 0 % (0-3) 0 % (0-3) Neutrophils # (Auto) 6.7 x10^3uL (1.8-7.7) 7.3 x10^3uL (1.8-7.7) Lymphocytes # (Auto) 0.8 x10^3/uL (1.0-4.8) 1.2 x10^3/uL (1.0-4.8) Monocytes # (Auto) 1.1 x10^3/uL (0.0-1.1) 1.2 x10^3/uL (0.0-1.1) Eosinophils # (Auto) 0.0 x10^3/uL (0.0-0.7) 0.1 x10^3/uL (0.0-0.7) Basophils # (Auto) 0.0 x10^3/uL (0.0-0.2) 0.0 x10^3/uL (0.0-0.2) Reticulocyte Count (auto) 5.4 % (0.5-2.5) Sodium Level 139 mmol/L (136-145) 137 mmol/L (136-145) Potassium Level 4.3 mmol/L (3.5-5.1) 4.0 mmol/L (3.5-5.1) Chloride Level 106 mmol/L (98-107) 103 mmol/L (98-107) Carbon Dioxide Level 24 mmol/L (21-32) 25 mmol/L (21-32) Anion Gap 9 (6-14) 9 (6-14) Blood Urea Nitrogen 26 mg/dL (7-20) 39 mg/dL (7-20) Creatinine 1.5 mg/dL (0.6-1.0) 1.7 mg/dL (0.6-1.0) Estimated GFR (Cockcroft-Gault) 32.7 28.3 Glucose Level 128 mg/dL (70-99) 111 mg/dL (70-99) Calcium Level 8.1 mg/dL (8.5-10.1) 8.1 mg/dL (8.5-10.1) Lactate Dehydrogenase 563 U/L (81-234) Prothrombin Time 16.0 SEC (11.7-14.0) Prothromb Time International Ratio 1.4 (0.8-1.1) XX-Lvz-W-Type Natriuretic Peptide 73681 pg/mL (0-449) Thyroid Stimulating Hormone (TSH) 5.902 uIU/mL (0.358-3.74) Laboratory Tests Test 02/16/17 03:50 White Blood Count 9.8 x10^3/uL (4.0-11.0) Red Blood Count 2.92 x10^6/uL (3.50-5.40) Hemoglobin 9.9 g/dL (12.0-15.5) Hematocrit 28.7 % (36.0-47.0) Mean Corpuscular Volume 98 fL (79-100) Mean Corpuscular Hemoglobin 34 pg (25-35) Mean Corpuscular Hemoglobin Concent 34 g/dL (31-37) Red Cell Distribution Width 21.6 % (11.5-14.5) Platelet Count 110 x10^3/uL (140-400) Neutrophils (%) (Auto) 75 % (31-73) Lymphocytes (%) (Auto) 13 % (24-48) Monocytes (%) (Auto) 12 % (0-9) Eosinophils (%) (Auto) 1 % (0-3) Basophils (%) (Auto) 0 % (0-3) Neutrophils # (Auto) 7.3 x10^3uL (1.8-7.7) Lymphocytes # (Auto) 1.2 x10^3/uL (1.0-4.8) Monocytes # (Auto) 1.2 x10^3/uL (0.0-1.1) Eosinophils # (Auto) 0.1 x10^3/uL (0.0-0.7) Basophils # (Auto) 0.0 x10^3/uL (0.0-0.2) Sodium Level 137 mmol/L (136-145) Potassium Level 4.0 mmol/L (3.5-5.1) Chloride Level 103 mmol/L (98-107) Carbon Dioxide Level 25 mmol/L (21-32) Anion Gap 9 (6-14) Blood Urea Nitrogen 39 mg/dL (7-20) Creatinine 1.7 mg/dL (0.6-1.0) Estimated GFR (Cockcroft-Gault) 28.3 Glucose Level 111 mg/dL (70-99) Calcium Level 8.1 mg/dL (8.5-10.1) GG-Mnn-W-Type Natriuretic Peptide 07923 pg/mL (0-449) Thyroid Stimulating Hormone (TSH) 5.902 uIU/mL (0.358-3.74) Microbiology 02/13/17 Urine Culture - Final, Complete 02/13/17 Urine Culture Result 1 ([place]) - Final, Complete Medications Current Medications Fentanyl Citrate (Fentanyl 2ml Vial) 25 mcg 1X ONCE IV Last administered on 08:13; Start 02/13/17 at 07:00; Stop 02/13/17 at 07:01; Status DC Fentanyl Citrate (Fentanyl 2ml Vial) 50 mcg PRN Q1HR PRN IV PAIN Last administered on 02/13/17 22:51; Start 02/13/17 at 07:45; Stop 02/14/17 at 07 :44; Status DC Sodium Chloride 1,000 ml @ 75 mls/hr 1X ONCE IV Last administered on 08:30; Start 02/13/17 at 07:45; Stop 02/13/17 at 10:26; Status DC Cefazolin Sodium/ Dextrose 50 ml @ 100 mls/hr 1X ONCE IV ; Start 02/13/17 at 10:15; Stop 02/13/17 at 10:44; Status Cancel Fentanyl Citrate (Fentanyl 2ml Vial) 25 mcg PRN Q4HRS PRN IV PAIN; Start 02/13 at 10:30; Stop 02/15/17 at 11:02; Status DC Acetaminophen (Tylenol) 650 mg PRN Q6HRS PRN PO MILD PAIN / TEMP; Start at 10:30 Pantoprazole Sodium (Protonix) 40 mg DAILYAC PO Last administered on 06:34; Start 02/13/17 at 11:30 Multivitamins/ Minerals (I-Rashaun) 1 tab DAILY PO Last administered on 09:00; Start 02/13/17 at 12:00 Levothyroxine Sodium (Synthroid) 75 mcg DAILY07 PO Last administered on 06:34; Start 02/13/17 at 10:30 Trazodone HCl (Desyrel) 50 mg QHS PO Last administered on 02/15/17 20:56; Start 02/13/17 at 21:00 Metoprolol Tartrate (Lopressor) 12.5 mg BID PO Last administered on 02/16/17 09:02; Start 02/13/17 at 11:00 Senna/Docusate Sodium (Senna Plus) 2 tab DAILY PO Last administered on 08:59; Start 02/13/17 at 11:00 Potassium Chloride/Dextrose/ Sod Cl 1,000 ml @ 60 mls/hr [id number] IV Last administered on 02/15/17 01:44; Start 02/13/17 at 12:00; Stop 02/15/17 at 08 :59; Status DC Pneumococcal Polyvalent Vaccine (Pneumovax 23) 0.5 ml ONCE ONCE VAX IM Last administered on 02/13/17 13:05; Start 02/13/17 at 12:00; Stop 02/13/17 at 12 :01; Status DC Influenza Virus Vaccine Quadrival (Fluarix Quad 0701-4297 Syringe) 0.5 ml ONCE ONCE VAX IM Last administered on 02/13/17 13:06; Start 02/13/17 at 12:00; Stop 02/13/17 at 12:01; Status DC Lorazepam (Ativan) 0.25 mg PRN QHS PRN PO ANXIETY / AGITATION Last administered on 02/14/17 01:59; Start 02/13/17 at 11:30 Cefazolin Sodium/ Dextrose 50 ml @ 100 mls/hr 1X PREOP PRN IV PRIOR TO SURGERY ; Start 02/13/17 at 12:30 Ondansetron HCl (Zofran) 4 mg PRN Q6HRS PRN IV NAUSEA/VOMITING; Start at 07:00; Stop 02/14/17 at 18:00; Status DC Fentanyl Citrate (Fentanyl 2ml Vial) 25 mcg PRN Q5MIN PRN IV MILD PAIN; Start 02/14/17 at 07:00; Stop 02/14/17 at 18:00; Status DC Fentanyl Citrate (Fentanyl 2ml Vial) 50 mcg PRN Q5MIN PRN IV MODERATE PAIN; Start 02/14/17 at 07:00; Stop 02/14/17 at 18:00; Status DC Ringer's Solution 1,000 ml @ 30 mls/hr Q24H IV ; Start 02/14/17 at 07:00; Stop 02/14/17 at 18:59; Status DC Lidocaine HCl (Xylocaine-Mpf 1% Vial) 2 ml PRN 1X PRN ID IV START; Start 02/14 at 07:00; Stop 02/14/17 at 18:00; Status DC Prochlorperazine Edisylate (Compazine) 5 mg PACU PRN PRN IV NAUSEA, MRX1; Start 02/14/17 at 07:00; Stop 02/14/17 at 18:00; Status DC Ferrous Sulfate (Feosol) 325 mg DAILYWSUP PO Last administered on 02/15/17 16 :51; Start 02/14/17 at 17:00 Lidocaine HCl 20 ml STK-MED ONCE .ROUTE ; Start 02/14/17 at 09:30; Stop at 10:31; Status DC Bupivacaine HCl (Sensorcaine Mpf 0.5%) 30 ml STK-MED ONCE .ROUTE ; Start at 09:31; Stop 02/14/17 at 10:31; Status DC Sevoflurane (Ultane) 60 ml STK-MED ONCE IH ; Start 02/14/17 at 10:36; Stop 04/21 at 10:37; Status DC Fentanyl Citrate (Fentanyl 2ml Vial) 100 mcg STK-MED ONCE .ROUTE ; Start at 10:36; Stop 02/14/17 at 10:37; Status DC Propofol 20 ml @ As Directed STK-MED ONCE IV ; Start 02/14/17 at 10:36; Stop 02/14/17 at 10:37; Status DC Dexamethasone Sodium Phosphate (Decadron) 20 mg STK-MED ONCE .ROUTE ; Start 04/21 at 10:36; Stop 02/14/17 at 10:37; Status DC Lidocaine HCl (Lidocaine Pf 2% Vial) 5 ml STK-MED ONCE .ROUTE ; Start 02/14/17 at 10:36; Stop 02/14/17 at 10:37; Status DC Lidocaine HCl (Lidocaine Pf 2% Vial) 5 ml STK-MED ONCE .ROUTE ; Start 02/14/17 at 10:36; Stop 02/14/17 at 10:37; Status DC Phenylephrine HCl 1 mg STK-MED ONCE IV ; Start 02/14/17 at 10:36; Stop at 10:37; Status DC Ondansetron HCl (Zofran) 4 mg STK-MED ONCE .ROUTE ; Start 02/14/17 at 10:37; Stop 02/14/17 at 10:38; Status DC Ketorolac Tromethamine 30 mg/Ropivacaine 60 ml/Epinephrine HCl 0.5 mg/Sodium Chloride 99.5 ml @ 99.5 mls/hr 1X PERIOP ONCE INT ART Last administered on t 12:07; Start 02/14/17 at 11:30; Stop 02/14/17 at 12:29; Status DC Cefazolin Sodium 1 gm/Sodium Chloride 50 ml @ 100 mls/hr Q6H IV Last administered on 02/15/17 05:41; Start 02/14/17 at 17:30; Stop 02/15/17 at 05 :59; Status DC Enoxaparin Sodium (Lovenox 30mg Syringe) 30 mg Q24H SQ ; Start 02/15/17 at 08: 00; Stop 02/15/17 at 08:18; Status DC Warfarin Sodium (Coumadin Per Pharmacy) 1 each PRN DAILY PRN MC SEE COMMENTS; Start 02/15/17 at 08:15 Warfarin Sodium (Coumadin) 5 mg 1X ONCE PO Last administered on 02/15/17 16: 48; Start 02/15/17 at 16:00; Stop 02/15/17 at 16:01; Status DC Cefazolin Sodium/ Dextrose (Ancef 2gm Premix) 2 gm STK-MED ONCE IV ; Start 04/21 at 10:40; Stop 02/15/17 at 08:53; Status DC Vitamin D (Vitamin D3) 1,000 unit DAILY PO Last administered on 02/16/17 08: 59; Start 02/15/17 at 10:00 Tramadol HCl (Ultram) 25 mg PRN Q6HRS PRN PO PAIN; Start 02/15/17 at 11:00 Acetaminophen (Tylenol) 325 mg PRN QID PRN PO PAIN; Start 02/15/17 at 11:00; Stop 02/15/17 at 13:21; Status DC Ondansetron HCl (Zofran Odt) 4 mg PRN Q6HRS PRN PO NAUSEA/VOMITING; Start at 11:00 Acetaminophen (Tylenol) 325 mg QID PO Last administered on 02/16/17 09:00; Start 02/15/17 at 13:30 Active Scripts Active Reported Lorazepam 0.5 Mg Tablet 0.5 Tab PO HS Ocuvite Eye + Multi Tablet (Mv-Mn/FA/Vit K/Lycop/Lut/Zeaxa) 1 Each Tablet 1 Each PO DAILY Levothyroxine Sodium 75 Mcg Tablet 1 Tab PO DAILY Pantoprazole Sodium 40 Mg Tablet.dr 40 Mg PO DAILY Trazodone Hcl 50 Mg Tablet 50 Mg PO HS Metoprolol Tartrate 25 Mg Tablet 12.5 Mg PO DAILY Tylenol (Acetaminophen) 325 Mg Tablet 2 Tab PO PRN Q4HRS PRN Vitals/I & O Vital Sign - Last 24 Hours 02/15/17 02/15/17 02/15/17 02/15/17 15:00 19:00 20:00 23:00 Temp 97.8 98.6 97.8 98.6 Pulse 89 88 91 Resp 16 18 B/P (MAP) 105/67 (80) 94/62 (73) 91/58 Pulse Ox 99 95 O2 Delivery Nasal Cannula Nasal Cannula Nasal Cannula O2 Flow Rate 2.0 2.0 2.0 02/15/17 02/16/17 02/16/17 02/16/17 23:00 03:00 07:00 08:00 Temp 98.1 97.7 97.5 98.1 97.7 97.5 Pulse 91 88 94 Resp 18 18 16 B/P (MAP) 91/58 (69) 83/57 (66) 109/57 (74) Pulse Ox 93 95 94 O2 Delivery Nasal Cannula Nasal Cannula Nasal Cannula Nasal Cannula O2 Flow Rate 2.0 2.0 2.0 2.0 02/16/17 09:02 Pulse 94 B/P (MAP) 109/57 MIKI COLORADO MD Feb 16, 2017 10:22
[2017-02-16 11:00] VITALS: BP 121/65
[2017-02-16] MEDS: IV NORMAL SALINE 1000ML BAG 1,000 ML IV SCH (11:07)
--- NOTE | 2017-02-16 11:58 | PDOC ---
PULMONARY PROGRESS NOTES Subjective hard of hearing, no sob, cough, or pain, feels better. sons at bedside Vitals Vital Signs Date Time Temp Pulse Resp B/P (MAP) Pulse Ox O2 Delivery O2 Flow Rate FiO2 02/16/17 11:00 97.5 89 20 121/65 (83) 95 Nasal Cannula 2.0 97.5 ROS: No Nausea General: Alert, Oriented X4 HEENT: Other (nc at perrl) Lungs: Crackles, Other (dull at right base) Cardiovascular: S1, S2 Abdomen: Soft, Non-tender Neuro Exam: Alert Extremities: Other (edema) Skin: Warm Labs Laboratory Tests Test 02/14/17 16:10 02/15/17 04:55 02/15/17 09:05 02/16/17 03:50 White Blood Count 11.4 x10^3/uL (4.0-11.0) 8.7 x10^3/uL (4.0-11.0) 9.8 x10^3/uL (4.0-11.0) Red Blood Count 2.13 x10^6/uL (3.50-5.40) 3.12 x10^6/uL (3.50-5.40) 2.92 x10^6/uL (3.50-5.40) Hemoglobin 7.5 g/dL (12.0-15.5) 10.7 g/dL (12.0-15.5) 9.9 g/dL (12.0-15.5) Hematocrit 22.6 % (36.0-47.0) 30.4 % (36.0-47.0) 28.7 % (36.0-47.0) Mean Corpuscular Volume 106 fL (79-100) 98 fL (79-100) 98 fL (79-100) Mean Corpuscular Hemoglobin 36 pg (25-35) 34 pg (25-35) 34 pg (25-35) Mean Corpuscular Hemoglobin Concent 33 g/dL (31-37) 35 g/dL (31-37) 34 g/dL (31-37) Red Cell Distribution Width 18.1 % (11.5-14.5) 21.6 % (11.5-14.5) 21.6 % (11.5-14.5) Platelet Count 119 x10^3/uL (140-400) 105 x10^3/uL (140-400) 110 x10^3/uL (140-400) Neutrophils (%) (Auto) 78 % (31-73) 75 % (31-73) Lymphocytes (%) (Auto) 10 % (24-48) 13 % (24-48) Monocytes (%) (Auto) 13 % (0-9) 12 % (0-9) Eosinophils (%) (Auto) 0 % (0-3) 1 % (0-3) Basophils (%) (Auto) 0 % (0-3) 0 % (0-3) Neutrophils # (Auto) 6.7 x10^3uL (1.8-7.7) 7.3 x10^3uL (1.8-7.7) Lymphocytes # (Auto) 0.8 x10^3/uL (1.0-4.8) 1.2 x10^3/uL (1.0-4.8) Monocytes # (Auto) 1.1 x10^3/uL (0.0-1.1) 1.2 x10^3/uL (0.0-1.1) Eosinophils # (Auto) 0.0 x10^3/uL (0.0-0.7) 0.1 x10^3/uL (0.0-0.7) Basophils # (Auto) 0.0 x10^3/uL (0.0-0.2) 0.0 x10^3/uL (0.0-0.2) Reticulocyte Count (auto) 5.4 % (0.5-2.5) Sodium Level 139 mmol/L (136-145) 137 mmol/L (136-145) Potassium Level 4.3 mmol/L (3.5-5.1) 4.0 mmol/L (3.5-5.1) Chloride Level 106 mmol/L (98-107) 103 mmol/L (98-107) Carbon Dioxide Level 24 mmol/L (21-32) 25 mmol/L (21-32) Anion Gap 9 (6-14) 9 (6-14) Blood Urea Nitrogen 26 mg/dL (7-20) 39 mg/dL (7-20) Creatinine 1.5 mg/dL (0.6-1.0) 1.7 mg/dL (0.6-1.0) Estimated GFR (Cockcroft-Gault) 32.7 28.3 Glucose Level 128 mg/dL (70-99) 111 mg/dL (70-99) Calcium Level 8.1 mg/dL (8.5-10.1) 8.1 mg/dL (8.5-10.1) Lactate Dehydrogenase 563 U/L (81-234) Prothrombin Time 16.0 SEC (11.7-14.0) Prothromb Time International Ratio 1.4 (0.8-1.1) AV-Qdu-P-Type Natriuretic Peptide 44242 pg/mL (0-449) Thyroid Stimulating Hormone (TSH) 5.902 uIU/mL (0.358-3.74) Laboratory Tests Test 02/16/17 03:50 White Blood Count 9.8 x10^3/uL (4.0-11.0) Red Blood Count 2.92 x10^6/uL (3.50-5.40) Hemoglobin 9.9 g/dL (12.0-15.5) Hematocrit 28.7 % (36.0-47.0) Mean Corpuscular Volume 98 fL (79-100) Mean Corpuscular Hemoglobin 34 pg (25-35) Mean Corpuscular Hemoglobin Concent 34 g/dL (31-37) Red Cell Distribution Width 21.6 % (11.5-14.5) Platelet Count 110 x10^3/uL (140-400) Neutrophils (%) (Auto) 75 % (31-73) Lymphocytes (%) (Auto) 13 % (24-48) Monocytes (%) (Auto) 12 % (0-9) Eosinophils (%) (Auto) 1 % (0-3) Basophils (%) (Auto) 0 % (0-3) Neutrophils # (Auto) 7.3 x10^3uL (1.8-7.7) Lymphocytes # (Auto) 1.2 x10^3/uL (1.0-4.8) Monocytes # (Auto) 1.2 x10^3/uL (0.0-1.1) Eosinophils # (Auto) 0.1 x10^3/uL (0.0-0.7) Basophils # (Auto) 0.0 x10^3/uL (0.0-0.2) Sodium Level 137 mmol/L (136-145) Potassium Level 4.0 mmol/L (3.5-5.1) Chloride Level 103 mmol/L (98-107) Carbon Dioxide Level 25 mmol/L (21-32) Anion Gap 9 (6-14) Blood Urea Nitrogen 39 mg/dL (7-20) Creatinine 1.7 mg/dL (0.6-1.0) Estimated GFR (Cockcroft-Gault) 28.3 Glucose Level 111 mg/dL (70-99) Calcium Level 8.1 mg/dL (8.5-10.1) TO-Kjs-I-Type Natriuretic Peptide 79034 pg/mL (0-449) Thyroid Stimulating Hormone (TSH) 5.902 uIU/mL (0.358-3.74) Medications Active Scripts Medications Dose Route/Sig Max Daily Dose Days Date Category Lorazepam 0.5 Mg Tablet 0.5 Tab PO HS 02/13/17 Reported Ocuvite Eye + Multi Tablet (Mv-Mn/FA/Vit K/Lycop/Lut/Zeaxa) 1 Each Tablet 1 Each PO DAILY 02/13/17 Reported Levothyroxine Sodium 75 Mcg Tablet 1 Tab PO DAILY 02/13/17 Reported Pantoprazole Sodium 40 Mg Tablet.dr 40 Mg PO DAILY 11/16/16 Reported Trazodone Hcl 50 Mg Tablet 50 Mg PO HS 12/12/15 Reported Metoprolol Tartrate 25 Mg Tablet 12.5 Mg PO DAILY 12/12/15 Reported Tylenol (Acetaminophen) 325 Mg Tablet 2 Tab PO PRN Q4HRS PRN 12/04/15 Reported Impression . IMPRESSION: 1. Right-sided effusion, possible infiltrate. 2. Right hip fracture, status post closed reduction and intramedullary nailing to the right intertrochanteric hip fracture. 3. Hyperbilirubinemia. 4. Chronic anemia. 5. Chronic paroxysmal atrial fibrillation. 6. Reflux esophagitis. 7. Status post aortic valve replacement. 8. Dementia. Plan . PLAN: 1. Recommend thoracentesis by Interventional Radiology, it is certainly possible that the pleural effusion is related to the recent trauma. sons dont want thoracentesis at this point, they wanted her to get stronger, risk and benefit of the procedure discussed in details 2. Continue postop care. 3. Oxygen supplementation. 4. Follow Cardiology and Hematology input. discussed w pt, her sons, rn NATALY VAUGHAN MD Feb 16, 2017 11:57
[2017-02-16 14:31] LABS: INR 2.7 (0.8-1.1); PROTHROMBIN TIME PATIENT 26.7 SEC (11.7-14.0)
[2017-02-16 15:00] VITALS: BP 120/66
[2017-02-16] MEDS: FERROUS SULFATE 325 MG TABLET. PO SCH (18:20)
[2017-02-16 19:00] VITALS: BP 139/76
[2017-02-16] MEDS: traZODone 50 MG TABLET. PO SCH (21:51)
[2017-02-16 23:00] VITALS: BP 125/69
[2017-02-17 03:00] VITALS: BP 124/68
[2017-02-17 05:35] LABS: BASO % 1 % (0-3); EOS % 3 % (0-3); HEMATOCRIT 29.5 % (36.0-47.0); HEMOGLOBIN 10.2 g/dL (12.0-15.5); LYMPH # 0.9 x10^3/uL (1.0-4.8); LYMPH % 11 % (24-48); MEAN CORPUSCULAR HEMOGLOBIN 35 pg (25-35); MEAN CORPUSCULAR HGB CONC 35 g/dL (31-37); MEAN CORPUSCULAR VOLUME 101 fL (79-100); MONO % 10 % (0-9); NEUT % 76 % (31-73); PLATELET COUNT 120 x10^3/uL (140-400); RED BLOOD COUNT 2.93 x10^6/uL (3.50-5.40); RED CELL DISTRIBUTION WIDTH 21.8 % (11.5-14.5); WHITE BLOOD COUNT 8.3 x10^3/uL (4.0-11.0)
[2017-02-17 05:42] LABS: INR 3.8 (0.8-1.1); PROTHROMBIN TIME PATIENT 34.9 SEC (11.7-14.0)
[2017-02-17 06:10] LABS: CALCIUM 7.7 mg/dL (8.5-10.1); CREATININE 1.5 mg/dL (0.6-1.0); GFR 32.7; MAGNESIUM 1.9 mg/dL (1.8-2.4); POTASSIUM 3.6 mmol/L (3.5-5.1)
[2017-02-17 07:00] VITALS: BP 128/66
--- NOTE | 2017-02-17 08:19 | PDOC ---
ORTHO PROGRESS NOTES Subjective Pain tolerable. Eating. Sat at commode Vitals Vital Signs Date Time Temp Pulse Resp B/P (MAP) Pulse Ox O2 Delivery O2 Flow Rate FiO2 02/17/17 03:00 97.1 87 20 124/68 (86) 97 Room Air 97.1 02/16/17 19:00 2.0 Labs Laboratory Tests Test 02/15/17 09:05 02/16/17 03:50 02/16/17 14:15 02/17/17 04:15 Prothrombin Time 16.0 SEC (11.7-14.0) 26.7 SEC (11.7-14.0) 34.9 SEC (11.7-14.0) Prothromb Time International Ratio 1.4 (0.8-1.1) 2.7 (0.8-1.1) 3.8 (0.8-1.1) White Blood Count 9.8 x10^3/uL (4.0-11.0) 8.3 x10^3/uL (4.0-11.0) Red Blood Count 2.92 x10^6/uL (3.50-5.40) 2.93 x10^6/uL (3.50-5.40) Hemoglobin 9.9 g/dL (12.0-15.5) 10.2 g/dL (12.0-15.5) Hematocrit 28.7 % (36.0-47.0) 29.5 % (36.0-47.0) Mean Corpuscular Volume 98 fL (79-100) 101 fL (79-100) Mean Corpuscular Hemoglobin 34 pg (25-35) 35 pg (25-35) Mean Corpuscular Hemoglobin Concent 34 g/dL (31-37) 35 g/dL (31-37) Red Cell Distribution Width 21.6 % (11.5-14.5) 21.8 % (11.5-14.5) Platelet Count 110 x10^3/uL (140-400) 120 x10^3/uL (140-400) Neutrophils (%) (Auto) 75 % (31-73) 76 % (31-73) Lymphocytes (%) (Auto) 13 % (24-48) 11 % (24-48) Monocytes (%) (Auto) 12 % (0-9) 10 % (0-9) Eosinophils (%) (Auto) 1 % (0-3) 3 % (0-3) Basophils (%) (Auto) 0 % (0-3) 1 % (0-3) Neutrophils # (Auto) 7.3 x10^3uL (1.8-7.7) 6.3 x10^3uL (1.8-7.7) Lymphocytes # (Auto) 1.2 x10^3/uL (1.0-4.8) 0.9 x10^3/uL (1.0-4.8) Monocytes # (Auto) 1.2 x10^3/uL (0.0-1.1) 0.9 x10^3/uL (0.0-1.1) Eosinophils # (Auto) 0.1 x10^3/uL (0.0-0.7) 0.2 x10^3/uL (0.0-0.7) Basophils # (Auto) 0.0 x10^3/uL (0.0-0.2) 0.0 x10^3/uL (0.0-0.2) Sodium Level 137 mmol/L (136-145) 137 mmol/L (136-145) Potassium Level 4.0 mmol/L (3.5-5.1) 3.6 mmol/L (3.5-5.1) Chloride Level 103 mmol/L (98-107) 104 mmol/L (98-107) Carbon Dioxide Level 25 mmol/L (21-32) 24 mmol/L (21-32) Anion Gap 9 (6-14) 9 (6-14) Blood Urea Nitrogen 39 mg/dL (7-20) 36 mg/dL (7-20) Creatinine 1.7 mg/dL (0.6-1.0) 1.5 mg/dL (0.6-1.0) Estimated GFR (Cockcroft-Gault) 28.3 32.7 Glucose Level 111 mg/dL (70-99) 103 mg/dL (70-99) Calcium Level 8.1 mg/dL (8.5-10.1) 7.7 mg/dL (8.5-10.1) XZ-Auj-N-Type Natriuretic Peptide 07306 pg/mL (0-449) Thyroid Stimulating Hormone (TSH) 5.902 uIU/mL (0.358-3.74) Magnesium Level 1.9 mg/dL (1.8-2.4) Laboratory Tests Test 02/16/17 14:15 02/17/17 04:15 Prothrombin Time 26.7 SEC (11.7-14.0) 34.9 SEC (11.7-14.0) Prothromb Time International Ratio 2.7 (0.8-1.1) 3.8 (0.8-1.1) White Blood Count 8.3 x10^3/uL (4.0-11.0) Red Blood Count 2.93 x10^6/uL (3.50-5.40) Hemoglobin 10.2 g/dL (12.0-15.5) Hematocrit 29.5 % (36.0-47.0) Mean Corpuscular Volume 101 fL (79-100) Mean Corpuscular Hemoglobin 35 pg (25-35) Mean Corpuscular Hemoglobin Concent 35 g/dL (31-37) Red Cell Distribution Width 21.8 % (11.5-14.5) Platelet Count 120 x10^3/uL (140-400) Neutrophils (%) (Auto) 76 % (31-73) Lymphocytes (%) (Auto) 11 % (24-48) Monocytes (%) (Auto) 10 % (0-9) Eosinophils (%) (Auto) 3 % (0-3) Basophils (%) (Auto) 1 % (0-3) Neutrophils # (Auto) 6.3 x10^3uL (1.8-7.7) Lymphocytes # (Auto) 0.9 x10^3/uL (1.0-4.8) Monocytes # (Auto) 0.9 x10^3/uL (0.0-1.1) Eosinophils # (Auto) 0.2 x10^3/uL (0.0-0.7) Basophils # (Auto) 0.0 x10^3/uL (0.0-0.2) Sodium Level 137 mmol/L (136-145) Potassium Level 3.6 mmol/L (3.5-5.1) Chloride Level 104 mmol/L (98-107) Carbon Dioxide Level 24 mmol/L (21-32) Anion Gap 9 (6-14) Blood Urea Nitrogen 36 mg/dL (7-20) Creatinine 1.5 mg/dL (0.6-1.0) Estimated GFR (Cockcroft-Gault) 32.7 Glucose Level 103 mg/dL (70-99) Calcium Level 7.7 mg/dL (8.5-10.1) Magnesium Level 1.9 mg/dL (1.8-2.4) Notes A and A in bed family present dressings ok remains NVI Assessment and Plan PT/OT as VIJAY Sexton II, MD Feb 17, 2017 08:19
[2017-02-17] MEDS: SENNOSIDES/DOCUSATE 8.6/50MG TABLET. PO SCH (08:20)
[2017-02-17] MEDS: PANTOPRAZOLE 40 MG TABLET.DR. PO SCH (08:20)
[2017-02-17] MEDS: MULTIVITAMIN I-VITE TABLET. PO SCH (08:21)
[2017-02-17] MEDS: CHOLECALCIFEROL (VITAMIN D3) 1,000 UNIT TABLET PO SCH (08:21)
[2017-02-17] MEDS: ACETAMINOPHEN 325 MG TABLET. PO SCH ×4 (08:21→21:43)
[2017-02-17] MEDS: METOPROLOL TART IMMED RELEASE 25 MG TABLET. PO SCH ×2 (08:22→21:43)
[2017-02-17] MEDS: IV NORMAL SALINE 1000ML BAG 1,000 ML IV SCH (08:22)
[2017-02-17] MEDS: LEVOTHYROXINE 75 MCG TABLET PO SCH (08:24)
--- NOTE | 2017-02-17 10:51 | PDOC ---
PROGRESS NOTES Subjective Subjective constipated and has not had a BM in 5 days. will order lactulose today. lab reviewed. pro-BNP high but this test is limited given her age of 89 and clinically not in CHF. not short of breath. confused,. comfortable. inr high 3.8 and target inr is 1.5. Objective Objective Vital Signs Date Time Temp Pulse Resp B/P (MAP) Pulse Ox O2 Delivery O2 Flow Rate FiO2 02/17/17 08:22 87 124/68 02/17/17 08:00 Nasal Cannula 2.0 02/17/17 07:00 16 96 02/17/17 03:00 97.1 97.1 Physical Exam Abdomen: Soft Heart: Normal S1, Normal S2 Extremities: No edema General: Alert HEENT: Atraumatic Lungs: Other (decreased breath sounds right lung base. no crackles) Neuro: Normal speech Psych/Mental Status: Mood NL, Other Skin: No rashes, Other (dry dressing right hip) Assessment Assessment Problems1. ORIF right hip fracture acute blood loss anemia hemolytic anemia impaired cognitive disorder debility asymptomatic right pleural effusion. 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 target INR 1.5 continue tylenol qid and prn tramadol eventual transfer to SNF later this week. Comment Review of Relevant I have reviewed the following items shara (where applicable) has been applied. Labs Laboratory Tests Test 02/16/17 03:50 02/16/17 14:15 02/17/17 04:15 White Blood Count 9.8 x10^3/uL (4.0-11.0) 8.3 x10^3/uL (4.0-11.0) Red Blood Count 2.92 x10^6/uL (3.50-5.40) 2.93 x10^6/uL (3.50-5.40) Hemoglobin 9.9 g/dL (12.0-15.5) 10.2 g/dL (12.0-15.5) Hematocrit 28.7 % (36.0-47.0) 29.5 % (36.0-47.0) Mean Corpuscular Volume 98 fL (79-100) 101 fL (79-100) Mean Corpuscular Hemoglobin 34 pg (25-35) 35 pg (25-35) Mean Corpuscular Hemoglobin Concent 34 g/dL (31-37) 35 g/dL (31-37) Red Cell Distribution Width 21.6 % (11.5-14.5) 21.8 % (11.5-14.5) Platelet Count 110 x10^3/uL (140-400) 120 x10^3/uL (140-400) Neutrophils (%) (Auto) 75 % (31-73) 76 % (31-73) Lymphocytes (%) (Auto) 13 % (24-48) 11 % (24-48) Monocytes (%) (Auto) 12 % (0-9) 10 % (0-9) Eosinophils (%) (Auto) 1 % (0-3) 3 % (0-3) Basophils (%) (Auto) 0 % (0-3) 1 % (0-3) Neutrophils # (Auto) 7.3 x10^3uL (1.8-7.7) 6.3 x10^3uL (1.8-7.7) Lymphocytes # (Auto) 1.2 x10^3/uL (1.0-4.8) 0.9 x10^3/uL (1.0-4.8) Monocytes # (Auto) 1.2 x10^3/uL (0.0-1.1) 0.9 x10^3/uL (0.0-1.1) Eosinophils # (Auto) 0.1 x10^3/uL (0.0-0.7) 0.2 x10^3/uL (0.0-0.7) Basophils # (Auto) 0.0 x10^3/uL (0.0-0.2) 0.0 x10^3/uL (0.0-0.2) Sodium Level 137 mmol/L (136-145) 137 mmol/L (136-145) Potassium Level 4.0 mmol/L (3.5-5.1) 3.6 mmol/L (3.5-5.1) Chloride Level 103 mmol/L (98-107) 104 mmol/L (98-107) Carbon Dioxide Level 25 mmol/L (21-32) 24 mmol/L (21-32) Anion Gap 9 (6-14) 9 (6-14) Blood Urea Nitrogen 39 mg/dL (7-20) 36 mg/dL (7-20) Creatinine 1.7 mg/dL (0.6-1.0) 1.5 mg/dL (0.6-1.0) Estimated GFR (Cockcroft-Gault) 28.3 32.7 Glucose Level 111 mg/dL (70-99) 103 mg/dL (70-99) Calcium Level 8.1 mg/dL (8.5-10.1) 7.7 mg/dL (8.5-10.1) LL-Pie-O-Type Natriuretic Peptide 36125 pg/mL (0-449) Thyroid Stimulating Hormone (TSH) 5.902 uIU/mL (0.358-3.74) Prothrombin Time 26.7 SEC (11.7-14.0) 34.9 SEC (11.7-14.0) Prothromb Time International Ratio 2.7 (0.8-1.1) 3.8 (0.8-1.1) Magnesium Level 1.9 mg/dL (1.8-2.4) Laboratory Tests Test 02/16/17 14:15 02/17/17 04:15 Prothrombin Time 26.7 SEC (11.7-14.0) 34.9 SEC (11.7-14.0) Prothromb Time International Ratio 2.7 (0.8-1.1) 3.8 (0.8-1.1) White Blood Count 8.3 x10^3/uL (4.0-11.0) Red Blood Count 2.93 x10^6/uL (3.50-5.40) Hemoglobin 10.2 g/dL (12.0-15.5) Hematocrit 29.5 % (36.0-47.0) Mean Corpuscular Volume 101 fL (79-100) Mean Corpuscular Hemoglobin 35 pg (25-35) Mean Corpuscular Hemoglobin Concent 35 g/dL (31-37) Red Cell Distribution Width 21.8 % (11.5-14.5) Platelet Count 120 x10^3/uL (140-400) Neutrophils (%) (Auto) 76 % (31-73) Lymphocytes (%) (Auto) 11 % (24-48) Monocytes (%) (Auto) 10 % (0-9) Eosinophils (%) (Auto) 3 % (0-3) Basophils (%) (Auto) 1 % (0-3) Neutrophils # (Auto) 6.3 x10^3uL (1.8-7.7) Lymphocytes # (Auto) 0.9 x10^3/uL (1.0-4.8) Monocytes # (Auto) 0.9 x10^3/uL (0.0-1.1) Eosinophils # (Auto) 0.2 x10^3/uL (0.0-0.7) Basophils # (Auto) 0.0 x10^3/uL (0.0-0.2) Sodium Level 137 mmol/L (136-145) Potassium Level 3.6 mmol/L (3.5-5.1) Chloride Level 104 mmol/L (98-107) Carbon Dioxide Level 24 mmol/L (21-32) Anion Gap 9 (6-14) Blood Urea Nitrogen 36 mg/dL (7-20) Creatinine 1.5 mg/dL (0.6-1.0) Estimated GFR (Cockcroft-Gault) 32.7 Glucose Level 103 mg/dL (70-99) Calcium Level 7.7 mg/dL (8.5-10.1) Magnesium Level 1.9 mg/dL (1.8-2.4) Microbiology 02/13/17 Urine Culture - Final, Complete 02/13/17 Urine Culture Result 1 ([place]) - Final, Complete Medications Current Medications Fentanyl Citrate (Fentanyl 2ml Vial) 25 mcg 1X ONCE IV Last administered on 08:13; Start 02/13/17 at 07:00; Stop 02/13/17 at 07:01; Status DC Fentanyl Citrate (Fentanyl 2ml Vial) 50 mcg PRN Q1HR PRN IV PAIN Last administered on 02/13/17 22:51; Start 02/13/17 at 07:45; Stop 02/14/17 at 07 :44; Status DC Sodium Chloride 1,000 ml @ 75 mls/hr 1X ONCE IV Last administered on 08:30; Start 02/13/17 at 07:45; Stop 02/13/17 at 10:26; Status DC Cefazolin Sodium/ Dextrose 50 ml @ 100 mls/hr 1X ONCE IV ; Start 02/13/17 at 10:15; Stop 02/13/17 at 10:44; Status Cancel Fentanyl Citrate (Fentanyl 2ml Vial) 25 mcg PRN Q4HRS PRN IV PAIN; Start 02/13 at 10:30; Stop 02/15/17 at 11:02; Status DC Acetaminophen (Tylenol) 650 mg PRN Q6HRS PRN PO MILD PAIN / TEMP; Start at 10:30 Pantoprazole Sodium (Protonix) 40 mg DAILYAC PO Last administered on 08:20; Start 02/13/17 at 11:30 Multivitamins/ Minerals (I-Rashaun) 1 tab DAILY PO Last administered on 08:21; Start 02/13/17 at 12:00 Levothyroxine Sodium (Synthroid) 75 mcg DAILY07 PO Last administered on 08:24; Start 02/13/17 at 10:30 Trazodone HCl (Desyrel) 50 mg QHS PO Last administered on 02/16/17 21:51; Start 02/13/17 at 21:00 Metoprolol Tartrate (Lopressor) 12.5 mg BID PO Last administered on 02/17/17 08:22; Start 02/13/17 at 11:00 Senna/Docusate Sodium (Senna Plus) 2 tab DAILY PO Last administered on 08:20; Start 02/13/17 at 11:00 Potassium Chloride/Dextrose/ Sod Cl 1,000 ml @ 60 mls/hr [id number] IV Last administered on 02/15/17 01:44; Start 02/13/17 at 12:00; Stop 02/15/17 at 08 :59; Status DC Pneumococcal Polyvalent Vaccine (Pneumovax 23) 0.5 ml ONCE ONCE VAX IM Last administered on 02/13/17 13:05; Start 02/13/17 at 12:00; Stop 02/13/17 at 12 :01; Status DC Influenza Virus Vaccine Quadrival (Fluarix Quad [id number] Syringe) 0.5 ml ONCE ONCE VAX IM Last administered on 02/13/17 13:06; Start 02/13/17 at 12:00; Stop 02/13/17 at 12:01; Status DC Lorazepam (Ativan) 0.25 mg PRN QHS PRN PO ANXIETY / AGITATION Last administered on 02/14/17 01:59; Start 02/13/17 at 11:30 Cefazolin Sodium/ Dextrose 50 ml @ 100 mls/hr 1X PREOP PRN IV PRIOR TO SURGERY ; Start 02/13/17 at 12:30 Ondansetron HCl (Zofran) 4 mg PRN Q6HRS PRN IV NAUSEA/VOMITING; Start at 07:00; Stop 02/14/17 at 18:00; Status DC Fentanyl Citrate (Fentanyl 2ml Vial) 25 mcg PRN Q5MIN PRN IV MILD PAIN; Start 02/14/17 at 07:00; Stop 02/14/17 at 18:00; Status DC Fentanyl Citrate (Fentanyl 2ml Vial) 50 mcg PRN Q5MIN PRN IV MODERATE PAIN; Start 02/14/17 at 07:00; Stop 02/14/17 at 18:00; Status DC Ringer's Solution 1,000 ml @ 30 mls/hr Q24H IV ; Start 02/14/17 at 07:00; Stop 02/14/17 at 18:59; Status DC Lidocaine HCl (Xylocaine-Mpf 1% Vial) 2 ml PRN 1X PRN ID IV START; Start 02/14 at 07:00; Stop 02/14/17 at 18:00; Status DC Prochlorperazine Edisylate (Compazine) 5 mg PACU PRN PRN IV NAUSEA, MRX1; Start 02/14/17 at 07:00; Stop 02/14/17 at 18:00; Status DC Ferrous Sulfate (Feosol) 325 mg DAILYWSUP PO Last administered on 02/16/17 18 :20; Start 02/14/17 at 17:00 Lidocaine HCl 20 ml STK-MED ONCE .ROUTE ; Start 02/14/17 at 09:30; Stop at 10:31; Status DC Bupivacaine HCl (Sensorcaine Mpf 0.5%) 30 ml STK-MED ONCE .ROUTE ; Start at 09:31; Stop 02/14/17 at 10:31; Status DC Sevoflurane (Ultane) 60 ml STK-MED ONCE IH ; Start 02/14/17 at 10:36; Stop 04/21 at 10:37; Status DC Fentanyl Citrate (Fentanyl 2ml Vial) 100 mcg STK-MED ONCE .ROUTE ; Start at 10:36; Stop 02/14/17 at 10:37; Status DC Propofol 20 ml @ As Directed STK-MED ONCE IV ; Start 02/14/17 at 10:36; Stop 02/14/17 at 10:37; Status DC Dexamethasone Sodium Phosphate (Decadron) 20 mg STK-MED ONCE .ROUTE ; Start 04/21 at 10:36; Stop 02/14/17 at 10:37; Status DC Lidocaine HCl (Lidocaine Pf 2% Vial) 5 ml STK-MED ONCE .ROUTE ; Start 02/14/17 at 10:36; Stop 02/14/17 at 10:37; Status DC Lidocaine HCl (Lidocaine Pf 2% Vial) 5 ml STK-MED ONCE .ROUTE ; Start 02/14/17 at 10:36; Stop 02/14/17 at 10:37; Status DC Phenylephrine HCl 1 mg STK-MED ONCE IV ; Start 02/14/17 at 10:36; Stop at 10:37; Status DC Ondansetron HCl (Zofran) 4 mg STK-MED ONCE .ROUTE ; Start 02/14/17 at 10:37; Stop 02/14/17 at 10:38; Status DC Ketorolac Tromethamine 30 mg/Ropivacaine 60 ml/Epinephrine HCl 0.5 mg/Sodium Chloride 99.5 ml @ 99.5 mls/hr 1X PERIOP ONCE INT ART Last administered on t 12:07; Start 02/14/17 at 11:30; Stop 02/14/17 at 12:29; Status DC Cefazolin Sodium 1 gm/Sodium Chloride 50 ml @ 100 mls/hr Q6H IV Last administered on 02/15/17t 05:41; Start 02/14/17 at 17:30; Stop 02/15/17 at 05 :59; Status DC Enoxaparin Sodium (Lovenox 30mg Syringe) 30 mg Q24H SQ ; Start 02/15/17 at 08: 00; Stop 02/15/17 at 08:18; Status DC Warfarin Sodium (Coumadin Per Pharmacy) 1 each PRN DAILY PRN MC SEE COMMENTS Last administered on 02/16/17 14:49; Start 02/15/17 at 08:15 Warfarin Sodium (Coumadin) 5 mg 1X ONCE PO Last administered on 02/15/17 16: 48; Start 02/15/17 at 16:00; Stop 02/15/17 at 16:01; Status DC Cefazolin Sodium/ Dextrose (Ancef 2gm Premix) 2 gm STK-MED ONCE IV ; Start 04/21 at 10:40; Stop 02/15/17 at 08:53; Status DC Vitamin D (Vitamin D3) 1,000 unit DAILY PO Last administered on 02/17/17 08: 21; Start 02/15/17 at 10:00 Tramadol HCl (Ultram) 25 mg PRN Q6HRS PRN PO PAIN; Start 02/15/17 at 11:00 Acetaminophen (Tylenol) 325 mg PRN QID PRN PO PAIN; Start 02/15/17 at 11:00; Stop 02/15/17 at 13:21; Status DC Ondansetron HCl (Zofran Odt) 4 mg PRN Q6HRS PRN PO NAUSEA/VOMITING; Start at 11:00 Acetaminophen (Tylenol) 325 mg QID PO Last administered on 02/17/17 08:21; Start 02/15/17 at 13:30 Sodium Chloride 1,000 ml @ 50 mls/hr Q20H IV Last administered on 02/17/17 08:22; Start 02/16/17 at 11:00 Warfarin Sodium (Coumadin - No Dose Today) 1 each 1X WARF ONCE MC ; Start at 16:00; Stop 02/16/17 at 16:01; Status DC Active Scripts Active Reported Lorazepam 0.5 Mg Tablet 0.5 Tab PO HS Ocuvite Eye + Multi Tablet (Mv-Mn/FA/Vit K/Lycop/Lut/Zeaxa) 1 Each Tablet 1 Each PO DAILY Levothyroxine Sodium 75 Mcg Tablet 1 Tab PO DAILY Pantoprazole Sodium 40 Mg Tablet.dr 40 Mg PO DAILY Trazodone Hcl 50 Mg Tablet 50 Mg PO HS Metoprolol Tartrate 25 Mg Tablet 12.5 Mg PO DAILY Tylenol (Acetaminophen) 325 Mg Tablet 2 Tab PO PRN Q4HRS PRN Vitals/I & O Vital Sign - Last 24 Hours 02/16/17 02/16/17 02/16/17 02/16/17 11:00 15:00 19:00 20:00 Temp 97.5 97.8 97.4 97.5 97.8 97.4 Pulse 89 86 99 Resp 20 20 B/P (MAP) 121/65 (83) 120/66 (84) 139/76 (97) Pulse Ox 95 99 96 O2 Delivery Nasal Cannula Nasal Cannula Nasal Cannula Nasal Cannula O2 Flow Rate 2.0 2.0 2.0 02/16/17 02/16/17 02/17/17 02/17/17 21:52 23:00 03:00 07:00 Temp 96.4 97.1 96.4 97.1 Pulse 86 99 87 103 Resp 20 20 16 B/P (MAP) 120/66 125/69 (87) 124/68 (86) 128/66 (86) Pulse Ox 93 97 96 O2 Delivery Room Air Room Air Room Air 02/17/17 02/17/17 08:00 08:22 Pulse 87 B/P (MAP) 124/68 O2 Delivery Nasal Cannula O2 Flow Rate 2.0 MIKI COLORADO MD Feb 17, 2017 10:51
[2017-02-17 11:00] VITALS: BP 111/48
[2017-02-17] MEDS: POLYETHYLENE GLYCOL 3350 17 GM PACKET. PO SCH (11:07)
[2017-02-17] MEDS: LACTULOSE 20 GM/30 ML SOLUTION. PO SCH ×3 (11:07→21:43)
[2017-02-17 15:00] VITALS: BP 114/57
[2017-02-17] MEDS: FERROUS SULFATE 325 MG TABLET. PO SCH (17:18)
--- NOTE | 2017-02-17 18:52 | PDOC ---
PULMONARY PROGRESS NOTES Subjective PT IN NO DISTRESS CONFUSED Vitals Vital Signs Date Time Temp Pulse Resp B/P (MAP) Pulse Ox O2 Delivery O2 Flow Rate FiO2 02/17/17 15:00 96.3 80 16 114/57 (76) 96 Room Air 96.3 02/17/17 08:00 2.0 ROS: No Nausea HEENT: Other (nc at perrl) Lungs: Other (dull at right base) Cardiovascular: S1, S2 Abdomen: Soft, Non-tender Extremities: Other (edema) Skin: Warm Labs Laboratory Tests Test 02/16/17 03:50 02/16/17 14:15 02/17/17 04:15 White Blood Count 9.8 x10^3/uL (4.0-11.0) 8.3 x10^3/uL (4.0-11.0) Red Blood Count 2.92 x10^6/uL (3.50-5.40) 2.93 x10^6/uL (3.50-5.40) Hemoglobin 9.9 g/dL (12.0-15.5) 10.2 g/dL (12.0-15.5) Hematocrit 28.7 % (36.0-47.0) 29.5 % (36.0-47.0) Mean Corpuscular Volume 98 fL (79-100) 101 fL (79-100) Mean Corpuscular Hemoglobin 34 pg (25-35) 35 pg (25-35) Mean Corpuscular Hemoglobin Concent 34 g/dL (31-37) 35 g/dL (31-37) Red Cell Distribution Width 21.6 % (11.5-14.5) 21.8 % (11.5-14.5) Platelet Count 110 x10^3/uL (140-400) 120 x10^3/uL (140-400) Neutrophils (%) (Auto) 75 % (31-73) 76 % (31-73) Lymphocytes (%) (Auto) 13 % (24-48) 11 % (24-48) Monocytes (%) (Auto) 12 % (0-9) 10 % (0-9) Eosinophils (%) (Auto) 1 % (0-3) 3 % (0-3) Basophils (%) (Auto) 0 % (0-3) 1 % (0-3) Neutrophils # (Auto) 7.3 x10^3uL (1.8-7.7) 6.3 x10^3uL (1.8-7.7) Lymphocytes # (Auto) 1.2 x10^3/uL (1.0-4.8) 0.9 x10^3/uL (1.0-4.8) Monocytes # (Auto) 1.2 x10^3/uL (0.0-1.1) 0.9 x10^3/uL (0.0-1.1) Eosinophils # (Auto) 0.1 x10^3/uL (0.0-0.7) 0.2 x10^3/uL (0.0-0.7) Basophils # (Auto) 0.0 x10^3/uL (0.0-0.2) 0.0 x10^3/uL (0.0-0.2) Sodium Level 137 mmol/L (136-145) 137 mmol/L (136-145) Potassium Level 4.0 mmol/L (3.5-5.1) 3.6 mmol/L (3.5-5.1) Chloride Level 103 mmol/L (98-107) 104 mmol/L (98-107) Carbon Dioxide Level 25 mmol/L (21-32) 24 mmol/L (21-32) Anion Gap 9 (6-14) 9 (6-14) Blood Urea Nitrogen 39 mg/dL (7-20) 36 mg/dL (7-20) Creatinine 1.7 mg/dL (0.6-1.0) 1.5 mg/dL (0.6-1.0) Estimated GFR (Cockcroft-Gault) 28.3 32.7 Glucose Level 111 mg/dL (70-99) 103 mg/dL (70-99) Calcium Level 8.1 mg/dL (8.5-10.1) 7.7 mg/dL (8.5-10.1) ET-Ybk-I-Type Natriuretic Peptide 38610 pg/mL (0-449) Thyroid Stimulating Hormone (TSH) 5.902 uIU/mL (0.358-3.74) Prothrombin Time 26.7 SEC (11.7-14.0) 34.9 SEC (11.7-14.0) Prothromb Time International Ratio 2.7 (0.8-1.1) 3.8 (0.8-1.1) Magnesium Level 1.9 mg/dL (1.8-2.4) Laboratory Tests Test 02/17/17 04:15 White Blood Count 8.3 x10^3/uL (4.0-11.0) Red Blood Count 2.93 x10^6/uL (3.50-5.40) Hemoglobin 10.2 g/dL (12.0-15.5) Hematocrit 29.5 % (36.0-47.0) Mean Corpuscular Volume 101 fL (79-100) Mean Corpuscular Hemoglobin 35 pg (25-35) Mean Corpuscular Hemoglobin Concent 35 g/dL (31-37) Red Cell Distribution Width 21.8 % (11.5-14.5) Platelet Count 120 x10^3/uL (140-400) Neutrophils (%) (Auto) 76 % (31-73) Lymphocytes (%) (Auto) 11 % (24-48) Monocytes (%) (Auto) 10 % (0-9) Eosinophils (%) (Auto) 3 % (0-3) Basophils (%) (Auto) 1 % (0-3) Neutrophils # (Auto) 6.3 x10^3uL (1.8-7.7) Lymphocytes # (Auto) 0.9 x10^3/uL (1.0-4.8) Monocytes # (Auto) 0.9 x10^3/uL (0.0-1.1) Eosinophils # (Auto) 0.2 x10^3/uL (0.0-0.7) Basophils # (Auto) 0.0 x10^3/uL (0.0-0.2) Prothrombin Time 34.9 SEC (11.7-14.0) Prothromb Time International Ratio 3.8 (0.8-1.1) Sodium Level 137 mmol/L (136-145) Potassium Level 3.6 mmol/L (3.5-5.1) Chloride Level 104 mmol/L (98-107) Carbon Dioxide Level 24 mmol/L (21-32) Anion Gap 9 (6-14) Blood Urea Nitrogen 36 mg/dL (7-20) Creatinine 1.5 mg/dL (0.6-1.0) Estimated GFR (Cockcroft-Gault) 32.7 Glucose Level 103 mg/dL (70-99) Calcium Level 7.7 mg/dL (8.5-10.1) Magnesium Level 1.9 mg/dL (1.8-2.4) Medications Active Scripts Medications Dose Route/Sig Max Daily Dose Days Date Category Lorazepam 0.5 Mg Tablet 0.5 Tab PO HS 02/13/17 Reported Ocuvite Eye + Multi Tablet (Mv-Mn/FA/Vit K/Lycop/Lut/Zeaxa) 1 Each Tablet 1 Each PO DAILY 02/13/17 Reported Levothyroxine Sodium 75 Mcg Tablet 1 Tab PO DAILY 02/13/17 Reported Pantoprazole Sodium 40 Mg Tablet.dr 40 Mg PO DAILY 11/16/16 Reported Trazodone Hcl 50 Mg Tablet 50 Mg PO HS 12/12/15 Reported Metoprolol Tartrate 25 Mg Tablet 12.5 Mg PO DAILY 12/12/15 Reported Tylenol (Acetaminophen) 325 Mg Tablet 2 Tab PO PRN Q4HRS PRN 12/04/15 Reported Impression . IMPRESSION: 1. Right-sided effusion, possible infiltrate. 2. Right hip fracture, status post closed reduction and intramedullary nailing to the right intertrochanteric hip fracture. 3. Hyperbilirubinemia. 4. Chronic anemia. 5. Chronic paroxysmal atrial fibrillation. 6. Reflux esophagitis. 7. Status post aortic valve replacement. 8. Dementia. Plan . SON AT BEDSIDE WISHES TO WAIT TO PERFROM THORACENTSIS PT IN NO RESP DISTRESS I HAVE ASK HIM TO NOTIFY US IF HE CHANGES HIS MIND 1. Recommend thoracentesis by Interventional Radiology, it is certainly possible that the pleural effusion is related to the recent trauma. 2. Continue postop care. 3. Oxygen supplementation. 4. Follow Cardiology and Hematology input. NA MERAZ MD Feb 17, 2017 18:52
[2017-02-17 19:20] VITALS: BP 120/57
[2017-02-17] MEDS: traZODone 50 MG TABLET. PO SCH (21:44)
[2017-02-17 23:16] VITALS: BP 110/44
[2017-02-18 03:16] VITALS: BP 113/64
[2017-02-18] MEDS: IV NORMAL SALINE 1000ML BAG 1,000 ML IV SCH (04:41)
[2017-02-18] MEDS: PANTOPRAZOLE 40 MG TABLET.DR. PO SCH ×3 (06:02→12:28)
[2017-02-18] MEDS: LEVOTHYROXINE 75 MCG TABLET PO SCH ×3 (06:02→12:27)
[2017-02-18 06:24] LABS: BASO % 1 % (0-3); EOS % 3 % (0-3); HEMOGLOBIN 9.9 g/dL (12.0-15.5); LYMPH # 0.8 x10^3/uL (1.0-4.8); LYMPH % 13 % (24-48); MEAN CORPUSCULAR HEMOGLOBIN 34 pg (25-35); MEAN CORPUSCULAR HGB CONC 34 g/dL (31-37); MEAN CORPUSCULAR VOLUME 100 fL (79-100); MONO % 12 % (0-9); NEUT % 72 % (31-73); PLATELET COUNT 119 x10^3/uL (140-400); RED BLOOD COUNT 2.89 x10^6/uL (3.50-5.40); RED CELL DISTRIBUTION WIDTH 22.1 % (11.5-14.5); WHITE BLOOD COUNT 6.2 x10^3/uL (4.0-11.0)
[2017-02-18 06:33] LABS: INR 2.2 (0.8-1.1); PROTHROMBIN TIME PATIENT 23.4 SEC (11.7-14.0)
[2017-02-18 07:00] VITALS: BP 121/61
[2017-02-18 07:00] LABS: CALCIUM 8.2 mg/dL (8.5-10.1); CREATININE 1.3 mg/dL (0.6-1.0); GFR 38.6; POTASSIUM 3.6 mmol/L (3.5-5.1)
--- NOTE | 2017-02-18 08:36 | PDOC ---
PROGRESS NOTES Subjective Subjective sleeping and discussed with son. she is drinking more fluids. lab reviewed. potassium 3.6. Objective Objective Vital Signs Date Time Temp Pulse Resp B/P (MAP) Pulse Ox O2 Delivery O2 Flow Rate FiO2 02/18/17 07:00 97.9 81 18 121/61 (81) 100 Nasal Cannula 2.0 97.9 Physical Exam Abdomen: Soft Heart: Normal S1, Normal S2 Extremities: No edema General: Alert HEENT: Atraumatic Lungs: Clear to auscultation Neuro: Other (sleeping) Psych/Mental Status: Other (sleeping) Skin: No rashes, Other (dressing right hip) Assessment Assessment Problems1. ORIF right hip fracture acute blood loss anemia hemolytic anemia impaired cognitive disorder debility asymptomatic right pleural effusion. son declines thoracentesis asymptomatic cholelithiasis hypothyroidism paroxysmal atrial fibrillation history of upper GI bleed 11/19 gastric erosions and reflux esophagitis per EGD 11/19 acute kidney injury resolved on chronic kidney disease stage 3 bioprosthetic AVR and MVR Medical Problems: (1) Hyperbilirubinemia Status: Acute (2) Intertrochanteric fracture of left femur Status: Acute Plan Plan of Care d/c iv fluids SNF screen PT and OT anticipate dismissal tomorrow to SNF Comment Review of Relevant I have reviewed the following items shara (where applicable) has been applied. Labs Laboratory Tests Test 02/16/17 14:15 02/17/17 04:15 02/18/17 06:00 Prothrombin Time 26.7 SEC (11.7-14.0) 34.9 SEC (11.7-14.0) 23.4 SEC (11.7-14.0) Prothromb Time International Ratio 2.7 (0.8-1.1) 3.8 (0.8-1.1) 2.2 (0.8-1.1) White Blood Count 8.3 x10^3/uL (4.0-11.0) 6.2 x10^3/uL (4.0-11.0) Red Blood Count 2.93 x10^6/uL (3.50-5.40) 2.89 x10^6/uL (3.50-5.40) Hemoglobin 10.2 g/dL (12.0-15.5) 9.9 g/dL (12.0-15.5) Hematocrit 29.5 % (36.0-47.0) 29.0 % (36.0-47.0) Mean Corpuscular Volume 101 fL (79-100) 100 fL (79-100) Mean Corpuscular Hemoglobin 35 pg (25-35) 34 pg (25-35) Mean Corpuscular Hemoglobin Concent 35 g/dL (31-37) 34 g/dL (31-37) Red Cell Distribution Width 21.8 % (11.5-14.5) 22.1 % (11.5-14.5) Platelet Count 120 x10^3/uL (140-400) 119 x10^3/uL (140-400) Neutrophils (%) (Auto) 76 % (31-73) 72 % (31-73) Lymphocytes (%) (Auto) 11 % (24-48) 13 % (24-48) Monocytes (%) (Auto) 10 % (0-9) 12 % (0-9) Eosinophils (%) (Auto) 3 % (0-3) 3 % (0-3) Basophils (%) (Auto) 1 % (0-3) 1 % (0-3) Neutrophils # (Auto) 6.3 x10^3uL (1.8-7.7) 4.4 x10^3uL (1.8-7.7) Lymphocytes # (Auto) 0.9 x10^3/uL (1.0-4.8) 0.8 x10^3/uL (1.0-4.8) Monocytes # (Auto) 0.9 x10^3/uL (0.0-1.1) 0.7 x10^3/uL (0.0-1.1) Eosinophils # (Auto) 0.2 x10^3/uL (0.0-0.7) 0.2 x10^3/uL (0.0-0.7) Basophils # (Auto) 0.0 x10^3/uL (0.0-0.2) 0.0 x10^3/uL (0.0-0.2) Sodium Level 137 mmol/L (136-145) 141 mmol/L (136-145) Potassium Level 3.6 mmol/L (3.5-5.1) 3.6 mmol/L (3.5-5.1) Chloride Level 104 mmol/L (98-107) 109 mmol/L (98-107) Carbon Dioxide Level 24 mmol/L (21-32) 23 mmol/L (21-32) Anion Gap 9 (6-14) 9 (6-14) Blood Urea Nitrogen 36 mg/dL (7-20) 29 mg/dL (7-20) Creatinine 1.5 mg/dL (0.6-1.0) 1.3 mg/dL (0.6-1.0) Estimated GFR (Cockcroft-Gault) 32.7 38.6 Glucose Level 103 mg/dL (70-99) 84 mg/dL (70-99) Calcium Level 7.7 mg/dL (8.5-10.1) 8.2 mg/dL (8.5-10.1) Magnesium Level 1.9 mg/dL (1.8-2.4) Laboratory Tests Test 02/18/17 06:00 White Blood Count 6.2 x10^3/uL (4.0-11.0) Red Blood Count 2.89 x10^6/uL (3.50-5.40) Hemoglobin 9.9 g/dL (12.0-15.5) Hematocrit 29.0 % (36.0-47.0) Mean Corpuscular Volume 100 fL (79-100) Mean Corpuscular Hemoglobin 34 pg (25-35) Mean Corpuscular Hemoglobin Concent 34 g/dL (31-37) Red Cell Distribution Width 22.1 % (11.5-14.5) Platelet Count 119 x10^3/uL (140-400) Neutrophils (%) (Auto) 72 % (31-73) Lymphocytes (%) (Auto) 13 % (24-48) Monocytes (%) (Auto) 12 % (0-9) Eosinophils (%) (Auto) 3 % (0-3) Basophils (%) (Auto) 1 % (0-3) Neutrophils # (Auto) 4.4 x10^3uL (1.8-7.7) Lymphocytes # (Auto) 0.8 x10^3/uL (1.0-4.8) Monocytes # (Auto) 0.7 x10^3/uL (0.0-1.1) Eosinophils # (Auto) 0.2 x10^3/uL (0.0-0.7) Basophils # (Auto) 0.0 x10^3/uL (0.0-0.2) Prothrombin Time 23.4 SEC (11.7-14.0) Prothromb Time International Ratio 2.2 (0.8-1.1) Sodium Level 141 mmol/L (136-145) Potassium Level 3.6 mmol/L (3.5-5.1) Chloride Level 109 mmol/L (98-107) Carbon Dioxide Level 23 mmol/L (21-32) Anion Gap 9 (6-14) Blood Urea Nitrogen 29 mg/dL (7-20) Creatinine 1.3 mg/dL (0.6-1.0) Estimated GFR (Cockcroft-Gault) 38.6 Glucose Level 84 mg/dL (70-99) Calcium Level 8.2 mg/dL (8.5-10.1) Microbiology 02/13/17 Urine Culture - Final, Complete 02/13/17 Urine Culture Result 1 ([place]) - Final, Complete Medications Current Medications Fentanyl Citrate (Fentanyl 2ml Vial) 25 mcg 1X ONCE IV Last administered on 08:13; Start 02/13/17 at 07:00; Stop 02/13/17 at 07:01; Status DC Fentanyl Citrate (Fentanyl 2ml Vial) 50 mcg PRN Q1HR PRN IV PAIN Last administered on 02/13/17 22:51; Start 02/13/17 at 07:45; Stop 02/14/17 at 07 :44; Status DC Sodium Chloride 1,000 ml @ 75 mls/hr 1X ONCE IV Last administered on 08:30; Start 02/13/17 at 07:45; Stop 02/13/17 at 10:26; Status DC Cefazolin Sodium/ Dextrose 50 ml @ 100 mls/hr 1X ONCE IV ; Start 02/13/17 at 10:15; Stop 02/13/17 at 10:44; Status Cancel Fentanyl Citrate (Fentanyl 2ml Vial) 25 mcg PRN Q4HRS PRN IV PAIN; Start 02/13 at 10:30; Stop 02/15/17 at 11:02; Status DC Acetaminophen (Tylenol) 650 mg PRN Q6HRS PRN PO MILD PAIN / TEMP; Start at 10:30 Pantoprazole Sodium (Protonix) 40 mg DAILYAC PO Last administered on 08:20; Start 02/13/17 at 11:30 Multivitamins/ Minerals (I-Rashaun) 1 tab DAILY PO Last administered on 08:21; Start 02/13/17 at 12:00 Levothyroxine Sodium (Synthroid) 75 mcg DAILY07 PO Last administered on 08:24; Start 02/13/17 at 10:30 Trazodone HCl (Desyrel) 50 mg QHS PO Last administered on 02/17/17 21:44; Start 02/13/17 at 21:00 Metoprolol Tartrate (Lopressor) 12.5 mg BID PO Last administered on 02/17/17 21:43; Start 02/13/17 at 11:00 Senna/Docusate Sodium (Senna Plus) 2 tab DAILY PO Last administered on 08:20; Start 02/13/17 at 11:00 Potassium Chloride/Dextrose/ Sod Cl 1,000 ml @ 60 mls/hr [id number] IV Last administered on 02/15/17 01:44; Start 02/13/17 at 12:00; Stop 02/15/17 at 08 :59; Status DC Pneumococcal Polyvalent Vaccine (Pneumovax 23) 0.5 ml ONCE ONCE VAX IM Last administered on 02/13/17 13:05; Start 02/13/17 at 12:00; Stop 02/13/17 at 12 :01; Status DC Influenza Virus Vaccine Quadrival (Fluarix Quad [id number] Syringe) 0.5 ml ONCE ONCE VAX IM Last administered on 02/13/17 13:06; Start 02/13/17 at 12:00; Stop 02/13/17 at 12:01; Status DC Lorazepam (Ativan) 0.25 mg PRN QHS PRN PO ANXIETY / AGITATION Last administered on 02/14/17 01:59; Start 02/13/17 at 11:30 Cefazolin Sodium/ Dextrose 50 ml @ 100 mls/hr 1X PREOP PRN IV PRIOR TO SURGERY ; Start 02/13/17 at 12:30; Stop 02/17/17 at 12:22; Status DC Ondansetron HCl (Zofran) 4 mg PRN Q6HRS PRN IV NAUSEA/VOMITING; Start at 07:00; Stop 02/14/17 at 18:00; Status DC Fentanyl Citrate (Fentanyl 2ml Vial) 25 mcg PRN Q5MIN PRN IV MILD PAIN; Start 02/14/17 at 07:00; Stop 02/14/17 at 18:00; Status DC Fentanyl Citrate (Fentanyl 2ml Vial) 50 mcg PRN Q5MIN PRN IV MODERATE PAIN; Start 02/14/17 at 07:00; Stop 02/14/17 at 18:00; Status DC Ringer's Solution 1,000 ml @ 30 mls/hr Q24H IV ; Start 02/14/17 at 07:00; Stop 02/14/17 at 18:59; Status DC Lidocaine HCl (Xylocaine-Mpf 1% Vial) 2 ml PRN 1X PRN ID IV START; Start 02/14 at 07:00; Stop 02/14/17 at 18:00; Status DC Prochlorperazine Edisylate (Compazine) 5 mg PACU PRN PRN IV NAUSEA, MRX1; Start 02/14/17 at 07:00; Stop 02/14/17 at 18:00; Status DC Ferrous Sulfate (Feosol) 325 mg DAILYWSUP PO Last administered on 02/17/17t 17 :18; Start 02/14/17 at 17:00 Lidocaine HCl 20 ml STK-MED ONCE .ROUTE ; Start 02/14/17 at 09:30; Stop at 10:31; Status DC Bupivacaine HCl (Sensorcaine Mpf 0.5%) 30 ml STK-MED ONCE .ROUTE ; Start at 09:31; Stop 02/14/17 at 10:31; Status DC Sevoflurane (Ultane) 60 ml STK-MED ONCE IH ; Start 02/14/17 at 10:36; Stop 04/21 at 10:37; Status DC Fentanyl Citrate (Fentanyl 2ml Vial) 100 mcg STK-MED ONCE .ROUTE ; Start at 10:36; Stop 02/14/17 at 10:37; Status DC Propofol 20 ml @ As Directed STK-MED ONCE IV ; Start 02/14/17 at 10:36; Stop 02/14/17 at 10:37; Status DC Dexamethasone Sodium Phosphate (Decadron) 20 mg STK-MED ONCE .ROUTE ; Start 04/21 at 10:36; Stop 02/14/17 at 10:37; Status DC Lidocaine HCl (Lidocaine Pf 2% Vial) 5 ml STK-MED ONCE .ROUTE ; Start 02/14/17 at 10:36; Stop 02/14/17 at 10:37; Status DC Lidocaine HCl (Lidocaine Pf 2% Vial) 5 ml STK-MED ONCE .ROUTE ; Start 02/14/17 at 10:36; Stop 02/14/17 at 10:37; Status DC Phenylephrine HCl 1 mg STK-MED ONCE IV ; Start 02/14/17 at 10:36; Stop at 10:37; Status DC Ondansetron HCl (Zofran) 4 mg STK-MED ONCE .ROUTE ; Start 02/14/17 at 10:37; Stop 02/14/17 at 10:38; Status DC Ketorolac Tromethamine 30 mg/Ropivacaine 60 ml/Epinephrine HCl 0.5 mg/Sodium Chloride 99.5 ml @ 99.5 mls/hr 1X PERIOP ONCE INT ART Last administered on 12:07; Start 02/14/17 at 11:30; Stop 02/14/17 at 12:29; Status DC Cefazolin Sodium 1 gm/Sodium Chloride 50 ml @ 100 mls/hr Q6H IV Last administered on 02/15/17 05:41; Start 02/14/17 at 17:30; Stop 02/15/17 at 05 :59; Status DC Enoxaparin Sodium (Lovenox 30mg Syringe) 30 mg Q24H SQ ; Start 02/15/17 at 08: 00; Stop 02/15/17 at 08:18; Status DC Warfarin Sodium (Coumadin Per Pharmacy) 1 each PRN DAILY PRN MC SEE COMMENTS Last administered on 02/17/17 12:20; Start 02/15/17 at 08:15 Warfarin Sodium (Coumadin) 5 mg 1X ONCE PO Last administered on 02/15/17 16: 48; Start 02/15/17 at 16:00; Stop 02/15/17 at 16:01; Status DC Cefazolin Sodium/ Dextrose (Ancef 2gm Premix) 2 gm STK-MED ONCE IV ; Start 04/21 at 10:40; Stop 02/15/17 at 08:53; Status DC Vitamin D (Vitamin D3) 1,000 unit DAILY PO Last administered on 02/17/17 08: 21; Start 02/15/17 at 10:00 Tramadol HCl (Ultram) 25 mg PRN Q6HRS PRN PO PAIN; Start 02/15/17 at 11:00 Acetaminophen (Tylenol) 325 mg PRN QID PRN PO PAIN; Start 02/15/17 at 11:00; Stop 02/15/17 at 13:21; Status DC Ondansetron HCl (Zofran Odt) 4 mg PRN Q6HRS PRN PO NAUSEA/VOMITING; Start at 11:00 Acetaminophen (Tylenol) 325 mg QID PO Last administered on 02/17/17 21:43; Start 02/15/17 at 13:30 Sodium Chloride 1,000 ml @ 30 mls/hr Q24H IV Last administered on 02/18/17 04:41; Start 02/16/17 at 11:00 Warfarin Sodium (Coumadin - No Dose Today) 1 each 1X WARF ONCE MC ; Start at 16:00; Stop 02/16/17 at 16:01; Status DC Lactulose 20 gm BID PO Last administered on 02/17/17 11:07; Start 02/17/17 at 12:00; Stop 02/18/17 at 01:00; Status DC Polyethylene Glycol (miraLAX PACKET) 17 gm DAILY PO Last administered on 11:07; Start 02/17/17 at 11:00 Warfarin Sodium (Coumadin - No Dose Today) 1 each 1X WARF ONCE MC Last administered on 02/17/17 16:00; Start 02/17/17 at 16:00; Stop 02/17/17 at 16 :01; Status DC Active Scripts Active Reported Lorazepam 0.5 Mg Tablet 0.5 Tab PO HS Ocuvite Eye + Multi Tablet (Mv-Mn/FA/Vit K/Lycop/Lut/Zeaxa) 1 Each Tablet 1 Each PO DAILY Levothyroxine Sodium 75 Mcg Tablet 1 Tab PO DAILY Pantoprazole Sodium 40 Mg Tablet.dr 40 Mg PO DAILY Trazodone Hcl 50 Mg Tablet 50 Mg PO HS Metoprolol Tartrate 25 Mg Tablet 12.5 Mg PO DAILY Tylenol (Acetaminophen) 325 Mg Tablet 2 Tab PO PRN Q4HRS PRN Vitals/I & O Vital Sign - Last 24 Hours 02/17/17 02/17/17 02/17/17 02/17/17 11:00 15:00 19:20 20:00 Temp 96.3 97.9 96.3 97.9 Pulse 83 80 86 Resp 16 16 18 B/P (MAP) 111/48 (69) 114/57 (76) 120/57 (78) Pulse Ox 94 96 95 O2 Delivery Room Air Room Air Room Air Nasal Cannula O2 Flow Rate 2.0 02/17/17 02/17/17 02/18/17 02/18/17 21:43 23:16 03:16 07:00 Temp 97.9 98.1 97.9 97.9 98.1 97.9 Pulse 86 83 80 81 Resp 18 B/P (MAP) 120/57 110/44 (66) 113/64 (80) 121/61 (81) Pulse Ox 98 100 100 O2 Delivery Room Air Nasal Cannula Nasal Cannula O2 Flow Rate 2.0 2.0 MIKI COLORADO MD Feb 18, 2017 08:36
[2017-02-18] MEDS ORDERED: POTASSIUM CHLORIDE 20 MEQ TABLET.ER. PO ONE (08:45)
--- NOTE | 2017-02-18 08:46 | DISCH ---
DISCHARGE INSTRUCTIONS Condition on Discharge Condition on Discharge: Stable Activity After Discharge Activity Instructions for Disc: No restrictions Other activity instructions: WBAT RLE. ambulate with assistance Diet after Discharge Diet after Discharge: GI Soft, Regular Contacting the DRJacqueline after DC Call your doctor for: If your condition worsens Follow-Up Follow up with: dr. jasmine porras week after dismssal from SNF. Follow Up With: house physician at [facility] Warfarin Follow-Up Warfarin Follow UP: every MIKI Bingham MD Feb 18, 2017 08:46
--- NOTE | 2017-02-18 08:54 | PDOC ---
Provider Note Provider Note discharge summary dictated # [id number] MIKI COLORADO MD Feb 18, 2017 08:53
[2017-02-18] MEDS: CHOLECALCIFEROL (VITAMIN D3) 1,000 UNIT TABLET PO SCH ×2 (09:00→12:29)
[2017-02-18] MEDS: POLYETHYLENE GLYCOL 3350 17 GM PACKET. PO SCH (09:00)
[2017-02-18] MEDS: SENNOSIDES/DOCUSATE 8.6/50MG TABLET. PO SCH (09:00)
[2017-02-18] MEDS: MULTIVITAMIN I-VITE TABLET. PO SCH ×2 (09:00→12:30)
[2017-02-18] MEDS: METOPROLOL TART IMMED RELEASE 25 MG TABLET. PO SCH ×3 (09:00→20:44)
[2017-02-18] MEDS: ACETAMINOPHEN 325 MG TABLET. PO SCH ×4 (09:00→20:45)
--- NOTE | 2017-02-18 09:31 | PDOC ---
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 ROS - pain controlled Objective Objective Vital Signs Date Time Temp Pulse Resp B/P (MAP) Pulse Ox O2 Delivery O2 Flow Rate FiO2 02/18/17 07:00 97.9 81 18 121/61 (81) 100 Nasal Cannula 2.0 97.9 Physical Exam Heart: Normal S1, Normal S2 Lungs: Clear to auscultation Assessment Assessment Problems Medical Problems: (1) Hyperbilirubinemia Status: Acute (2) Intertrochanteric fracture of left femur Status: Acute IMPRESSION AND PLAN: 1. 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 Haptoglobin is low, Brown test neg and LDH elevated. Reticulocyte elevated. Review of the prior records indicates that she has always responded well to blood transfusions. 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 I d/w DR Strange who agreed not to initiate steroids at this time considering her advanced age and the toxicities associated with steroids. However, if she does not respond to transfusions and if her hemoglobin continues to drop, then I would plan to initiate steroids. I discussed in detail with the patient and family. Hb 7.5 02/14/17 s/p 2 u PRBC Hb 9.9 02/18/17. LDH better improved from 1088 to 371. Hence no need for steroids. Monitor cbc 2. Right hip fracture. s/ph surgery, 02/14/2017. I d/w RN 3. 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 She had ultrasound of the abdomen on 02/13/2017 that revealed cholelithiasis and moderate-sized right pleural effusion. CT scan of the abdomen on 11/15/2016 revealed cholelithiasis and no hepatic lesions. Comment Review of Relevant I have reviewed the following items shara (where applicable) has been applied. Labs Laboratory Tests Test 02/16/17 14:15 02/17/17 04:15 02/18/17 06:00 Prothrombin Time 26.7 SEC (11.7-14.0) 34.9 SEC (11.7-14.0) 23.4 SEC (11.7-14.0) Prothromb Time International Ratio 2.7 (0.8-1.1) 3.8 (0.8-1.1) 2.2 (0.8-1.1) White Blood Count 8.3 x10^3/uL (4.0-11.0) 6.2 x10^3/uL (4.0-11.0) Red Blood Count 2.93 x10^6/uL (3.50-5.40) 2.89 x10^6/uL (3.50-5.40) Hemoglobin 10.2 g/dL (12.0-15.5) 9.9 g/dL (12.0-15.5) Hematocrit 29.5 % (36.0-47.0) 29.0 % (36.0-47.0) Mean Corpuscular Volume 101 fL (79-100) 100 fL (79-100) Mean Corpuscular Hemoglobin 35 pg (25-35) 34 pg (25-35) Mean Corpuscular Hemoglobin Concent 35 g/dL (31-37) 34 g/dL (31-37) Red Cell Distribution Width 21.8 % (11.5-14.5) 22.1 % (11.5-14.5) Platelet Count 120 x10^3/uL (140-400) 119 x10^3/uL (140-400) Neutrophils (%) (Auto) 76 % (31-73) 72 % (31-73) Lymphocytes (%) (Auto) 11 % (24-48) 13 % (24-48) Monocytes (%) (Auto) 10 % (0-9) 12 % (0-9) Eosinophils (%) (Auto) 3 % (0-3) 3 % (0-3) Basophils (%) (Auto) 1 % (0-3) 1 % (0-3) Neutrophils # (Auto) 6.3 x10^3uL (1.8-7.7) 4.4 x10^3uL (1.8-7.7) Lymphocytes # (Auto) 0.9 x10^3/uL (1.0-4.8) 0.8 x10^3/uL (1.0-4.8) Monocytes # (Auto) 0.9 x10^3/uL (0.0-1.1) 0.7 x10^3/uL (0.0-1.1) Eosinophils # (Auto) 0.2 x10^3/uL (0.0-0.7) 0.2 x10^3/uL (0.0-0.7) Basophils # (Auto) 0.0 x10^3/uL (0.0-0.2) 0.0 x10^3/uL (0.0-0.2) Sodium Level 137 mmol/L (136-145) 141 mmol/L (136-145) Potassium Level 3.6 mmol/L (3.5-5.1) 3.6 mmol/L (3.5-5.1) Chloride Level 104 mmol/L (98-107) 109 mmol/L (98-107) Carbon Dioxide Level 24 mmol/L (21-32) 23 mmol/L (21-32) Anion Gap 9 (6-14) 9 (6-14) Blood Urea Nitrogen 36 mg/dL (7-20) 29 mg/dL (7-20) Creatinine 1.5 mg/dL (0.6-1.0) 1.3 mg/dL (0.6-1.0) Estimated GFR (Cockcroft-Gault) 32.7 38.6 Glucose Level 103 mg/dL (70-99) 84 mg/dL (70-99) Calcium Level 7.7 mg/dL (8.5-10.1) 8.2 mg/dL (8.5-10.1) Magnesium Level 1.9 mg/dL (1.8-2.4) Lactate Dehydrogenase 371 U/L (81-234) Laboratory Tests Test 02/18/17 06:00 White Blood Count 6.2 x10^3/uL (4.0-11.0) Red Blood Count 2.89 x10^6/uL (3.50-5.40) Hemoglobin 9.9 g/dL (12.0-15.5) Hematocrit 29.0 % (36.0-47.0) Mean Corpuscular Volume 100 fL (79-100) Mean Corpuscular Hemoglobin 34 pg (25-35) Mean Corpuscular Hemoglobin Concent 34 g/dL (31-37) Red Cell Distribution Width 22.1 % (11.5-14.5) Platelet Count 119 x10^3/uL (140-400) Neutrophils (%) (Auto) 72 % (31-73) Lymphocytes (%) (Auto) 13 % (24-48) Monocytes (%) (Auto) 12 % (0-9) Eosinophils (%) (Auto) 3 % (0-3) Basophils (%) (Auto) 1 % (0-3) Neutrophils # (Auto) 4.4 x10^3uL (1.8-7.7) Lymphocytes # (Auto) 0.8 x10^3/uL (1.0-4.8) Monocytes # (Auto) 0.7 x10^3/uL (0.0-1.1) Eosinophils # (Auto) 0.2 x10^3/uL (0.0-0.7) Basophils # (Auto) 0.0 x10^3/uL (0.0-0.2) Prothrombin Time 23.4 SEC (11.7-14.0) Prothromb Time International Ratio 2.2 (0.8-1.1) Sodium Level 141 mmol/L (136-145) Potassium Level 3.6 mmol/L (3.5-5.1) Chloride Level 109 mmol/L (98-107) Carbon Dioxide Level 23 mmol/L (21-32) Anion Gap 9 (6-14) Blood Urea Nitrogen 29 mg/dL (7-20) Creatinine 1.3 mg/dL (0.6-1.0) Estimated GFR (Cockcroft-Gault) 38.6 Glucose Level 84 mg/dL (70-99) Calcium Level 8.2 mg/dL (8.5-10.1) Lactate Dehydrogenase 371 U/L (81-234) Microbiology 02/13/17 Urine Culture - Final, Complete 02/13/17 Urine Culture Result 1 ([place]) - Final, Complete Medications Current Medications Fentanyl Citrate (Fentanyl 2ml Vial) 25 mcg 1X ONCE IV Last administered on 08:13; Start 02/13/17 at 07:00; Stop 02/13/17 at 07:01; Status DC Fentanyl Citrate (Fentanyl 2ml Vial) 50 mcg PRN Q1HR PRN IV PAIN Last administered on 02/13/17 22:51; Start 02/13/17 at 07:45; Stop 02/14/17 at 07 :44; Status DC Sodium Chloride 1,000 ml @ 75 mls/hr 1X ONCE IV Last administered on 08:30; Start 02/13/17 at 07:45; Stop 02/13/17 at 10:26; Status DC Cefazolin Sodium/ Dextrose 50 ml @ 100 mls/hr 1X ONCE IV ; Start 02/13/17 at 10:15; Stop 02/13/17 at 10:44; Status Cancel Fentanyl Citrate (Fentanyl 2ml Vial) 25 mcg PRN Q4HRS PRN IV PAIN; Start 02/13 at 10:30; Stop 02/15/17 at 11:02; Status DC Acetaminophen (Tylenol) 650 mg PRN Q6HRS PRN PO MILD PAIN / TEMP; Start at 10:30 Pantoprazole Sodium (Protonix) 40 mg DAILYAC PO Last administered on 08:20; Start 02/13/17 at 11:30 Multivitamins/ Minerals (I-Rashaun) 1 tab DAILY PO Last administered on 08:21; Start 02/13/17 at 12:00 Levothyroxine Sodium (Synthroid) 75 mcg DAILY07 PO Last administered on 08:24; Start 02/13/17 at 10:30 Trazodone HCl (Desyrel) 50 mg QHS PO Last administered on 02/17/17 21:44; Start 02/13/17 at 21:00 Metoprolol Tartrate (Lopressor) 12.5 mg BID PO Last administered on 02/17/17 21:43; Start 02/13/17 at 11:00 Senna/Docusate Sodium (Senna Plus) 2 tab DAILY PO Last administered on 08:20; Start 02/13/17 at 11:00 Potassium Chloride/Dextrose/ Sod Cl 1,000 ml @ 60 mls/hr [id number] IV Last administered on 02/15/17 01:44; Start 02/13/17 at 12:00; Stop 02/15/17 at 08 :59; Status DC Pneumococcal Polyvalent Vaccine (Pneumovax 23) 0.5 ml ONCE ONCE VAX IM Last administered on 02/13/17 13:05; Start 02/13/17 at 12:00; Stop 02/13/17 at 12 :01; Status DC Influenza Virus Vaccine Quadrival (Fluarix Quad [id number] Syringe) 0.5 ml ONCE ONCE VAX IM Last administered on 02/13/17 13:06; Start 02/13/17 at 12:00; Stop 02/13/17 at 12:01; Status DC Lorazepam (Ativan) 0.25 mg PRN QHS PRN PO ANXIETY / AGITATION Last administered on 02/14/17 01:59; Start 02/13/17 at 11:30 Cefazolin Sodium/ Dextrose 50 ml @ 100 mls/hr 1X PREOP PRN IV PRIOR TO SURGERY ; Start 02/13/17 at 12:30; Stop 02/17/17 at 12:22; Status DC Ondansetron HCl (Zofran) 4 mg PRN Q6HRS PRN IV NAUSEA/VOMITING; Start at 07:00; Stop 02/14/17 at 18:00; Status DC Fentanyl Citrate (Fentanyl 2ml Vial) 25 mcg PRN Q5MIN PRN IV MILD PAIN; Start 02/14/17 at 07:00; Stop 02/14/17 at 18:00; Status DC Fentanyl Citrate (Fentanyl 2ml Vial) 50 mcg PRN Q5MIN PRN IV MODERATE PAIN; Start 02/14/17 at 07:00; Stop 02/14/17 at 18:00; Status DC Ringer's Solution 1,000 ml @ 30 mls/hr Q24H IV ; Start 02/14/17 at 07:00; Stop 02/14/17 at 18:59; Status DC Lidocaine HCl (Xylocaine-Mpf 1% Vial) 2 ml PRN 1X PRN ID IV START; Start 02/14 at 07:00; Stop 02/14/17 at 18:00; Status DC Prochlorperazine Edisylate (Compazine) 5 mg PACU PRN PRN IV NAUSEA, MRX1; Start 02/14/17 at 07:00; Stop 02/14/17 at 18:00; Status DC Ferrous Sulfate (Feosol) 325 mg DAILYWSUP PO Last administered on 02/17/17 17 :18; Start 02/14/17 at 17:00 Lidocaine HCl 20 ml STK-MED ONCE .ROUTE ; Start 02/14/17 at 09:30; Stop at 10:31; Status DC Bupivacaine HCl (Sensorcaine Mpf 0.5%) 30 ml STK-MED ONCE .ROUTE ; Start at 09:31; Stop 02/14/17 at 10:31; Status DC Sevoflurane (Ultane) 60 ml STK-MED ONCE IH ; Start 02/14/17 at 10:36; Stop 04/21 at 10:37; Status DC Fentanyl Citrate (Fentanyl 2ml Vial) 100 mcg STK-MED ONCE .ROUTE ; Start at 10:36; Stop 02/14/17 at 10:37; Status DC Propofol 20 ml @ As Directed STK-MED ONCE IV ; Start 02/14/17 at 10:36; Stop 02/14/17 at 10:37; Status DC Dexamethasone Sodium Phosphate (Decadron) 20 mg STK-MED ONCE .ROUTE ; Start 04/21 at 10:36; Stop 02/14/17 at 10:37; Status DC Lidocaine HCl (Lidocaine Pf 2% Vial) 5 ml STK-MED ONCE .ROUTE ; Start 02/14/17 at 10:36; Stop 02/14/17 at 10:37; Status DC Lidocaine HCl (Lidocaine Pf 2% Vial) 5 ml STK-MED ONCE .ROUTE ; Start 02/14/17 at 10:36; Stop 02/14/17 at 10:37; Status DC Phenylephrine HCl 1 mg STK-MED ONCE IV ; Start 02/14/17 at 10:36; Stop at 10:37; Status DC Ondansetron HCl (Zofran) 4 mg STK-MED ONCE .ROUTE ; Start 02/14/17 at 10:37; Stop 02/14/17 at 10:38; Status DC Ketorolac Tromethamine 30 mg/Ropivacaine 60 ml/Epinephrine HCl 0.5 mg/Sodium Chloride 99.5 ml @ 99.5 mls/hr 1X PERIOP ONCE INT ART Last administered on t 12:07; Start 02/14/17 at 11:30; Stop 02/14/17 at 12:29; Status DC Cefazolin Sodium 1 gm/Sodium Chloride 50 ml @ 100 mls/hr Q6H IV Last administered on 02/15/17t 05:41; Start 02/14/17 at 17:30; Stop 02/15/17 at 05 :59; Status DC Enoxaparin Sodium (Lovenox 30mg Syringe) 30 mg Q24H SQ ; Start 02/15/17 at 08: 00; Stop 02/15/17 at 08:18; Status DC Warfarin Sodium (Coumadin Per Pharmacy) 1 each PRN DAILY PRN MC SEE COMMENTS Last administered on 02/17/17 12:20; Start 02/15/17 at 08:15 Warfarin Sodium (Coumadin) 5 mg 1X ONCE PO Last administered on 02/15/17 16: 48; Start 02/15/17 at 16:00; Stop 02/15/17 at 16:01; Status DC Cefazolin Sodium/ Dextrose (Ancef 2gm Premix) 2 gm STK-MED ONCE IV ; Start 04/21 at 10:40; Stop 02/15/17 at 08:53; Status DC Vitamin D (Vitamin D3) 1,000 unit DAILY PO Last administered on 02/17/17 08: 21; Start 02/15/17 at 10:00 Tramadol HCl (Ultram) 25 mg PRN Q6HRS PRN PO PAIN; Start 02/15/17 at 11:00 Acetaminophen (Tylenol) 325 mg PRN QID PRN PO PAIN; Start 02/15/17 at 11:00; Stop 02/15/17 at 13:21; Status DC Ondansetron HCl (Zofran Odt) 4 mg PRN Q6HRS PRN PO NAUSEA/VOMITING; Start at 11:00 Acetaminophen (Tylenol) 325 mg QID PO Last administered on 02/17/17 21:43; Start 02/15/17 at 13:30 Sodium Chloride 1,000 ml @ 30 mls/hr Q24H IV Last administered on 02/18/17 04:41; Start 02/16/17 at 11:00; Stop 02/18/17 at 08:39; Status DC Warfarin Sodium (Coumadin - No Dose Today) 1 each 1X WARF ONCE MC ; Start at 16:00; Stop 02/16/17 at 16:01; Status DC Lactulose 20 gm BID PO Last administered on 02/17/17 11:07; Start 02/17/17 at 12:00; Stop 02/18/17 at 01:00; Status DC Polyethylene Glycol (miraLAX PACKET) 17 gm DAILY PO Last administered on 11:07; Start 02/17/17 at 11:00 Warfarin Sodium (Coumadin - No Dose Today) 1 each 1X WARF ONCE MC Last administered on 02/17/17 16:00; Start 02/17/17 at 16:00; Stop 02/17/17 at 16 :01; Status DC Potassium Chloride (Klor-Con) 20 meq 1X ONCE PO ; Start 02/18/17 at 08:45; Stop 02/18/17 at 08:46; Status DC Active Scripts Active Reported Lorazepam 0.5 Mg Tablet 0.5 Tab PO HS Ocuvite Eye + Multi Tablet (Mv-Mn/FA/Vit K/Lycop/Lut/Zeaxa) 1 Each Tablet 1 Each PO DAILY Levothyroxine Sodium 75 Mcg Tablet 1 Tab PO DAILY Pantoprazole Sodium 40 Mg Tablet.dr 40 Mg PO DAILY Trazodone Hcl 50 Mg Tablet 50 Mg PO HS Metoprolol Tartrate 25 Mg Tablet 12.5 Mg PO DAILY Tylenol (Acetaminophen) 325 Mg Tablet 2 Tab PO PRN Q4HRS PRN Vitals/I & O Vital Sign - Last 24 Hours 02/17/17 02/17/17 02/17/17 02/17/17 11:00 15:00 19:20 20:00 Temp 96.3 97.9 96.3 97.9 Pulse 83 80 86 Resp 16 16 18 B/P (MAP) 111/48 (69) 114/57 (76) 120/57 (78) Pulse Ox 94 96 95 O2 Delivery Room Air Room Air Room Air Nasal Cannula O2 Flow Rate 2.0 02/17/17 02/17/17 02/18/17 02/18/17 21:43 23:16 03:16 07:00 Temp 97.9 98.1 97.9 97.9 98.1 97.9 Pulse 86 83 80 81 Resp 18 18 18 B/P (MAP) 120/57 110/44 (66) 113/64 (80) 121/61 (81) Pulse Ox 98 100 100 O2 Delivery Room Air Nasal Cannula Nasal Cannula O2 Flow Rate 2.0 2.0 JOY BOURNE MD Feb 18, 2017 09:30
[2017-02-18 09:57] LABS: ALBUMIN 2.5 g/dL (3.4-5.0); DIRECT BILIRUBIN 1.2 mg/dL (0.0-0.2); TOTAL BILIRUBIN 2.2 mg/dL (0.2-1.0); TOTAL PROTEIN 5.8 g/dL (6.4-8.2)
[2017-02-18] MEDS: FOLIC ACID 1 MG TABLET. PO SCH ×2 (10:00→14:27)
--- NOTE | 2017-02-18 10:02 | DS ---
DATE OF DISCHARGE: DATE OF ANTICIPATED DISMISSAL: 02/19/2017. PROCEDURE: Open reduction and internal fixation for a right hip fracture by Dr. Baumann. OTHER CONSULTANTS: Dr. Baumann, Dr. Wakefield, Dr. Lara, Dr. Tavares. Also Dr. Alo Davidson. FINAL DIAGNOSES: 1. Right intratrochanteric hip fracture, secondary to a mechanical fall. 2. Acute blood loss anemia. 3. 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 4. Asymptomatic right pleural effusion. 5. Impaired cognitive disorder. 6. Debility. 7. Asymptomatic cholelithiasis. 8. Hypothyroidism. 9. Paroxysmal atrial fibrillation, but not a candidate for long-term anticoagulation. 10. History of an upper GI bleed in November 2016. 11. Gastric erosions, reflux esophagitis for EGD in 11/2016. 12. Acute kidney injury, secondary to inadequate fluid intake, on top of chronic kidney disease stage 3. 13. 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 HOSPITAL COURSE: The patient is an 89-year-old white female with a history of an upper GI bleed in November 2016, secondary to gastric erosions, but also had reflux esophagitis at the time of her EGD and was on Coumadin for paroxysmal atrial fibrillation at that time, which was discontinued due to her massive GI bleed. She had elevated liver function at that time and workup was unremarkable. She has a history of a bioprosthetic aortic valve replacement and also a bioprosthetic mitral valve replacement. She was found on the floor in the morning of admission by her son, complaining of right hip pain. [facility] where x-rays revealed a right intertrochanteric hip fracture. The patient was cleared for surgery by Dr. Lara for cardiology and her echocardiogram showed a preserved left ventricular ejection fraction with mild mitral regurgitation and a moderately severe tricuspid regurgitation. She was noted to have right pleural effusion, which she has had before, and the son declined a thoracentesis. She was asymptomatic. She was also noted to have asymptomatic cholelithiasis. Her haptoglobin level was low and her LDH level was high, and her total bilirubin was elevated, direct bilirubin was not significantly elevated, and she was diagnosed with a hemolytic anemia and a Brown test was negative. Seen in consultation by Dr. Tavares for hematology, who recommended transfusion if the hemoglobin is 8 or less, and also seen by Dr. Alo Davidson for GI consultation. As mentioned, she was seen by Dr. Wakefield for pulmonary consultation, but the son declined a thoracentesis on the right side and Dr. Lara for Cardiology. Dr. Baumann did the surgery on the right hip. Postoperatively, she did fine. She was started on Tylenol q.i.d. and p.r.n. tramadol for severe pain, but apparently did not need the latter. She received physical and occupational therapy. The Min catheter was maintained, as she had mobility deficits. She could continue with the oxygen 2 liters per nasal cannula. She is a full code. Her last INR was 2.2 and her target INR is 1.5 and her Coumadin will be discontinued on 03/15/2017. [facility] 19 on Tylenol 650 mg every 6 hours p.r.n., Tylenol 325 mg q.i.d., vitamin D 1000 units every day, ferrous sulfate 325 mg every day, levothyroxine 75 mcg every day. Coumadin 1 mg every day, with a target INR of 1.5. We will hold the Coumadin if the INR is greater than or equal to 2.0. We will discontinue the Coumadin on 03/15/2017. Dr. Baumann wanted her on the Coumadin for 30 days. Will also be dismissed on lorazepam 0.25 mg at bedtime p.r.n. for agitation, metoprolol tartrate 12.5 mg b.i.d., Ocuvite once a day, Zofran 4 mg p.o. every 6 hours p.r.n. for nausea, Protonix 40 mg every day, MiraLax 17 grams daily, Senokot-S 2 tablets daily. As mentioned, the Coumadin 1 mg every day for target INR 1.5. We will stop the Coumadin on 03/15/2017. Protime and INR will be done every Saturday, Saturday and Saturday. She was also dismissed on tramadol 25 mg p.o. every 6 hours p.r.n. for severe pain, to be used sparingly, and trazodone 50 mg at bedtime. The Min will be discontinued once mobility improves. We will continue with oxygen 2 liters nasal cannula. She will be dismissed on a low salt diet; the protime and INR to be done every Mondays, Wednesdays, Fridays. She will be cared for by the house physician there. She is a full code per the son's wishes. ALO COLORADO MD DR: JENNIFER/bhavna JOB#: [id number] / [id number]
--- NOTE | 2017-02-18 10:21 | PDOC ---
ORTHO PROGRESS NOTES Subjective Doing ok, pain tolerable Vitals Vital Signs Date Time Temp Pulse Resp B/P (MAP) Pulse Ox O2 Delivery O2 Flow Rate FiO2 02/18/17 07:00 97.9 81 18 121/61 (81) 100 Nasal Cannula 2.0 97.9 Labs Laboratory Tests Test 02/16/17 14:15 02/17/17 04:15 02/18/17 06:00 Prothrombin Time 26.7 SEC (11.7-14.0) 34.9 SEC (11.7-14.0) 23.4 SEC (11.7-14.0) Prothromb Time International Ratio 2.7 (0.8-1.1) 3.8 (0.8-1.1) 2.2 (0.8-1.1) White Blood Count 8.3 x10^3/uL (4.0-11.0) 6.2 x10^3/uL (4.0-11.0) Red Blood Count 2.93 x10^6/uL (3.50-5.40) 2.89 x10^6/uL (3.50-5.40) Hemoglobin 10.2 g/dL (12.0-15.5) 9.9 g/dL (12.0-15.5) Hematocrit 29.5 % (36.0-47.0) 29.0 % (36.0-47.0) Mean Corpuscular Volume 101 fL (79-100) 100 fL (79-100) Mean Corpuscular Hemoglobin 35 pg (25-35) 34 pg (25-35) Mean Corpuscular Hemoglobin Concent 35 g/dL (31-37) 34 g/dL (31-37) Red Cell Distribution Width 21.8 % (11.5-14.5) 22.1 % (11.5-14.5) Platelet Count 120 x10^3/uL (140-400) 119 x10^3/uL (140-400) Neutrophils (%) (Auto) 76 % (31-73) 72 % (31-73) Lymphocytes (%) (Auto) 11 % (24-48) 13 % (24-48) Monocytes (%) (Auto) 10 % (0-9) 12 % (0-9) Eosinophils (%) (Auto) 3 % (0-3) 3 % (0-3) Basophils (%) (Auto) 1 % (0-3) 1 % (0-3) Neutrophils # (Auto) 6.3 x10^3uL (1.8-7.7) 4.4 x10^3uL (1.8-7.7) Lymphocytes # (Auto) 0.9 x10^3/uL (1.0-4.8) 0.8 x10^3/uL (1.0-4.8) Monocytes # (Auto) 0.9 x10^3/uL (0.0-1.1) 0.7 x10^3/uL (0.0-1.1) Eosinophils # (Auto) 0.2 x10^3/uL (0.0-0.7) 0.2 x10^3/uL (0.0-0.7) Basophils # (Auto) 0.0 x10^3/uL (0.0-0.2) 0.0 x10^3/uL (0.0-0.2) Sodium Level 137 mmol/L (136-145) 141 mmol/L (136-145) Potassium Level 3.6 mmol/L (3.5-5.1) 3.6 mmol/L (3.5-5.1) Chloride Level 104 mmol/L (98-107) 109 mmol/L (98-107) Carbon Dioxide Level 24 mmol/L (21-32) 23 mmol/L (21-32) Anion Gap 9 (6-14) 9 (6-14) Blood Urea Nitrogen 36 mg/dL (7-20) 29 mg/dL (7-20) Creatinine 1.5 mg/dL (0.6-1.0) 1.3 mg/dL (0.6-1.0) Estimated GFR (Cockcroft-Gault) 32.7 38.6 Glucose Level 103 mg/dL (70-99) 84 mg/dL (70-99) Calcium Level 7.7 mg/dL (8.5-10.1) 8.2 mg/dL (8.5-10.1) Magnesium Level 1.9 mg/dL (1.8-2.4) Reticulocyte Count (auto) 5.7 % (0.5-2.5) Total Bilirubin 2.2 mg/dL (0.2-1.0) Direct Bilirubin 1.2 mg/dL (0.0-0.2) Aspartate Amino Transf (AST/SGOT) 35 U/L (15-37) Alanine Aminotransferase (ALT/SGPT) 11 U/L (14-59) Alkaline Phosphatase 86 U/L (46-116) Lactate Dehydrogenase 371 U/L (81-234) Total Protein 5.8 g/dL (6.4-8.2) Albumin 2.5 g/dL (3.4-5.0) Laboratory Tests Test 02/18/17 06:00 White Blood Count 6.2 x10^3/uL (4.0-11.0) Red Blood Count 2.89 x10^6/uL (3.50-5.40) Hemoglobin 9.9 g/dL (12.0-15.5) Hematocrit 29.0 % (36.0-47.0) Mean Corpuscular Volume 100 fL (79-100) Mean Corpuscular Hemoglobin 34 pg (25-35) Mean Corpuscular Hemoglobin Concent 34 g/dL (31-37) Red Cell Distribution Width 22.1 % (11.5-14.5) Platelet Count 119 x10^3/uL (140-400) Neutrophils (%) (Auto) 72 % (31-73) Lymphocytes (%) (Auto) 13 % (24-48) Monocytes (%) (Auto) 12 % (0-9) Eosinophils (%) (Auto) 3 % (0-3) Basophils (%) (Auto) 1 % (0-3) Neutrophils # (Auto) 4.4 x10^3uL (1.8-7.7) Lymphocytes # (Auto) 0.8 x10^3/uL (1.0-4.8) Monocytes # (Auto) 0.7 x10^3/uL (0.0-1.1) Eosinophils # (Auto) 0.2 x10^3/uL (0.0-0.7) Basophils # (Auto) 0.0 x10^3/uL (0.0-0.2) Reticulocyte Count (auto) 5.7 % (0.5-2.5) Prothrombin Time 23.4 SEC (11.7-14.0) Prothromb Time International Ratio 2.2 (0.8-1.1) Sodium Level 141 mmol/L (136-145) Potassium Level 3.6 mmol/L (3.5-5.1) Chloride Level 109 mmol/L (98-107) Carbon Dioxide Level 23 mmol/L (21-32) Anion Gap 9 (6-14) Blood Urea Nitrogen 29 mg/dL (7-20) Creatinine 1.3 mg/dL (0.6-1.0) Estimated GFR (Cockcroft-Gault) 38.6 Glucose Level 84 mg/dL (70-99) Calcium Level 8.2 mg/dL (8.5-10.1) Total Bilirubin 2.2 mg/dL (0.2-1.0) Direct Bilirubin 1.2 mg/dL (0.0-0.2) Aspartate Amino Transf (AST/SGOT) 35 U/L (15-37) Alanine Aminotransferase (ALT/SGPT) 11 U/L (14-59) Alkaline Phosphatase 86 U/L (46-116) Lactate Dehydrogenase 371 U/L (81-234) Total Protein 5.8 g/dL (6.4-8.2) Albumin 2.5 g/dL (3.4-5.0) Notes Resting dressings intact toes warm Assessment and Plan ok to transfer from my standpoint, once medically stable VIJAY MEJIA II, MD Feb 18, 2017 10:21
[2017-02-18 11:00] VITALS: BP 137/72
--- NOTE | 2017-02-18 12:07 | PDOC ---
Subjective: Subjective: Per son - just woke up, eating well, possible DC tomorrow. Objective: Vital Signs: Vital Signs Date Time Temp Pulse Resp B/P (MAP) Pulse Ox O2 Delivery O2 Flow Rate FiO2 02/18/17 11:00 97.8 79 18 137/72 (93) 100 Nasal Cannula 2.0 97.8 Labs: Laboratory Tests Test 02/18/17 06:00 White Blood Count 6.2 x10^3/uL Red Blood Count 2.89 x10^6/uL Hemoglobin 9.9 g/dL Hematocrit 29.0 % Mean Corpuscular Volume 100 fL Mean Corpuscular Hemoglobin 34 pg Mean Corpuscular Hemoglobin Concent 34 g/dL Red Cell Distribution Width 22.1 % Platelet Count 119 x10^3/uL Neutrophils (%) (Auto) 72 % Lymphocytes (%) (Auto) 13 % Monocytes (%) (Auto) 12 % Eosinophils (%) (Auto) 3 % Basophils (%) (Auto) 1 % Neutrophils # (Auto) 4.4 x10^3uL Lymphocytes # (Auto) 0.8 x10^3/uL Monocytes # (Auto) 0.7 x10^3/uL Eosinophils # (Auto) 0.2 x10^3/uL Basophils # (Auto) 0.0 x10^3/uL Platelet Estimate Pending Reticulocyte Count (auto) 5.7 % Prothrombin Time 23.4 SEC Prothromb Time International Ratio 2.2 Sodium Level 141 mmol/L Potassium Level 3.6 mmol/L Chloride Level 109 mmol/L Carbon Dioxide Level 23 mmol/L Anion Gap 9 Blood Urea Nitrogen 29 mg/dL Creatinine 1.3 mg/dL Estimated GFR (Cockcroft-Gault) 38.6 Glucose Level 84 mg/dL Calcium Level 8.2 mg/dL Total Bilirubin 2.2 mg/dL Direct Bilirubin 1.2 mg/dL Aspartate Amino Transf (AST/SGOT) 35 U/L Alanine Aminotransferase (ALT/SGPT) 11 U/L Alkaline Phosphatase 86 U/L Lactate Dehydrogenase 371 U/L Total Protein 5.8 g/dL Albumin 2.5 g/dL PE: GEN: NAD ABD: S/ND/NT SKIN: no jaundice NEURO/PSYCH: awake/alert, probably confused A/P: Right hip fracture s/p surgery -on Warfarin Hyperbilirubinemia w/ hemolytic anemia H/o UGI bleed -EGD earlier this year, on PPI -- Continue per ortho and hematology. BERNABE LOVE Feb 18, 2017 12:07
[2017-02-18 14:19] LABS: PLT ESTIMATE DECREASED (ADEQUATE)
[2017-02-18 14:20] LABS: ANISOCYTOSIS MOD; HYPOCHROMIA SLIGHT; POIKILOCYTOSIS SLIGHT; POLYCHROMASIA SLIGHT; SCHISTOCYTES FEW
[2017-02-18 15:00] VITALS: BP 120/54
[2017-02-18] MEDS ORDERED: WARFARIN 1 MG TABLET. PO ONE (16:00)
[2017-02-18] MEDS: FERROUS SULFATE 325 MG TABLET. PO SCH (16:30)
[2017-02-18 19:00] VITALS: BP 150/84
[2017-02-18] MEDS: traZODone 50 MG TABLET. PO SCH ×2 (20:44→20:53)
[2017-02-18] MEDS: LORazepam 0.5 MG TABLET PO PRN (20:45)
[2017-02-18 23:00] VITALS: BP 125/60
[2017-02-19 03:00] VITALS: BP 121/65
[2017-02-19 05:16] LABS: BASO # 0.1 x10^3/uL (0.0-0.2); BASO % 1 % (0-3); EOS % 3 % (0-3); HEMOGLOBIN 10.8 g/dL (12.0-15.5); LYMPH % 13 % (24-48); MEAN CORPUSCULAR HEMOGLOBIN 35 pg (25-35); MEAN CORPUSCULAR HGB CONC 34 g/dL (31-37); MEAN CORPUSCULAR VOLUME 103 fL (79-100); MONO % 12 % (0-9); NEUT % 71 % (31-73); PLATELET COUNT 151 x10^3/uL (140-400); RED BLOOD COUNT 3.12 x10^6/uL (3.50-5.40); RED CELL DISTRIBUTION WIDTH 22.6 % (11.5-14.5); WHITE BLOOD COUNT 7.5 x10^3/uL (4.0-11.0)
[2017-02-19 05:23] LABS: INR 1.8 (0.8-1.1); PROTHROMBIN TIME PATIENT 19.7 SEC (11.7-14.0)
[2017-02-19 05:47] LABS: CALCIUM 8.1 mg/dL (8.5-10.1); CREATININE 1.3 mg/dL (0.6-1.0); GFR 38.6
[2017-02-19 07:00] VITALS: BP 146/77
[2017-02-19] MEDS: PANTOPRAZOLE 40 MG TABLET.DR. PO SCH (07:16)
[2017-02-19] MEDS: LEVOTHYROXINE 75 MCG TABLET PO SCH (07:16)
[2017-02-19] MEDS: CHOLECALCIFEROL (VITAMIN D3) 1,000 UNIT TABLET PO SCH (08:47)
[2017-02-19] MEDS: FOLIC ACID 1 MG TABLET. PO SCH (08:47)
[2017-02-19] MEDS: MULTIVITAMIN I-VITE TABLET. PO SCH (08:48)
[2017-02-19] MEDS: ACETAMINOPHEN 325 MG TABLET. PO SCH (08:48)
[2017-02-19] MEDS: SENNOSIDES/DOCUSATE 8.6/50MG TABLET. PO SCH (08:51)
[2017-02-19] MEDS: POLYETHYLENE GLYCOL 3350 17 GM PACKET. PO SCH (08:51)
[2017-02-19] MEDS: METOPROLOL TART IMMED RELEASE 25 MG TABLET. PO SCH (08:51)
--- NOTE | 2017-02-19 09:24 | PDOC ---
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 ROS - pain controlled Objective Objective Vital Signs Date Time Temp Pulse Resp B/P (MAP) Pulse Ox O2 Delivery O2 Flow Rate FiO2 02/19/17 08:51 102 146/77 02/19/17 07:00 98.0 18 96 Room Air 98.0 02/18/17 19:35 2.0 Intake and Output 02/20/17 07:00 Intake Total 100 ml Balance 100 ml Intake Oral 100 ml Physical Exam Heart: Normal S1, Normal S2 General: Alert, No acute distress Lungs: Clear to auscultation Neuro: Normal speech Assessment Assessment Problems Medical Problems: (1) Hyperbilirubinemia Status: Acute (2) Intertrochanteric fracture of left femur Status: Acute IMPRESSION AND PLAN: 1. 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 Haptoglobin is low, Brown test neg and LDH elevated. Reticulocyte elevated. Review of the prior records indicates that she has always responded well to blood transfusions. 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 I d/w DR Strange who agreed not to initiate steroids at this time considering her advanced age and the toxicities associated with steroids. However, if she does not respond to transfusions and if her hemoglobin continues to drop, then I would plan to initiate steroids. I discussed in detail with the patient and family. Hb 7.5 02/14/17 s/p 2 u PRBC Hb 9.9 02/18/17. LDH better improved from 1088 to 371. Hence no need for steroids. Hb 10.8 on 02/19/17 Monitor cbc 2. Right hip fracture. s/ph surgery, 02/14/2017. I d/w RN 3. 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 Improving. She had ultrasound of the abdomen on 02/13/2017 that revealed cholelithiasis and moderate-sized right pleural effusion. CT scan of the abdomen on 11/15/2016 revealed cholelithiasis and no hepatic lesions. Comment Review of Relevant I have reviewed the following items shara (where applicable) has been applied. Labs Laboratory Tests Test 02/18/17 06:00 02/19/17 04:20 White Blood Count 6.2 x10^3/uL (4.0-11.0) 7.5 x10^3/uL (4.0-11.0) Red Blood Count 2.89 x10^6/uL (3.50-5.40) 3.12 x10^6/uL (3.50-5.40) Hemoglobin 9.9 g/dL (12.0-15.5) 10.8 g/dL (12.0-15.5) Hematocrit 29.0 % (36.0-47.0) 32.0 % (36.0-47.0) Mean Corpuscular Volume 100 fL (79-100) 103 fL (79-100) Mean Corpuscular Hemoglobin 34 pg (25-35) 35 pg (25-35) Mean Corpuscular Hemoglobin Concent 34 g/dL (31-37) 34 g/dL (31-37) Red Cell Distribution Width 22.1 % (11.5-14.5) 22.6 % (11.5-14.5) Platelet Count 119 x10^3/uL (140-400) 151 x10^3/uL (140-400) Neutrophils (%) (Auto) 72 % (31-73) 71 % (31-73) Lymphocytes (%) (Auto) 13 % (24-48) 13 % (24-48) Monocytes (%) (Auto) 12 % (0-9) 12 % (0-9) Eosinophils (%) (Auto) 3 % (0-3) 3 % (0-3) Basophils (%) (Auto) 1 % (0-3) 1 % (0-3) Neutrophils # (Auto) 4.4 x10^3uL (1.8-7.7) 5.3 x10^3uL (1.8-7.7) Lymphocytes # (Auto) 0.8 x10^3/uL (1.0-4.8) 1.0 x10^3/uL (1.0-4.8) Monocytes # (Auto) 0.7 x10^3/uL (0.0-1.1) 0.9 x10^3/uL (0.0-1.1) Eosinophils # (Auto) 0.2 x10^3/uL (0.0-0.7) 0.2 x10^3/uL (0.0-0.7) Basophils # (Auto) 0.0 x10^3/uL (0.0-0.2) 0.1 x10^3/uL (0.0-0.2) Platelet Estimate Decreased (ADEQUATE) Polychromasia Slight Hypochromasia Slight Poikilocytosis Slight Anisocytosis Mod Schistocytes Few Reticulocyte Count (auto) 5.7 % (0.5-2.5) Prothrombin Time 23.4 SEC (11.7-14.0) 19.7 SEC (11.7-14.0) Prothromb Time International Ratio 2.2 (0.8-1.1) 1.8 (0.8-1.1) Sodium Level 141 mmol/L (136-145) 140 mmol/L (136-145) Potassium Level 3.6 mmol/L (3.5-5.1) 4.0 mmol/L (3.5-5.1) Chloride Level 109 mmol/L (98-107) 108 mmol/L (98-107) Carbon Dioxide Level 23 mmol/L (21-32) 22 mmol/L (21-32) Anion Gap 9 (6-14) 10 (6-14) Blood Urea Nitrogen 29 mg/dL (7-20) 28 mg/dL (7-20) Creatinine 1.3 mg/dL (0.6-1.0) 1.3 mg/dL (0.6-1.0) Estimated GFR (Cockcroft-Gault) 38.6 38.6 Glucose Level 84 mg/dL (70-99) 127 mg/dL (70-99) Calcium Level 8.2 mg/dL (8.5-10.1) 8.1 mg/dL (8.5-10.1) Total Bilirubin 2.2 mg/dL (0.2-1.0) Direct Bilirubin 1.2 mg/dL (0.0-0.2) Aspartate Amino Transf (AST/SGOT) 35 U/L (15-37) Alanine Aminotransferase (ALT/SGPT) 11 U/L (14-59) Alkaline Phosphatase 86 U/L (46-116) Lactate Dehydrogenase 371 U/L (81-234) Total Protein 5.8 g/dL (6.4-8.2) Albumin 2.5 g/dL (3.4-5.0) Laboratory Tests Test 02/19/17 04:20 White Blood Count 7.5 x10^3/uL (4.0-11.0) Red Blood Count 3.12 x10^6/uL (3.50-5.40) Hemoglobin 10.8 g/dL (12.0-15.5) Hematocrit 32.0 % (36.0-47.0) Mean Corpuscular Volume 103 fL (79-100) Mean Corpuscular Hemoglobin 35 pg (25-35) Mean Corpuscular Hemoglobin Concent 34 g/dL (31-37) Red Cell Distribution Width 22.6 % (11.5-14.5) Platelet Count 151 x10^3/uL (140-400) Neutrophils (%) (Auto) 71 % (31-73) Lymphocytes (%) (Auto) 13 % (24-48) Monocytes (%) (Auto) 12 % (0-9) Eosinophils (%) (Auto) 3 % (0-3) Basophils (%) (Auto) 1 % (0-3) Neutrophils # (Auto) 5.3 x10^3uL (1.8-7.7) Lymphocytes # (Auto) 1.0 x10^3/uL (1.0-4.8) Monocytes # (Auto) 0.9 x10^3/uL (0.0-1.1) Eosinophils # (Auto) 0.2 x10^3/uL (0.0-0.7) Basophils # (Auto) 0.1 x10^3/uL (0.0-0.2) Prothrombin Time 19.7 SEC (11.7-14.0) Prothromb Time International Ratio 1.8 (0.8-1.1) Sodium Level 140 mmol/L (136-145) Potassium Level 4.0 mmol/L (3.5-5.1) Chloride Level 108 mmol/L (98-107) Carbon Dioxide Level 22 mmol/L (21-32) Anion Gap 10 (6-14) Blood Urea Nitrogen 28 mg/dL (7-20) Creatinine 1.3 mg/dL (0.6-1.0) Estimated GFR (Cockcroft-Gault) 38.6 Glucose Level 127 mg/dL (70-99) Calcium Level 8.1 mg/dL (8.5-10.1) Microbiology 02/13/17 Urine Culture - Final, Complete 02/13/17 Urine Culture Result 1 ([place]) - Final, Complete Medications Current Medications Fentanyl Citrate (Fentanyl 2ml Vial) 25 mcg 1X ONCE IV Last administered on 08:13; Start 02/13/17 at 07:00; Stop 02/13/17 at 07:01; Status DC Fentanyl Citrate (Fentanyl 2ml Vial) 50 mcg PRN Q1HR PRN IV PAIN Last administered on 02/13/17 22:51; Start 02/13/17 at 07:45; Stop 02/14/17 at 07 :44; Status DC Sodium Chloride 1,000 ml @ 75 mls/hr 1X ONCE IV Last administered on 08:30; Start 02/13/17 at 07:45; Stop 02/13/17 at 10:26; Status DC Cefazolin Sodium/ Dextrose 50 ml @ 100 mls/hr 1X ONCE IV ; Start 02/13/17 at 10:15; Stop 02/13/17 at 10:44; Status Cancel Fentanyl Citrate (Fentanyl 2ml Vial) 25 mcg PRN Q4HRS PRN IV PAIN; Start 02/13 at 10:30; Stop 02/15/17 at 11:02; Status DC Acetaminophen (Tylenol) 650 mg PRN Q6HRS PRN PO MILD PAIN / TEMP; Start at 10:30 Pantoprazole Sodium (Protonix) 40 mg DAILYAC PO Last administered on 07:16; Start 02/13/17 at 11:30 Multivitamins/ Minerals (I-Rashaun) 1 tab DAILY PO Last administered on 08:48; Start 02/13/17 at 12:00 Levothyroxine Sodium (Synthroid) 75 mcg DAILY07 PO Last administered on 07:16; Start 02/13/17 at 10:30 Trazodone HCl (Desyrel) 50 mg QHS PO Last administered on 02/18/17 20:53; Start 02/13/17 at 21:00 Metoprolol Tartrate (Lopressor) 12.5 mg BID PO Last administered on 02/19/17 08:51; Start 02/13/17 at 11:00 Senna/Docusate Sodium (Senna Plus) 2 tab DAILY PO Last administered on 10/17/ 17at 08:51; Start 02/13/17 at 11:00 Potassium Chloride/Dextrose/ Sod Cl 1,000 ml @ 60 mls/hr [id number] IV Last administered on 02/15/17 01:44; Start 02/13/17 at 12:00; Stop 02/15/17 at 08 :59; Status DC Pneumococcal Polyvalent Vaccine (Pneumovax 23) 0.5 ml ONCE ONCE VAX IM Last administered on 02/13/17 13:05; Start 02/13/17 at 12:00; Stop 02/13/17 at 12 :01; Status DC Influenza Virus Vaccine Quadrival (Fluarix Quad [id number] Syringe) 0.5 ml ONCE ONCE VAX IM Last administered on 02/13/17 13:06; Start 02/13/17 at 12:00; Stop 02/13/17 at 12:01; Status DC Lorazepam (Ativan) 0.25 mg PRN QHS PRN PO ANXIETY / AGITATION Last administered on 02/18/17 20:45; Start 02/13/17 at 11:30 Cefazolin Sodium/ Dextrose 50 ml @ 100 mls/hr 1X PREOP PRN IV PRIOR TO SURGERY ; Start 02/13/17 at 12:30; Stop 02/17/17 at 12:22; Status DC Ondansetron HCl (Zofran) 4 mg PRN Q6HRS PRN IV NAUSEA/VOMITING; Start at 07:00; Stop 02/14/17 at 18:00; Status DC Fentanyl Citrate (Fentanyl 2ml Vial) 25 mcg PRN Q5MIN PRN IV MILD PAIN; Start 02/14/17 at 07:00; Stop 02/14/17 at 18:00; Status DC Fentanyl Citrate (Fentanyl 2ml Vial) 50 mcg PRN Q5MIN PRN IV MODERATE PAIN; Start 02/14/17 at 07:00; Stop 02/14/17 at 18:00; Status DC Ringer's Solution 1,000 ml @ 30 mls/hr Q24H IV ; Start 02/14/17 at 07:00; Stop 02/14/17 at 18:59; Status DC Lidocaine HCl (Xylocaine-Mpf 1% Vial) 2 ml PRN 1X PRN ID IV START; Start 02/14 at 07:00; Stop 02/14/17 at 18:00; Status DC Prochlorperazine Edisylate (Compazine) 5 mg PACU PRN PRN IV NAUSEA, MRX1; Start 02/14/17 at 07:00; Stop 02/14/17 at 18:00; Status DC Ferrous Sulfate (Feosol) 325 mg DAILYWSUP PO Last administered on 02/17/17t 17 :18; Start 02/14/17 at 17:00 Lidocaine HCl 20 ml STK-MED ONCE .ROUTE ; Start 02/14/17 at 09:30; Stop at 10:31; Status DC Bupivacaine HCl (Sensorcaine Mpf 0.5%) 30 ml STK-MED ONCE .ROUTE ; Start at 09:31; Stop 02/14/17 at 10:31; Status DC Sevoflurane (Ultane) 60 ml STK-MED ONCE IH ; Start 02/14/17 at 10:36; Stop 04/21 at 10:37; Status DC Fentanyl Citrate (Fentanyl 2ml Vial) 100 mcg STK-MED ONCE .ROUTE ; Start at 10:36; Stop 02/14/17 at 10:37; Status DC Propofol 20 ml @ As Directed STK-MED ONCE IV ; Start 02/14/17 at 10:36; Stop 02/14/17 at 10:37; Status DC Dexamethasone Sodium Phosphate (Decadron) 20 mg STK-MED ONCE .ROUTE ; Start 04/21 at 10:36; Stop 02/14/17 at 10:37; Status DC Lidocaine HCl (Lidocaine Pf 2% Vial) 5 ml STK-MED ONCE .ROUTE ; Start 02/14/17 at 10:36; Stop 02/14/17 at 10:37; Status DC Lidocaine HCl (Lidocaine Pf 2% Vial) 5 ml STK-MED ONCE .ROUTE ; Start 02/14/17 at 10:36; Stop 02/14/17 at 10:37; Status DC Phenylephrine HCl 1 mg STK-MED ONCE IV ; Start 02/14/17 at 10:36; Stop at 10:37; Status DC Ondansetron HCl (Zofran) 4 mg STK-MED ONCE .ROUTE ; Start 02/14/17 at 10:37; Stop 02/14/17 at 10:38; Status DC Ketorolac Tromethamine 30 mg/Ropivacaine 60 ml/Epinephrine HCl 0.5 mg/Sodium Chloride 99.5 ml @ 99.5 mls/hr 1X PERIOP ONCE INT ART Last administered on 12:07; Start 02/14/17 at 11:30; Stop 02/14/17 at 12:29; Status DC Cefazolin Sodium 1 gm/Sodium Chloride 50 ml @ 100 mls/hr Q6H IV Last administered on 02/15/17 05:41; Start 02/14/17 at 17:30; Stop 02/15/17 at 05 :59; Status DC Enoxaparin Sodium (Lovenox 30mg Syringe) 30 mg Q24H SQ ; Start 02/15/17 at 08: 00; Stop 02/15/17 at 08:18; Status DC Warfarin Sodium (Coumadin Per Pharmacy) 1 each PRN DAILY PRN MC SEE COMMENTS Last administered on 02/18/17 13:59; Start 02/15/17 at 08:15 Warfarin Sodium (Coumadin) 5 mg 1X ONCE PO Last administered on 02/15/17 16: 48; Start 02/15/17 at 16:00; Stop 02/15/17 at 16:01; Status DC Cefazolin Sodium/ Dextrose (Ancef 2gm Premix) 2 gm STK-MED ONCE IV ; Start 04/21 at 10:40; Stop 02/15/17 at 08:53; Status DC Vitamin D (Vitamin D3) 1,000 unit DAILY PO Last administered on 02/19/17 08: 47; Start 02/15/17 at 10:00 Tramadol HCl (Ultram) 25 mg PRN Q6HRS PRN PO MODERATE - SEVERE PAIN; Start at 11:00 Acetaminophen (Tylenol) 325 mg PRN QID PRN PO PAIN; Start 02/15/17 at 11:00; Stop 02/15/17 at 13:21; Status DC Ondansetron HCl (Zofran Odt) 4 mg PRN Q6HRS PRN PO NAUSEA/VOMITING; Start at 11:00 Acetaminophen (Tylenol) 325 mg QID PO Last administered on 02/19/17 08:48; Start 02/15/17 at 13:30 Sodium Chloride 1,000 ml @ 30 mls/hr Q24H IV Last administered on 02/18/17 04:41; Start 02/16/17 at 11:00; Stop 02/18/17 at 08:39; Status DC Warfarin Sodium (Coumadin - No Dose Today) 1 each 1X WARF ONCE MC ; Start at 16:00; Stop 02/16/17 at 16:01; Status DC Lactulose 20 gm BID PO Last administered on 02/17/17 11:07; Start 02/17/17 at 12:00; Stop 02/18/17 at 01:00; Status DC Polyethylene Glycol (miraLAX PACKET) 17 gm DAILY PO Last administered on 11:07; Start 02/17/17 at 11:00 Warfarin Sodium (Coumadin - No Dose Today) 1 each 1X WARF ONCE MC Last administered on 02/17/17 16:00; Start 02/17/17 at 16:00; Stop 02/17/17 at 16 :01; Status DC Potassium Chloride (Klor-Con) 20 meq 1X ONCE PO Last administered on 12:30; Start 02/18/17 at 08:45; Stop 02/18/17 at 08:46; Status DC Folic Acid (Folic Acid) 1 mg DAILY PO Last administered on 02/19/17 08:47; Start 02/18/17 at 10:00 Warfarin Sodium (Coumadin) 1 mg 1X WARF ONCE PO Last administered on 16:25; Start 02/18/17 at 16:00; Stop 02/18/17 at 16:01; Status DC Active Scripts Active Reported Lorazepam 0.5 Mg Tablet 0.5 Tab PO HS Ocuvite Eye + Multi Tablet (Mv-Mn/FA/Vit K/Lycop/Lut/Zeaxa) 1 Each Tablet 1 Each PO DAILY Levothyroxine Sodium 75 Mcg Tablet 1 Tab PO DAILY Pantoprazole Sodium 40 Mg Tablet.dr 40 Mg PO DAILY Trazodone Hcl 50 Mg Tablet 50 Mg PO HS Metoprolol Tartrate 25 Mg Tablet 12.5 Mg PO DAILY Tylenol (Acetaminophen) 325 Mg Tablet 2 Tab PO PRN Q4HRS PRN Vitals/I & O Vital Sign - Last 24 Hours 02/18/17 02/18/17 02/18/1702/18/17 11:00 12:28 15:00 19:00 Temp 97.8 97.5 97.6 97.8 97.5 97.6 Pulse 79 79 86 104 Resp 18 18 24 B/P (MAP) 137/72 (93) 137/72 120/54 (76) 150/84 (106) Pulse Ox 100 97 97 O2 Delivery Nasal Cannula Nasal Cannula Room Air O2 Flow Rate 2.0 2.0 02/18/17 02/18/17 02/18/17 02/19/17 19:35 20:44 23:00 03:00 Temp 99.2 98.0 99.2 98.0 Pulse 103 95 80 Resp 20 20 B/P (MAP) 150/83 125/60 (81) 121/65 (83) Pulse Ox 95 96 O2 Delivery Nasal Cannula Room Air Room Air O2 Flow Rate 2.0 02/19/17 02/19/17 07:00 08:51 Temp 98.0 98.0 Pulse 102 102 Resp 18 B/P (MAP) 146/77 (100) 146/77 Pulse Ox 96 O2 Delivery Room Air Intake and Output 02/19/17 02/19/17 02/20/17 15:00 23:00 07:00 Intake Total 100 ml Balance 100 ml JOY BOURNE MD Feb 19, 2017 09:24
--- NOTE | 2017-02-19 09:54 | PDOC ---
PROGRESS NOTES Subjective Subjective feels well. discussed with son. comfortable. lab reviewed,. inr 1.8. will start coumadin 1 mg daily with target inr 1.5. ready for dismissal to snf Objective Objective Vital Signs Date Time Temp Pulse Resp B/P (MAP) Pulse Ox O2 Delivery O2 Flow Rate FiO2 02/19/17 08:51 102 146/77 02/19/17 07:00 98.0 18 96 Room Air 98.0 02/18/17 19:35 2.0 Intake and Output 02/20/17 07:00 Intake Total 100 ml Balance 100 ml Intake Oral 100 ml Physical Exam Abdomen: Soft Heart: Normal S1, Normal S2 Extremities: No edema General: Alert HEENT: Atraumatic Lungs: Clear to auscultation Neuro: Normal speech Psych/Mental Status: Mood NL Skin: No rashes Assessment Assessment Problems1. ORIF right hip fracture acute blood loss anemia hemolytic anemia impaired cognitive disorder debility asymptomatic right pleural effusion. 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 Labs Laboratory Tests Test 02/18/17 06:00 02/19/17 04:20 White Blood Count 6.2 x10^3/uL (4.0-11.0) 7.5 x10^3/uL (4.0-11.0) Red Blood Count 2.89 x10^6/uL (3.50-5.40) 3.12 x10^6/uL (3.50-5.40) Hemoglobin 9.9 g/dL (12.0-15.5) 10.8 g/dL (12.0-15.5) Hematocrit 29.0 % (36.0-47.0) 32.0 % (36.0-47.0) Mean Corpuscular Volume 100 fL (79-100) 103 fL (79-100) Mean Corpuscular Hemoglobin 34 pg (25-35) 35 pg (25-35) Mean Corpuscular Hemoglobin Concent 34 g/dL (31-37) 34 g/dL (31-37) Red Cell Distribution Width 22.1 % (11.5-14.5) 22.6 % (11.5-14.5) Platelet Count 119 x10^3/uL (140-400) 151 x10^3/uL (140-400) Neutrophils (%) (Auto) 72 % (31-73) 71 % (31-73) Lymphocytes (%) (Auto) 13 % (24-48) 13 % (24-48) Monocytes (%) (Auto) 12 % (0-9) 12 % (0-9) Eosinophils (%) (Auto) 3 % (0-3) 3 % (0-3) Basophils (%) (Auto) 1 % (0-3) 1 % (0-3) Neutrophils # (Auto) 4.4 x10^3uL (1.8-7.7) 5.3 x10^3uL (1.8-7.7) Lymphocytes # (Auto) 0.8 x10^3/uL (1.0-4.8) 1.0 x10^3/uL (1.0-4.8) Monocytes # (Auto) 0.7 x10^3/uL (0.0-1.1) 0.9 x10^3/uL (0.0-1.1) Eosinophils # (Auto) 0.2 x10^3/uL (0.0-0.7) 0.2 x10^3/uL (0.0-0.7) Basophils # (Auto) 0.0 x10^3/uL (0.0-0.2) 0.1 x10^3/uL (0.0-0.2) Platelet Estimate Decreased (ADEQUATE) Polychromasia Slight Hypochromasia Slight Poikilocytosis Slight Anisocytosis Mod Schistocytes Few Reticulocyte Count (auto) 5.7 % (0.5-2.5) Prothrombin Time 23.4 SEC (11.7-14.0) 19.7 SEC (11.7-14.0) Prothromb Time International Ratio 2.2 (0.8-1.1) 1.8 (0.8-1.1) Sodium Level 141 mmol/L (136-145) 140 mmol/L (136-145) Potassium Level 3.6 mmol/L (3.5-5.1) 4.0 mmol/L (3.5-5.1) Chloride Level 109 mmol/L (98-107) 108 mmol/L (98-107) Carbon Dioxide Level 23 mmol/L (21-32) 22 mmol/L (21-32) Anion Gap 9 (6-14) 10 (6-14) Blood Urea Nitrogen 29 mg/dL (7-20) 28 mg/dL (7-20) Creatinine 1.3 mg/dL (0.6-1.0) 1.3 mg/dL (0.6-1.0) Estimated GFR (Cockcroft-Gault) 38.6 38.6 Glucose Level 84 mg/dL (70-99) 127 mg/dL (70-99) Calcium Level 8.2 mg/dL (8.5-10.1) 8.1 mg/dL (8.5-10.1) Total Bilirubin 2.2 mg/dL (0.2-1.0) Direct Bilirubin 1.2 mg/dL (0.0-0.2) Aspartate Amino Transf (AST/SGOT) 35 U/L (15-37) Alanine Aminotransferase (ALT/SGPT) 11 U/L (14-59) Alkaline Phosphatase 86 U/L (46-116) Lactate Dehydrogenase 371 U/L (81-234) Total Protein 5.8 g/dL (6.4-8.2) Albumin 2.5 g/dL (3.4-5.0) Laboratory Tests Test 02/19/17 04:20 White Blood Count 7.5 x10^3/uL (4.0-11.0) Red Blood Count 3.12 x10^6/uL (3.50-5.40) Hemoglobin 10.8 g/dL (12.0-15.5) Hematocrit 32.0 % (36.0-47.0) Mean Corpuscular Volume 103 fL (79-100) Mean Corpuscular Hemoglobin 35 pg (25-35) Mean Corpuscular Hemoglobin Concent 34 g/dL (31-37) Red Cell Distribution Width 22.6 % (11.5-14.5) Platelet Count 151 x10^3/uL (140-400) Neutrophils (%) (Auto) 71 % (31-73) Lymphocytes (%) (Auto) 13 % (24-48) Monocytes (%) (Auto) 12 % (0-9) Eosinophils (%) (Auto) 3 % (0-3) Basophils (%) (Auto) 1 % (0-3) Neutrophils # (Auto) 5.3 x10^3uL (1.8-7.7) Lymphocytes # (Auto) 1.0 x10^3/uL (1.0-4.8) Monocytes # (Auto) 0.9 x10^3/uL (0.0-1.1) Eosinophils # (Auto) 0.2 x10^3/uL (0.0-0.7) Basophils # (Auto) 0.1 x10^3/uL (0.0-0.2) Prothrombin Time 19.7 SEC (11.7-14.0) Prothromb Time International Ratio 1.8 (0.8-1.1) Sodium Level 140 mmol/L (136-145) Potassium Level 4.0 mmol/L (3.5-5.1) Chloride Level 108 mmol/L (98-107) Carbon Dioxide Level 22 mmol/L (21-32) Anion Gap 10 (6-14) Blood Urea Nitrogen 28 mg/dL (7-20) Creatinine 1.3 mg/dL (0.6-1.0) Estimated GFR (Cockcroft-Gault) 38.6 Glucose Level 127 mg/dL (70-99) Calcium Level 8.1 mg/dL (8.5-10.1) Microbiology 02/13/17 Urine Culture - Final, Complete 02/13/17 Urine Culture Result 1 ([place]) - Final, Complete Medications Current Medications Fentanyl Citrate (Fentanyl 2ml Vial) 25 mcg 1X ONCE IV Last administered on 08:13; Start 02/13/17 at 07:00; Stop 02/13/17 at 07:01; Status DC Fentanyl Citrate (Fentanyl 2ml Vial) 50 mcg PRN Q1HR PRN IV PAIN Last administered on 02/13/17 22:51; Start 02/13/17 at 07:45; Stop 02/14/17 at 07 :44; Status DC Sodium Chloride 1,000 ml @ 75 mls/hr 1X ONCE IV Last administered on 08:30; Start 02/13/17 at 07:45; Stop 02/13/17 at 10:26; Status DC Cefazolin Sodium/ Dextrose 50 ml @ 100 mls/hr 1X ONCE IV ; Start 02/13/17 at 10:15; Stop 02/13/17 at 10:44; Status Cancel Fentanyl Citrate (Fentanyl 2ml Vial) 25 mcg PRN Q4HRS PRN IV PAIN; Start 02/13 at 10:30; Stop 02/15/17 at 11:02; Status DC Acetaminophen (Tylenol) 650 mg PRN Q6HRS PRN PO MILD PAIN / TEMP; Start at 10:30 Pantoprazole Sodium (Protonix) 40 mg DAILYAC PO Last administered on 07:16; Start 02/13/17 at 11:30 Multivitamins/ Minerals (I-Rashaun) 1 tab DAILY PO Last administered on 08:48; Start 02/13/17 at 12:00 Levothyroxine Sodium (Synthroid) 75 mcg DAILY07 PO Last administered on 07:16; Start 02/13/17 at 10:30 Trazodone HCl (Desyrel) 50 mg QHS PO Last administered on 02/18/17 20:53; Start 02/13/17 at 21:00 Metoprolol Tartrate (Lopressor) 12.5 mg BID PO Last administered on 02/19/17 08:51; Start 02/13/17 at 11:00 Senna/Docusate Sodium (Senna Plus) 2 tab DAILY PO Last administered on 08:51; Start 02/13/17 at 11:00 Potassium Chloride/Dextrose/ Sod Cl 1,000 ml @ 60 mls/hr [id number] IV Last administered on 02/15/17 01:44; Start 02/13/17 at 12:00; Stop 02/15/17 at 08 :59; Status DC Pneumococcal Polyvalent Vaccine (Pneumovax 23) 0.5 ml ONCE ONCE VAX IM Last administered on 02/13/17 13:05; Start 02/13/17 at 12:00; Stop 02/13/17 at 12 :01; Status DC Influenza Virus Vaccine Quadrival (Fluarix Quad 1306-1235 Syringe) 0.5 ml ONCE ONCE VAX IM Last administered on 02/13/17 13:06; Start 02/13/17 at 12:00; Stop 02/13/17 at 12:01; Status DC Lorazepam (Ativan) 0.25 mg PRN QHS PRN PO ANXIETY / AGITATION Last administered on 02/18/17 20:45; Start 02/13/17 at 11:30 Cefazolin Sodium/ Dextrose 50 ml @ 100 mls/hr 1X PREOP PRN IV PRIOR TO SURGERY ; Start 02/13/17 at 12:30; Stop 02/17/17 at 12:22; Status DC Ondansetron HCl (Zofran) 4 mg PRN Q6HRS PRN IV NAUSEA/VOMITING; Start at 07:00; Stop 02/14/17 at 18:00; Status DC Fentanyl Citrate (Fentanyl 2ml Vial) 25 mcg PRN Q5MIN PRN IV MILD PAIN; Start 02/14/17 at 07:00; Stop 02/14/17 at 18:00; Status DC Fentanyl Citrate (Fentanyl 2ml Vial) 50 mcg PRN Q5MIN PRN IV MODERATE PAIN; Start 02/14/17 at 07:00; Stop 02/14/17 at 18:00; Status DC Ringer's Solution 1,000 ml @ 30 mls/hr Q24H IV ; Start 02/14/17 at 07:00; Stop 02/14/17 at 18:59; Status DC Lidocaine HCl (Xylocaine-Mpf 1% Vial) 2 ml PRN 1X PRN ID IV START; Start 02/14 at 07:00; Stop 02/14/17 at 18:00; Status DC Prochlorperazine Edisylate (Compazine) 5 mg PACU PRN PRN IV NAUSEA, MRX1; Start 02/14/17 at 07:00; Stop 02/14/17 at 18:00; Status DC Ferrous Sulfate (Feosol) 325 mg DAILYWSUP PO Last administered on 02/17/17 17 :18; Start 02/14/17 at 17:00 Lidocaine HCl 20 ml STSynageva [employer]-MED ONCE .ROUTE ; Start 02/14/17 at 09:30; Stop at 10:31; Status DC Bupivacaine HCl (Sensorcaine Mpf 0.5%) 30 ml STK-MED ONCE .ROUTE ; Start at 09:31; Stop 02/14/17 at 10:31; Status DC Sevoflurane (Ultane) 60 ml STK-MED ONCE IH ; Start 02/14/17 at 10:36; Stop 04/21 at 10:37; Status DC Fentanyl Citrate (Fentanyl 2ml Vial) 100 mcg STK-MED ONCE .ROUTE ; Start at 10:36; Stop 02/14/17 at 10:37; Status DC Propofol 20 ml @ As Directed STK-MED ONCE IV ; Start 02/14/17 at 10:36; Stop 02/14/17 at 10:37; Status DC Dexamethasone Sodium Phosphate (Decadron) 20 mg STK-MED ONCE .ROUTE ; Start 04/21 at 10:36; Stop 02/14/17 at 10:37; Status DC Lidocaine HCl (Lidocaine Pf 2% Vial) 5 ml STK-MED ONCE .ROUTE ; Start 02/14/17 at 10:36; Stop 02/14/17 at 10:37; Status DC Lidocaine HCl (Lidocaine Pf 2% Vial) 5 ml STK-MED ONCE .ROUTE ; Start 02/14/17 at 10:36; Stop 02/14/17 at 10:37; Status DC Phenylephrine HCl 1 mg STK-MED ONCE IV ; Start 02/14/17 at 10:36; Stop at 10:37; Status DC Ondansetron HCl (Zofran) 4 mg STK-MED ONCE .ROUTE ; Start 02/14/17 at 10:37; Stop 02/14/17 at 10:38; Status DC Ketorolac Tromethamine 30 mg/Ropivacaine 60 ml/Epinephrine HCl 0.5 mg/Sodium Chloride 99.5 ml @ 99.5 mls/hr 1X PERIOP ONCE INT ART Last administered on t 12:07; Start 02/14/17 at 11:30; Stop 02/14/17 at 12:29; Status DC Cefazolin Sodium 1 gm/Sodium Chloride 50 ml @ 100 mls/hr Q6H IV Last administered on 02/15/17t 05:41; Start 02/14/17 at 17:30; Stop 02/15/17 at 05 :59; Status DC Enoxaparin Sodium (Lovenox 30mg Syringe) 30 mg Q24H SQ ; Start 02/15/17 at 08: 00; Stop 02/15/17 at 08:18; Status DC Warfarin Sodium (Coumadin Per Pharmacy) 1 each PRN DAILY PRN MC SEE COMMENTS Last administered on 02/18/17 13:59; Start 02/15/17 at 08:15 Warfarin Sodium (Coumadin) 5 mg 1X ONCE PO Last administered on 02/15/17 16: 48; Start 02/15/17 at 16:00; Stop 02/15/17 at 16:01; Status DC Cefazolin Sodium/ Dextrose (Ancef 2gm Premix) 2 gm STK-MED ONCE IV ; Start 04/21 at 10:40; Stop 02/15/17 at 08:53; Status DC Vitamin D (Vitamin D3) 1,000 unit DAILY PO Last administered on 02/19/17 08: 47; Start 02/15/17 at 10:00 Tramadol HCl (Ultram) 25 mg PRN Q6HRS PRN PO MODERATE - SEVERE PAIN; Start at 11:00 Acetaminophen (Tylenol) 325 mg PRN QID PRN PO PAIN; Start 02/15/17 at 11:00; Stop 02/15/17 at 13:21; Status DC Ondansetron HCl (Zofran Odt) 4 mg PRN Q6HRS PRN PO NAUSEA/VOMITING; Start at 11:00 Acetaminophen (Tylenol) 325 mg QID PO Last administered on 02/19/17 08:48; Start 02/15/17 at 13:30 Sodium Chloride 1,000 ml @ 30 mls/hr Q24H IV Last administered on 02/18/17 04:41; Start 02/16/17 at 11:00; Stop 02/18/17 at 08:39; Status DC Warfarin Sodium (Coumadin - No Dose Today) 1 each 1X WARF ONCE MC ; Start at 16:00; Stop 02/16/17 at 16:01; Status DC Lactulose 20 gm BID PO Last administered on 02/17/17 11:07; Start 02/17/17 at 12:00; Stop 02/18/17 at 01:00; Status DC Polyethylene Glycol (miraLAX PACKET) 17 gm DAILY PO Last administered on 11:07; Start 02/17/17 at 11:00 Warfarin Sodium (Coumadin - No Dose Today) 1 each 1X WARF ONCE MC Last administered on 02/17/17 16:00; Start 02/17/17 at 16:00; Stop 02/17/17 at 16 :01; Status DC Potassium Chloride (Klor-Con) 20 meq 1X ONCE PO Last administered on 12:30; Start 02/18/17 at 08:45; Stop 02/18/17 at 08:46; Status DC Folic Acid (Folic Acid) 1 mg DAILY PO Last administered on 02/19/17 08:47; Start 02/18/17 at 10:00 Warfarin Sodium (Coumadin) 1 mg 1X WARF ONCE PO Last administered on 16:25; Start 02/18/17 at 16:00; Stop 02/18/17 at 16:01; Status DC Active Scripts Active Reported Lorazepam 0.5 Mg Tablet 0.5 Tab PO HS Ocuvite Eye + Multi Tablet (Mv-Mn/FA/Vit K/Lycop/Lut/Zeaxa) 1 Each Tablet 1 Each PO DAILY Levothyroxine Sodium 75 Mcg Tablet 1 Tab PO DAILY Pantoprazole Sodium 40 Mg Tablet.dr 40 Mg PO DAILY Trazodone Hcl 50 Mg Tablet 50 Mg PO HS Metoprolol Tartrate 25 Mg Tablet 12.5 Mg PO DAILY Tylenol (Acetaminophen) 325 Mg Tablet 2 Tab PO PRN Q4HRS PRN Vitals/I & O Vital Sign - Last 24 Hours 02/18/17 02/18/17 02/18/17 02/18/17 11:00 12:28 15:00 19:00 Temp 97.8 97.5 97.6 97.8 97.5 97.6 Pulse 79 79 86 104 Resp 18 18 24 B/P (MAP) 137/72 (93) 137/72 120/54 (76) 150/84 (106) Pulse Ox 100 97 97 O2 Delivery Nasal Cannula Nasal Cannula Room Air O2 Flow Rate 2.0 2.0 02/18/17 02/18/17 02/18/17 02/19/17 19:35 20:44 23:00 03:00 Temp 99.2 98.0 99.2 98.0 Pulse 103 95 80 Resp 20 20 B/P (MAP) 150/83 125/60 (81) 121/65 (83) Pulse Ox 95 96 O2 Delivery Nasal Cannula Room Air Room Air O2 Flow Rate 2.0 02/19/17 02/19/17 07:00 08:51 Temp 98.0 98.0 Pulse 102 102 Resp 18 B/P (MAP) 146/77 (100) 146/77 Pulse Ox 96 O2 Delivery Room Air Intake and Output 02/19/17 02/19/17 02/20/17 15:00 23:00 07:00 Intake Total 100 ml Balance 100 ml MIKI COLORADO MD Feb 19, 2017 09:54
--- NOTE | 2017-02-19 10:07 | PDOC ---
ORTHO PROGRESS NOTES Subjective Her son is with her. She tells me her tailbone hurts but denies any hip pain. Vitals Vital Signs Date Time Temp Pulse Resp B/P (MAP) Pulse Ox O2 Delivery O2 Flow Rate FiO2 02/19/17 08:51 102 146/77 02/19/17 07:00 98.0 18 96 Room Air 98.0 02/18/17 19:35 2.0 Labs Laboratory Tests Test 02/18/17 06:00 02/19/17 04:20 White Blood Count 6.2 x10^3/uL (4.0-11.0) 7.5 x10^3/uL (4.0-11.0) Red Blood Count 2.89 x10^6/uL (3.50-5.40) 3.12 x10^6/uL (3.50-5.40) Hemoglobin 9.9 g/dL (12.0-15.5) 10.8 g/dL (12.0-15.5) Hematocrit 29.0 % (36.0-47.0) 32.0 % (36.0-47.0) Mean Corpuscular Volume 100 fL (79-100) 103 fL (79-100) Mean Corpuscular Hemoglobin 34 pg (25-35) 35 pg (25-35) Mean Corpuscular Hemoglobin Concent 34 g/dL (31-37) 34 g/dL (31-37) Red Cell Distribution Width 22.1 % (11.5-14.5) 22.6 % (11.5-14.5) Platelet Count 119 x10^3/uL (140-400) 151 x10^3/uL (140-400) Neutrophils (%) (Auto) 72 % (31-73) 71 % (31-73) Lymphocytes (%) (Auto) 13 % (24-48) 13 % (24-48) Monocytes (%) (Auto) 12 % (0-9) 12 % (0-9) Eosinophils (%) (Auto) 3 % (0-3) 3 % (0-3) Basophils (%) (Auto) 1 % (0-3) 1 % (0-3) Neutrophils # (Auto) 4.4 x10^3uL (1.8-7.7) 5.3 x10^3uL (1.8-7.7) Lymphocytes # (Auto) 0.8 x10^3/uL (1.0-4.8) 1.0 x10^3/uL (1.0-4.8) Monocytes # (Auto) 0.7 x10^3/uL (0.0-1.1) 0.9 x10^3/uL (0.0-1.1) Eosinophils # (Auto) 0.2 x10^3/uL (0.0-0.7) 0.2 x10^3/uL (0.0-0.7) Basophils # (Auto) 0.0 x10^3/uL (0.0-0.2) 0.1 x10^3/uL (0.0-0.2) Platelet Estimate Decreased (ADEQUATE) Polychromasia Slight Hypochromasia Slight Poikilocytosis Slight Anisocytosis Mod Schistocytes Few Reticulocyte Count (auto) 5.7 % (0.5-2.5) Prothrombin Time 23.4 SEC (11.7-14.0) 19.7 SEC (11.7-14.0) Prothromb Time International Ratio 2.2 (0.8-1.1) 1.8 (0.8-1.1) Sodium Level 141 mmol/L (136-145) 140 mmol/L (136-145) Potassium Level 3.6 mmol/L (3.5-5.1) 4.0 mmol/L (3.5-5.1) Chloride Level 109 mmol/L (98-107) 108 mmol/L (98-107) Carbon Dioxide Level 23 mmol/L (21-32) 22 mmol/L (21-32) Anion Gap 9 (6-14) 10 (6-14) Blood Urea Nitrogen 29 mg/dL (7-20) 28 mg/dL (7-20) Creatinine 1.3 mg/dL (0.6-1.0) 1.3 mg/dL (0.6-1.0) Estimated GFR (Cockcroft-Gault) 38.6 38.6 Glucose Level 84 mg/dL (70-99) 127 mg/dL (70-99) Calcium Level 8.2 mg/dL (8.5-10.1) 8.1 mg/dL (8.5-10.1) Total Bilirubin 2.2 mg/dL (0.2-1.0) Direct Bilirubin 1.2 mg/dL (0.0-0.2) Aspartate Amino Transf (AST/SGOT) 35 U/L (15-37) Alanine Aminotransferase (ALT/SGPT) 11 U/L (14-59) Alkaline Phosphatase 86 U/L (46-116) Lactate Dehydrogenase 371 U/L (81-234) Total Protein 5.8 g/dL (6.4-8.2) Albumin 2.5 g/dL (3.4-5.0) Laboratory Tests Test 02/19/17 04:20 White Blood Count 7.5 x10^3/uL (4.0-11.0) Red Blood Count 3.12 x10^6/uL (3.50-5.40) Hemoglobin 10.8 g/dL (12.0-15.5) Hematocrit 32.0 % (36.0-47.0) Mean Corpuscular Volume 103 fL (79-100) Mean Corpuscular Hemoglobin 35 pg (25-35) Mean Corpuscular Hemoglobin Concent 34 g/dL (31-37) Red Cell Distribution Width 22.6 % (11.5-14.5) Platelet Count 151 x10^3/uL (140-400) Neutrophils (%) (Auto) 71 % (31-73) Lymphocytes (%) (Auto) 13 % (24-48) Monocytes (%) (Auto) 12 % (0-9) Eosinophils (%) (Auto) 3 % (0-3) Basophils (%) (Auto) 1 % (0-3) Neutrophils # (Auto) 5.3 x10^3uL (1.8-7.7) Lymphocytes # (Auto) 1.0 x10^3/uL (1.0-4.8) Monocytes # (Auto) 0.9 x10^3/uL (0.0-1.1) Eosinophils # (Auto) 0.2 x10^3/uL (0.0-0.7) Basophils # (Auto) 0.1 x10^3/uL (0.0-0.2) Prothrombin Time 19.7 SEC (11.7-14.0) Prothromb Time International Ratio 1.8 (0.8-1.1) Sodium Level 140 mmol/L (136-145) Potassium Level 4.0 mmol/L (3.5-5.1) Chloride Level 108 mmol/L (98-107) Carbon Dioxide Level 22 mmol/L (21-32) Anion Gap 10 (6-14) Blood Urea Nitrogen 28 mg/dL (7-20) Creatinine 1.3 mg/dL (0.6-1.0) Estimated GFR (Cockcroft-Gault) 38.6 Glucose Level 127 mg/dL (70-99) Calcium Level 8.1 mg/dL (8.5-10.1) Notes She is resting in bed. Her dressings are intact. She remains neurovascularly intact right lower extremity Assessment and Plan PT and OT as tolerated. Weight-bear as tolerated. Okay to transfer from my standpoint once medically stable. Follow-up 2-3 weeks VIJAY MEJIA II, MD Feb 19, 2017 10:07
[2017-02-19 11:00] VITALS: BP 158/81
[2017-02-19] MEDS ORDERED: WARFARIN 1 MG TABLET. PO SCH (16:00)
== END 2017-02-19 13:50 | DRG 480 ==
LOC: ER 06:42 → 4 NORTH 07:56
PROVIDERS: ADMIT Internal Medicine; ATTEND Internal Medicine
PROC: 30233N1 Transfusion of Nonautologous Red Blood Cells into Peripheral Vein, Percutaneous Approach (ICD-10-PCS; 2017-02-13)
PROC: 0QS606Z Reposition Right Upper Femur with Intramedullary Internal Fixation Device, Open Approach (ICD-10-PCS; principal; 2017-02-14 11:00)
DX: S72.141A Displaced intertrochanteric fracture of right femur, initial encounter for closed fracture (principal); G93.41 Metabolic encephalopathy; N17.9 Acute kidney failure, unspecified; D58.9 Hereditary hemolytic anemia, unspecified; I13.0 Hypertensive heart and chronic kidney disease with heart failure and stage 1 through stage 4 chronic kidney disease, or unspecified chronic kidney disease; D68.9 Coagulation defect, unspecified; S72.142A Displaced intertrochanteric fracture of left femur, initial encounter for closed fracture; I27.29 Other secondary pulmonary hypertension; I50.9 Heart failure, unspecified; D62 Acute posthemorrhagic anemia; N18.3 Chronic kidney disease, stage 3 (moderate); D63.8 Anemia in other chronic diseases classified elsewhere; E03.9 Hypothyroidism, unspecified; E78.00 Pure hypercholesterolemia, unspecified; E78.5 Hyperlipidemia, unspecified; E87.6 Hypokalemia; F03.90 Unspecified dementia, unspecified severity, without behavioral disturbance, psychotic disturbance, mood disturbance, and anxiety; F09 Unspecified mental disorder due to known physiological condition; H35.30 Unspecified macular degeneration; I48.0 Paroxysmal atrial fibrillation; J45.909 Unspecified asthma, uncomplicated; K21.0 Gastro-esophageal reflux disease with esophagitis; K59.00 Constipation, unspecified; K80.20 Calculus of gallbladder without cholecystitis without obstruction; W06.XXXA Fall from bed, initial encounter; Z85.828 Personal history of other malignant neoplasm of skin; Z86.73 Personal history of transient ischemic attack (TIA), and cerebral infarction without residual deficits; Z88.5 Allergy status to narcotic agent; Y93.89 Activity, other specified; Y92.89 Other specified places as the place of occurrence of the external cause; Y99.8 Other external cause status; K25.9 Gastric ulcer, unspecified as acute or chronic, without hemorrhage or perforation; I05.0 Rheumatic mitral stenosis
CPT/HCPCS: 36415; 51702; 70450; 71010; 73502; 76000; 76700; 80048; 80053; 80076; 81001; 82306; 82607; 82728; 82746; 83010; 83540; 83550; 83615; 83735; 83880; 84155; 84443; 84484; 85025; 85027; 85045; 85610; 86850; 86880; 86900; 86901; 86920; 87086; 87641; 90686; 90732; 93005; 93306; 96374; A4215; A4314; C1713; C1887; J0171; J0690; J1100; J1885; J2370; J2405; J2704; J2795; J3010; J3490; J7030; J7120; P9016; 97110; 97530; 99285-25; J2001